=== PATIENT | female | born 1985 | race Caucasian/White ===

== ENCOUNTER 2019-12-12 12:02 | Outpatient (CLI) | payer OTHER, SELFPAY ==
[2019-12-12 12:37] LABS: Lipase 294 U/L (23-300)
== END 2019-12-12 12:03 | disposition home or self-care (01) ==
PROVIDERS: Visit Provider Internal Medicine Gastroenterology
DX: R10.9 Unspecified abdominal pain (principal)
CPT/HCPCS: 36415; 83690

== ENCOUNTER 2020-06-18 08:01 | Outpatient (CLI) | payer OTHER, SELFPAY | END 2020-06-18 08:02 | disposition home or self-care (01) | PROVIDERS: PCP Nurse Practitioner; Visit Provider Internal Medicine Gastroenterology | DX: R19.7 Diarrhea, unspecified (principal); K51.90 Ulcerative colitis, unspecified, without complications | CPT/HCPCS: 87045; 87046; 87177; 87209; 87324; 87427; 87493; 89055 ==

== ENCOUNTER 2020-09-26 16:31 | Outpatient (CLI) | payer OTHER, SELFPAY | END 2020-09-26 16:32 | disposition home or self-care (01) | PROVIDERS: PCP Nurse Practitioner; Visit Provider Internal Medicine Gastroenterology | DX: R19.7 Diarrhea, unspecified (principal) | CPT/HCPCS: 87324 ==

== ENCOUNTER 2020-11-14 17:13 | Outpatient (CLI) | payer OTHER, SELFPAY ==
[2020-11-14 19:40] LABS: Hepatitis B Surface Antigen Negative (Negative)
[2020-11-17 23:48] LABS: NIL 0.01 IU/mL; Quantiferon TB Plus, 1T NEGATIVE (NEGATIVE); TB1-NIL 0.01 IU/mL
== END 2020-11-14 17:14 | disposition home or self-care (01) ==
LOC: ANHLAB 17:14
PROVIDERS: PCP Nurse Practitioner; Visit Provider Internal Medicine Gastroenterology
DX: K51.90 Ulcerative colitis, unspecified, without complications (principal)
CPT/HCPCS: 36415; 86480; 87340

== ENCOUNTER 2021-02-04 11:04 | Outpatient (CLI) | payer OTHER, SELFPAY | END 2021-02-04 11:05 | disposition home or self-care (01) | PROVIDERS: PCP Nurse Practitioner; Visit Provider Nurse Practitioner Family | DX: E66.9 Obesity, unspecified (principal); K51.90 Ulcerative colitis, unspecified, without complications | CPT/HCPCS: 87045; 87046; 87324; 87427 ==

== ENCOUNTER 2021-05-27 09:31 | Outpatient (CLI) | payer OTHER, SELFPAY | END 2021-05-27 09:32 | disposition home or self-care (01) | LOC: ANHLAB 09:33 | PROVIDERS: PCP Nurse Practitioner; Visit Provider Internal Medicine Gastroenterology | DX: R19.7 Diarrhea, unspecified (principal) | CPT/HCPCS: 87324 ==

== ENCOUNTER 2022-01-17 15:28 | Outpatient (CLI) | payer BC, SELFPAY | END 2022-01-17 15:29 | disposition home or self-care (01) | PROVIDERS: PCP Nurse Practitioner; Visit Provider Internal Medicine Gastroenterology | DX: K51.90 Ulcerative colitis, unspecified, without complications (principal) | CPT/HCPCS: 36415; 83520 ==

== ENCOUNTER 2022-03-10 12:16 | Outpatient (CLI) | payer BC, SELFPAY ==
--- NOTE | ~2022-03-10 | XR_ITS ---
XR sacroiliac joints min 3V DATE: 03/10/2022 12:52 INDICATION: Chronic bilateral hip pain and sacroiliac pain TECHNIQUE: AP and bilateral oblique views COMPARISON: None FINDINGS: Normal alignment at the pubic symphysis and sacroiliac joints. No erosive change or ankylos is or any significant degenerative change or fracture or dislocation at the sacroiliac joints. IMPRESSION: Negative Reviewed, dictated and finalized at Location [facility]. Reviewed, dictated and finalized at location A. IMPRESSION: Negative
--- NOTE | ~2022-03-10 | XR_ITS ---
XR lumbar spine min 4V 03/10/2022 12:52 Indication: Chronic back pain Procedure: 5 views of the cervical spine Comparison: No prior studies for comparison. Findings: There is mild disc narrowing at L5-S1. No fracture, subluxation or dislocation. There are l eft renal stones. No evidence for spondylolysis or spondylolisthesis. Sacral foramen are symmetric. M ild facet hypertrophy at L5-S1. Impression: 1: Mild lumbar spondylosis. 2: Left nephrolithiasis. Reviewed, dictated and finalized at location A. Impression: 1: Mild lumbar spondylosis. 2: Left nephrolithiasis.
--- NOTE | ~2022-03-10 | XR_ITS ---
XR_CERV2-3V_CR INDICATION: Neck pain for one year TECHNIQUE: 4 views of the cervical spine. FINDINGS: No prior studies for comparison. The cervical spine is visualized to the cervicothoracic junction. There is no prevertebral soft tiss ue swelling, listhesis, or loss of vertebral body height. Intervertebral disc spaces are normal. Th e osseous central canal is patent. No displaced cervical spine fractures are identified. IMPRESSION: 1. No acute osseous abnormality of the cervical spine. Reviewed, dictated and finalized at location A.
--- NOTE | ~2022-03-10 | XR_ITS ---
XR hand BI arthritis min 3V 03/10/2022 12:52 Indication: Bilateral hand pain Procedure: 4 views of each hand Comparison: No prior studies for comparison. Findings: There is anatomic alignment. No significant joint space narrowing. No erosive changes. No f racture, subluxation or dislocation. No focal soft tissue abnormality. No foreign bodies. Impression: 1: No significant bone or joint abnormality. Reviewed, dictated and finalized at location A. Impression: 1: No significant bone or joint abnormality.
[2022-03-10 13:14] LABS: Rheumatoid Factor < 8.6 IU/ML (<12)
[2022-03-10 13:15] LABS: Complement C3 108 mg/dL (88-165)
[2022-03-14 10:44] LABS: Anti Cyclic Citrullinated Pept <16 Units (<20)
[2022-03-14 20:20] LABS: SM Antibody <1.0; SM/RNP Antibody <1.0; SS-A <1.0; SS-B <1.0
== END 2022-03-10 12:17 | disposition home or self-care (01) ==
LOC: ANHLAB 12:18
PROVIDERS: PCP Nurse Practitioner; Visit Provider Internal Medicine
DX: M54.2 Cervicalgia (principal); R20.0 Anesthesia of skin; R76.8 Other specified abnormal immunological findings in serum; M19.90 Unspecified osteoarthritis, unspecified site; K51.90 Ulcerative colitis, unspecified, without complications; M47.816 Spondylosis without myelopathy or radiculopathy, lumbar region; N20.0 Calculus of kidney
CPT/HCPCS: 36415; 72040; 72110; 72202; 73130; 86160; 86200; 86225; 86235; 86430

== ENCOUNTER 2022-04-28 11:18 | Outpatient (CLI) | payer BC, SELFPAY ==
[2022-05-04 21:13] LABS: Calprotectin, Stool 347 mcg/g
== END 2022-04-28 11:19 | disposition home or self-care (01) ==
LOC: ANHLAB 11:19
PROVIDERS: PCP Nurse Practitioner; Visit Provider Internal Medicine Gastroenterology
DX: K51.90 Ulcerative colitis, unspecified, without complications (principal)
CPT/HCPCS: 83993

== ENCOUNTER 2023-02-06 17:33 | Outpatient (CLI) | payer OTHER, SELFPAY ==
[2023-02-06 19:07] LABS: Hepatitis B Surface Antigen Negative (Negative)
[2023-02-08 13:08] LABS: NIL 0.11 IU/mL; Quantiferon TB Plus, 1T NEGATIVE (NEGATIVE); TB1-NIL 0.01 IU/mL; TB2-NIL <0.00 IU/mL
== END 2023-02-06 17:34 | disposition home or self-care (01) ==
PROVIDERS: PCP Nurse Practitioner; Visit Provider Internal Medicine Gastroenterology
DX: K51.90 Ulcerative colitis, unspecified, without complications (principal)
CPT/HCPCS: 36415; 86480; 87340

== ENCOUNTER 2023-09-16 17:01 | Emergency (ER) | payer OTHER, SELFPAY ==
--- NOTE | 2023-09-16 17:10 | ED.URI ---
HPI - URI/Sore Throat General Chief Complaint: Upper Respiratory Infection Stated Complaint: Sore Throat/Right Ear Irritation Time Seen by Provider: 09/16/23 17:10 Source: patient Mode of arrival: ambulatory Limitations: no limitations History of Present Illness HPI Narrative: Eveline is a 38-year-old female patient presenting to the clinic today with complaints of sore throat and right ear pain. She reports she has been having nasal congestion for over the past week. States that sore throat and right ear pain started today. Had fever over the weekend. MD elicited complaint: sore throat and nasal congestion Related Data Home Medications Medication Instructions Recorded Confirmed loperamide 2 mg capsule (Imodium 2 mg PO Q6H PRN Diarrhea 10/28/20 09/16/23 A-D) labetalol 100 mg tablet 200 mg PO BID 10/31/20 09/16/23 mecobalamin (vitamin B12) 10,000 10,000 mcg IM MONTHLY 03/21/22 09/16/23 mcg solution for injection prenat.vits,marleny,dgd-rwpr-ywckf 1 tablet PO DAILY 05/09/22 09/16/23 sertraline 25 mg tablet (Zoloft) 25 mg PO DAILY 10/24/22 09/16/23 Allergies Allergy/AdvReac Type Severity Reaction Status Date / Time bacitracin Allergy Intermediate RASH Verified 08/28/23 13:34 neomycin Allergy Intermediate RASH Verified 08/28/23 13:34 nut - unspecified Allergy Intermediate RASH, HIVES Verified 08/28/23 13:34 polymyxin B Allergy Intermediate RASH Verified 08/28/23 13:34 NEOMYCIN Allergy Intermediate RASH Uncoded 08/28/23 13:34 Review of Systems Review of Systems: Pertinent positives per HPI. Patient denies any fever, chills, rash, headache, visual changes, dizziness, cough, shortness of breath, chest pain, palpitations, nausea, vomiting, diarrhea, constipation, abdominal pain, or any urinary issues. PMFSH Past Medical History Medical History EVANGELINA positive Asthma Eczema Irregular bowel habits Kidney stones Numbness in both hands Obesity Paresthesia and pain of both upper extremities Surgical History Surgical History H/O cystoscopy Hx of tonsillectomy Social History Social History Smoking status: Never smoker Alcohol intake: current Substance use: never Living arrangements: with family Occupation/Education: occupation Comments At the time of my signature, I reviewed and agree with the nursing past medical, surgical, social, and family history. There is no relevant family history pertinent to the patient complaint. Exam Narrative: General: Well-developed, well nourished, in no apparent distress Head: Normocephalic, atraumatic Eyes: Pupils equally round and reactive to light bilaterally, EOM intact, sclera and conjunctive clear, no discharge, lids normal Ears: Left tMs intact and clear, right TM intact, bulging, red, ear canals clear, no drainage, grossly hearing normal. Nose: Nares patent, clear nasal discharge, no inflammation, no sinus tenderness. Mouth: Oral pharynx red without lesions or masses, good dentition, MMM. Tonsils surgically absent Neck: Supple, trachea midline, no enlargement of anterior or posterior cervical nodes, no thyroid masses or goiter palpable. Cardio: Regular rate and rhythm, s1 and s2 normal, no murmur appreciated. Resp: Clear to auscultation bilaterally, no rhonchi, rales, wheezing or rubs Course Course Emergency Course: Portions of this record may have been created with voice recognition software. Level of Care: Express Care Visit Vital Signs Vital signs: Vital signs reviewed MDM - URI/Sore Throat MDM Narrative Medical decision making narrative: At the time of visit patient is resting comfortably on the exam table. Strep test was obtained and negative. Prescription for amoxicillin and prednisone was sent to the pharmacy as patient does have right otitis media. Supportive m
[2023-09-16 17:14] VITALS: BP 152/94; PULSE 113; RESP 18; TEMP 37.6; O2SAT 100
== END 2023-09-16 17:53 | disposition home or self-care (01) ==
PROVIDERS: Emergency Provider Nurse Practitioner Family; PCP Nurse Practitioner
DX: H66.91 Otitis media, unspecified, right ear (principal); J02.9 Acute pharyngitis, unspecified; J06.9 Acute upper respiratory infection, unspecified; J45.909 Unspecified asthma, uncomplicated; E66.9 Obesity, unspecified; Z68.41 Body mass index [BMI] 40.0-44.9, adult
CPT/HCPCS: 87081; 87880; 99213; G0463

== ENCOUNTER 2024-11-14 13:11 | Outpatient (CLI) | payer OTHER, SELFPAY ==
--- OUTSIDE RECORDS SUMMARY | 2024-11-14 13:15 | XMS_ITS | Encounter Summary ---
Author Organization [facility] Address [address] [place] [address]. [place] [address] [place] [address] Care Team Providers Care Aerodynamic Consultant Name Role Phone Krystle Arvizu DOUGLAS Primary Care Provider [phone] Encounter Details Date Type Department Care Team (Late st Contact Info) Description 12/26/2022 Hospital Follow-up Call [facility] [place] [address] Marla La, RN Social History Tobacco Use Types Packs/Day Years Used Date Smoking Tobacco: Former Smokeless Tobacco: Never Alcohol Use Standard Drinks/Week Comments Not Currently 0 (1 standard drink = 0.6 oz pur e alcohol) social Humiliation, Afraid, Rape, and Kick questionnair e Answer Date Recorded Within the last year, have y ou been afraid of your partner or ex-partner? No 12/19/2022 Within the last year, have y ou been humiliated or emotionally abused in other ways by your partner or ex-partner? No Within the last year, have y ou been kicked, hit, slapped, or otherwise physically hurt by your partner or ex-partner? No 12/19/2022 Within the last year, have y ou been raped or forced to have any kind of sexual activity by your partner or ex-partner? No 12/19/2022 Social Connection and Isolat ion Panel [NHANES] Answer Date Recorded In a typical week, how many times do you talk on the phone with family, friends, or neighbors? More than three times a week 12/19/2022 How often do you get togethe r with friends or relatives? Three times a week 12/19/2022 How often do you attend chur ch or islam services? Never 12/19/2022 Do you belong to any clubs o r organizations such as quaker groups, unions, fraternal or athletic groups, or school groups? No 12/19/2022 How often do you attend meet ings of the clubs or organizations you belong to? Never 12/19/2022 Are you , , di vorced, , never , or living with a partner? 12/19/2022 AUDIT-C Answer Date Recorded Q1: How often do you have a drink containing alc ohol? Monthly or less 12/19/2022 Q2: How many drinks containi ng alcohol do you have on a typical day when you are drinking? 1 or 2 12/19/2022 Q3: How often do you have si x or more drinks on one occasion? Never 12/19/2022 Overall Financial Resource Strain (CARDIA) Answe r Date Recorded How hard is it for you to pa y for the very basics like food, housing, medical care, and heating? Not very hard 12/19/2022 PHQ-2 Answer Date Recorded Patient Health Questionnaire-2 Score 3 10/10/2022 [facility] - Occupational Stress Questionnaire Answer Date Recorded Do you feel stress - tense, restless, nervous, or anxious, or unable to sleep at night because your mind is troubled all the time - these days? To some extent 12/19/2022 Exercise Vital Sign Answer Date Recorde d On average, how many days pe r week do you engage in moderate to strenuous exercise (like a brisk walk)? 3 days 12/19/2022 On average, how many minutes do you engage in exercise at this level? 10 min 12/19/2022 Hunger Vital Sign Answer Date Recorded Within the past 12 months, y ou worried that your food would run out before you got the money to buy more. Never true 12/20/19 23 Within the past 12 months, t he food you bought just didn't last and you didn't have money to get more. Never true 12/19/2022 PRAPARE - Transportation Answer Date Re corded In the past 12 months, has l ack of transportation kept you from medical appointments or from getting medications? No 05/2023 In the past 12 months, has l ack of transportation kept you from meetings, work, or from getting things needed for daily living? No 12/19/2022 Housing Stability Vital Sign Answer Geovanni e Recorded In the last 12 months, was t here a time when you were not able to pay the mortgage or rent on time? No 12/19/2022 In the last 12 months, how many places have you lived? 1 12/19/2022 In the last 12 months, was t here a time when you did not have a steady place to sleep or slept in a senior care (including now)? No 12/19/2022 Depression Answer Date Recor ded Last EPDS Total Score 8 12/24/2022 Last EPDS Self Harm Result 12/24 Comments No Sex and Gender Information Value Date Recorded Sex Assigned at Female 05/25/2019 10:09 PM CDT Legal Sex Female 5:43 PM CDT Gender Identity Female 05/25/2019 10:09 PM CDT Sexual Orientation Straight 05/25/2019 10 :09 PM CDT COVID-19 Exposure Response Date Recorded In the last 10 days, have yo u been in contact with someone who was confirmed or suspected to have Coronavirus/COVID-19? No / Unsure 12/23/2022 9:24 PM CDT documented as of this encounter Functional Status * Are you deaf or do you have serious difficulty hearing Answer Date of Assessment Author Status No 12/19/2022 2:03 AM Kelly Dunn RN Active * Are you blind or do you have serious difficulty seeing, even when wearing glasses? Answer Date of Assessment Author Status No 12/19/2022 2:03 AM Kelly Dunn RN Active * Do you have serious difficulty walking or climbing stairs? Answer Date of Assessment Author Status No 12/19/2022 2:03 AM Kelly Dunn RN Active * Do you have difficulty dressing or bathing? Answer Date of Assessment Author Status No 12/19/2022 2:03 AM Kelly Dunn RN Active * Because of a physical, mental, or emotional condition, do you have difficulty doing errands alone such as visiting a doctor's office or shopping? Answer Date of Assessment Author Status No 12/19/2022 2:03 AM Kelly Dunn RN Active documented as of this encounter Mental Status * Because of a physical, mental, or emotional condition, do you have serious difficulty concentrating, remembering, or making decisions? Answer Entry Date Author Status No 12/19/2022 2:03 AM Kelly Dunn RN Active documented in this encounter Plan of Treatment Upcoming Encounters Date Type Department Care Team (Late st Contact Info) Description 12/03/2024 1:20 PM CLEANING CREW MEMBER Telemedicine [facility] Family Medicine - [place] [address] [place] [id number] Krystle Arvizu NP [address] [place] [address] documented as of this encounter Goals Goal Patient Goal Type Associated Problems Recent Progress Patient-Stated? Author Family - family caregiver with be involved in care transitions and discharge planning General No Amanda Gifford, MANAGER COMMERCIAL REAL ESTATE documented as of this encounter Visit Diagnoses Not on filedocumented in this encounter Additional Health Concerns Infection Onset Date Last Indicated Resolved Time MRSA Comment:04/18/21 +MRSA Right Groin 04/19/2021 04/19/2021 Assessment Noted Time PHQ-9 Depression Total Score: 4 10/10/20 22 1:36 PM CLEANING CREW MEMBER documented as of this encounter Care Teams Aerodynamic Consultant Relationship Specialty Start Date End Date Krystle Arvizu NP [address] [place] [address] PCP - General NURSE PRACTITIONER 05/11/19 documented as of this encounter
--- OUTSIDE RECORDS SUMMARY | 2024-11-14 13:15 | XMS_ITS | Encounter Summary ---
Author Organization [facility] Address [address] [place] [address]. [place], [place] [id number] [place] [address] Care Team Providers Care Volunteer Fire Fighter Name Role Phone LuhKrystle paul DOUGLAS Primary Care Provider [phone] Encounter Details Date Type Department Care Team (Late st Contact Info) Description 04/10/2023 Simplebooklet Message Enc [facility] - [facility] [address] [place], [place] [address] [employer], [facility] Provider Air Quality Message Social History Tobacco Use Types Packs/Day Years [...] often do you attend chur ch or religion services? Never 12/19/2022 Do you belong to any clubs o r organizations such as holiness groups, unions, fraternal or athletic groups, or [...] Recorded Patient Health Questionnaire-2 Score 3 10/10/2022 [facility] - Occupational Stress Questionnaire Answer Date Recorded [...] place to sleep or slept in a assisted (including now)? No 12/19/2022 Depression Answer Date Recor ded Last EPDS Total Score 8 12/24/2022 Last EPDS Self Harm Result 12/24 Comments No Sex and Gender Information Value Date Recorded Sex Assigned at Female 05/25/2019 10:09 PM CDT Legal Sex Female 5:43 PM CDT Gender Identity Female 05/25/2019 10:09 PM CDT Sexual Orientation Straight 05/25/2019 10 :09 PM CDT documented as of this encounter [...] Date Author Status No 12/19/2022 2:03 AM KEYBOARD OPERATOR Kelly Kuhn RN Active documented in this encounter Plan of Treatment Upcoming Encounters Date Type Department Care Team (Late st Contact Info) Description 12/03/2024 1:20 PM KEYBOARD OPERATOR Telemedicine [facility] Family Medicine - [place] [address] [place] [phone] Krystle Arvizu NP [address] [place] [address] documented as of this encounter Goals Goal Patient Goal Type Associated Problems Recent Progress Patient-Stated? Author Family - family caregiver with be involved in care transitions and discharge planning General No Amanda Gifford, BUSINESS EXCELLENCE LEADER documented as of this encounter Visit Diagnoses Not on filedocumented in this encounter Additional Health Concerns Infection Onset Date Last Indicated Resolved Time MRSA Comment:04/18/21 +MRSA Right Groin 04/19/2021 04/19/2021 Assessment Noted Time PHQ-9 Depression Total Score: 4 10/10/20 22 1:36 PM KEYBOARD OPERATOR documented as of this encounter Care Teams Volunteer Fire Fighter Relationship Specialty Start Date End Date Krystle Arvizu NP [address] [place] [address] PCP - General NURSE PRACTITIONER 05/11/19 documented as of this encounter
--- OUTSIDE RECORDS SUMMARY | 2024-11-14 13:15 | XMS_ITS | CONTINUITY OF CARE DOCUMENT ---
Author Name kedar octaviokervin Address Unknown Organization [facility] Address [address] [place] [address] [address] [place] [address] Phone [phone] Care Team Providers Care Shelf Drier Operator Name Role Phone Wilian Newman MD Unavailable [phone] ZECHARIAH ZIEGLER MD Unavailable [phone] ZECHARIAH ZIEGLER MD Unavailable [phone] PROBLEMS Condition Status Date Provider Notes Vitamin D deficiency active Wilian Kruse Hypertension active Wilian Newman MD Colitis;uclerative active Wilian Newman MD Health maintenance examination active Abby Newman MD Obesity active Wilian Newman MD Asthma active Wilian Newman MD Anemia, iron deficiency active Wilian burdick MD Hyperlipidemia active Wilian Newman MD ENCOUNTERS Date Type Provider Location Encounter Diag nosis - In-person encounter Office Visit Wilian Newman MD [facility] - In-person encounter Office Visit Wilian Newman MD [facility] Health maintenance examinationHyperlipidemia - In-person encounter Office Visit Wilian Newman MD [facility]Col[facility] maintenance examinationObesityAsthmaAnemia, iron deficiency VITAL SIGNS Date Observation Value Provider Body Mass Index (Ratio) 40.47 kg/m2 Manuelito Washington COPY PREPARER blood pressure, diastolic 72 mm[Hg] Sh inocencia Washington COPY PREPARER blood pressure, systolic 130 mm[Hg] She rrsilvestre [place] COPY PREPARER weight E&M 200.4 [lb_av] Libia Alcantarall COPY PREPARER Body Mass Index (Ratio) 39.58 kg/m2 Krista Newman MD blood pressure, diastolic 90 mm[Hg] Da eliud Hyun blood pressure, systolic 152 mm[Hg] Dac ia Hyun oxygen saturation, oximetry 98 % Ciara Hyun respiratory rate E&M 16 /min Ciara V oss pulse rate 63 /min Ciara Hyun weight E&M 196 [lb_av] Ciara Hyun height E&M 59 [in_i] Ciara Hyun Body Mass Index (Ratio) 39.58 kg/m2 Krista Newman MD blood pressure, resting Yes Regina Salgado Edison blood pressure, diastolic 116 mm[Hg] Earl Chauhandaisy Hogan blood pressure, systolic 160 mm[Hg] Amanda Saucedoluisito Hogan oxygen saturation, oximetry 96 % Louie Hogan respiratory rate E&M 18 /min Rula Hogan pulse rate 96 /min Louie stanley weight E&M 196.0 [lb_av] Louie leiva height E&M 59 [in_i] Louie stanley ALLERGIES Allergy Name Onset Date Reaction Criticality Status NEOMYCIN High Criticality active RESULTS Date Observation Value Provider Reference Range Interpretation Location 5 reticulocyte count, blood, uncorrected 1.1 % [facility] 0.5-2.0 5 thyroid stimulating hormone, serum 1.51 ?IU/ ML [facility] 0.27-4.20 5 pro brain natriuretic peptide 62 pg/mL [facility] 0-450 5 very low density lipoproteins 30.8 mg/dL [facility] 5.0-40.0 5 LDL/HDL (low-density lipoprotein/high-den sity lipoprotein) ratio 3 mg/dL [facility] 0-5 lipoprotein, beta, serum, point, quantitative, calculated 131 mg/dL [facility] 0-100 High HDL cholesterol, serum 44 mg/dL [facility] 45-65 Low cholesterol, serum 206 mg/dL [facility] 0-200 High triglyceride, serum, fasting 154 mg/dL [facility] 0-150 High iron, serum 67 ug/dL [facility] 25-156 ferritin, serum 29 ng/mL [facility] 13-150 Estimated Glomerular Filtration Rate (calc) 86 (?) [facility] >59 chloride, serum 105 mmol/L [facility] 98-107 potassium, serum 4.3 mmol/L [facility] 3.5-5.1 sodium, serum 142 mmol/L [facility] [phone]/09/1 creatinine, serum 0.8 mg/dL [facility] 0.5-0.9 carbon dioxide, venous blood 21 mmol/L [facility] 22-29 Low albumin, serum 4.7 g/dL [facility] 3.5-5.2 calcium, serum 10.1 mg/dL [facility] 8.6-10.2 aspartate aminotransferase (SGOT), serum 15 1/L [facility] 0-32 alkaline phosphatase, serum 77 1/L [facility] 40-130 alanine aminotransferase (SGPT), serum 16 1/L [facility] 0-33 protein, total, serum 7.6 g/dL [facility] 6.6-8.7 bilirubin, serum, total 0.6 mg/dL [facility] 0.0-1.2 urea nitrogen, blood 8 mg/dL [facility] 6-20 blood glucose, random 79 mg/dL [facility] 74-99 platelet count 351 THOUSAND/ UL [facility] [phone]/09/1 5 Absolute Basophils 0.0 CELLS/UL [facility] 0.0-0.2 5 Absolute Monocytes 0.7 CELLS/UL [facility] 0.2-1.0 5 Absolute Lymphocytes 0.95 CELLS/UL [facility] 0.85-3.90 5 Absolute Neutrophils 6.7 CELLS/UL [facility] 1.5-7.8 5 mean corpuscular volume, RBC 95 fL [facility] 75-100 5 mean corpuscular hemoglobin concentration, RBC 32 G/DL [facility] 31-38 5 mean corpuscular hemoglobin, RBC 30 pg [facility] 25-35 5 hematocrit, blood 44 % [facility] 35-55 5 hemoglobin, blood 14.0 g/dL [facility] 11.5-16.5 5 erythrocyte count, whole blood 4.7 MILLION/U L [facility] 3.5-5.5 HISTORY OF MEDICATION USE Medication Status Instructions Dates Provider Indications Com ments HYDROCHLOROTHIAZIDE 25 MG ORAL TABLET active ONE TAB DAILY Wilian Newman MD ZANTAC 150 MAXIMUM STRENGTH TABLET active take one tablet daily Ciara Purvis VITAMIN D3 51206 UNIT ORAL TABLET active TAKE ONE TAB BY MOUTH WEEKLY Wilian Newman MD let her know vit ids low MULTIVITAMINS ORAL CAPSULE active ONE TAB. DAILY Louie Hogan FE TABS 325 (65 Fe) MG ORAL TABLET DELAYED RELEASE active ONE TABLET 3 times daily Louie Hogan SULFASALAZINE 500 MG ORAL TABLET active 4 tabs twice daily Louie Hogan LABETALOL HCL 200 MG ORAL TABLET active twice a day Libia Washington NP SOCIAL HISTORY Date Observation Value Provider smoking status Never smoker Libia cobian NP social history E&M S moking History: Tyrone healy has never smoked. Wilian Newman MD social history reviewed E&M revi ewed - no changes required Wilian Newman MD smoking status Never smoker Ciara Purvis social history E&M S moking History: Tyrone healy has never smoked. Wilian Newman MD social history reviewed E&M revi ewed - no changes required Wilian Newman MD smoking status Never smoker Louie Foster FAMILY HISTORY Family Member Condition Mother Family History of Hy pertension: INSURANCE PROVIDERS Payer name Policy type / Coverage type [place] [employer] party ID [employer] PPO Other [id number] ADVANCE DIRECTIVES Name Date DISCUSSED - NO DECISION MADE TREATMENT PLAN Date Name Performer Cardiology - COPY PREPARER nikolas judit:BP has improved with addition of HCTZ. She will continue current meds and efforts at low sodium diet and weight reduction. She will montior BP weekly or if she is feely bad. If BP increases she will call, otherwise she will keep annual appt with Dr. Newman. H er updated medication list for this problem includes: Hydrochlorothiazide 25 Mg Tabs (Hydrochlorothiazide) ..... One tab daily Labetalol Hcl 200 Mg Oral Tabs (Labetalol hcl) ..... Twice a day Libia Washington NP Cardiology follow up :will try hctz H er updated medication list for this problem includes: Hydrochlorothiazide 25 Mg Tabs (Hydrochlorothiazide) ..... One tab daily Labetalol Hcl 200 Mg Oral Tabs (Labetalol hcl) ..... Twice a day Wilian Newman MD Cardiology follow up :nml sleep test and tsh and pro bnp and echo, says b12 ok, says folate ok too Wilian Newman MD Cardiology follow up :on pills, infuskon not covered by insurance Wilian Newman MD Cardiology follow up:neg pft Rigoberto Newman MD Cardiology:suggseted iron infusi on with her heme md Wilian Newman MD Cardiology:not ready for srugery metnally Wilian Newman MD Cardiology:mult sx will dowd Abby Newman MD Cardiology:will incrae rx Wilian Newman MD Date Name RETICULOCYTE COUNT FERRITIN IRON, TOTAL CBC (INCLUDES DIFF/P LT) VITAMIN D, 25-HYDROX Y, LC/MS/MS TSH, 3RD GENERATION W/REFLEX TO FT4 COMPREHENSIVE METABO LIC PANEL, W/EGFR PROBNP, N TERMINAL LIPID PANEL DLCO - 43945 FRC - 68541 FVC - 93968 LIPID PANEL THYROID PANEL WITH T SH, 3RD GENERATION PROBNP, N TERMINAL COMPREHENSIVE METABO LIC PANEL, W/EGFR VITAMIN D, 25-HYDROX Y, LC/MS/MS Sleep Study Home Complete Echo HISTORY OF PROCEDURES Procedure Date Procedure Name Provider Procedure Notes S tatus SNOMED-CT: 977570506 [id number] Current Medications Documented Wilian Newman MD completed FVC / MVV - 76556 Wilian Newman MD c ompleted FRC - 30019 Wilian Newman MD complet ed SpO2 - 31580 Wilian Newman MD comple prachi DLCO - 82104 Wilian Newman MD comple prachi EKG Wilian Newman MD complete d SNOMED-CT: [id number] Current Medications Documented Wilian Newman MD completed
--- OUTSIDE RECORDS SUMMARY | 2024-11-14 13:15 | XMS_ITS | Encounter Summary ---
Author Organization [facility] Address [address] [place] [address]. [place] [address] [place] [address] Care Team Providers Care Student Services Director Name Role Phone Krystle Arvizu DOUGLAS Primary Care Provider [phone] Encounter Details Date Type Department Care Team (Late st Contact Info) Description 12/26/2022 Hospital Follow-up Call [facility] [place] [address] Marla La, RN Social History [...] often do you attend chur ch or jain services? Never 12/19/2022 Do you belong to any clubs o r organizations such as taoism groups, unions, fraternal or athletic groups, or [...] Recorded Patient Health Questionnaire-2 Score 3 10/10/2022 [facility] - Occupational Stress [...] place to sleep or slept in a [facility] (including now)? 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 - [place] [address] [place] [id number] Krystle Arvizu NP [address] [place] [address] documented as of this encounter Goals Goal Patient Goal Type Associated Problems Recent Progress Patient-Stated? 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
--- OUTSIDE RECORDS SUMMARY | 2024-11-14 13:15 | XMS_ITS | Encounter Summary ---
Author Organization [facility] Address [address] [facility] [place] [address] Care Team Providers Care Junior Administrative Assistant Name Role Phone Vernon Mccormack MD Primary Care Provider [phone] Encounter Details Date Type Department Care Team (Late st Contact Info) Description 05/05/2022 Lab Requisition [facility] [address] [facility] [place] [address] Nino Leone MD [address] [facility] [address] [place] [address] Social History Tobacco Use Types Packs/Day Years Used Date Smoking Tobacco: Never Assessed Sex and Gender Information Value Date Recorded Sex Assigned at Not on file Gender Identity Not on file Sexual Orientation Not on file documented as of this encounter Plan of Treatment Not on file documented as of this encounter Procedures Procedure Name Priority Date/Time Associated Diagnosis Comments DERMATOPATHOLOGY Routine 05/03/2022 3:33 AM CDT documented in this encounter Results * DERMATOPATHOLOGY (05/03/2022 3:33 AM CDT) Case Report Dermatopathology Report ? Case: [id number] ? Authorizing Provider: ??Nino Leone MD ?Collected: ? 05/03/2022 03:33 AM ? Ordering Location: ? [facility] ?Received: ?05/05/2022 10:01 AM ? Pathologist: ? Bailee Sanders MD ? Specimen: ?Skin, glabella ? 2 3:01 PM CDT DERMATOPATHOLOGY LABORATORY Final Diagnosis Specimen A. 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 Path# [id number] 2 3:01 PM CDT DERMATOPATHOLOGY LABORATORY Gross Description Specimen A: Received is one formalin filled container labeled with the patient's name and designated glabella. The specimen consists of a shave biopsy measuring 42u9x4mi and it is bisected. Jar 0. 2 3:01 PM CDT DERMATOPATHOLOGY LABORATORY Microscopic Description Specimen A. SKIN, glabella: There are nests of cytologically bland melanocytes within the dermis that mature with depth. Within the dermis, there is a space lined by epithelium that resembles normal epidermis and the infundibular portion of the hair follicle. Surrounding this is an infiltrate with neutrophils, histiocytes, and multinucleated giant cells. The epidermis is focally necrotic and covered with a scale-crust. There is fibrin at the base. 2 3:01 PM CDT DERMATOPATHOLOGY LABORATORY Disclaimer An external and internal positive and negative controls are appropriate for the histochemical, immunohistochemical and immunofluorescence stain(s) in this case (if any), except where stated explicitly. The performance characteristics of the stain(s) cited in this report were developed and its performance characteristic determined by the Dermatopathology Laboratory at [facility], directed by Dr. Bar La. These tests need not be, and therefore are not, approved by the [place] Food and Drug Administration. The tests are used for clinical purposes. Billing Codes Specimen Charges Stain Charges 52782 1 2 3:01 PM CDT DERMATOPATHOLOGY LABORATORY Embedded Images 2 3:01 PM CDT DERMATOPATHOLOGY LABORATORY Pathology/Cytolo gy TISSUE SPECIMEN FROM SKIN / Unknown 05/03/2022 3:33 AM CDT 05/05/2022 10:01 AM CDT Nino Leone MD LAB - PATHOLOGY/CYTO LOGY ORDERABLES DERMATOPATHOLOGY LABORATORY [facility] Department of Dermatology [address] [phone] documented in this encounter Visit Diagnoses Not on filedocumented in this encounter Care Teams Junior Administrative Assistant Relationship Specialty Start Date End Date Vernon Mccormack MD [address] [place] [address] [address] [place] [address] PCP - General 02/06/18 documented as of this encounter
--- OUTSIDE RECORDS SUMMARY | 2024-11-14 13:15 | XMS_ITS | Patient Health Summary ---
Author Organization [facility] Address [address] [place] [address] Care Team Providers Care Dish Washer Name Role Phone Vernon Mccormack MD Primary Care Provider [phone] Note from [facility],non-owned Affiliates and Associated Physician Practices is amultiple site organization consisting of ambulatory clinics and hospital sitesin [place], [place], [place] and [place]. This disclosure is being madepursuant to the Care Everywhere program and may not contain all information available regarding this patient. Last updated 18.[facility] Allergies * Neomycin(Rash) -Medium Criticality * Peanut-Derived(Rash) -Medium Criticality Medications * Be aware that medications may not be up to date on this document. Alwaysverify current medications with the patient. * Famotidine (PEPCID PO) * SULFASALAZINE PO * Acetaminophen 325 MG CAPS * ferrous sulfate 325 (65 FE) MG tablet(Started 12/23/2017) TAKE 1 TABLET BY MOUTH THREE TIMES DAILY * lisinopril (PRINIVIL; ZESTRIL) 10 MG tablet Take 10 mg by mouth * raNITIdine (ZANTAC) 150 MG tablet Take 150 mg by mouth * senna-docusate (SENOKOT-S) 8.6-50 MG tablet(Started 04/08/2017) Take 2 tablets by mouth * omeprazole (PriLOSEC) 20 MG capsule Take 20 mg by mouth daily before breakfast * aspirin EC (Ecotrin) 81 MG tablet Take 81 mg by mouth once daily * calcium polycarbophil (Fibercon) 625 MG tablet Take by mouth at bedtime * Vit-DSS-Fe Fum-FA ( vitamin with iron) tablet Take 1 tablet by mouth once daily * ferrous sulfate 325 (65 FE) MG tablet Take 325 mg by mouth once daily * adalimumab (Humira) 40 MG/0.8ML injection Inject 40 mg subcutaneously every 14 days * azaTHIOprine 100 MG Take 150 mg by mouth * DULoxetine (Cymbalta) 60 MG capsule Take 60 mg by mouth once daily * labetalol (Normodyne; Trandate) 200 MG tablet Take 200 mg by mouth 2 times daily Reasons: High Blood Pressure Disorder * cetirizine (ZyrTEC) 10 MG tablet Take 10 mg by mouth * cyanocobalamin (Vitamin B-12) injection Inject 1,000 mcg into muscle every 30 days Active Problems Problem Noted Date Diagnosed Date Advanced maternal age, primigravida, antepartum 07/30/2022 Ulcerative colitis with complication 07/30/2022 Benign essential hypertension, antepartum 2021 HSV infection 07/30/2022 Encounter for ultrasound 07/30/2022 16 weeks gestation of 07/30/2022 Anemia 01/30/2018 Immunizations * TDAP (7yrs+)(Given 01/05/2017) Social History Tobacco Use Types Packs/Day Years Used Date Smoking Tobacco: Former Cigarettes Smokeless Tobacco: Never Alcohol Use Standard Drinks/Week Comments Not Currently 0 (1 standard drink = 0.6 oz pur e alcohol) Sex and Gender Information Value Date Recorded Sex Assigned at Not on file Gender Identity Not on file Sexual Orientation Not on file Last Filed Vital Signs Vital Sign Reading Time Taken Comments Blood Pressure 151/83 12/03/2022 5:03 PM AUDIO SPECIALIST repeat 146/90, manual 138/80 Pulse 71 12/03/2022 5:03 PM AUDIO SPECIALIST Temperature 36.2 ??C (97.2 ??F) 04/08/2017 8 :57 AM CDT Respiratory Rate 18 12/03/2022 5:03 PM AUDIO SPECIALIST Oxygen Saturation 100% 04/08/2017 8: 57 AM CDT Inhaled Oxygen Concentration - - Weight 83 kg (183 lb) 07/30/2022 7:58 AM CDT Height 149.9 cm (4' 11 ) 07/03/2022 2:1 6 PM CDT Body Mass Index 36.96 07/03/2022 2:16 PM CDT Procedures * SONOGRAM - COMPLETE(Performed 12/03/2022) Performed for Advanced maternal age, primigravida, antepartum (HCC), Ulcerative colitis with complication, unspecified location (HCC), Encounter for ultrasound ([facility]), Mild asthma, unspecified whether complicated, unspecified whether persistent (HCC), Eczema, unspecified type, HSV infection, Benign essential hypertension, antepartum (HCC), SGA (small for gestational age) (HCC), 34 weeks gestation of (HCC), Supervision of normal first , antepartum ([facility]) * SONOGRAM - COMPLETE(Performed 11/14/2022) Performed for Advanced maternal age, primigravida, antepartum (HCC), Ulcerative colitis with complication, unspecified location (HCC), Encounter for ultrasound ([facility]), Benign essential hypertension, antepartum (HCC), 31 weeks gestation of (HCC) * SONOGRAM - COMPLETE(Performed 10/24/2022) Performed for Advanced maternal age, primigravida, antepartum (HCC), Encounter for ultrasound([facility]), 29 weeks gestation of (HCC) * SONOGRAM - COMPLETE(Performed 09/26/2022) Performed for Advanced maternal age, primigravida, antepartum (HCC), Encounter for ultrasound(HCC), 25 weeks gestation of (HCC) * SONOGRAM - COMPLETE(Performed 08/29/2022) Performed for Advanced maternal age, primigravida, antepartum (HCC), Encounter for ultrasound(HCC), 20 weeks gestation of (HCC) * SONOGRAM - COMPLETE(Performed 07/30/2022) Performed for Advanced maternal age, primigravida, antepartum (HCC), HSV infection, 16 weeks gestation of (HCC), Encounter for ultrasound ([facility]) * SONOGRAM - TRANSVAGINAL(Performed 07/03/2022) Performed for Advanced maternal age, primigravida, antepartum (HCC), Ulcerative colitis with complication, unspecified location (HCC), Benign essential hypertension, antepartum (HCC), Mild asthma, unspecified whether complicated, unspecified whether persistent (HCC), Eczema, unspecified type, HSV infection, 12 weeks gestation of (HCC) * DERMATOPATHOLOGY(Performed 05/03/2022) * VITAMIN B12(Performed 04/08/2017) * FOLATE(Performed 04/08/2017) * FERRITIN(Performed 04/08/2017) * IRON BLOOD(Performed 04/08/2017) * COMPREHENSIVE METABOLIC PANEL(Performed 04/08/2017) * CBC W AUTO DIFFERENTIAL(Performed 04/08/2017) * CBC W AUTO DIFFERENTIAL(Performed 04/08/2017) Results * SONOGRAM - COMPLETE (12/03/2022 3:24 PM AUDIO SPECIALIST) Only the most recent of6 resultswithin the time period is included. Anatomical Region Laterality Modality Other 12/03/2022 3:24 PM AUDIO SPECIALIST Narrative 12/03/2022 5:01 PM AUDIO SPECIALIST ?[facility] ?PHONE: ??FAX: ? Pat. Name: ?KATHRYN ROQUE. No: ?[id number] Study Date: ?? 12/03/2022 ??3:24pm , Age: ? 1985, 37 Pregnancies: ?? 1 Height: ? 59 in Weight: ? 178 lb LMP: ?04/04/2022 GA by LMP: ?34w5d GA by Base: ?? 34w5d ?? MAURICE: 01/09/2023 GA by US: ? 32w3d ?? MAURICE: 01/25/2023 GA Selected: ??34w5d (From [facility]) MAURICE: ?01/09/2023 Referring MD: Tammie Gupta MD Kier Drier: ??Monica Garcia, RDMS, RDCS CPT4: ? 46768,[id number] BMI: ?35.95 Hist/Ind: ? IUGR ?Joint pain on duloxetine, ulcerative colitis on Humira & azathioprine, CHTN on labetalol, Asthma & eczema, obesity class 2, AMA 37 with low-risk cf-DNA, IUGR ?Steroids- Fe &18 MEASUREMENTS & AGE ? GROWTH EVALUATION Measurement ??GA ? Range ? Srce %for GA Ratios ----- ---- ------- BPD ??8.1 cm 32w3d (26t3g-29i8n) Hadl BPD 4% FL/BPD 0.76 (0.71 - 0.87) HC ??31.1 cm 34w6d (92o5e-15c1i) Hadl HC ??19% FL/AC ??0.22 (0.20 - 0.24) AC ??28.2 cm 32w2d (82p6s-44k6a) Hadl AC ??3% HC/AC ??1.10 (0.94 - 1.13) FL ?? 6.2 cm 31w6d (57p7f-75v7b) Hadl FL ??1% CI ? 0.72 (0.70 - 0.86) HL ?? 5.4 cm 31w3d (96x7j-99a8y) Daljit HL ??<05 GA for sonogram 32w3d (88v9z-14s6n) ?? Weight Estimate: based on (BPD,HC,AC,FL) Hadlock ?Weight: 1969 gm (1681-2256gm) Had ? : 4lbs, 5oz ? Normal: 2533 gm (1899- 3166gm) Had ? Wt% ? 4% for 34w5d Heart Rate: 155 bpm Amniotic Fluid Index: 11.7cm (08.0-24.9) Q1: 2.7cm ??Q2: 2.0cm ??Q3: 2.7cm ??Q4: 4.4cm ?? Biophysical Profile: 07/23 Breathin ?? Tone: 2 ?? NST: 2 Movement: ??2 ?? AFV: ??2 EVAL, PLACENTA Presentation: cephalic Placenta: posterior Heart Rate: 155 bpm Amniotic Fluid Volume: normal DOPPLER Umbilical - Mid Cord S/D ??2.49(1.69 - 3.62) ? PI ?? 0.89 (0.61 - 1.19) ? Middle Cerebral Artery PSV ??52.4cm/s PI ?? 1.65 (1.49 - 2.67) ? Med PSV 50.4cm/s MoM 1.04(<1.5) CLINICAL SUMMARY A single fetus is seen in cephalic presentation. ??The measurements today are consistent with appropriate interval growth. size trending IUGR. ??The MAURICE selected is based on LMP. ??The amniotic fluid volume is within normal limits. ?? The FHR baseline was 135 bpm during today's reactive NST. ??The FHR variability was moderate. ?? IMPRESSION: Single, live intrauterine at 34w5d ?? Amniotic fluid volume: Normal ?? size is at the 4rth %ile with reassuring interval growth velocities of the AC and EFW. Biophysical profile: Normal (07/23) ?? Doppler studies: Reassuring ?? RECOMMEND: Continue weekly NST/BPP testing and Doppler studies ?? Repeat growth in 2 weeks Delivery at 39 weeks gestation or before then only if clinically indicated. Thank you for allowing us the opportunity to care for your patient. ?? Vinny Dennis MD <Electronic Signature> ??12/03/2022 05:01pm Sae Ott MD [facility] ORDERABLES * SONOGRAM - TRANSVAGINAL (07/03/2022 1:35 PM CDT) Anatomical Region Laterality Modality Other 07/03/2022 1:35 PM CDT Narrative 07/03/2022 5:25 PM CDT ?[facility] ?PHONE: ??FAX: ? Pat. Name: ?KATHRYN ROQUE. No: ?[id number] Study Date: ?? 07/03/2022 ??1:35pm , Age: ? 1985, 37 Pregnancies: ?? 1 Height: ? 59 in Weight: ? 178 lb LMP: ?04/04/2022 GA by LMP: ?12w6d GA by US: ? 12w6d ?? MAURICE: 01/09/2023 GA Selected: ??12w6d (LMP) MAURICE: ?01/09/2023 Referring MD: Tammie Gupta MD Kier Drier: ??Ludy Chung RDMS CPT4: ? 80023 BMI: ?35.95 Hist/Ind: ? Medication exposure: ?Joint pain on duloxetine ?Ulcerative colitis on Humira, azathioprine ?CHTN on labetalol ?Asthma & eczema ?FELISA c pending genetic screening MEASUREMENTS & AGE ? GROWTH EVALUATION Measurement ??GA ? Range ? Srce %for GA Ratios ----- ---- ------- CRL ??6.6 cm 12w6d (29o5c-84m7f) Hadl CRL 51% GA for sonogram 12w6d (13g9m-87e7a) based on (CRL) Avg ? Heart Rate: 173 bpm EVAL, PLACENTA Heart Rate: 173 bpm Anatomy!Seen!Not Seen!Comments # Fetuses ?! ??x ! ?!One Amnion ? ! ??x ! ?! Chorion ?! ??x ! ?! Myometrium ?? ! ??x ! ?! Right Ovary ??! ??x ! ?! Left Ovary ?? ! ?! ?x ?? ! Cul de sac ?? ! ??x ! ?! Calvarium* ?? ! ??x ! ?! Midline Falx*! ??x ! ?! 4th Ventricle! ??x ! ?! Lateral Ventr! ??x ! ?! Choroid Plexu! ??x ! ?! Nasal Bone* ??! ??x ! ?! Neck/Dorsum* ! ??x ! ?!< 3mm 4 CH* ?! ?! ?x ?? ! Abdominal Cor! ?! ?x ?? ! Diaphragm* ?? ! ?! ?x ?? ! Spine* ? ! ??x ! ?! Stomach* ? ! ??x ! ?! Kidneys* ? ! ?! ?x ?? ! Bladder* ? ! ??x ! ?! Upper Extremi! ??x ! ?! Lower Extremi! ??x ! ?! CLINICAL SUMMARY ASSESSMENT * Joaquin IUP at 12 weeks by stated EDC from LMP * Referred to MFM for obstetrical U/S and consultation secondary to: ? - Ulcerative colitis (UC) ? - Chronic hypertension (CHTN) ? - Asthma & eczema ? - Chronic anemia * Today's ultrasound (U/S) findings: ? - Living joaquin intrauterine fetus ? - The crown rump length (CRL) is consistent with LMP ? - The nuchal translucency (NT) measurement is normal-range COUNSELING & RECOMMENDATIONS * Pertinent medical & obstetrical history ? - Medications: vitamins, B12, iron, low-dose aspirin, Prilosec, Zirtec & below ? - Past Medical History: ? - Maternal obesity Class II (BMI 35.0-39.9) ? - Chronic hypertension X7-8 years on labetalol 200 BID ? - Asthma on PRN albuterol (last used in October) ? - Ulcerative colitis (UC) X7 years on Humira & azathioprine per GI ? - Joint pain on Cymbalta ? - Chronic anemia on IV iron per Payroll Specialist ? - Past Obstetrical History: ? 1) Current ?- Advanced maternal age (AMA) 37 years with pending cf-DNA * We discussed relevant clinical issues of IBD during : ? - Course during is determined in part by disease activity @ conception ? - Patients in remission @ conception are likely to remain in remission during ? - Active disease @ conception increases risk of continued/worsening symptoms during ? - There is an increased risk for bleeding, IUGR, PTB ? - Remission or minimal inflammation during should be the goal to reduce risks ? - Mode of delivery becomes a clinical issue in some cases: ? - Generally recommend C/S for active perineal disease or rectal involvement ? - Consider C/S with ileoanal anastomosis or J pouch (uncertain benefit) ? - Vaginal delivery can be attempted with a colostomy or ileostomy * Regarding the potential risk of defects due to medication exposure: ? - The background risk for defects is 3-5% in the general population ? - Some medications may be associated with or cause: ? - Congenital malformations ? - Suboptimal growth ? - neurodevelopmental effects ? - outcomes may be influenced by: ? - Timing, dose, duration & number of medications or substances ? - Underlying medical condition(s) ? - Genetic factors ? - Teratogenicity information for many medications is obtainable from various sources: ? - The Organization of Teratology Information Specialists (JOSE) at [employer].org ? - Lexicomp through various sources such as [employer]ige[employer] ? - Not all abnormalities are detectable by serum & U/S testing * We discussed her medication exposure during : ? - azathioprine (Imuran) ? - Pharmacologic category: immunosuppressant agent ? - Reported to be teratogenic in animal studies ? - Azathioprine crosses the placenta in humans ? - Reported complications include: ? - Congenital anomalies (no clear pattern), IUGR ? - Immunosuppression, hematologic toxicities (lymphopenia, pancytopenia) ? - There are no adequate and well-controlled studies in women ? - A Fact Sheet is available from ClassPass.org ? - adalimumab (Humira) ? - Rx category: disease modifying antirheumatic, miscellaneous GI agent, monoclonal antibody, TNF blocking agent ? - As advances, adalimumab increasingly crosses the placenta ? - Increased adverse maternal/ effects not observed with exposure ([place] 2020) ? - Considered by ACOG to have low-moderate risk when used in (2019 ACOG CO-776) ? - Considered by [place] [employer] to be compatible with for Rx of psoriasis ? - Dosing can be adjusted so delivery occurs at the lowest serum concentration ? - Try to give final dose 2-3 weeks before EDC (1-2 weeks if weekly dosing) ? - After delivery can then continue administration 48 hours ? - / immunologic considerations: ? - Should be considered immunosuppressed for 1-3 months following in utero exposure ? - Avoid live vaccines (e.g. rotavirus) for first 6 months of life, if 3rd-trimester exposure ? - The ACOG considers adalimumab compatible with ? - Can use [employer] to find the most up-to-date information for counseling ? - Registry participation: JOSE Autoimmune Diseases Study at [phone] ? - JOSE Fact Sheet at https://mothertobaby.org/fact-sheets/fzmwdgcfqt-tswxxl-vlerfhuzo/ * Chronic hypertension in ? - Her BP today in the [facility] office was 111/81 mmHg and urine protein was - ? - labs (serum creatinine, ALT, AST, platelets, PCR) all within normal range * With HTN in there are increased risks of maternal- complications, including: ? - /: IUGR, IUFD, prematurity, NICU admission ? - Maternal: preeclampsia, placental abruption, delivery, hemorrhage, CVA * To better assess her BP trends & optimal BP management: ? - Initiate daily ambulatory BP monitoring, with appropriate size cuff ? - The 2018 ACOG PB-203 recommends maintaining BP at 120-159/80-109 mmHg range ? - Based upon the 2021 CHAP study, ACOG recommends maintaining BP < 140/90 mmHg ? - Thus current target goal will be SBP <140 and DBP <90 mmHg ? - Thresholds of BP for which she should notify her OB provider: ? - For trends in SBP >= 140 or DBP >= 90 mmHg ? - For any SBP >= 160 or DBP >= 110 mmHg * Baseline maternal & assessments are advised ? - A 12-lead EKG if not done in the last year ? - Monitor H&H and iron stores every trimester and treat anemia proactively ? - At 16 weeks U/S for early anatomic survey ? - At 20 weeks U/S for comprehensive anatomic survey ? - Serial U/S for growth & development every 4 weeks ? - Start 2X/week testing (NST+HUDSON or BPP) by 32 weeks * Delivery timing to be determined COMMENTS * Findings were explained & questions were addressed & precautions were given * She was counseled that U/S may not detect all maternal- abnormalities * Thank you very much for requesting MFM participation in her obstetrical care * Consult exclusive of procedures was 60 minutes [id number] with the patient, over half of time was discussion of the diagnosis & treatment plan Sae Ott MD <Electronic Signature> ??07/03/2022 05:25pm Tammie Peterson MD [facility] ORDERABLES * DERMATOPATHOLOGY (05/03/2022 3:33 AM CDT) Case Report Dermatopathology Report ? Case: [id number] ? Authorizing Provider: ??Nino Leone MD ?Collected: ? 05/03/2022 03:33 AM ? Ordering Location: ? [facility] ?Received: ?05/05/2022 10:01 AM ? Pathologist: ? Bailee Sanders MD ? Specimen: ?Skin, glabella ? 2 3:01 PM [facility] Final Diagnosis Specimen A. SKIN, glabella: INTRADERMAL MELANOCYTIC NEVUS (D22.39) EPIDERMOID CYST WITH EVIDENCE OF RUPTURE (L72.0) EPIDERMAL NECROSIS SUGGESTIVE OF EXCORIATION (L98.499) 2 3:01 PM [facility] Clinical History Nevus. Path# [id number] 2 3:01 PM [facility] Gross Description Specimen A: Received is one formalin filled container labeled with the patient's name and designated glabella. The specimen consists of a shave biopsy measuring 93t1c8on and it is bisected. Jar 0. 2 3:01 PM [facility] Microscopic Description Specimen A. SKIN, [...] fibrin at the base. 2 3:01 PM [facility] Disclaimer An external and internal positive and negative controls are appropriate for the histochemical, immunohistochemical and immunofluorescence stain(s) in this case (if any), except where stated explicitly. The performance characteristics of the stain(s) cited in this report were developed and its performance characteristic determined by the Dermatopathology Laboratory at [facility], directed by Dr. Bar La. These tests need not be, and therefore are not, approved by the [place] Food and Drug Administration. The tests are used for clinical purposes. Billing Codes Specimen Charges Stain Charges 70874 1 2 3:01 PM CDT DERMATOPATHOLOGY LABORATORY Embedded Images 2 3:01 PM CDT DERMATOPATHOLOGY LABORATORY Pathology/Cytolo gy TISSUE SPECIMEN FROM SKIN / Unknown 05/03/2022 3:33 AM CDT 05/05/2022 10:01 AM CDT Nino Leone MD LAB - PATHOLOGY/CYTO LOGY ORDERABLES DERMATOPATHOLOGY LABORATORY [facility] Department of Dermatology [address], [address] [phone] * (ABNORMAL) CBC W AUTO DIFFERENTIAL (04/08/2017 9:40 AM CDT) Only the most recent of2 resultswithin the time period is included. WBC 5.3 3.5 - 10.5 10? 3 /uL [facility] RBC 4.85 3.90 - 5.00 10? 6 /uL [facility] Hemoglobin 11.9(L) 12.0 - 15.5 g/dL [facility] Hematocrit 37.5 35.0 - 45.0 % [facility] MCV 77.3(L) 81.0 - 97.0 fL [facility] MCH 24.5(L) 28.0 - 34.0 pg [facility] MCHC 31.7(L) 32.0 - 36.0 g/dL [facility] Platelet Count 404(H) 150 - 400 10? 3 /uL [facility] RDW-SD 50.8(H) 36.0 - 50.0 fL [facility] RDW-CV 18.0(H) 11.2 - 14.8 % [facility] MPV 9.2(L) 9.3 - 12.8 fL [facility] Neutrophils % 62.1 35.0 - 70.0 % [facility] Lymphocytes % 29.2 19.7 - 55.1 % [facility] Monocytes % 7.0 3.0 - 15.0 % [facility] Eosinophils % 0.9 0.0 - 6.0 % [facility] Basophil % 0.6 0.0 - 1.5 % [facility] Neutrophils Absolute 3.3 1.6 - 7.0 10? 3 /uL [facility] Lymphocyte Absolute 1.5 0.8 - 2.9 10? 3 /uL [facility] Monocytes Absolute 0.37 0.14 - 0.66 10? 3 /uL [facility] Eosinophils Absolute 0.05 0.00 - 0.22 10? 3 /uL [facility] Basophils Absolute 0.03 0.00 - 0.06 10? 3 /uL [facility] Immature Granulocytes % 0.2 0.0 - 1.0 % [facility] Blood specimen (specimen) BLOOD SPECIMEN / Unknown 04/08/2017 9:40 AM CDT 04/08/2017 9:42 AM CDT Michael Lutz MD LAB - HEMATOLOGY ORD ERABLES Performing Organization Address City/State/[facility] [[email or web address]] Co de Phone Number [address] [phone] * (ABNORMAL) COMPREHENSIVE METABOLIC PANEL (04/08/2017 9:40 AM CDT) BUN 11 7 - 26 mg/dL [facility] Creatinine 0.8 0.6 - 1.2 mg/dL [facility] Sodium 137 136 - 145 mmol/L [facility] Potassium 4.0 3.5 - 4.5 mmol/L [facility] Chloride 108(H) 98 - 107 mmol/L [facility] CO2 21(L) 22 - 29 mmol/L [facility] Glucose 94 70 - 115 mg/dL [facility] Calcium 9.8 8.4 - 10.2 mg/dL [facility] Protein Total 7.8 6.0 - 8.3 g/dL [facility] Albumin 4.1 3.4 - 5.0 g/dL [facility] Bilirubin Total 0.4 0.2 - 1.2 mg/dL [facility] Alkaline Phosphatase 80 40 - 150 Units/L [facility] ALT 14 0 - 55 Units/L [facility] AST 14 5 - 34 Units/L [facility] Anion Gap 12 8 - 18 [facility] BUN/Creatinine Ratio 14 7 - 23 [facility] Osmolality Calculated 283 270 - 300 mOsm/kg [facility] Albumin/Globulin Ratio 1.1 1.1 - 2.3 [facility] eGFR >60 >60 mL/min/1.7 3 m2 [facility] Blood specimen (specimen) BLOOD SPECIMEN / Unknown 04/08/2017 9:40 AM CDT 04/08/2017 9:49 AM CDT Michael Lutz MD LAB - CHEMISTRY [facility] [address] [phone] * (ABNORMAL) IRON BLOOD (04/08/2017 9:40 AM CDT) Iron 34(L) 40 - 150 mcg/dL [facility] Blood specimen (specimen) BLOOD SPECIMEN / Unknown 04/08/2017 9:40 AM CDT 04/08/2017 9:49 AM CDT Narrative [facility] - 04/08/2017 10:17 AM CDT For transferrin saturation from [facility] Lab order this and Transferrin Michael Lutz MD LAB - CHEMISTRY [place] [address] [phone] * FOLATE (04/08/2017 9:40 AM CDT) Folate 12.0 7.0 - 31.4 ng/mL [facility] Blood specimen (specimen) BLOOD SPECIMEN / Unknown 04/08/2017 9:40 AM CDT 04/08/2017 9:49 AM CDT Michael Lutz MD LAB - CHEMISTRY [place] [address] [phone] * VITAMIN B12 (04/08/2017 9:40 AM CDT) Vitamin B12 596 213 - 816 pg/mL [facility] Blood specimen (specimen) BLOOD SPECIMEN / Unknown 04/08/2017 9:40 AM CDT 04/08/2017 9:49 AM CDT Michael Lutz MD LAB - CHEMISTRY [place] [address] [phone] * (ABNORMAL) FERRITIN (04/08/2017 9:40 AM CDT) Ferritin 5(L) 13 - 204 ng/mL [facility] Blood specimen (specimen) BLOOD SPECIMEN / Unknown 04/08/2017 9:40 AM CDT 04/08/2017 9:49 AM CDT Michael Lutz MD LAB - CHEMISTRY [place] [address] [phone] Care Teams Dish Washer Relationship Specialty Start Date End Date Vernon Mccormack MD [address] [place] [id number] PCP - General 02/06/18
--- OUTSIDE RECORDS SUMMARY | 2024-11-14 13:15 | XMS_ITS | Encounter Summary ---
Author Organization [facility] Address [address] [place] [address] Phone Care Team Providers Care Seo Consultant Name Role Phone Krystle Arvizu APRN Primary Care Provider [phone] Adonis Bowers DO Unavailable [phone] Encounter Details Date Type Department Care Team (Late st Contact Info) Description 05/15/2024 Telephone [facility] [address] [place] [address] Adonis Bowers, DO [address] [place] [address] Social History Tobacco Use Types Packs/Day Years Used Date Smoking Tobacco: Never Smokeless Tobacco: Never Alcohol Use Standard Drinks/Week Comments Not Currently 0 (1 standard drink = 0.6 oz pur e alcohol) AUDIT-C Answer Date Recorded Frequency of Alcohol Consumption Not on file 06/08/2019 Average Number of Drinks Not on file 019 Frequency of Binge Drinking Never 05/15 PHQ-2 Answer Date Recorded Total Score - Questions 1-9 0 04/14 Sexually Active Control Partners Comments Yes Comments No Sex and Gender Information Value Date Recorded Sex Assigned at Not on file Legal Sex Female 8:34 AM CDT Gender Identity Not on file Sexual Orientation Not on file documented as of this encounter Miscellaneous Notes * Telephone Encounter - Nelson Saltersilvestre Arguello - 05/15/2024 3:12 PM CDT Tried calling patient about missed appt wasn't able to lvm,sent reminder letter out to return call to office for rescheduling. documented in this encounter Plan of Treatment Not on file documented as of this encounter Visit Diagnoses Not on filedocumented in this encounter Additional Health Concerns Assessment Noted Time PHQ-9 Depression Total Score: 0 05/30/20 21 1:04 PM CDT documented as of this encounter Care Teams Seo Consultant Relationship Specialty Start Date End Date Krystle Arvizu APRN [address] [place] [address] PCP - General Advanced Practice Nurse 05/26/19 Adonis Bowers DO [address] [place] [phone] Consulting Physician Hematology 09/30/20 documented as of this encounter
--- OUTSIDE RECORDS SUMMARY | 2024-11-14 13:15 | XMS_ITS | Referral Summary ---
Author Organization [facility] [employer] Address [address] [place] [address] Care Team Providers Care Manufacturing Lead Name Role Phone Vernon Mccormack MD Primary Care Provider [phone] Source Comments [facility] [employer]non-owned Affiliates and Associated Physician Practices is amultiple site organization consisting of ambulatory clinics and hospital sitesin [place], [place], [place] and [place]. This disclosure is being madepursuant to the Care Everywhere program and may not contain all information available regarding this patient. Last updated 18.[facility] [employer] Allergies Active Allergy Reactions Criticality Noted Date Comments Neomycin Rash Medium 01/05/2017 Peanut-Derived Rash Medium 04/08/2017 Medications * Be aware that medications may not be up to date on this document. Alwaysverify current medications with the patient. Medication Sig Dispensed Refills Start Date End Date Status Famotidine (PEPCID PO) Active SULFASALAZINE PO Active Acetaminophen 325 MG CAPS Active ferrous sulfate 325 (65 FE) MG tablet TAKE 1 TABLET BY MOUTH THREE TIMES DAILY 12/23/2017 Active lisinopril (PRINIVIL; ZESTRIL) 10 MG tablet Take 10 mg by mouth Act naseem raNITIdine (ZANTAC) 150 MG tablet Take 150 mg by mouth A ctive senna-docusate (SENOKOT-S) 8.6-50 MG tablet Take 2 tablets by mouth 04/08/2017 Active omeprazole (PriLOSEC) 20 MG capsule Take 20 mg by mouth daily before breakfast Active aspirin EC (Ecotrin) 81 MG tablet Take 81 mg by mouth once daily Active calcium polycarbophil (Fibercon) 625 MG tablet Take by mouth at bedtime Active Vit-DSS-Fe Fum-FA ( vitamin with iron) tablet Take 1 tablet by mouth once daily Active ferrous sulfate 325 (65 FE) MG tablet Take 325 mg by mouth once daily Active adalimumab (Humira) 40 MG/0.8ML injection Inject 40 mg subcutaneously every 14 days Active azaTHIOprine 100 MG Take 150 mg by mouth Active DULoxetine (Cymbalta) 60 MG capsule Take 60 mg by mouth once daily Active labetalol (Normodyne; Trandate) 200 MG tabletIndications:Hy pertension Take 200 mg by mouth 2 times daily Reasons: High Blood Pressure Disorder Active cetirizine (ZyrTEC) 10 MG tablet Take 10 mg by mouth Act naseem cyanocobalamin (Vitamin B-12) injection Inject 1,000 mcg into muscle every 30 days Active Active Problems Problem Noted Date Diagnosed Date Advanced maternal age, primigravida, antepartum 07/30/2022 Ulcerative colitis with complication 07/30/2022 Benign essential hypertension, antepartum 2021 HSV infection 07/30/2022 Encounter for ultrasound 07/30/2022 16 weeks gestation of 07/30/2022 Anemia 01/30/2018 Immunizations Name Administration Dates Next Due TDAP (7yrs+) 01/05/2017 Social History Tobacco Use Types Packs/Day Years [...] Comments Blood Pressure 151/83 12/03/2022 5:03 PM BOTTLE LABELER repeat 146/90, manual 138/80 Pulse 71 12/03/2022 5:03 PM BOTTLE LABELER Temperature 36.2 ??C (97.2 ??F) 04/08/2017 8 :57 AM CDT Respiratory Rate 18 12/03/2022 5:03 PM BOTTLE LABELER Oxygen Saturation 100% 04/08/2017 8:5 7 AM CDT Inhaled Oxygen Concentration - - Weight 83 kg (183 lb) 07/30/2022 7:58 AM CDT Height 149.9 cm (4' 11 ) 07/03/2022 2:1 6 PM CDT Body Mass Index 36.96 07/03/2022 2:16 PM CDT Plan of Treatment Not on file Care Teams Manufacturing Lead Relationship Specialty Start Date End Date Vernon Mccormack MD [address] [facility] [address] [place] [address] PCP - General 02/06/18
--- OUTSIDE RECORDS SUMMARY | 2024-11-14 13:15 | XMS_ITS | Clinical Summary ---
Author Organization [facility] Address [address] [place] [address] Care Team Providers Care Wool Washer Name Role Phone Vernon Mccormack MD Primary Care Provider Source Comments [facility],non-owned Affiliates and Associated Physician Practices is amultiple site organization consisting of ambulatory clinics and hospital sitesin [place], [place], [place] and [place]. This disclosure is being madepursuant to the Care Everywhere program and may not contain all information available regarding this patient. Last updated 18.[facility] Allergies Active Allergy Reactions Criticality Noted Date [...] Administration Dates Next Due TDAP (7yrs+) 01/05/2017 Family History Medical History Relation Name Comments Diabetes - Type 2 Maternal Grandfather Hypertension Maternal Grandfather Hypertension Maternal Grandmother Leukemia Maternal Grandmother Hypertension Mother Thyroid Disease Mother Diabetes - Type 2 Paternal Grandfather Lymphoma Paternal Grandfather Parkinson's Disease Paternal Grandfather Cancer - Breast Paternal Grandmother Cancer - Colon Paternal Grandmother Heart Failure Paternal Grandmother Bipolar Disorder Sister Relation Name Status Comments Maternal Grandfather Maternal Grandmother Mother Paternal Grandfather Paternal Grandmother Sister Social History Tobacco Use Types Packs/Day Years [...] Comments Blood Pressure 151/83 12/03/2022 5:03 PM INFRASTRUCTURE TECHNICIAN repeat 146/90, manual 138/80 Pulse 71 12/03/2022 5:03 PM INFRASTRUCTURE TECHNICIAN Temperature 36.2 ??C (97.2 ??F) 04/08/2017 8 :57 AM CDT Respiratory Rate 18 12/03/2022 5:03 PM INFRASTRUCTURE TECHNICIAN Oxygen Saturation 100% 04/08/2017 8:5 7 AM CDT Inhaled Oxygen Concentration - - Weight 83 kg (183 lb) 07/30/2022 7:58 AM CDT Height 149.9 cm (4' 11 ) 07/03/2022 2:1 6 PM CDT Body Mass Index 36.96 07/03/2022 2:16 PM CDT Plan of Treatment Health Maintenance Due Date Last Done Comments LIPID TESTING 1984 MAMMOGRAM 1984 PAP SMEAR 1984 COVID-19 VACCINE (#1) 1989 HIV SCREENING 1999 HEPATITIS C SCREENING 05/08/2002 HEPATITIS B VACCINE (1 of 3 - 19+ 3-dose series) 2003 PNEUMOCOCCAL VACCINE (1 of 2 - PCV) 2003 ZOSTER VACCINE (1 of 2) 2003 INFLUENZA VACCINE (#1) 2024 10/08/2019 DEPRESSION SCREENING 10/14/2024 DTAP/TDAP/TD VACCINES (2 - T d or Tdap) 01/05/2027 01/05/2017 HIB VACCINE Aged Out No longer eligi ble based on patient's age to complete this topic HPV VACCINE Aged Out No longer eligi ble based on patient's age to complete this topic MENINGOCOCCAL (Group B) VACCINE Aged Out No longer eligible based on patient's age to complete this topic MENINGOCOCCAL VACCINE Aged Out No pauline oliver eligible based on patient's age to complete this topic Care Teams Wool Washer Relationship Specialty Start Date End Date Vernon Mccormack MD [address] [facility] [address] [place] [address] PCP - General 02/06/18
--- OUTSIDE RECORDS SUMMARY | 2024-11-14 13:15 | XMS_ITS | Encounter Summary ---
Author Organization [facility] Address [address] [place] [address]. [place] [address] [place] [address] Care Team Providers Care On Site Manager Name Role Phone LuhKrystle marin DOUGLAS Primary Care Provider [phone] Encounter Details Date Type Department Care Team (Late st Contact Info) Description 01/05/2020 [facility] Patient Accounts [address] [place] [address] [facility] Provider account balance Social History Tobacco Use Types Packs/Day Years Used Date Smoking Tobacco: Former Smokeless Tobacco: Never Alcohol Use Standard Drinks/Week Comments Yes 0 (1 standard drink = 0.6 oz pur e alcohol) social PHQ-2 Answer Date Recorded PHQ-2 Score 0 09/19/2019 Comments No Sex and Gender Information Value Date Recorded Sex Assigned at Female 05/25/2019 10:09 PM CDT Legal Sex Female 5:43 PM CDT Gender Identity Female 05/25/2019 10:09 PM CDT Sexual Orientation Straight 05/25/2019 10 :09 PM CDT documented as of this encounter Functional Status * RETIRED Are you deaf or do you have serious difficulty hearing Answer Date of Assessment Author Status No 05/25/2019 10:13 PM CDT Acti ve * RETIRED Are you blind or do you have serious difficulty seeing, even when wearing glasses? Answer Date of Assessment Author Status No 05/25/2019 10:13 PM CDT Acti ve * Do you have serious difficulty walking or climbing stairs? Answer Date of Assessment Author Status No 05/25/2019 10:13 PM Estelle De La Rosa RN Active * Do you have difficulty dressing or bathing? Answer Date of Assessment Author Status No 05/25/2019 10:13 PM Estelle De La Rosa RN Active * Because of a physical, mental, or emotional condition, do you have difficulty doing errands alone such as visiting a doctor's office or shopping? Answer Date of Assessment Author Status No 05/25/2019 10:13 PM Estelle De La Rosa RN Active documented as of this encounter Mental Status * Because of a physical, mental, or emotional condition, do you have serious difficulty concentrating, remembering, or making decisions? Answer Entry Date Author Status No 05/25/2019 10:13 PM Estelle De La Rosa RN Active documented in this encounter Plan of Treatment Upcoming Encounters Date Type Department Care Team (Late st Contact Info) Description 12/03/2024 1:20 PM REBEAMER Telemedicine [facility] Family Medicine [facility] [address] [place] [address] Krystle Arvizu NP [address] [place] [address] documented as of this encounter Visit Diagnoses Not on filedocumented in this encounter Additional Health Concerns Infection Onset Date Last Indicated Resolved Time COVID-19 Rule Out 04/18/2021 04/18/2021 04/18/2021 9:07 AM CDT MRSA Comment:04/18/21 +MRSA Right Groin 04/19/2021 04/19/2021 documented as of this encounter Care Teams On Site Manager Relationship Specialty Start Date End Date Krystle Arvizu NP [address] [place], [place] [id number] PCP - General NURSE PRACTITIONER 05/11/19 documented as of this encounter
--- OUTSIDE RECORDS SUMMARY | 2024-11-14 13:15 | XMS_ITS | Clinical Summary ---
Author Organization [facility] Address [address] [place] [address] Phone Care Team Providers Care Electric Organ Checker Name Role Phone Krystle Arvizu APRN Primary Care Provider [phone] Adonis Bowers DO Unavailable [phone] Allergies Active Allergy Reactions Criticality Noted Date Comments Neomycin Rash Medium 01/05/2017 Peanut Oil Rash Medium 04/08/2017 Medications acetaminophen (TYLENOL) 500 MG Tablet Take 500 mg by mouth. Active omeprazole (PRILOSEC) 20 MG CAPSULE DELAYED RELEASE Take 20 mg by mouth daily. 9 Active azaTHIOprine (IMURAN) 50 MG Tablet Take 150 mg by mouth. 9 Active calcium carbonate (TUMS EX) 750 MG Chewable Tablet Take 750 mg by mouth 3 times daily (before meals). Active triamcinolone (KENALOG) 0.1 % Cream APPLY TOPICALLY TO AFFECETED AREAS SCATTERED TO BODY TWICE DAILY NEEDED 1 Active Vit-Fe Fumarate-FA ( VITAMIN PO) Take by mouth. Act naseem cyanocobalamin (VITAMIN B-12) 1000 MCG/ML Solution 1,000 mcg by Intramuscular route. Active labetalol (NORMODYNE) 200 MG Tablet Take 1 Tablet by mouth 2 times daily. 2 Active Humira Pen 40 MG/0.4ML Pen-injector Kit ADMINISTER 40 MG UNDER THE SKIN EVERY 14 DAYS 3 Active sertraline (ZOLOFT) 25 MG Tablet 3 Active hydroCHLOROthi azide 25 MG Tablet Take 25 mg by mouth daily. Active Active Problems Problem Noted Date Diagnosed Date Ulcerative colitis with complication 11/26/2022 Positive Irma test 11/26/2022 Vitamin D deficiency 12/08/2021 Iron deficiency anemia 06/08/2019 Hyperlipidemia 07/16/2017 Hypertension 05/28/2017 Asthma 05/28/2017 Immunizations Immunization Administration Dates Next Due Influenza Vaccine, Quadrivalent, PF 10/08/2019 MMR Vaccine 12/22/2022 TDAP Vaccine 12/22/2022,01/05/2017 Family History Medical History Relation Name Comments Hypertension Mother Thyroid Disease Mother Cancer Paternal Grandfather Cancer Paternal Grandmother Bipolar Disorder Sister Relation Name Status Comments Brother Alive Father Alive Mother Alive Paternal Grandfather Paternal Grandmother Sister Alive Social History Tobacco Use Types Packs/Day Years Used Date Smoking Tobacco: Never Smokeless Tobacco: Never Tobacco Cessation:Counseling Given: Not Answered Alcohol Use Standard Drinks/Week Comments Not Currently [...] Sign Reading Time Taken Comments Blood Pressure 136/82 11/15/2023 9:12 AM HEDIS MANAGER Pulse 102 11/15/2023 9:12 AM HEDIS MANAGER Temperature 36.7 ??C (98 ??F) 11/15/2023 9:12 AM HEDIS MANAGER Respiratory Rate 18 11/15/2023 9:12 AM HEDIS MANAGER Oxygen Saturation 95% 11/15/2023 9:12 AM HEDIS MANAGER Inhaled Oxygen Concentration - - Weight 94.3 kg (208 lb) 11/15/2023 9:12 AM HEDIS MANAGER Height 149.9 cm (4' 11 ) 11/15/2023 9:12 AM HEDIS MANAGER Body Mass Index 42.01 11/15/2023 9:12 AM HEDIS MANAGER Plan of Treatment Health Maintenance Due Date Last Done Comments Hepatitis C Virus (HCV) Screening 1984 SARS-COV-2 Immunization (#1) 1989 Hepatitis B Immunization (1 of 3 - 19+ 3-dose series) 2003 Pneumococcal Immunization Combined (1 of 2 - PCV) 2003 Pap Smear 2005 Cervical Cancer Screening (CCS) 2014 HPV/Cotest 2014 Discussion re Starting/Frequency of Mammograms 2024 Influenza Immunization (#1) 2024 10/08/2019 Td Immunization Every 10 Years (Adults With 1 Tdap) 12/22/2032 12/22/2022, 01/05/2017 Respiratory Syncytial Virus (RSV) Immunization (Adult) (1 - 1-dose 75+ series) 2059 DTaP/Tdap/Td Immunization Discontinued 2022, 01/05/2017 Meningococcal Immunization (ACWY) Aged Out No longer eligible based on patient's age to complete this topic Rotavirus Immunization Aged Out No lo nger eligible based on patient's age to complete this topic Insurance MEDICAID [place] Care Teams Electric Organ Checker Relationship Specialty Start Date End Date Krystle Arvizu APRN [address] [place] [address] PCP - General Advanced Practice Nurse 05/26/19 Adonis Bowers DO [address] [place] [address] Consulting Physician Hematology 09/30/20
--- OUTSIDE RECORDS SUMMARY | 2024-11-14 13:15 | XMS_ITS | Encounter Summary ---
Author Organization [facility] Address [address] [place] [address] Phone Care Team Providers Care Conservator Artifacts Name Role Phone Krystle Arvizu APRN Primary Care Provider [phone] Adonis Bowers DO Unavailable [phone] Encounter Details Date Type Department Care Team (Late st Contact Info) Description 08/15/2020 Telephone [facility] [address] [place] [address] Adonis Bowers, [address] [place] [address] Social History Tobacco Use Types [...] Drinking Never 05/15 PHQ-2 Answer Date Recorded PHQ-2 Score 0 06/10/2019 Sexually Active Control Partners Comments Yes Comments Unknown Sex and Gender Information Value Date Recorded Sex Assigned at Not on file Legal Sex Female 8:34 AM CDT Gender Identity Not on file Sexual Orientation Not on file documented as of this encounter Miscellaneous Notes * Telephone Encounter - Jaylin Felix - 08/15/2020 11:45 AM CST PATIENT HAD A SCHOOL CONFLICT ON 08/23 SO SHE IS RESCHEDULED TO FOLLOWING WEEK 08/29. OPERATIONS LEADER documented in this encounter Plan of Treatment Not on file documented as of this encounter Visit Diagnoses Not on filedocumented in this encounter Additional Health Concerns Assessment Noted Time PHQ-9 Depression Total Score: 0 05/23/20 20 1:02 PM CDT documented as of this encounter Care Teams Conservator Artifacts Relationship Specialty Start Date End Date Krystle Arvizu APRN [address] [place] [address] PCP - General Advanced Practice Nurse 05/26/19 Adonis Bowers DO [address] [place] [phone] Consulting Physician Hematology 09/30/20 documented as of this encounter
--- OUTSIDE RECORDS SUMMARY | 2024-11-14 13:15 | XMS_ITS | Encounter Summary ---
Author Organization [facility] Address [address] [place] [address]. [place], [place] [id number] [place] [address] Care Team Providers Care Professional Security Officer Name Role Phone , Generic Conversion Primary Care Provider Unavailable Krystle Arvizu NP Primary Care Provider [phone] Encounter Details Date Type Department Care Team (Late st Contact Info) Description 08/17/2017 Abstract [place] [address] , Generic ConversionMD Social History Tobacco Use Types Packs/Day Years Used Date Smoking Tobacco: Never Assessed Comments Unknown Sex and Gender Information Value Date Recorded Sex Assigned at Female 05/25/2019 10:09 PM CDT Legal Sex Female 5:43 PM CDT Gender Identity Female 05/25/2019 10:09 PM CDT Sexual Orientation Straight 05/25/2019 10 :09 PM CDT documented as of this encounter Plan of Treatment Upcoming Encounters Date Type Department Care Team (Late st Contact Info) Description 12/03/2024 1:20 PM MACHINE BILLER Telemedicine [facility] Family Medicine - [place] [address] [place] [address] Krystle Arvizu NP [address] [place] [address] documented as of this encounter Visit Diagnoses Not on filedocumented in this encounter Additional Health Concerns Infection Onset Date Last Indicated Resolved Time COVID-19 Rule Out 04/18/2021 04/18/2021 04/18/2021 9:07 AM CDT MRSA Comment:04/18/21 +MRSA Right Groin 04/19/2021 04/19/2021 documented as of this encounter Care Teams Professional Security Officer Relationship Specialty Start Date End Date Lito Addison, PCP - General 08/27/14 Krystle [place] [address] PCP - General NURSE PRACTITIONER 05/11/19 documented as of this encounter
--- OUTSIDE RECORDS SUMMARY | 2024-11-14 13:15 | XMS_ITS | Encounter Summary ---
Author Organization [facility] Address [address] [place] [address]. [place] [address] [place] [address] Care Team Providers Care Hand I Thermal Cutter Name Role Phone Krystle Arvizu DOUGLAS Primary Care Provider [phone] Encounter Details Date Type Department Care Team (Late st Contact Info) Description 05/28/2019 Hospital Follow-up Call [facility] Tele[facility] [address] [facility] [place] [address] Lily Mota Social History Tobacco Use Types Packs/Day Years Used Date Smoking Tobacco: Former Smokeless Tobacco: Never Alcohol Use Standard Drinks/Week Comments Yes 0 (1 standard drink = 0.6 oz pur e alcohol) social Comments No Sex and Gender Information Value [...] Author Status No 05/25/2019 10:13 PM CDT Dornin, Estelle, RN Active * Do you have difficulty [...] st Contact Info) Description 12/03/2024 1:20 PM TERMINOLOGIST Telemedicine [facility] Family Medicine [address] [address] Krystle Arvizu NP [address] [place] [address] documented as of this encounter Visit Diagnoses Not on filedocumented in this encounter Additional Health Concerns Infection Onset Date Last Indicated Resolved Time COVID-19 Rule Out 04/18/2021 04/18/2021 04/18/2021 9:07 AM CDT MRSA Comment:04/18/21 +MRSA Right Groin 04/19/2021 04/19/2021 documented as of this encounter Care Teams Hand I Thermal Cutter Relationship Specialty Start Date End Date Krystle [place] [address] PCP - General NURSE PRACTITIONER 05/11/19 documented as of this encounter
--- OUTSIDE RECORDS SUMMARY | 2024-11-14 13:15 | XMS_ITS | Clinical Summary ---
Author Organization [facility] Address [address] [place] [address]. [place] [address] [place] [address] Care Team Providers Care Seal Delivery Vehicle Officer Name Role Phone Krystle Arvizu DOUGLAS Primary Care Provider [phone] Allergies Active Allergy Reactions Criticality Noted Date Comments Neomycin Rash High 01/05/2017 Nuts Rash Medium 04/08/2017 Peanut Oil Rash Medium 04/08/2017 Medications triamcinolone 0.1 % cream APPLY TOPICALLY TO AFFECTED AREA PRN FOR RASH 1 03/10/20 19 Active calcium carbonate 500 MG chewable tabletIndications :Acid Regurgitation Chew 1 tablet (500 mg total) by mouth daily. Indications: Acid Regurgitation 04/22/20 21 Active omeprazole 20 MG capsuleIndication s:GERD Take 1 capsule (20 mg total) by mouth daily. Indications: GERD 06/14/20 19 Active azaTHIOprine 50 MG tabletIndications :Ulcerative Colitis Take 3 tablets (150 mg total) by mouth daily. Indications: Ulcerated Colon On hold until Saturday 04/2809/17/20 19 Active Simethicone 125 MG CapIndications:Ga s Pain Take 1 capsule by mouth daily as needed (Gas). Indications: Gas Pain 10/19/19 20 Active loperamide (IMODIUM A-D) 2 MG tabletIndications :Diarrhea Take 2 mg by mouth 4 (four) times daily as needed for Diarrhea. Indications: Diarrhea 04/22/20 21 Active Adalimumab (HUMIRA PEN SC)Indications:Ul cerative Colitis Inject 40 mg into the skin weekly. Indications: Ulcerated Colon Every 2 weeks or as instructed by GI MD 04/22/20 Active acetaminophen (TYLENOL) 500 MG tabletIndications :Pain Take 1 tablet (500 mg total) by mouth every 6 (six) hours as needed for Pain. Indications: Pain 04/22/20 Active cetirizine 10 MG tablet Take 1 tablet (10 mg total) by mouth daily. Active aspirin EC (ECOTRIN) 81 MG tablet Take 81 mg by mouth daily. Active cyanocobalamin (B-12) 1000 MCG/ML injection Inject 1 mL (1,000 mcg total) into the muscle every 30 (thirty) days. Active 28-0.8 MG tablet Take 1 tablet by mouth daily. Active sertraline (ZOLOFT) 100 MG tablet Take 25 mg by mouth daily. Active valACYclovir (VALTREX) 1 g tablet Take 100 mg by mouth daily. Active hydroCHLOROthiazi de (HYDRODIURIL) 25 MG tablet Take 1 tablet (25 mg total) by mouth daily. 60 tablet 12/26/19 23 Active NIFEdipine XL (ADALAT CC) 60 MG 24 hr tablet Take 1 tablet (60 mg total) by mouth daily. 30 tablet 12/27/19 23 Active labetalol (NORMODYNE) 200 MG tabletIndications :Palpitations,Hyp ertension, unspecified type Take 1 tablet by mouth twice daily 180 tablet 10/12/20 24 Active vitamin D2, ergocalciferol, (DRISDOL) 1.25 mg capsuleIndication s:Vitamin D deficiency Take 1 capsule (50,000 Units total) by mouth once a week for 8 doses. 8 capsule 09/21/20 24 025 Active Problems Problem Noted Date Diagnosed Date Preeclampsia in period ([facility]) 12/12 Vacuum-assisted vaginal delivery ([facility]) 12/20 ([facility]) 12/19/2022 Cellulitis 04/17/2021 Ulcerative colitis, chronic ([facility]) Anemia 05/25/2019 Hyperlipidemia 07/16/2017 Vitamin D deficiency 06/30/2017 Asthma ([facility]) 05/28/2017 Colitis 05/28/2017 Hypertension 05/28/2017 Iron deficiency anemia 05/28/2017 Obesity 05/28/2017 Resolved Problems Problem Noted Date Diagnosed Date Resolved Date Health maintenance examination 05/28/2017 01/09/2021 Encounters Date Type Department Care Team Description 09/23/2024 Scan HEALTH INFO SRVCS Scanned, Doc Med Group 09/19/2024 10:04 AM RF TECHNICIAN - 09/19/2024 11:59 PM RF TECHNICIAN Hospital Encounter [facility] [address] [place] [address] Krystle Arvizu NP Discharge Disposition: Home or Self Care (Routine Discharge) 09/19/2024 Travel 09/02/2024 1:40 PM RF TECHNICIAN Office Visit [facility] Family Medicine - [address] [place] [address] Krystle Arvizu NP Annual (Patient present annual physical) 09/02/2024 Travel from Last 3 Months Immunizations Name Administration Dates Next Due Fluzone 6 Months+ Quad (0.5 mL Prefilled Syringe ) 10/08/2019 Influenza Adult (Generic) 10/08/2019 MMR (MMRII) 12/22/2022 Tdap (Boostrix) 12/22/2022 Tdap (Generic) 01/05/2017 Family History Medical History Relation Comments No Known Problems Brother No Known Problems Father Diabetes Maternal Grandfather Heart Disease Maternal Grandfather Heart Disease Maternal Grandmother Leukemia Maternal Grandmother Hyperlipidemia Mother Hypertension Mother Thyroid Mother Diabetes Paternal Grandfather Heart Disease Paternal Grandfather Lymphoma Paternal Grandfather Parkinson's Disease Paternal Grandfather Cancer Paternal Grandmother breast Colon Cancer Paternal Grandmother Heart Disease Paternal Grandmother Melanoma Paternal Grandmother Mental Health Sister Relation Status Comments Brother Alive Father Alive Maternal Grandfather Maternal Grandmother Mother Alive Paternal Grandfather Paternal Grandmother Alive Sister Alive Social History Tobacco Use Types Packs/Day Years Used Date Smoking Tobacco: Former Smokeless Tobacco: Never Tobacco Cessation:Counseling Given: Not [...] 12/19/2022 How often do you attend chur or alevism services? Never 12/19/2022 Do you belong to any clubs o r organizations such as samaritan groups, unions, fraternal or athletic groups, or [...] Answer Date Recorded Patient Health Questionnaire-2 Score 0 09/02/2024 [facility] Occup[facility] - Occupational Stress [...] place to sleep or slept in a usp (including now)? No 12/19/2022 Depression Answer Date Recor ded Last EPDS Total Score 8 12/24/2022 Last EPDS Self Harm Result 12/24 Comments No Sex and Gender Information Value Date Recorded Sex Assigned at Female 05/25/2019 10:09 PM CDT Legal Sex Female 5:43 PM CDT Gender Identity Female 05/25/2019 10:09 PM CDT Sexual Orientation Straight 05/25/2019 10 :09 PM CDT Last Filed Vital Signs Vital Sign Reading Time Taken Comments Blood Pressure 120/70 09/02/2024 2:02 PM RF TECHNICIAN Pulse 89 09/02/2024 1:37 PM RF TECHNICIAN Temperature 36.9 ??C (98.4 ??F) 09/02/2024 1:37 PM CS T Respiratory Rate 18 09/02/2024 1:37 PM RF TECHNICIAN Oxygen Saturation 98% 09/02/2024 1:37 PM RF TECHNICIAN Inhaled Oxygen Concentration - - Weight 94 kg (207 lb 3.2 oz) 09/02/2024 1:37 PM RF TECHNICIAN Height 149.9 cm (4' 11 ) 09/02/2024 1:37 PM RF TECHNICIAN Body Mass Index 41.85 09/02/2024 1:37 PM RF TECHNICIAN Plan of Treatment Upcoming Encounters Date Type Department Care Team (Late st Contact Info) Description 12/03/2024 1:20 PM RF TECHNICIAN Telemedicine [facility] Family Medicine - [address] [place] [address] Krystle Arvizu NP [address] [place] [address] Health Maintenance Due Date Last Done Comments Cervical Cancer Screening Pa p Smear (Age 30 to 64) Every 3 Years 1984 COVID-19 Vaccine (#1) 1989 Pneumococcal Vaccine: Pediatrics (0 to 5 Years) and At-Risk Patients (6 to 64 Years) (1 of 2 - PCV) 1990 Hepatitis C 2002 Hepatitis B Vaccines (1 of 3 - 19+ 3-dose series) 2003 Cervical Cancer Screening Pa p with HPV Testing (Age 30 to 64) Every 5 Years 2014 Cervical Cancer Screening wi HPV 2014 Mammogram Screening 2024 03/23/2020, 03/23/2020, 06/02/2019 Influenza Adult (#1) 2024 10/08/2019, 10/08/2019 PHQ-2 (Physician Raven) 10/14/2024 09/02/2024 Annual Physical 09/02/2025 09/02/2024, 10/10/2022 PHQ-2 (Physician Raven) 09/02/2025 09/02/2024 DTaP, Tdap and Td Vaccines ( 3 - Td or Tdap) 12/22/2032 12/22/2022, 01/05/2017 HPV Vaccines Aged Out No longer eligi ble based on patient's age to complete this topic Meningococcal B Vaccine Aged Out No l onger eligible based on patient's age to complete this topic Meningococcal Vaccine Aged Out No pauline oliver eligible based on patient's age to complete this topic RSV Immunizations Under 20 Months Aged Out No longer eligible b ased on patient's age to complete this topic Goals Goal Patient Goal Type Associated Problems Recent Progress Patient-Stated? Author Family - family caregiver with be involved in care transitions and discharge planning General Amanda Wheatley, DELICATE [employer]ER Procedures Procedure Name Priority Date/Time Associated Diagnosis Comments HEMOGLOBIN, GLYCOSYLATED Routine 09/19/2024 10:14 AM RF TECHNICIAN Routine general medical examination at a health care facility Class 3 severe obesity due to excess calories without serious comorbidity with body mass index (BMI) of 40.0 to 44.9 in adult ([facility] HHS/HCC) VITAMIN D, 25 OH Routine 09/19/2024 10:1 4 AM RF TECHNICIAN Routine general medical examination at a health care facility Class 3 severe obesity due to excess calories without serious comorbidity with body mass index (BMI) of 40.0 to 44.9 in adult ([facility]) TSH W/REFLEX Routine 09/19/2024 10:14 AM RF TECHNICIAN Routine general medical examination at a health care facility Class 3 severe obesity due to excess calories without serious comorbidity with body mass index (BMI) of 40.0 to 44.9 in adult ([facility]) LIPID PANEL Routine 09/19/2024 10:14 AM RF TECHNICIAN Routine general medical examination at a health care facility Class 3 severe obesity due to excess calories without serious comorbidity with body mass index (BMI) of 40.0 to 44.9 in adult ([facility] HHS/HCC) COMPREHENSIVE METABOLIC PANEL Routine 09/19/2024 10:14 AM RF TECHNICIAN Routine general medical examination at a health care facility Class 3 severe obesity due to excess calories without serious comorbidity with body mass index (BMI) of 40.0 to 44.9 in adult ([facility] H[facility]/HCC) CBC W/DIFF AUTOMATED Routine 09/19/2024 10:14 AM RF TECHNICIAN Routine general medical examination at a health care facility Class 3 severe obesity due to excess calories without serious comorbidity with body mass index (BMI) of 40.0 to 44.9 in adult ([facility]/HCC) MG DIAG W TAWANNA BILAT DIGI Routine 03/23/2020 1:06 PM CDT Breast lump from Last 3 Months or Most Recently Relevant to Health Maintenance Results * TSH W/REFLEX (09/19/2024 10:14 AM RF TECHNICIAN) TSH 1.280 0.358 - 3.74 uIU/ML 09/19/2024 10:57 AM RF TECHNICIAN [facility] Comment: HIGH DOSES OF BIOTIN MAY INTERFERE WITH THIS TEST RESULT. CORRELATION TO CLINICAL HISTORY AND PRESENTATION RECOMMENDED. FREE T4 NOT INDICATED 09/19/2024 10:1 4 AM RF TECHNICIAN [facility] Final Result Performing Organization Address City/[facility]/ZIP Co de Phone Number [facility] [address] [place] [phone], * HEMOGLOBIN, GLYCOSYLATED (09/19/2024 10:14 AM RF TECHNICIAN) HGB A1C 5.3 <5.7 % 09/19/2024 2:11 PM RF TECHNICIAN [facility] Comment: ADA GUIDELINES 2010 5.7 TO 6.4% INCREASED RISK OF DIABETES > OR = 6.5% CONSISTENT WITH DIABETES ESTIMATED AVG GLUCOSE 105 mg/dL 09/19/2024 2:11 PM RF TECHNICIAN [facility] 09/19/2024 10:1 4 AM RF TECHNICIAN Krystle Chinich CREDIT REPORTER LABORATORY Final Result [facility] [address] [place] [phone], * (ABNORMAL) COMPREHENSIVE METABOLIC PANEL (09/19/2024 10:14 AM RF TECHNICIAN) GLUCOSE 98 70 - 99 MG/DL 09/19/2024 10:57 AM [facility] BUN 10 7 - 18 MG/DL 09/19/2024 10:57 AM [facility] CREATININE S/P/B 0.91 0.55 - 1.02 MG/DL 09/19/2024 10:57 AM [facility] SODIUM S/P/B 137 136 - 145 MMOL/L 09/19/2024 10:57 AM [facility] POTASSIUM S/P/B 4.2 3.5 - 5.1 MMOL/L 09/19/2024 10:57 AM [facility] CHLORIDE S/P/B 109 97 - 115 MMOL/L 09/19/2024 10:57 AM [facility] CO2 27.0 21 - 32 MMOL/L 09/19/2024 10:57 AM [facility] CALCIUM S/P/B 9.0 8.5 - 10.1 MG/DL 09/19/2024 10:57 AM [facility] BILIRUBIN TOTAL S/P/B 1.6(H) 0.2 - 1.2 MG/DL 09/19/2024 10:57 AM [facility] Comment: THIS ASSAY IS NOT RECOMMENDED FOR PATIENTS UNDERGOING TREATMENT WITH ELTROMBOPAG DUE TO THE POTENTIAL FOR FALSELY ELEVATED RESULTS. TOTAL PROTEIN S/P/B 7.7 6.4 - 8.2 G/DL 09/19/2024 10:57 AM [facility] ALBUMIN S/P/B 3.7 3.4 - 5.0 G/DL 09/19/2024 10:57 AM [facility] AST 15 15 - 37 U/L 09/19/2024 10:57 AM [facility] ALT 22 14 - 55 U/L 09/19/2024 10:57 AM [facility] ALKALINE PHOSPHATASE S/P/B 95 50 - 136 U/L 09/19/2024 10:57 AM [facility] ANION GAP 1.0(L) 2 - 10 MMOL/L 09/19/2024 10:57 AM [facility] BUN CREATININE RATIO 11.0 6 - 26 09/19/2024 10:57 AM [facility] A/G RATIO 0.9(L) 1.0 - 2.0 RATIO 09/19/2024 10:57 AM [facility] GFR ESTIMATE 82(L) >90 ML/MIN/1.7 3 M2 09/19/2024 10:57 AM [facility] Comment: NOTE: eGFR is not calculated for patients <18 years of age or gender unknown. This is an estimated GFR calculation using the new CKD EPI creatinine equation without race and so does not require a correction factor for race. This estimated GFR should not be used for calculating drug doses. 09/19/2024 10:1 4 AM RF TECHNICIAN Krystle Arvizu NP LABORATORY Final Result [facility] [address] [place] [address], [place] [phone] * (ABNORMAL) LIPID PANEL (09/19/2024 10:14 AM RF TECHNICIAN) CHOLESTEROL 223(H) <200 MG/DL 09/19/2024 10:57 AM [facility] TRIGLYCERIDES 67 <150 MG/DL 09/19/2024 10:57 AM [facility] HDL 66 >40.0 MG/DL 09/19/2024 10:57 AM [facility] LDL (CALCULATED) 144(H) <100 MG/DL 09/19/2024 10:57 AM RF TECHNICIAN [facility] NON HDL CHOLESTEROL 157(H) <130 MG/DL 09/19/2024 10:57 AM [facility] CHOL/HDL RATIO 3.4 0.0 - 4.5 09/19/2024 10:57 AM [facility] VLDL CALCULATION 13 5 - 55 MG/DL 09/19/2024 10:57 AM [facility] LIPID INTERPRETATION 09/19/2024 10:57 AM [facility] Comment: NIH CONCENSUS REPORT RECOMMENDATIONS: ?ADULT ?CHILD ??LOW RISK: ?CHOLESTEROL ? <200 ? <170 ?TRIGLYCERIDE ?<150 ?--- ?HDL ? >=60 ?--- ?LDL ? <100 ? <110 ??BORDERLINE: ?CHOLESTEROL ? 200-239 ?? 170-199 ?TRIGLYCERIDE ?150-199 ? --- ?HDL ?40-59 ?--- ?LDL ? 100-159 ?? 110-129 ??HIGH RISK: ?CHOLESTEROL ? >=240 ?>=200 ?TRIGLYCERIDE ?>=200 ? --- ?HDL ?<40 ?--- ?LDL ? >=160 ?>=130 09/19/2024 10:1 4 AM RF TECHNICIAN Krystlegennaro JohnsonLuh CREDIT REPORTER LABORATORY Final Result [facility] [address] [place] [address], * (ABNORMAL) CBC W/DIFF AUTOMATED (09/19/2024 10:14 AM RF TECHNICIAN) WBC 6.56 4.5 - 11.0 x10'3/uL 09/19/2024 10:23 AM [facility] RBC 4.60 4.20 - 5.40 x10'6/uL 09/19/2024 10:23 AM [facility] HGB 14.2 12.0 - 16.0 G/DL 09/19/2024 10:23 AM [facility] HCT 42.9 38.0 - 48.0 % 09/19/2024 10:23 AM [facility] MCV 93.3 81.0 - 99.0 FL 09/19/2024 10:23 AM [facility] MCH 30.9 27.0 - 31.0 PG 09/19/2024 10:23 AM [facility] MCHC 33.1 32.0 - 36.0 G/DL 09/19/2024 10:23 AM [facility] RDW 14.3 11.5 - 14.5 % 09/19/2024 10:23 AM [facility] PLT 439(H) 130 - 400 x10'3/uL 09/19/2024 10:23 AM [facility] MPV 9.1(L) 9.3 - 12.2 FL 09/19/2024 10:23 AM [facility] DIFFERENTIAL TYPE AUTOMATED DIFFERENTIAL 09/19/2024 10:23 AM [facility] NEUTROPHILS % 58.0 % 09/19/2024 10:23 AM [facility] LYMPHOCYTES % 23.0 % 09/19/2024 10:23 AM [facility] MONOCYTES % 8.2 % 09/19/2024 10:23 AM [facility] EOSINOPHILS 9.0 % 09/19/2024 10:23 AM [facility] BASOPHILS 1.5 % 09/19/2024 10:23 AM [facility] IMMATURE GRANS % 0.3 % 09/19/20 10:23 AM [facility] ABS. NEUTROPHILS 3.80 1.80 - 7.70 x10'3/uL 09/19/2024 10:23 AM [facility] ABS. LYMPHOCYTES 1.51 1.00 - 4.80 x10'3/uL 09/19/2024 10:23 AM [facility] ABS. MONOCYTES 0.54 0.24 - 0.86 x10'3/uL 09/19/2024 10:23 AM [facility] ABS. EOSINOPHILS 0.59(H) 0.04 - 0.36 x10'3/uL 09/19/2024 10:23 AM [facility] ABS. BASOPHILS 0.10(H) 0.01 - 0.08 x10'3/uL 09/19/2024 10:23 AM [facility] ABS. IMMATURE GRANULOCYTES 0.02 0.00 - 0.49 x10'3/uL 09/19/2024 10:23 AM RF TECHNICIAN [facility] 09/19/2024 10:1 4 AM RF TECHNICIAN [facility] Final Result Performing Organization Address [facility] de Phone Number [facility] [address] [place] [phone], * (ABNORMAL) VITAMIN D, 25 OH (09/19/2024 10:14 AM RF TECHNICIAN) Pathologist [facility] VITAMIN D 25 HYDROXY S/P/B 11(L) 30 - 100 NG/ML 09/19/2024 10:51 AM RF TECHNICIAN [facility] Comment: ? INTERPRETATION ? DEFICIENT ??<20 ? INSUFFICIENT 20-29 ?SUFFICIENT 30-100 09/19/2024 10:1 4 AM RF TECHNICIAN [facility] Final Result Performing Organization Address [facility] de Phone Number [facility] [address] [place] [phone], * MG DIAG W TAWANNA BILAT DIGI (03/23/2020 1:06 PM CDT) Anatomical Region Laterality Modality Breast Bilateral Mammography 03/23/2020 1:16 PM CDT Impressions 03/23/2020 1:59 PM CDT =====IMPRESSION:===== No no correlate for palpable lesion in the left breast are history of bilateral nipple discharge. Lack of correlate should not delay biopsy or other further evaluation if clinically indicated. Incidental finding in area of palpable lesion visualized on ultrasound only. Suspicious for focally dilated duct. Continued follow-up is recommended. Hypoechoic area in the left breast and retroareolar region suspicious for slightly prominent but likely normal glandular tissue. Continued follow-up is recommended. ASSESSMENT: ACR BI-RADS CATEGORY 3 - PROBABLY BENIGN FINDING(S) RECOMMENDATION: 1: Follow-up ultrasound ??left ??in 6 months COMMENTS: ? Narrative 03/23/2020 1:59 PM CDT EXAMINATION: Digital bilateral diagnostic mammogram with 3-D tomography and bilateral breast ultrasound [id number], [id number] EXAM DATE/TIME: 03/23/2020 12:49 PM REASON FOR EXAM: ??palpable lump ? and bilateral breast nipple discharge COMPARISON: 06/02/2019 TECHNIQUE: Digital diagnostic mammography of both breasts was performed in addition to 3-D Tomosynthesis technique. This study was read with the assistance of a computer-aided detection system. Bilateral breast ultrasound TISSUE DENSITY: The breast tissue contains scattered fibroglandular densities. FINDINGS: The dense tissue may obscure some lesions mammographically. ?? No ultrasound or mammographic correlate for history of palpable lesion in the upper outer left breast is seen. Ultrasound examination in this area however does show linear structure deep in the breast tissues. Findings are without color flow enhancement. Findings likely are due to duct ectasia in this area. This is in close proximity to the chest wall and likely not palpable. This is likely an incidental finding. No internal nodule is seen. Subtle hypoechoic area in the left retroareolar region is seen. This is superficial and just deep to the skin. This is similar in shape, echogenicity and echo architecture to adjacent normal glandular tissue. Finding is likely due to normal breast tissue. This is seen on image 11 of ultrasound exam. No abnormality on the right side is noted. No definite discrete mass in this area is seen. No abnormality in the subareolar or periareolar region of the breasts bilaterally seen on mammogram. ? 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 04/19/2021 04/19/2021 Insurance [employer] Advance Directives * Full Code (Latest Code Status on File) Date Activated Date Inactivated Comments 12/23/2022 10:16 PM 12/25/2022 3:05 PM * Full Code Date Activated Date Inactivated Comments 12/19/2022 7:07 PM 12/22/2022 9:50 PM * Full Code Date Activated Date Inactivated Comments 12/19/2022 1:26 AM 12/19/2022 7:07 PM * Full Code Date Activated Date Inactivated Comments 04/23/2021 7:13 AM 10/20/2022 11:39 AM * Full Code Date Activated Date Inactivated Comments 04/17/2021 10:33 PM 04/20/2021 3:46 PM Care Teams Seal Delivery Vehicle Officer Relationship Specialty Start Date End Date Krystle Arvizu [place] [address] PCP - General NURSE PRACTITIONER 05/11/19
[2024-11-14 14:18] LABS: Hepatitis B Surface Antigen Negative (Negative)
[2024-11-14 14:36] LABS: Hepatitis B Surface Anti Res Positive
[2024-11-15 08:09] LABS: Hepatitis B Core Ab Total NON-REACTIVE (NON-REACTIVE)
[2024-11-17 14:24] LABS: NIL 0.01 IU/mL; Quantiferon TB Plus, 1T NEGATIVE (NEGATIVE); TB1-NIL 0.05 IU/mL; TB2-NIL 0.02 IU/mL
== END 2024-11-14 13:12 | disposition home or self-care (01) ==
PROVIDERS: PCP Nurse Practitioner; Visit Provider Nurse Practitioner Family
DX: K51.90 Ulcerative colitis, unspecified, without complications (principal); Z11.59 Encounter for screening for other viral diseases; Z79.899 Other long term (current) drug therapy
CPT/HCPCS: 36415; 86480; 86704; 86706; 87340

== ENCOUNTER 2024-11-30 01:04 | Day surgery (SDC) | payer OTHER, SELFPAY ==
[2024-11-13 09:57] VITALS: BMI 42.3
--- OUTSIDE RECORDS SUMMARY | 2024-11-30 01:08 | XMS_ITS | Encounter Summary ---
Author Organization [facility] Address [facility] [place] [address] Care Team Providers Care Soils Engineer Name Role Phone Elmer Arvizua DOUGLAS Primary Care Provider [phone] Encounter Details Date Type Department Care Team (Late st Contact Info) Description 01/05/2020 [facility]s [address] [place] [address] [facility] Provider account balance Social History Tobacco Use [...] Author Status No 05/25/2019 10:13 PM CDT Estelle Bailey RN Active * Do you have difficulty [...] st Contact Info) Description 12/03/2024 1:20 PM DOPE AND FABRIC WORKER Telemedicine [facility] Medical Group Family [facility] [address] [place] [address] Krystle Arvizu NP [address] [place] [address] documented as of this encounter Visit Diagnoses Not on filedocumented in this encounter Additional Health Concerns Infection Onset Date Last Indicated Resolved Time COVID-19 Rule Out 04/18/2021 04/18/2021 04/18/2021 9:07 AM CDT 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
--- OUTSIDE RECORDS SUMMARY | 2024-11-30 01:08 | XMS_ITS | Clinical Summary ---
Author Organization [facility] Address [address] [place] [address] Phone Care Team Providers Care Marble Mechanic Helper Name Role Phone Krystle Arvizu APRN Primary Care Provider [phone] Adonis Bowers DO Unavailable [phone] Allergies Active Allergy Reactions Criticality Noted [...] Comments Blood Pressure 136/82 11/15/2023 9:12 AM CONTROL ROOM TENDER Pulse 102 11/15/2023 9:12 AM CONTROL ROOM TENDER Temperature 36.7 C (98 F) 11/15/2023 9:12 AM CONTROL ROOM TENDER Respiratory Rate 18 11/15/2023 9:12 AM CONTROL ROOM TENDER Oxygen Saturation 95% 11/15/2023 9:12 AM CONTROL ROOM TENDER Inhaled Oxygen Concentration - - Weight 94.3 kg (208 lb) 11/15/2023 9:12 AM CONTROL ROOM TENDER Height 149.9 cm (4' 11 ) 11/15/2023 9:12 AM CONTROL ROOM TENDER Body Mass Index 42.01 11/15/2023 9:12 AM CONTROL ROOM TENDER Plan of Treatment Health Maintenance Due Date [...] age to complete this topic Insurance MEDICAID [place] Care Teams Marble Mechanic Helper Relationship Specialty Start Date End Date Krystle Arvizu APRN [address] [place] [address] PCP - General Advanced Practice Nurse 05/26/19 Adonis Bowers DO [address] [place] [id number] Consulting Physician Hematology 09/30/20
--- OUTSIDE RECORDS SUMMARY | 2024-11-30 01:08 | XMS_ITS | Encounter Summary ---
Author Organization [facility] Address [facility] [place] [address] Care Team Providers Care Water Safety Instructor Name Role Phone Luh, Krystle DOUGLAS Primary Care Provider [phone] Encounter Details Date Type Department Care Team (Late st Contact Info) Description 05/28/2019 Hospital Follow-up Call [facility] Telemetry Unit [facility] [address] [facility] [place] [address] Lily Mota Social History Tobacco Use Types [...] Assessment Author Status No 05/25/2019 10:13 PM MARIA FERNANDAT Estelle Bailey RN Active * Because of a physical, [...] st Contact Info) Description 12/03/2024 1:20 PM [facility] Telemed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
--- OUTSIDE RECORDS SUMMARY | 2024-11-30 01:08 | XMS_ITS | Data Portability ---
Author Organization [employer] , [facility] Address [address] [place] [address] Assessment No assessment recorded. Plan of Treatment Reminders Order Date Submit Date Provider Last Modified By Organization Details Last Modified Time Details Appointments None chava dFaraz Lab pap, LB 2023 024 [employer] [facility], [address] [place], [address], 4 13:02:42 HPV E6+E7 mRNA, qualita tive PCR, cervix 2023 024 [facility], [address] [place], [address], 4 07:59:05 urinaly sis, dipstic k 2022 023 [email or web address] [facility], [address], [place], [address], 3 14:13:22 culture , urine 2022 023 [employer] [facility], [address] [place], [address], 3 23:18:45 bacteri al vaginos is + vaginit is panel, vaginal 2022 023 [facility], [address] [place], [address], 3 14:00:25 pregnan cy test, urine 2022 023 [facility], [address] [place], [address], 3 16:45:40 Referral None recorde d. Procedures None recorde d. Surgeries None recorde d. Imaging MAMMO, screeni ng, digital , bilater al 2023 024 [facility], [address], [place], [address], 4 15:14:48 US, transva ginal 2022 023 MIRIAM Not available 3 00:57:35 US, obstetr ic, biophys ical profile + non-str ess test 2022 023 [email or web address], [address] [place], [address], 3 11:47:32 US, doppler , umbilic al artery velocim etry 2022 023 Not available 3 17:15:53 Medication Orders sertral ine 50 mg tablet 2023 024 [facility], [address] [facility], [place], [address], 4 15:29:49 Cipro 500 mg tablet 2022 023 [facility], [address] [facility], [place], [address], 4 14:20:40 Mirena 21 mcg/24 hr (up to 8 years) 52 mg intraut erine device 2022 023 Not available 3 15:04:57 Procard ia XL 30 mg tablet, extende d release 2022 023 [email or web address] [facility], [address] [facility], [place], [address], 13:57:25 Patient TargetsNo targets recorded. Patient Instructions Encounter Date Encounter Id Patient Instructions Last Modified By Organization Details Last Modified Time 12/28/2022 [id number] Care at Home With Your Baby: Care Instructions [email or web address] Not available 12/28/2022 12:37:31 04/11/2023 [id number] - Refrain from washcloth/loofah use, paredes ever products, frequent pantiliner use. - Pt instructed to wear cotton underwear, changing out of workout clothes quickly, hypoallergenic soap. -Discussed vaginal hygiene. -Encouraged safe sex. - Use a detergent free of dyes, enzymes and perfumes. Avoid using fabric softeners. Soak and rinse when using a stain removing product and then wash normally. Do not use a fabric softener. Soak and rinse in clear water all underwear and towels on when you have used a stain removing product. Then wash in your regular washing cycle. -Avoid tight clothing, especially clothing made of synthetic fabrics. Remove wet bathing and exercise clothing as soon as you can. - Avoid bath soaps, lotions, gels, etc. which contain perfumes. This includes many baby products and feminine hygiene products marked mild or for vaginal health . We suggest any of the following soaps: Dove-Hypoallergeni c, Neutrogena, Basis, or Pearls. Do not use soap directly on the vulvar skin just warm water and your hand will keep the vulvar area clean without irritating the skin. - Avoid all bubble baths, bath salts and scented oils. -Do not use hot water while bathing or showering. Only luke-warm water should only be used. -Avoid all feminine hygiene sprays, perfumes, adult, or baby wipes. Pour lukewarm water over the vulva after urinating if urine causes burning of the skin. Pat dry rather than rubbing with a towel. - Avoid the use of deodorized pads and tampons. Tampons should be used when the blood flow is heavy enough to soak one tampon in four hours or less. Tampons are safe for most women, but wearing them too long or when the blood flow is light may result in vaginal infection, increased discharge, odor, or toxic shock syndrome. Also, use only pads that have a cotton liner that comes in contact with your skin (no dry weave pads). - Avoid all over the counter creams or ointments, except A&D Ointment (if you have wool allergy do not use A&D). -DO NOT DOUCHE. Baking soda soaks will help rinse away extra discharge and help with odor. -DO NOT SHAVE, wax or laser the vulvar area (the bikini line is ok). -Some women may have problems with chronic dampness. Keeping dry is important. Choose cotton fabrics whenever you can. -Keep an extra pair of underwear with you in a small bag and change if you become damp during the day at work/school. -Gold Maki Powder or Zeosorb Powder may be applied to the vulva and groin area one to two times per day to help absorb moisture. -Dryness and irritation during intercourse may be helped by using a lubricant. Use a small amount of a pure vegetable oil/olive oil or Crisco (solid or oil). The vegetable oils contain no chemicals to irritate vulvar/vaginal skin. Vegetable oils will rinse away with water and will not increase your chances of infection. Water-based products like K-Y Jelly are helpful, but may tend to dry before intercourse is over and also contain chemicals that can irritate your vulvar skin. It may be helpful to use a non-lubricated, non-spermicidal condom, and use vegetable oil as the lubricant. This will help keep the semen off the skin which can decrease burning and irritation after intercourse. CONTROL OPTIONS 1. All hormonal contraceptives will have an effect on vaginal secretions but should not increase your frequency of vaginitis. 2. Lubricated condoms, contraceptive jellies, creams, or sponges may cause itching and burning. Ask your health care provider for help. 3. The use of latex condoms with a vegetable oil as a lubricant (#14 above) is suggested to protect your skin. Oil based lubricants may affect the integrity of condoms when used for control or prevention of sexually transmitted diseases. Our experience has not found this to be a problem with vegetable based oils. However, the Centers for Disease Control recommends that condoms not be used with any oil based lubricants for control or prevention of sexually transmitted disease. Discussed ureaplasma/mycopla sma testing and treatment, if indicated. [email or web address] Not available 04/11/2023 10:10:27 05/13/2024 [id number] body mass index: care instructions Not available 05/13/2024 15:29:41 mammogram: about this test Not available 05/13/2024 15:29:41 learning about control Not available 05/13/2024 15:29:41 Reason for Referral None Reported. Results Created Date Observation Date Name Description Value Unit Range Abnormal Flag Note LastModifiedBy Organization Detail LastModifiedTime 11/20/1911/21/2022 COMPR EHENS SHAKILA METAB OLIC PANEL sodium 136 mmol/ L 136 - 145 normal Not Available [facility], [address], 11/21/2022 11:46:53 11/20/1911/21/2022 COMPR EHENS SHAKILA METAB OLIC PANEL potassium 3.8 mmol/ L 3.5 - 5.1 normal Not Available [facility], [address], 11/21/2022 11:46:53 11/20/19 23 11/21/2022 COMPR EHENS SHAKILA METAB OLIC PANEL chloride 104 mmol/ L 98 - 107 normal Not Available [facility], [address], 11/21/2022 11:46:53 11/20/19 23 11/21/2022 COMPR EHENS SHAKILA METAB OLIC PANEL glucose 72 mg/dL 74 - 106 low Not Available [facility] [address] [place] [address], [address], 11/21/2022 11:46:53 11/20/19 23 11/21/2022 COMPR EHENS SHAKILA METAB OLIC PANEL carbon dioxide 26 mmol/ L 20 - 32 normal Not Available [facility] [address] [place] [address], [address], 11/21/2022 11:46:53 11/20/19 23 11/21/2022 COMPR EHENS SHAKILA METAB OLIC PANEL calcium 9.2 mg/dL 8.5 - 10.1 normal Not Available [address], [address], 11/21/2022 11:46:53 11/20/19 23 11/21/2022 COMPR EHENS SHAKILA METAB OLIC PANEL creatinine 0.59 mg/dL 0.60 - 1.00 low Not Available [address], [address], 11/21/2022 11:46:53 11/20/19 23 11/21/2022 COMPR EHENS SHAKILA METAB OLIC PANEL eGFR 118 mL/mi n/1.7 3m2 >60 normal The eGFR is based on the CKD-E PI 2020 equat ion. To calcu late the new eGFR from a previ ous Creat inine or Cysta trenton C resul t, go to https :[email or web address] boswell.[email or web address] belcher.o juan carlos/chung lópez s/wilsono qi/gf r_cal culat or Not Available [address], [address], 11/21/2022 11:46:53 11/20/19 23 11/21/2022 COMPR EHENS SHAKILA METAB OLIC PANEL AST < 15 U/L 32 - 40 low Not Available [address], [address], 11/21/2022 11:46:53 11/20/19 23 11/21/2022 COMPR EHENS SHAKILA METAB OLIC PANEL ALT 16 U/L 14 - 59 normal Not Available [address], [address], 11/21/2022 11:46:53 11/20/19 23 11/21/2022 COMPR EHENS SHAKILA METAB OLIC PANEL alk phos 92 U/L 46 - 116 normal Not Available [address], [address], 11/21/2022 11:46:53 11/20/19 23 11/21/2022 COMPR EHENS SHAKILA METAB OLIC PANEL albumin 2.6 g/dL 3.4 - 5.0 low Not Available [address], [address], 11/21/2022 11:46:53 11/20/19 23 11/21/2022 COMPR EHENS SHAKILA METAB OLIC PANEL protein, total 6.6 g/dL 6.4 - 8.2 normal Not Available [address], [address], 11/21/2022 11:46:53 11/20/19 23 11/21/2022 COMPR EHENS SHAKILA METAB OLIC PANEL bilirubin, total 0.7 mg/dL 0.2 - 1.0 normal Not Available [address], [address], 11/21/2022 11:46:53 11/20/19 23 11/21/2022 COMPR EHENS SHAKILA METAB OLIC PANEL urea nitrogen (BUN) 7 mg/dL 6 - 31 normal Not Available [address], [address], 11/21/2022 11:46:53 11/20/19 23 11/21/2022 CBC (INCL UDES DIFF/ PLT) WBC 8.1 thous and/u L 4.0 - 9.8 normal Not Available [address], [address], 11/21/2022 11:46:56 11/20/19 23 11/21/2022 CBC (INCL UDES DIFF/ PLT) RBC 3.5 yakelin on/uL 3.9 - 4.9 low Not Available [address], [address], 11/21/2022 11:46:56 11/20/19 23 11/21/2022 CBC (INCL UDES DIFF/ PLT) hemoglobin 11.4 g/dL 11.8 - 14.8 low Not Available [address], [address], 11/21/2022 11:46:56 11/20/19 23 11/21/2022 CBC (INCL UDES DIFF/ PLT) hematocrit 35.7 % 35.5 - 44.0 normal Not Available [address], [address], 11/21/2022 11:46:56 11/20/19 23 11/21/2022 CBC (INCL UDES DIFF/ PLT) MCV 100.8 fL 82.0 - 99.0 high Not Available [address], [address], 11/21/2022 11:46:56 11/20/19 23 11/21/2022 CBC (INCL UDES DIFF/ PLT) MCH 32.2 pg 27.2 - 32.6 normal Not Available [address], [address], 11/21/2022 11:46:56 11/20/19 23 11/21/2022 CBC (INCL UDES DIFF/ PLT) MCHC 31.9 g/dL 31.5 - 35.5 normal Not Available [address], [address], 11/21/2022 11:46:56 11/20/19 23 11/21/2022 CBC (INCL UDES DIFF/ PLT) RDW-CV 14.2 % 11.5 - 14.5 normal Not Available [address], [address], 11/21/2022 11:46:56 11/20/19 23 11/21/2022 CBC (INCL UDES DIFF/ PLT) platelet 440 thous and/u L 140 - 350 high Not Available [address], [address], 11/21/2022 11:46:56 11/20/19 23 11/21/2022 CBC (INCL UDES DIFF/ PLT) MPV 9.9 fL 9.3 - 12.4 normal Not Available [address], [address], 11/21/2022 11:46:56 11/20/19 23 11/21/2022 CBC (INCL UDES DIFF/ PLT) absolute neutrophil 6.13 thous and/u L 1.90 - 7.00 normal Not Available [address], [address], 11/21/2022 11:46:56 11/20/19 23 11/21/2022 CBC (INCL UDES DIFF/ PLT) absolute lymphocyte 1.15 thous and/u L 0.70 - 4.50 normal Not Available [address], [address], 11/21/2022 11:46:56 11/20/19 23 11/21/2022 CBC (INCL UDES DIFF/ PLT) absolute monocyte 0.46 thous and/u L 0.10 - 1.30 normal Not Available [address], [address], 11/21/2022 11:46:56 11/20/19 23 11/21/2022 CBC (INCL UDES DIFF/ PLT) absolute eosinophil 0.30 thous and/u L <0.70 normal Not Available [address], [address], 11/21/2022 11:46:56 11/20/19 23 11/21/2022 CBC (INCL UDES DIFF/ PLT) absolute basophil 0.04 thous and/u L <0.20 normal Not Available [address], [address], 11/21/2022 11:46:56 11/20/19 23 11/21/2022 CBC (INCL UDES DIFF/ PLT) absolute immature granulocyte 0.04 thous and/u L <0.03 high Not Available [address], [address], 11/21/2022 11:46:56 11/20/19 23 11/21/2022 PROT/ CREAT - U RANDO M protein, urine 18 mg/dL 6 - 24 normal Not Available [address], [address], 11/21/2022 11:47:30 11/20/19 23 11/21/2022 PROT/ CREAT - U RANDO M creatinine, urine 116 mg/dL 20 - 275 normal Not Available [address], [address], 11/21/2022 11:47:30 11/20/19 23 11/21/2022 PROT/ CREAT - U RANDO M protein/crea tinine ratio, random urine 0.155 mg/mg _crea t 0.024 - 0.184 normal Not Available [address], [address], 11/21/2022 11:47:30 12/15/19 23 12/15/2022 PIH - PREGN EDGAR- INDUC ED HYPER TENSI ON PANEL sodium 135 mmol/ L 136 - 145 low Not Available [address], [address], 12/15/2022 13:48:06 12/15/19 23 12/15/2022 PIH - PREGN EDGAR- INDUC ED HYPER TENSI ON PANEL potassium 4.3 mmol/ L 3.5 - 5.1 normal Not Available [address], [address], 12/15/2022 13:48:06 12/15/19 23 12/15/2022 PIH - PREGN EDGAR- INDUC ED HYPER TENSI ON PANEL chloride 103 mmol/ L 98 - 107 normal Not Available [address], [address], 12/15/2022 13:48:06 12/15/19 23 12/15/2022 PIH - PREGN EDGAR- INDUC ED HYPER TENSI ON PANEL glucose 79 mg/dL 74 - 106 normal Not Available [address], [address], 12/15/2022 13:48:06 12/15/19 23 12/15/2022 PIH - PREGN EDGAR- INDUC ED HYPER TENSI ON PANEL carbon dioxide 22 mmol/ L 20 - 32 normal Not Available [address], [address], 12/15/2022 13:48:06 12/15/19 23 12/15/2022 PIH - PREGN EDGAR- INDUC ED HYPER TENSI ON PANEL calcium 9.6 mg/dL 8.5 - 10.1 normal Not Available [address], [address], 12/15/2022 13:48:06 12/15/19 23 12/15/2022 PIH - PREGN EDGAR- INDUC ED HYPER TENSI ON PANEL creatinine 0.68 mg/dL 0.60 - 1.00 normal Not Available [address], [address], 12/15/2022 13:48:06 12/15/19 23 12/15/2022 PIH - PREGN EDGAR- INDUC ED HYPER TENSI ON PANEL eGFR 114 mL/mi n/1.7 3m2 >60 normal The eGFR is based on the CKD-E PI 2020 equat ion. To calcu late the new eGFR from a previ ous Creat inine or Cysta trenton C resul t, go to https :[email or web address] [email or web address] [email or web address] rg/pr ofess ional s/kdo qi/gf r_cal culat or Not Available [address], [address], 12/15/2022 13:48:06 12/15/19 23 12/15/2022 PIH - PREGN EDGAR- INDUC ED HYPER TENSI ON PANEL AST 16 U/L 32 - 40 low Not Available [address], [address], 12/15/2022 13:48:06 12/15/19 23 12/15/2022 PIH - PREGN EDGAR- INDUC ED HYPER TENSI ON PANEL ALT 17 U/L 14 - 59 normal Not Available [address], [address], 12/15/2022 13:48:06 12/15/19 23 12/15/2022 PIH - PREGN EDGAR- INDUC ED HYPER TENSI ON PANEL alk phos 116 U/L 46 - 116 normal Not Available [address], [address], 12/15/2022 13:48:06 12/15/19 23 12/15/2022 PIH - PREGN EDGAR- INDUC ED HYPER TENSI ON PANEL albumin 2.7 g/dL 3.4 - 5.0 low Not Available [address], [address], 12/15/2022 13:48:06 12/15/19 23 12/15/2022 PIH - PREGN EDGAR- INDUC ED HYPER TENSI ON PANEL protein, total 6.7 g/dL 6.4 - 8.2 normal Not Available [address], [address], 12/15/2022 13:48:06 12/15/19 23 12/15/2022 PIH - PREGN EDGAR- INDUC ED HYPER TENSI ON PANEL bilirubin, total 1.0 mg/dL 0.2 - 1.0 normal Not Available [address], [address], 12/15/2022 13:48:06 12/15/19 23 12/15/2022 PIH - PREGN EDGAR- INDUC ED HYPER TENSI ON PANEL urea nitrogen (BUN) 7 mg/dL 6 - 31 normal Not Available [address], [address], 12/15/2022 13:48:06 12/15/19 23 12/15/2022 PIH - PREGN EDGAR- INDUC ED HYPER TENSI ON PANEL uric acid 3.2 mg/dL 2.6 - 6.0 normal Not Available [address], [address], 12/15/2022 13:48:06 12/15/19 23 12/15/2022 CBC (INCL UDES DIFF/ PLT) WBC 8.7 thous and/u L 4.0 - 9.8 normal Not Available [address], [address], 12/15/2022 14:14:08 12/15/1912/15/2022 CBC (INCL UDES DIFF/ PLT) RBC 4.0 yakelin on/uL 3.9 - 4.9 normal Not Available [address], [address], 12/15/2022 14:14:08 12/15/19 23 12/15/2022 CBC (INCL UDES DIFF/ PLT) hemoglobin 13.0 g/dL 11.8 - 14.8 normal Not Available [address], [address], 12/15/2022 14:14:08 12/15/19 23 12/15/2022 CBC (INCL UDES DIFF/ PLT) hematocrit 39.7 % 35.5 - 44.0 normal Not Available [address], [address], 12/15/2022 14:14:08 12/15/19 23 12/15/2022 CBC (INCL UDES DIFF/ PLT) MCV 98.8 fL 82.0 - 99.0 normal Not Available [address], [address], 12/15/2022 14:14:08 12/15/19 23 12/15/2022 CBC (INCL UDES DIFF/ PLT) MCH 32.3 pg 27.2 - 32.6 normal Not Available [address], [address], 12/15/2022 14:14:08 12/15/19 23 12/15/2022 CBC (INCL UDES DIFF/ PLT) MCHC 32.7 g/dL 31.5 - 35.5 normal Not Available [address], [address], 12/15/2022 14:14:08 12/15/19 23 12/15/2022 CBC (INCL UDES DIFF/ PLT) RDW-CV 15.1 % 11.5 - 14.5 high Not Available [address], [address], 12/15/2022 14:14:08 12/15/19 23 12/15/2022 CBC (INCL UDES DIFF/ PLT) platelet 399 thous and/u L 140 - 350 high Not Available [address], [address], 12/15/2022 14:14:08 12/15/19 23 12/15/2022 CBC (INCL UDES DIFF/ PLT) MPV 9.8 fL 9.3 - 12.4 normal Not Available [address], [address], 12/15/2022 14:14:08 12/15/19 23 12/15/2022 CBC (INCL UDES DIFF/ PLT) absolute neutrophil 6.48 thous and/u L 1.90 - 7.00 normal Not Available [address], [address], 12/15/2022 14:14:08 12/15/19 23 12/15/2022 CBC (INCL UDES DIFF/ PLT) absolute lymphocyte 1.45 thous and/u L 0.70 - 4.50 normal Not Available [address], [address], 12/15/2022 14:14:08 12/15/19 23 12/15/2022 CBC (INCL UDES DIFF/ PLT) absolute monocyte 0.51 thous and/u L 0.10 - 1.30 normal Not Available [address], [address], 12/15/2022 14:14:08 12/15/19 23 12/15/2022 CBC (INCL UDES DIFF/ PLT) absolute eosinophil 0.12 thous and/u L <0.70 normal Not Available [address], [address], 12/15/2022 14:14:08 12/15/19 23 12/15/2022 CBC (INCL UDES DIFF/ PLT) absolute basophil 0.05 thous and/u L <0.20 normal Not Available [address], [address], 12/15/2022 14:14:08 12/15/19 23 12/15/2022 CBC (INCL UDES DIFF/ PLT) absolute immature granulocyte 0.05 thous and/u L <0.03 high Not Available [address], [address], 12/15/2022 14:14:08 12/15/19 23 12/15/2022 PROT/ CREAT - U RANDO M protein, urine 15 mg/dL 6 - 24 normal Not Available [address], [address], 12/15/2022 15:05:55 12/15/19 23 12/15/2022 PROT/ CREAT - U RANDO M creatinine, urine 94 mg/dL 20 - 275 normal Not Available [address], [address], 12/15/2022 15:05:55 12/15/19 23 12/15/2022 PROT/ CREAT - U RANDO M protein/crea tinine ratio, random urine 0.156 mg/mg _crea t 0.024 - 0.184 normal Not Available [address], [address], 12/15/2022 15:05:55 12/15/19 23 12/17/2022 STREP TOCOC CUS, GROUP B CULTU RE streptococcu s, group B culture SEE NOTE STREP TOCOC CUS, GROUP B CULTU RE Micro Numbe r: [id number] Test Statu s: Final Speci men Sourc e: Recto vag Speci men Quali ty: Adequ ate Resul t: No group B Strep tococ cus isola prachi Note per CDC guide lines optim al recov zabrina is achie summer by swabb ing both the lower vagin a and rectu m (thro ugh the anal sphin cter) . Not Available [facility] [address] , [place], [address], 12/17/2022 11:44:14 12/20/19 23 12/19/2022 CBC WITH DIFF WBC 8.4 x10'3 /uL 4.5-11 .0 Not Available [facility] (Lab) [place], [address], 12/19/2022 03:21:39 12/20/19 23 12/19/2022 CBC WITH DIFF RBC 3.56 x10'6 /uL 4.20-5 .40 low Not Available [facility] (Lab) [place], [address], 12/19/2022 03:21:39 12/20/19 23 12/19/2022 CBC WITH DIFF hemoglobin 12.0 g/dL 12.0-1 6.0 Not Available [facility] (Lab) [place], [address], 12/19/2022 03:21:39 12/20/19 23 12/19/2022 CBC WITH DIFF hematocrit 35.1 % 38.0-4 8.0 low Not Available [facility] (Lab) [place], [address], 12/19/2022 03:21:39 12/20/19 23 12/19/2022 CBC WITH DIFF MCV 98.6 fL 81.0-9 9.0 Not Available [facility] (Lab) [address], [place], [address], 12/19/2022 03:21:39 12/20/19 23 12/19/2022 CBC WITH DIFF MCH 33.7 pg 27.0-3 1.0 high Not Available [facility] (Lab) [address], [place], [address], 12/19/2022 03:21:39 12/20/19 23 12/19/2022 CBC WITH DIFF MCHC 34.2 g/dL 32.0-3 6.0 Not Available [facility] (Lab) [address], [place], [address], 12/19/2022 03:21:39 12/20/19 23 12/19/2022 CBC WITH DIFF RDW 15.9 % 11.5-1 4.5 high Not Available [facility] (Lab) [address], [place], [address], 12/19/2022 03:21:39 12/20/19 23 12/19/2022 CBC WITH DIFF platelet count 421 x10'3 /uL 130-40 0 high Not Available [facility] (Lab) [address], [place], [address], 12/19/2022 03:21:39 12/20/19 23 12/19/2022 CBC WITH DIFF MPV 9.4 fL 9.3-12 .2 Not Available [facility] (Lab) [address], [place], [address], 12/19/2022 03:21:39 12/20/19 23 12/19/2022 CBC WITH DIFF diff type AUTOMA PRACHI DIFFER ENTIAL Not Available [facility] (Lab) [address], [place], [address], 12/19/2022 03:21:39 12/20/19 23 12/19/2022 CBC WITH DIFF neutrophils 72.7 % Not Available [facility] (Lab) [address], [place], [address], 12/19/2022 03:21:39 12/20/19 23 12/19/2022 CBC WITH DIFF lymphocytes 19.4 % Not Available [facility] (Lab) [address], [place], [address], 12/19/2022 03:21:39 12/20/19 23 12/19/2022 CBC WITH DIFF monocytes 4.6 % Not Available [facility] (Lab) [address], [place], [address], 12/19/2022 03:21:39 12/20/19 23 12/19/2022 CBC WITH DIFF eosinophils 2.3 % Not Available [facility] (Lab) [address], [place], [address], 12/19/2022 03:21:39 12/20/19 23 12/19/2022 CBC WITH DIFF basophils 0.4 % Not Available [facility] (Lab) [address], [place], [address], 12/19/2022 03:21:39 12/20/19 23 12/19/2022 CBC WITH DIFF immature granulocytes 0.6 % Not Available [facility] (Lab) [address], [place], [address], 12/19/2022 03:21:39 12/20/19 23 12/19/2022 CBC WITH DIFF abs. neutrophils 6.12 x10'3 /uL 1.80-7 .70 Not Available [facility] (Lab) [address] [facility], [place], [address], 12/19/2022 03:21:39 12/20/19 23 12/19/2022 CBC WITH DIFF abs. lymphocytes 1.63 x10'3 /uL 1.00-4 .80 Not Available [facility] (Lab) [address], [place], [address], 12/19/2022 03:21:39 12/20/19 23 12/19/2022 CBC WITH DIFF abs. monocytes 0.39 x10'3 /uL 0.24-0 .86 Not Available [facility] (Lab) [address], [place], [address], 12/19/2022 03:21:39 12/20/19 23 12/19/2022 CBC WITH DIFF abs. eosinophils 0.19 x10'3 /uL 0.04-0 .36 Not Available [facility] (Lab) [address], [place], [address], 12/19/2022 03:21:39 12/20/19 23 12/19/2022 CBC WITH DIFF abs. basophils 0.03 x10'3 /uL 0.01-0 .08 Not Available [facility] (Lab) [place], [address], 12/19/2022 03:21:39 12/20/19 23 12/19/2022 CBC WITH DIFF abs. immature grans 0.05 x10'3 /uL 0.00-0 .49 Not Available [facility] (Lab) [address] [facility], [place], [address], 12/19/2022 03:21:39 12/20/19 23 12/19/2022 DRUGS OF ABUSE PANEL , URINE amphetamines , urine NEGATI VE neg Not Available [facility] (Lab) [address] [facility], [place], [address], 12/19/2022 03:27:42 12/20/19 23 12/19/2022 DRUGS OF ABUSE PANEL , URINE barbituates, urine NEGATI VE neg Not Available [facility] (Lab) [address] [facility], [place], [address], 12/19/2022 03:27:42 12/20/19 23 12/19/2022 DRUGS OF ABUSE PANEL , URINE benzodiazapi tomasz, urine NEGATI VE neg Not Available [facility] (Lab) [address] [facility], [place], [address], 12/19/2022 03:27:42 12/20/19 23 12/19/2022 DRUGS OF ABUSE PANEL , URINE cannabinoids /THC, urine NEGATI VE neg Not Available [facility] (Lab) [address] [facility], [place], [address], 12/19/2022 03:27:42 12/20/19 23 12/19/2022 DRUGS OF ABUSE PANEL , URINE cocaine, urine NEGATI VE neg Not Available [facility] (Lab) [address] [place], [address], 12/19/2022 03:27:42 12/20/19 23 12/19/2022 DRUGS OF ABUSE PANEL , URINE methadone, urine NEGATI VE neg Not Available [facility] (Lab) [place], [address], 12/19/2022 03:27:42 12/20/19 23 12/19/2022 DRUGS OF ABUSE PANEL , URINE opiates, urine NEGATI VE neg Not Available [facility] (Lab) [place], [address], 12/19/2022 03:27:42 12/20/19 23 12/19/2022 DRUGS OF ABUSE PANEL , URINE phencyclidin es, urine NEGATI VE neg NOTE: RESUL TS OF THIS DRUG SCREE N SHOUL D BE USED FOR MEDIC AL PURPO SES ONLY AND NOT FOR LEGAL OR EMPLO YMENT PURPO SES. POSIT SHAKILA RESUL TS ARE NOT CONFI RMED. MEDIC ATION S CONTA INING EPHED RINE MAY CAUSE FALSE POSIT SHAKILA AMPHE TAMIN E CALL [phone], LAB, TO REQUE ST CONFI RMATI ON TESTI NG. IF CREAT ININE IS <40 mg/dL . RECOL LECTI ON IS JOVANA STED. AMPHE TAMIN E- 500 NG/ML DEN TURAT E- 200 NG/ML BENZO DIAZE PINES - 200 NG/ML THC- 50 NG/ML COCAI NE- 150 NG/ML METHA DONE- 300 NG/ML OPIAT E- 300 MG/ML PCP- 25 NG/ML Not Available [facility] (Lab) [place], [address], 12/19/2022 03:27:42 12/20/19 23 12/19/2022 DRUGS OF ABUSE PANEL , URINE creatinine, urine 229.0 mg/dL 28-[address] [facility] (Lab) [place], [address], 12/19/2022 03:27:42 12/20/19 23 12/19/2022 UA REFLE X TO CULTU RE specimen type URINE CLEAN CATCH Not Available [facility] (Lab) [place], [address], 12/19/2022 03:41:44 12/20/19 23 12/19/2022 UA REFLE X TO CULTU RE color YELLOW Not Available [facility] (Lab) [place], [address], 12/19/2022 03:41:44 12/20/19 23 12/19/2022 UA REFLE X TO CULTU RE clarity CLEAR Not Available [facility] (Lab) [place], [address], 12/19/2022 03:41:44 12/20/19 23 12/19/2022 UA REFLE X TO CULTU RE specific gravity 1.026 1.001- 1.030 Not Available [facility] (Lab) [place], [address], 12/19/2022 03:41:44 12/20/19 23 12/19/2022 UA REFLE X TO CULTU RE pH, urine 6.0 5.0-9. 0 Not Available [facility] (Lab) [place], [address], 12/19/2022 03:41:44 12/20/19 23 12/19/2022 UA REFLE X TO CULTU RE leukocytes NEGATI VE neg Not Available [facility] (Lab) [place], [address], 12/19/2022 03:41:44 12/20/19 23 12/19/2022 UA REFLE X TO CULTU RE nitrite NEGATI VE neg Not Available [facility] (Lab) [place], [address], 12/19/2022 03:41:44 12/20/19 23 12/19/2022 UA REFLE X TO CULTU RE protein 20 mg/dL <30 Not Available [facility] (Lab) [place], [address], 12/19/2022 03:41:44 12/20/19 23 12/19/2022 UA REFLE X TO CULTU RE glucose NORMAL mg/dL norm Not Available [facility] (Lab) [place], [address], 12/19/2022 03:41:44 12/20/19 23 12/19/2022 UA REFLE X TO CULTU RE ketone 10 mg/dL neg abnormal Not Available [facility] (Lab) [place], [address], 12/19/2022 03:41:44 12/20/19 23 12/19/2022 UA REFLE X TO CULTU RE urobilinogen NORMAL mg/dL norm Not Available [facility] (Lab) [place], [address], 12/19/2022 03:41:44 12/20/19 23 12/19/2022 UA REFLE X TO CULTU RE bilirubin NEGATI VE mg/dL neg Not Available [facility] (Lab) [place], [address], 12/19/2022 03:41:44 12/20/19 23 12/19/2022 UA REFLE X TO CULTU RE blood NEGATI VE neg Not Available [facility] (Lab) [place], [address], 12/19/2022 03:41:44 12/20/19 23 12/19/2022 UA REFLE X TO CULTU RE culture indicated CULTUR E IS NOT INDICA PRACHI Not Available [facility] (Lab) [address], [place], [address], 12/19/2022 03:41:44 12/20/19 23 12/19/2022 UA REFLE X TO CULTU RE mucous FEW /lpf Not Available [facility] (Lab) [address], [place], [address], 12/19/2022 03:41:44 12/20/19 23 12/19/2022 UA REFLE X TO CULTU RE squamous epithelial FEW /hpf Not Available [facility] (Lab) [address] [facility], [place], [address], 12/19/2022 03:41:44 12/20/19 23 12/19/2022 COMPR EHENS SHAKILA METAB OLIC PANEL glucose 94 mg/dL 70-99 Not Available [facility] (Lab) [address] [facility], [place], [address], 12/19/2022 09:27:48 12/20/19 23 12/19/2022 COMPR EHENS SHAKILA METAB OLIC PANEL BUN 11 mg/dL 7-18 Not Available [facility] (Lab) [place], [address], 12/19/2022 09:27:48 12/20/19 23 12/19/2022 COMPR EHENS SHAKILA METAB OLIC PANEL creatinine 0.74 mg/dL 0.55-1 .02 Not Available [facility] (Lab) [place], [address], 12/19/2022 09:27:48 12/20/19 23 12/19/2022 COMPR EHENS SHAKILA METAB OLIC PANEL sodium 135 mmol/ L 136-14 5 low Not Available [facility] (Lab) [address] [facility], [place], [address], 12/19/2022 09:27:48 12/20/1912/19/2022 COMPR EHENS SHAKILA METAB OLIC PANEL potassium 4.0 mmol/ L 3.5-5. 1 Not Available [facility] (Lab) [address] [place], [address], 12/19/2022 09:27:48 12/20/19 23 12/19/2022 COMPR EHENS SHAKILA METAB OLIC PANEL chloride 109 mmol/ L 100-10 8 high Not Available [facility] (Lab) [address] [facility], [place], [address], 12/19/2022 09:27:48 12/20/19 23 12/19/2022 COMPR EHENS SHAKILA METAB OLIC PANEL total CO2 20.0 mmol/ L 21-32 low Not Available [facility] (Lab) [address] [facility], [place], [address], 12/19/2022 09:27:48 12/20/19 23 12/19/2022 COMPR EHENS SHAKILA METAB OLIC PANEL calcium 9.4 mg/dL 8.5-10 .1 Not Available [facility] (Lab) [place], [address], 12/19/2022 09:27:48 12/20/19 23 12/19/2022 COMPR EHENS SHAKILA METAB OLIC PANEL total bilirubin 0.8 mg/dL 0.2-1. 2 THIS ASSAY IS NOT RECOM ROLY D FOR PATIE NTS UNDER GOING TREAT MENT WITH ELTRO MBOPA G DUE TO THE POTEN TIAL FOR FALSE LY ELEVA PRACHI RESUL TS. Not Available [facility] (Lab) [place], [address], 12/19/2022 09:27:48 12/20/19 23 12/19/2022 COMPR EHENS SHAKILA METAB OLIC PANEL total protein 7.6 g/dL 6.4-8. 2 Not Available [facility] (Lab) [address] [facility], [place], [address], 12/19/2022 09:27:48 12/20/19 23 12/19/2022 COMPR EHENS SHAKILA METAB OLIC PANEL albumin 2.8 g/dL 3.4-5. 0 low Not Available [facility] (Lab) [address], [place], [address], 12/19/2022 09:27:48 12/20/19 23 12/19/2022 COMPR EHENS SHAKILA METAB OLIC PANEL AST 15 U/L 15-37 Not Available [facility] (Lab) [address], [place], [address], 12/19/2022 09:27:48 12/20/19 23 12/19/2022 COMPR EHENS SHAIKLA METAB OLIC PANEL ALT 18 U/L 14-55 Not Available [facility] (Lab) [address] [facility], [place], [address], 12/19/2022 09:27:48 12/20/19 23 12/19/2022 COMPR EHENS SHAKILA METAB OLIC PANEL alk phosphatase 122 U/L 50-136 Not Available [facility] (Lab) [address], [place], [address], 12/19/2022 09:27:48 12/20/19 23 12/19/2022 COMPR EHENS SHAKILA METAB OLIC PANEL anion gap 6.0 mmol/ L 5-15 Not Available [facility] (Lab) [address], [place], [address], 12/19/2022 09:27:48 12/20/19 23 12/19/2022 COMPR EHENS SHAKILA METAB OLIC PANEL BUN creatinine ratio 14.9 6-[address] [facility] (Lab) [address] [facility], [place], [address], 12/19/2022 09:27:48 12/20/1912/19/2022 COMPR EHENS SHAKILA METAB OLIC PANEL A:g ratio 0.6 ratio 1.0-2. 0 low Not Available [facility] (Lab) [place], [address], 12/19/2022 09:27:48 12/20/1912/19/2022 COMPR EHENS SHAKILA METAB OLIC PANEL est GFR >90 mL/mi n/1.7 3_M2 >90 NOTE: eGFR is not calcu lated for patie nts <18 years of age. This is an estim ated GFR calcu latio n using the new CKD EPI creat inine equat ion witho ut race and so does not requi re a corre ction facto r for race. This estim ated GFR shoul d not be used for calcu latin g drug doses . Not Available [facility] (Lab) [place], [address], 12/19/2022 09:27:48 12/20/1912/19/2022 URIC ACID uric acid 3.9 mg/dL 2.6-6. 0 Not Available [facility] (Lab) [place], [address], 12/19/2022 09:38:51 12/20/1912/19/2022 CREAT ININE , URINE creatinine, urine 94.8 mg/dL 28-[address] [facility] (Lab) [place], [address], 12/19/2022 10:12:47 12/20/19 23 12/19/2022 TOTAL PROTE IN, URINE total protein, urine 18.4 mg/dL <[address] [facility] (Lab) [address], [place], [address], 12/19/2022 10:12:50 12/20/19 23 12/19/2022 TYPE AND SCREE N units ordered [address] [facility] (Lab) One [facility], [place], [address], 12/23/2022 08:06:10 12/20/19 23 12/19/2022 TYPE AND SCREE N ABO/Rh(D) O NEGATI VE Not Available [facility] (Lab) One [facility], [place], [address], 12/23/2022 08:06:10 12/20/19 23 12/19/2022 TYPE AND SCREE N antibody screen POSITI VE Not Available [facility] (Lab) One [facility], [place], [address], 12/23/2022 08:06:10 12/20/19 23 12/19/2022 TYPE AND SCREE N xm expiration 2022,2 359 Not Available [facility] (Lab) One [facility], [place], [address], 12/23/2022 08:06:10 12/20/19 23 12/19/2022 TYPE AND SCREE N antibody id Warm autoa ntibo dy, and Anti C ident ified . Trans fuse Rh(D) negat shakila, AHG cross match LEAST INCOM PATIB LE red blood cell produ cts per Impac t Life Not Available [facility] (Lab) [place], [address], 12/23/2022 08:06:10 12/20/19 23 12/19/2022 TYPE AND SCREE N allocated unit Not Available [facility] (Lab) [address], [place], [address], 12/23/2022 08:06:10 12/20/19 23 12/19/2022 TYPE AND SCREE N unit number [id number] Not Available [facility] (Lab) [address], [place], [address], 12/23/2022 08:06:10 12/20/19 23 12/19/2022 TYPE AND SCREE N blood component type PC LEUKO PHERE BAG2 Not Available [facility] (Lab) [address], [place], [address], 12/23/2022 08:06:10 12/20/19 23 12/19/2022 TYPE AND SCREE N unit division [address] [facility] (Lab) [address], [place], [address], 12/23/2022 08:06:10 12/20/1912/19/2022 TYPE AND SCREE N transfusion status OK TO TRANSF USE Not Available [facility] (Lab) [address], [place], [address], 12/23/2022 08:06:10 12/20/1912/19/2022 TYPE AND SCREE N crossmatch result COMPAT IBLE Not Available [facility] (Lab) [address], [place], [address], 12/23/2022 08:06:10 12/20/19 23 12/19/2022 TYPE AND SCREE N allocated unit Not Available [facility] (Lab) [address], [place], [address], 12/23/2022 08:06:10 12/20/1912/19/2022 TYPE AND SCREE N unit number [id number] Not Available [facility] (Lab) [address], [place], [address], 12/23/2022 08:06:10 12/20/19 23 12/19/2022 TYPE AND SCREE N blood component type PC LEUKO PHERE BAG1 Not Available [facility] (Lab) [address], [place], [address], 12/23/2022 08:06:10 12/20/1912/19/2022 TYPE AND SCREE N unit division [address] [facility] (Lab) [address], [place], [address], 12/23/2022 08:06:10 12/20/1912/19/2022 TYPE AND SCREE N transfusion status OK TO TRANSF USE Not Available [facility] (Lab) [address], [place], [address], 12/23/2022 08:06:10 12/20/1912/19/2022 TYPE AND SCREE N crossmatch result COMPAT IBLE Not Available [facility] (Lab) [address], [place], [address], 12/23/2022 08:06:10 12/20/1912/23/2022 TYPE AND SCREE N status of unit UNIT RELEAS ED [id number] 23 0705 Not Available [facility] (Lab) [address], [place], [address], 12/23/2022 08:06:10 12/20/19 23 12/23/2022 TYPE AND SCREE N status of unit UNIT MIRANDA ED [id number] [address] [facility] (Lab) [address], [place], [address], 12/23/2022 08:06:10 12/21/19 23 12/24/2022 ABELINO SURGI VALERI PATHO LOGY path report [facility] [address] 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 Clini valeri Histo ry IUGR, chron ic hyper tensi on, advan preet mater nal age Gross Descr iptio n Recei summer is a singl e forma mynor-f illed conta iner label ed with the patie nt's name (Kathryn gayle ), date of (04/15 0198 4) (cj ectio n time 12/20 at 1646) and addit ional ly label ed plac enta. The speci men consi sts of a singl eton place nta, measu ring 16.0 x 15.0 x 3.0 cm, with a lorraine jackie inser prachi umbil ical cord, measu ring 18.5 cm in lengt h with a diame ter up to 2.4 cm. The cord appea rs sligh tly edema tous. Secti oning of the cord revea ls a false knot at the area of large st diame ter. There are no ident ifiab le true knots . Secti oning of the remai paolo cord revea ls three -vess els. The membr anes are purpl e-salas with lorraine nal to circu mmarg inate inser tion (80% circu mmarg inate ). The surfa ce is purpl e-salas with areas of dilat ed vascu latur e. The mater nal surfa ce is red-t an with areas of yello w-whi te disco lorat ion. There is an area of ragge d mater nal surfa ce measu ring 4.0 x 2.0 cm, that does not have any adher ed hemor rhagi c mater ial and does not have any areas of inden tatio n. This area equal s 5% or less of the total place ntal disc. The mariah ed disc weigh s 400 grams . Secti oning of the disc does not revea l any addit ional ident ifiab le areas of disco lored tissu e. The two areas of disco lored tissu e on the mater nal surfa ce range from 1.0 cm up to 2.3 cm in great est dimen farhana and equal less than 5% of the total place ntal disc. Repre senta tive secti ons are submi tted as follo ws: 1 - Membr ane roll 2 - Repre senta tive cord to inclu de repre senta tive false knot 3 - Repre senta tive full thick ness place ntal disc to inclu de large r area of dense disco lored tissu e on the mater nal surfa ce in addit ion to a repre senta tive secti on of the remai paolo disco lored tissu e on the mater nal surfa ce (dean carolina l repre senta tive secti on (dean carolina l repre senta tive not full thick ness) 4 - Repre senta tive full thick ness place ntal disc at area of ragge d mater nal surfa ce 5-6 - Repre senta tive full thick ness remai paolo place ntal disc :pb Anibal ng Fee Code( s): 62124 Not Available [facility] (Lab) [place], [address], 12/24/2022 18:02:27 12/24/19 23 12/23/2022 CBC WITH DIFF WBC 12.4 x10'3 /uL 4.5-11 .0 high Not Available [facility] (Lab) [place], [address], 12/24/2022 00:20:27 12/24/19 23 12/23/2022 CBC WITH DIFF RBC 3.02 x10'6 /uL 4.20-5 .40 low Not Available [facility] (Lab) [place], [address], 12/24/2022 00:20:27 12/24/19 23 12/23/2022 CBC WITH DIFF hemoglobin 10.0 g/dL 12.0-1 6.0 low Not Available [facility] (Lab) [place], [address], 12/24/2022 00:20:27 12/24/19 23 12/23/2022 CBC WITH DIFF hematocrit 30.2 % 38.0-4 8.0 low Not Available [facility] (Lab) [address], [place], [address], 12/24/2022 00:20:27 12/24/1912/23/2022 CBC WITH DIFF MCV 100.0 fL 81.0-9 9.0 high Not Available [facility] (Lab) [address], [place], [address], 12/24/2022 00:20:27 12/24/1912/23/2022 CBC WITH DIFF MCH 33.1 pg 27.0-3 1.0 high Not Available [facility] (Lab) [address], [place], [address], 12/24/2022 00:20:27 12/24/19 23 12/23/2022 CBC WITH DIFF MCHC 33.1 g/dL 32.0-3 6.0 Not Available [facility] (Lab) [address], [place], [address], 12/24/2022 00:20:27 12/24/1912/23/2022 CBC WITH DIFF RDW 16.7 % 11.5-1 4.5 high Not Available [facility] (Lab) [address], [place], [address], 12/24/2022 00:20:27 12/24/1912/23/2022 CBC WITH DIFF platelet count 494 x10'3 /uL 130-40 0 high Not Available [facility] (Lab) [address], [place], [address], 12/24/2022 00:20:27 12/24/19 23 12/23/2022 CBC WITH DIFF MPV 9.1 fL 9.3-12 .2 low Not Available [facility] (Lab) [address], [place], [address], 12/24/2022 00:20:27 12/24/19 23 12/23/2022 CBC WITH DIFF diff type AUTOMA PRACHI DIFFER ENTIAL Not Available [facility] (Lab) [address], [place], [address], 12/24/2022 00:20:27 12/24/19 23 12/23/2022 CBC WITH DIFF neutrophils 83.3 % Not Available [facility] (Lab) [address], [place], [address], 12/24/2022 00:20:27 12/24/19 23 12/23/2022 CBC WITH DIFF lymphocytes 10.8 % Not Available [facility] (Lab) [address], [place], [address], 12/24/2022 00:20:27 12/24/19 23 12/23/2022 CBC WITH DIFF monocytes 3.7 % Not Available [facility] (Lab) [address], [place], [address], 12/24/2022 00:20:27 12/24/19 23 12/23/2022 CBC WITH DIFF eosinophils 1.2 % Not Available [facility] (Lab) [address], [place], [address], 12/24/2022 00:20:27 12/24/19 23 12/23/2022 CBC WITH DIFF basophils 0.2 % Not Available [facility] (Lab) [address], [place], [address], 12/24/2022 00:20:27 12/24/19 23 12/23/2022 CBC WITH DIFF immature granulocytes 0.8 % Not Available [facility] (Lab) [address] [facility], [place], [address], 12/24/2022 00:20:27 12/24/19 23 12/23/2022 CBC WITH DIFF abs. neutrophils 10.30 x10'3 /uL 1.80-7 .70 high Not Available [facility] (Lab) [address] [facility], [place], [address], 12/24/2022 00:20:27 12/24/19 23 12/23/2022 CBC WITH DIFF abs. lymphocytes 1.34 x10'3 /uL 1.00-4 .80 Not Available [facility] (Lab) [address] [facility], [place], [address], 12/24/2022 00:20:27 12/24/19 23 12/23/2022 CBC WITH DIFF abs. monocytes 0.46 x10'3 /uL 0.24-0 .86 Not Available [facility] (Lab) [address] [facility], [place], [address], 12/24/2022 00:20:27 12/24/19 23 12/23/2022 CBC WITH DIFF abs. eosinophils 0.15 x10'3 /uL 0.04-0 .36 Not Available [facility] (Lab) [place], [address], 12/24/2022 00:20:27 12/24/19 23 12/23/2022 CBC WITH DIFF abs. basophils 0.03 x10'3 /uL 0.01-0 .08 Not Available [facility] (Lab) [address] [facility], [place], [address], 12/24/2022 00:20:27 12/24/19 23 12/23/2022 CBC WITH DIFF abs. immature grans 0.10 x10'3 /uL 0.00-0 .49 Not Available [facility] (Lab) [address] [facility], [place], [address], 12/24/2022 00:20:27 12/24/19 23 12/23/2022 COMPR EHENS SHAKILA METAB OLIC PANEL glucose 96 mg/dL 70-99 Not Available [facility] (Lab) [address] [facility], [place], [address], 12/24/2022 00:42:34 12/24/19 23 12/23/2022 COMPR EHENS SHAKILA METAB OLIC PANEL BUN 6 mg/dL 7-18 low Not Available [facility] (Lab) [address] [facility], [place], [address], 12/24/2022 00:42:34 12/24/19 23 12/23/2022 COMPR EHENS SHAKILA METAB OLIC PANEL creatinine 0.59 mg/dL 0.55-1 .02 Not Available [facility] (Lab) [place], [address], 12/24/2022 00:42:34 12/24/19 23 12/23/2022 COMPR EHENS SHAKILA METAB OLIC PANEL sodium 137 mmol/ L 136-14 5 Not Available [facility] (Lab) [place], [address], 12/24/2022 00:42:34 12/24/19 23 12/23/2022 COMPR EHENS SHAKILA METAB OLIC PANEL potassium 3.6 mmol/ L 3.5-5. 1 Not Available [facility] (Lab) [address], [place], [address], 12/24/2022 00:42:34 12/24/1912/23/2022 COMPR EHENS SHAKILA METAB OLIC PANEL chloride 109 mmol/ L 100-10 8 high Not Available [facility] (Lab) [address] [facility], [place], [address], 12/24/2022 00:42:34 12/24/19 23 12/23/2022 COMPR EHENS SHAKILA METAB OLIC PANEL total CO2 24.3 mmol/ L 21-32 Not Available [facility] (Lab) [address] [facility], [place], [address], 12/24/2022 00:42:34 12/24/1912/23/2022 COMPR EHENS SHAKILA METAB OLIC PANEL calcium 9.5 mg/dL 8.5-10 .1 Not Available [facility] (Lab) [address], [place], [address], 12/24/2022 00:42:34 12/24/1912/23/2022 COMPR EHENS SHAKILA METAB OLIC PANEL total bilirubin 0.6 mg/dL 0.2-1. 2 THIS ASSAY IS NOT RECOM ROLY D FOR PATIE NTS UNDER GOING TREAT MENT WITH ELTRO MBOPA G DUE TO THE POTEN TIAL FOR FALSE LY ELEVA PRACHI RESUL TS. Not Available [facility] (Lab) [address] [facility], [place], [address], 12/24/2022 00:42:34 12/24/1912/23/2022 COMPR EHENS SHAKILA METAB OLIC PANEL total protein 6.8 g/dL 6.4-8. 2 Not Available [facility] (Lab) [address], [place], [address], 12/24/2022 00:42:34 12/24/19 23 12/23/2022 COMPR EHENS SHAKILA METAB OLIC PANEL albumin 2.4 g/dL 3.4-5. 0 low Not Available [facility] (Lab) [address] [facility], [place], [address], 12/24/2022 00:42:34 12/24/19 23 12/23/2022 COMPR EHENS SHAKILA METAB OLIC PANEL AST 25 U/L 15-37 Not Available [facility] (Lab) [address], [place], [address], 12/24/2022 00:42:34 12/24/19 23 12/23/2022 COMPR EHENS SHAKILA METAB OLIC PANEL ALT 22 U/L 14-55 Not Available [facility] (Lab) [place], [address], 12/24/2022 00:42:34 12/24/19 23 12/23/2022 COMPR EHENS SHAKILA METAB OLIC PANEL alk phosphatase 116 U/L 50-136 Not Available [facility] (Lab) [address], [place], [address], 12/24/2022 00:42:34 12/24/19 23 12/23/2022 COMPR EHENS SHAKILA METAB OLIC PANEL anion gap 3.7 mmol/ L 5-15 low Not Available [facility] (Lab) [place], [address], 12/24/2022 00:42:34 12/24/19 23 12/23/2022 COMPR EHENS SHAKILA METAB OLIC PANEL BUN creatinine ratio 10.1 6-[address] [facility] (Lab) [place], [address], 12/24/2022 00:42:34 12/24/19 23 12/23/2022 COMPR EHENS SHAKILA METAB OLIC PANEL A:g ratio 0.5 ratio 1.0-2. 0 low Not Available [facility] (Lab) [address] [facility], [place], [address], 12/24/2022 00:42:34 12/24/19 23 12/23/2022 COMPR EHENS SHAKILA METAB OLIC PANEL est GFR >90 mL/mi n/1.7 3_M2 >90 NOTE: eGFR is not calcu lated for patie nts <18 years of age. This is an estim ated GFR calcu latio n using the new CKD EPI creat inine equat ion witho ut race and so does not requi re a corre ction facto r for race. This estim ated GFR shoul d not be used for calcu latin g drug doses . Not Available [facility] (Lab) [address] [place], [address], 12/24/2022 00:42:34 12/24/19 23 12/23/2022 URIC ACID uric acid 3.7 mg/dL 2.6-6. 0 Not Available [facility] (Lab) [address] [place], [address], 12/24/2022 00:42:36 12/24/19 23 12/23/2022 PROTE IN CREAT RATIO total protein, urine 22.8 mg/dL <[address] [facility] (Lab) One [place], [address], 12/24/2022 00:50:28 12/24/19 23 12/23/2022 PROTE IN CREAT RATIO creatinine, urine 41.3 mg/dL 28-[address] [facility] (Lab) [address] [place], [address], 12/24/2022 00:50:28 12/24/19 23 12/23/2022 PROTE IN CREAT RATIO protein creat ratio 0.6 Not Available [facility] (Lab) [place], [address], 12/24/2022 00:50:28 12/24/19 23 12/23/2022 UA REFLE X TO MICRO specimen type URINE CLEAN CATCH Not Available [facility] (Lab) [place], [address], 12/24/2022 00:50:38 12/24/19 23 12/23/2022 UA REFLE X TO MICRO color COLORL ESS Not Available [facility] (Lab) [place], [address], 12/24/2022 00:50:38 12/24/19 23 12/23/2022 UA REFLE X TO MICRO clarity CLEAR Not Available [facility] (Lab) [place], [address], 12/24/2022 00:50:38 12/24/19 23 12/23/2022 UA REFLE X TO MICRO specific gravity 1.010 1.001- 1.030 Not Available [facility] (Lab) [place], [address], 12/24/2022 00:50:38 12/24/19 23 12/23/2022 UA REFLE X TO MICRO pH, urine 7.5 5.0-9. 0 Not Available [facility] (Lab) [place], [address], 12/24/2022 00:50:38 12/24/19 23 12/23/2022 UA REFLE X TO MICRO leukocytes 500 neg abnormal Not Available [facility] (Lab) [place], [address], 12/24/2022 00:50:38 12/24/19 23 12/23/2022 UA REFLE X TO MICRO nitrite NEGATI VE neg Not Available [facility] (Lab) [place], [address], 12/24/2022 00:50:38 12/24/19 23 12/23/2022 UA REFLE X TO MICRO protein NEGATI VE mg/dL <30 Not Available [facility] (Lab) [place], [address], 12/24/2022 00:50:38 12/24/19 23 12/23/2022 UA REFLE X TO MICRO glucose NORMAL mg/dL norm Not Available [facility] (Lab) [place], [address], 12/24/2022 00:50:38 12/24/19 23 12/23/2022 UA REFLE X TO MICRO ketone NEGATI VE mg/dL neg Not Available [facility] (Lab) [place], [address], 12/24/2022 00:50:38 12/24/19 23 12/23/2022 UA REFLE X TO MICRO urobilinogen NORMAL mg/dL norm Not Available [facility] (Lab) [place], [address], 12/24/2022 00:50:38 12/24/19 23 12/23/2022 UA REFLE X TO MICRO bilirubin NEGATI VE mg/dL neg Not Available [facility] (Lab) [place], [address], 12/24/2022 00:50:38 12/24/19 23 12/23/2022 UA REFLE X TO MICRO blood 3+ neg abnormal Not Available [facility] (Lab) [address], [place], [address], 12/24/2022 00:50:38 12/24/19 23 12/23/2022 UA REFLE X TO MICRO mucous RARE /lpf Not Available [facility] (Lab) [address] [facility], [place], [address], 12/24/2022 00:50:38 12/24/19 23 12/23/2022 UA REFLE X TO MICRO WBC >100 /hpf <6 high Not Available [facility] (Lab) [place], [address], 12/24/2022 00:50:38 12/24/19 23 12/23/2022 UA REFLE X TO MICRO RBC >100 /hpf <6 high Not Available [facility] (Lab) [address] [facility], [place], [address], 12/24/2022 00:50:38 12/24/19 23 12/23/2022 UA REFLE X TO MICRO bacteria RARE /hpf none abnormal Not Available [facility] (Lab) [place], [address], 12/24/2022 00:50:38 12/24/19 23 12/23/2022 UA REFLE X TO MICRO squamous epithelial RARE /hpf Not Available [facility] (Lab) [place], [address], 12/24/2022 00:50:38 12/24/19 23 12/23/2022 URINE CULTU RE specimen description URINE CLEAN CATCH Not Available [facility] (Lab) [place], [address], 12/26/2022 09:26:26 12/24/19 23 12/23/2022 URINE CULTU RE special requests NO SPECIA L REQUES T Not Available [facility] (Lab) [place], [address], 12/26/2022 09:26:26 12/24/19 23 12/26/2022 URINE CULTU RE culture 10,000 -49,00 0 COL/ML ESCHER ICHIA COLI Not Available [facility] (Lab) [place], [address], 12/26/2022 09:26:26 12/24/19 23 12/26/2022 URINE CULTU RE report status FINAL 2022 Not Available [facility] (Lab) [place], [address], 12/26/2022 09:26:26 12/24/19 23 12/26/2022 URINE CULTU RE susceptibili ty Not Available [facility] (Lab) [place], [address], 12/26/2022 09:26:26 12/24/19 23 12/26/2022 URINE CULTU RE organism 10,000 -49,00 0 COL/ML ESCHER ICHIA COLI Not Available [facility] (Lab) [place], [address], 12/26/2022 09:26:26 12/24/19 23 12/26/2022 URINE CULTU RE method CAT Not Available [facility] (Lab) [place], [address], 12/26/2022 09:26:26 12/24/19 23 12/26/2022 URINE CULTU RE ampicillin <=2 SUSCEP TIBLE Not Available [facility] (Lab) [address], [place], [address], 12/26/2022 09:26:26 12/24/19 23 12/26/2022 URINE CULTU RE amp/sulbacta m <=2 SUSCEP TIBLE Not Available [facility] (Lab) [address], [place], [address], 12/26/2022 09:26:26 12/24/19 23 12/26/2022 URINE CULTU RE ceftriaxone <=1 SUSCEP TIBLE Not Available [facility] (Lab) [address] [facility], [place], [address], 12/26/2022 09:26:26 12/24/19 23 12/26/2022 URINE CULTU RE ceftazidime <=1 SUSCEP TIBLE Not Available [facility] (Lab) [address], [place], [address], 12/26/2022 09:26:26 12/24/19 23 12/26/2022 URINE CULTU RE cefazolin <=4 SUSCEP TIBLE Not Available [facility] (Lab) [address], [place], [address], 12/26/2022 09:26:26 12/24/19 23 12/26/2022 URINE CULTU RE esbl NEG Not Available [facility] (Lab) [address] [facility], [place], [address], 12/26/2022 09:26:26 12/24/19 23 12/26/2022 URINE CULTU RE nitrofuranto in <=16 SUSCEP TIBLE Not Available [facility] (Lab) [place], [address], 12/26/2022 09:26:26 12/24/19 23 12/26/2022 URINE CULTU RE gentamicin <=1 SUSCEP TIBLE Not Available [facility] (Lab) [place], [address], 12/26/2022 09:26:26 12/24/19 23 12/26/2022 URINE CULTU RE levofloxacin <=0.12 SUSCEP TIBLE Not Available [facility] (Lab) [place], [address], 12/26/2022 09:26:26 12/24/19 23 12/26/2022 URINE CULTU RE pipracil/dora o <=4 SUSCEP TIBLE Not Available [facility] (Lab) [place], [address], 12/26/2022 09:26:26 12/24/19 23 12/26/2022 URINE CULTU RE trimeth-sulf amethoxazole <=20 SUSCEP TIBLE Not Available [facility] (Lab) [place], [address], 12/26/2022 09:26:26 02/05/20 23 02/04/2023 pregn edgar test, urine HCG negati ve Not Available [facility] [address] [place], [address], 02/04/2023 16:14:46 04/11/20 23 04/12/2023 VAGIN ITIS PANEL bacterial vaginosis BV neg negati ve normal Not Available [address], [address], 04/12/2023 14:00:25 04/11/20 23 04/12/2023 VAGIN ITIS PANEL aida species C. spp neg negati ve normal Not Available [address], [address], 04/12/2023 14:00:25 04/11/20 23 04/12/2023 VAGIN ITIS PANEL aida glabrata C. gla neg negati ve normal Not Available [address], [address], 04/12/2023 14:00:25 04/11/20 23 04/12/2023 VAGIN ITIS PANEL trichomonas vaginalis CV/TV TRICH neg negati ve normal Not Available [address], [address], 04/12/2023 14:00:25 04/11/20 23 04/12/2023 CULTU RE, URINE , ROUTI NE culture, urine, routine SEE NOTE CULTU RE, URINE , ROUTI NE Micro Numbe r: [id number] Test Statu s: Final Speci men Sourc e: Urine Speci men Quali ty: Adequ ate Resul t: No Growt h Not Available [address] [address] [place], [address], 04/12/2023 23:18:45 04/11/20 23 04/11/2023 urina lysis , dipst ick Leukocytes Negati ve Not Available [address], [address], 04/11/2023 14:09:25 04/11/20 23 04/11/2023 urina lysis , dipst ick Nitrite negati ve Not Available [address], [address], 04/11/2023 14:09:25 04/11/20 23 04/11/2023 urina lysis , dipst ick Urobilinogen .2 Not Available [address], [address], 04/11/2023 14:09:25 04/11/20 23 04/11/2023 urina lysis , dipst ick Protein 30 Not Available [address], [address], 04/11/2023 14:09:25 04/11/20 23 04/11/2023 urina lysis , dipst ick pH 5.0 Not Available [address], [address], 04/11/2023 14:09:25 04/11/20 23 04/11/2023 urina lysis , dipst ick Blood Modera te Not Available [address], [address], 04/11/2023 14:09:25 04/11/20 23 04/11/2023 urina lysis , dipst ick Specific [place] 1.015 Not Available [address], [address], 04/11/2023 14:09:25 04/11/20 23 04/11/2023 urina lysis , dipst ick Ketone Trace Not Available [address], [address], 04/11/2023 14:09:25 04/11/20 23 04/11/2023 urina lysis , dipst ick Bilirubin Negati ve Not Available [address], [address], 04/11/2023 14:09:25 04/11/20 23 04/11/2023 urina lysis , dipst ick Glucose Negati ve Not Available [address] [place], [address], 04/11/2023 14:09:25 04/11/20 23 04/11/2023 urina lysis , dipst ick Appearance Clear Not Available [address], [address], 04/11/2023 14:09:25 04/11/20 23 04/11/2023 urina lysis , dipst ick Color Yellow Not Available [address], [address], 04/11/2023 14:09:25 05/13/20 24 05/14/2024 HPV HIGH RISK HPV high risk Negati ve negati ve normal The HPV High Risk assay is inten ded for use as co-te sting with cytol ogy and not as a subst itute for regul ar cervi valeri cytol ogy scree paolo. This assay is not inten ded for use as a scree paolo devic e for women under age 30 with iqra l cervi valeri cytol ogy. Not Available [address], [address], 05/15/2024 07:59:04 05/13/20 24 05/18/2024 THINP REP TIS PAP clinical information: normal None given Not Available [employer] [address], [address], 05/18/2024 13:02:42 05/13/20 24 05/18/2024 THINP REP TIS PAP LMP: normal NONE GIVEN Not Available [employer] [address], [address], 05/18/2024 13:02:42 05/13/20 24 05/18/2024 THINP REP TIS PAP prev. Pap: normal NONE GIVEN Not Available [employer] [address], [address], 05/18/2024 13:02:42 05/13/20 24 05/18/2024 THINP REP TIS PAP prev. BX: normal NONE GIVEN Not Available [address], [address], 05/18/2024 13:02:42 05/13/20 24 05/18/2024 THINP REP TIS PAP source: normal Cervi x Not Available [address], [address], 05/18/2024 13:02:42 05/13/20 24 05/18/2024 THINP REP TIS PAP statement of adequacy: normal Satis facto ry for evalu ation . Endoc ervic al/tr ansfo rmati on zone compo nent prese nt. Not Available [address], [address], 05/18/2024 13:02:42 05/13/20 24 05/18/2024 THINP REP TIS PAP general categorizati on: abnormal Cytol ogy Resul ts: Epith elial Cell Abnor malit y Not Available [address], [address], 05/18/2024 13:02:42 05/13/20 24 05/18/2024 THINP REP TIS PAP interpretati on/result: abnormal Atypi valeri Squam ous Cells of Undet ermin ed Signi fican ce (ASC- [place]) Not Available [address], [address], 05/18/2024 13:02:42 05/13/20 24 05/18/2024 THINP REP TIS PAP comment: normal This Pap test has been evalu ated with compu ter ayden prachi techn ology . Sugge st clini valeri corre latio n and follo w-up as clini melanie appro priat e Not Available [address] [place], [address], 05/18/2024 13:02:42 05/13/20 24 05/18/2024 THINP REP TIS PAP cytotechnolo gist: normal LMT, CT( CP) CT scree paolo locat ion: [address] [address] [place] [address] Not Available [facility] [address] [address] [place], [address], 05/18/2024 13:02:42 05/13/20 24 05/18/2024 THINP REP TIS PAP pathologist: normal Iqra cobian M.D., Board Certi fied in Anato cat Patho logy and Cytop athol ogy. Phone : [phone] (elec troni c signa ture) Not Available [employer] [facility] [address] [address] [place], [address], 05/18/2024 13:02:42 05/13/20 24 05/18/2024 THINP REP TIS PAP comment EXPLA NATOR Y NOTE: The Pap is a scree paolo test for cervi valeri cance r. It is not a diagn ostic test and is subje ct to false negat shakila and false posit shakila resul ts. It is most relia ble when a satis facto ry sampl e, regul trish obtai mary, is submi tted with relev ant clini valeri findi ngs and histo ry, and when the Pap resul t is evalu ated along with histo clinton and curre nt clini valeri infor matio n. Not Available [facility] [address] [address] [place], [address], 05/18/2024 13:02:42 11/23/19 23 US, obste tric, bioph ysica l profi le No observ ation record ed. [facility] [address] [facility], [place], [address], 11/23/2022 11:13:42 11/23/19 23 11/23/2022 US, obste tric, amnio tic fluid index No observ ation record ed. [facility] [address], [place], [address], 11/24/2022 19:44:54 11/30/19 23 11/30/2022 US, obste tric, bioph ysica l profi le No observ ation record ed. [email or web address] [facility] [address], [place], [address], 12/22/2022 01:50:32 12/03/19 23 12/03/2022 US, obste tric No observ ation record ed. [facility] [address] [place] [address], [address], 01/14/2023 10:47:40 12/07/19 23 12/07/2022 US, obste tric, bioph ysica l profi le + non-s tress test No observ ation record ed. [email or web address], [place], [address], 12/08/2022 20:58:52 12/15/19 23 12/14/2022 US, obste tric, bioph ysica l profi le + non-s tress test No observ ation record ed. [email or web address] [address], [place], [address], 12/22/2022 01:53:01 12/20/19 23 12/18/2022 US, obste tric, bioph ysica l profi le + non-s tress test No observ ation record ed. [email or web address] [facility] [address], [place], [address], 01/14/2023 03:16:07 02/11/20 23 02/04/2023 US, trans vagin al No observ ation record ed. [facility] [address], [place], [address], 02/11/2023 10:06:36 Result Notes None recorded. Problems Name Problem SNOMED Code Status Onset Date Resolution Date Notes Provider Name and Address Organization Details Recorded Time Ulcerati ve colitis 36486312 Completed 2021 UYEN JOHNSTON DO [address] [place] [address], [address], [employer] [email or web address] 3 16:44:45 Advanced maternal age [id number] Completed Qnatal drawn UYEN JOHNSTON, DO [address] [place] [address], [address], [employer] [email or web address] 3 16:44:45 Hyperten sive disorder [id number] Completed Labetalol . Baseline labs wnl ASA 81 mg. 11/20 increased labetalol to 400 tid. UYEN JOHNSTON DO [address] [place] [address], [address], [employer] [email or web address] 3 16:44:45 Anemia 256963651 Completed UYEN JOHNSTON DO [address] [place] [address], [address], [employer] [facility] 3 16:44:45 Genital herpes simplex 47936572 Completed Valtrex at 36 weeks UYEN JOHNSTON DO [address] [place] [address], [address], [employer] [email or web address] 3 16:44:45 Eczema 90495921 Completed triamcino lone UYEN JOHNSTON, DO [address] [place] [address], [address], [employer] [email or web address] 3 16:44:45 High risk pregnanc y 14665758 Completed UYEN JOHNSTON, DO [address] [place] [address], [address], [employer] [email or web address] IV 3 16:44:45 Essentia l hyperten farhana 96888236 Active 2021 Elizabeth Jernigan MD [address] [place] [address], [address], [employer] [email or web address] 2 06:39:59 Multigra pascual of advanced maternal age 882157513 Completed 2021 UYEN JOHNSTON DO [address] [place] [address], [address], [email or web address] 3 16:44:45 Ulcerati ve colitis 45994275 Active 2021 UYEN JOHNSTON DO [address] [place] [address], [address], [email or web address] 3 16:44:45 Screenin g for disorder Completed antibody screen positive, Irma negative. Per Heme does not require further Ab screen UYEN JOHNSTON DO [address] [place] [address], [address], [email or web address] 3 16:44:45 growth restrict ion 65731351 Completed 2022 EFW: 5% AC: 1% UYEN JOHNSTON DO [address] [place] [address], [address], [email or web address] 3 16:44:45 Problem Notes None recorded. Procedures Surgical History Date Name Laterality Status Provider Name and Address Organization Details Recorded Time 05/13/20 24 Date of Last Pap Smear completed UYEN JOHNSTON DO [address] [place] [address], [address], [email or web address] 05/15/2024 09:11:47 02/05/20 23 [email or web address] 02/04/2023 16:46:09 12/19/19 23 NST completed NERISSA DRAPER MD [address] [place] [address], [address], [email or web address] IV 12/19/2022 22:07:32 12/15/19 23 NST completed NERISSA DRAPER MD [address] [place] [address], [address], [place] [facility] 12/19/2022 22:18:04 12/11/19 23 NST completed Dorothy Pelletier [facility] 12/11/2022 10:25:34 12/07/19 23 NST completed Carin Malin [facility] 12/07/2022 10:30:39 12/04/19 23 NST completed Dorothy Pelletier [facility] 12/04/2022 10:12:15 11/30/19 23 NST completed NERISSA DRAPER MD [address] [place], [address], [facility] 11/30/2022 10:48:31 11/23/19 23 NST completed UYEN JOHNSTON DO [address] [place] [address], [address], [facility] 11/23/2022 11:13:48 11/20/19 23 NST completed Nadia Ty CNM [facility] [place], [address], [place] [facility] 11/20/2022 12:33:40 11/16/19 23 NST completed UYEN JOHNSTON DO [address] [place] [address], [address], [facility] 11/16/2022 11:24:59 11/13/19 23 NST completed Nadia Ty CNM [address] [place] [address], [address], [place] [facility] 11/13/2022 17:26:41 03/14/20 20 Most Recent Mammogram completed Carol Mojica [facility] 05/30/2022 14:14:29 06/14/20 19 Date of Last Colonoscopy completed Carol Mojica [facility] 05/30/2022 14:12:49 Colonoscopy completed Shanice Gallego [facility] 06/27/2022 13:02:50 Imaging Results Imaging Date Name Status LastModified by Organization Details LastModified Time 11/23/2022 US, obstetric, biophysical profile completed [facility] [address] [place], [address], 11/23/2022 11:13:42 11/23/2022 US, obstetric, amniotic fluid index completed [facility] [address], [place], [address], 11/24/2022 19:44:54 11/30/2022 US, obstetric, biophysical profile completed [email or web address] [facility] [address], [place], [address], 12/22/2022 01:50:32 12/03/2022 US, obstetric completed [facility] [address] [place], [address], 01/14/2023 10:47:40 12/07/2022 US, obstetric, biophysical profile + non-stress test completed [email or web address] [address], [place], [address], 12/08/2022 20:58:52 12/14/2022 US, obstetric, biophysical profile + non-stress test completed [email or web address] [facility] [address], [place], [address], 12/22/2022 01:53:01 12/18/2022 US, obstetric, biophysical profile + non-stress test completed [email or web address] [facility], [place], [address], 01/14/2023 03:16:07 02/04/2023 US, transvaginal completed [facility] [address], [place], [address], 02/11/2023 10:06:36 Procedure Notes None recorded. Medical Equipment None Reported. Allergies Allergen ID Allergen Name Allergen Category Reaction Reaction Severity Criticality Documentation Date Start Date Code Code System Note Provider Name and Address Organization Details Recorded Time 788366 neomycin medicatio n Not available Not available Not available 05/30/2022 7299 RxNorm Not Available Not Available Not Available 287917 peanut allergeni c extract food,medi cation Not available Not available Not available 06/27/2022 60997 8 RxNorm Not Available Not Available Not Available 958621 tree nut food Not available Not available Not available 06/27/2022 53263 UNK Not Available Not Available Not Available Medications Name Sig Start Date Stop Date Status Note LastModified by Organization Details LastModified Time nifedipine ER 30 mg tablet,exte nded release 24 hr TAKE 1 TABLET BY MOUTH ONCE DAILY 04/11 completed Not Available Not Available Not Available amoxicillin 500 mg capsule TAKE 1 CAPSULE BY MOUTH TWICE DAILY FOR 7 DAYS 09/20 completed Not Available Not Available Not Available Mirena 21 mcg/24 hr (up to 8 years) 52 mg intrauterin e device Take 1 device by intrauter ine route. 2022 active Not Available Not Available Not Avai lable labetalol 200 mg tablet TAKE 1 TABLET BY MOUTH TWICE DAILY active Not Available Not Available No t Available ibuprofen 800 mg tablet TAKE 1 TABLET BY MOUTH EVERY 8 HOURS NEEDED FOR PAIN - MAY TAKE EVERY 6 HOURS FOR FIRST 2 DAYS 04/11 completed Not Available Not Available Not Available prednisone 20 mg tablet TAKE 2 TABLETS BY MOUTH ONCE DAILY FOR 5 DAYS 05/13 completed Not Available Not Available Not Available azathioprin e 50 mg tablet TAKE 2 TABLETS BY MOUTH ONCE DAILY active Not Available Not Available No t Available valacyclovi r 500 mg tablet TAKE 1 TABLET BY MOUTH ONCE DAILY 05/13 completed Not Available Not Available Not Available ciprofloxac in 500 mg tablet TAKE 1 TABLET BY MOUTH EVERY 12 HOURS FOR 5 DAYS 05/13 completed Not Available Not Available Not Available sulfamethox azole 800 mg-trimetho prim 160 mg tablet 05/13 completed Not Available Not Available Not Available triamcinolo ne acetonide 0.1 % topical cream APPLY CREAM TOPICALLY TO AFFECTED AREAS TWICE DAILY NEEDED 05/13 completed Not Available Not Available Not Available amoxicillin 875 mg tablet TAKE 1 TABLET BY MOUTH EVERY 12 HOURS FOR 7 DAYS 05/13 completed Not Available Not Available Not Available sertraline 25 mg tablet TAKE 1 TABLET BY MOUTH ONCE DAILY active Not Available Not Available No t Available omeprazole 20 mg capsule,del ayed release 2023 active Not Available Not Available Not Avai lable hydrochloro thiazide 25 mg tablet TAKE 1 TABLET BY MOUTH ONCE DAILY 05/13 completed Not Available Not Available Not Available budesonide DR - ER 3 mg capsule,del ayed,extend ed release TAKE 1 CAPSULE BY MOUTH ONCE DAILY 05/30 completed Not Available Not Available Not Available hydrocortis one 2.5 % topical ointment APPLY OINTMENT TOPICALLY TO FACE TWICE DAILY 05/13 completed Not Available Not Available Not Available nifedipine ER 60 mg tablet,exte nded release TAKE 1 TABLET BY MOUTH ONCE DAILY 04/11 completed Not Available Not Available Not Available sertraline 50 mg tablet TAKE 1 TABLET BY MOUTH ONCE DAILY active Not Available Not Available No t Available amoxicillin 875 mg-potassiu m clavulanate 125 mg tablet 05/13 completed Not Available Not Available Not Available amoxicillin 500 mg-potassiu m clavulanate 125 mg tablet TAKE 1 TABLET BY MOUTH THREE TIMES DAILY 05/30 completed Not Available Not Available Not Available neomycin 3.5 mg/g-polymy sean B 10,000 unit/g-dexa meth 0.1 % eye oint APPLY SMALL AMOUNT TO UPPER AND LOWER LID OF RIGHT EYE TWICE DAILY FOR 7 DAYS 09/20 completed Not Available Not Available Not Available duloxetine 30 mg capsule,del ayed release TAKE 1 CAPSULE BY MOUTH TWICE DAILY 10/31 completed Not Available Not Available Not Available fiber 10/31 completed Not Available Not Available Not Available 04/11 completed Not Available Not Available Not Available Zyrtec 10/31 completed Not Available Not Available Not Available Humira 04/11 completed Not Available Not Available Not Available cholecalcif duran (vitamin D3) 1,250 mcg (50,000 unit) capsule TAKE 1 CAPSULE BY MOUTH ONCE A WEEK FOR 8 DOSES. 05/30 completed Not Available Not Available Not Available Humira(CF) Pen 40 mg/0.4 mL subcutaneou s kit ADMINISTE R 40 MG UNDER THE SKIN EVERY 14 DAYS active Not Available Not Available No t Available aspirin 81 mg capsule Take 1 capsule every day by oral route. 12/28 completed Not Available Not Available Not Available Vitals Date Recorded Body height Body mass index (BMI) Body weight Body temperature Systolic blood pressure Diastolic blood pressure Provider Name and Address Organization Details Last Updated DateTime 3 149.86 cm 39.1 kg/m2 14960.4 72067 g 97.7 [degF] 132 mm[Hg] 82 mm[Hg] Kathryn Eng [place] [employer] IV 3 10:49:04 Date Recorded Body height Body mass index (BMI) Body weight Systolic blood pressure Diastolic blood pressure Systolic blood pressure Diastolic blood pressure Provider Name and Address Organization Details Last Updated DateTime 3 149.86 cm 34.9 kg/m2 83426.0 88273 g 138 mm[Hg] 88 mm[Hg] 128 mm[Hg] 82 mm[Hg] Marla Chavez [place] [employer] [facility] IV 3 12:29:05 Date Recorded Body height Provider Name an d Address Organization Details Last Updated DateTime 02/04/2023 149.86 cm Fabiana Sanders [place] [address] [facility] IV 02/04/2023 15:53:23 Date Recorded Body height Provider Name an d Address Organization Details Last Updated DateTime 04/11/2023 149.86 [facility] [address] [facility] IV 04/11/2023 14:01:59 Date Recorded Body height Body mass index (BMI) Body weight Body temperature Systolic blood pressure Diastolic blood pressure Provider Name and Address Organization Details Last Updated DateTime 4 149.86 cm 42.2 kg/m2 07371.0 9 g 97.5 [degF] 130 mm[Hg] 80 mm[Hg] Dorothy Pelletier [place] [employer] IV 4 14:33:14 Social History Question Answer Notes LastModified by Organizat ion Details LastModified Time Tobacco Smoking Status Former Smoker Shanice huitron, [place] [employer] IV 06/27/2022 13:02:50 What Is Your Level Of Alcohol Consumption? None Information not available 06/27/2022 If You Are , What Was Your Level Of Alcohol Consumption Prior To ? None Information not available 11/30/2022 Are You Blind Or Do You Have Difficulty Seeing? No Information not available 06/27/2022 Are You Currently Employed? Yes Information not available 05/13/2024 Are You Deaf Or Do You Have Serious Difficulty Hearing? No Information not available 06/27/2022 What Type Of Diet Are You Following? REGULAR Information not available 06/27/2022 Do You Or Have You Ever Used E-cigarettes Or Vape? Never Used Electronic Cigarettes Information not available 06/27/2022 When Did You Quit Smoking? 6-10yearssince lastcigarette Information not available 05/13/2024 How Many Children Do You Have? 1 Information not available 05/13/2024 Are There Any Occupational Health Risks Where You Work? No Information not available 05/13/2024 What Is Your Relationship Status? Information not available 06/27/2022 Are You Sexually Active? Yes Information not available 06/27/2022 Do You Use Any Illicit Or Recreational Drugs? No [email or web address] Information not available 11/27/2022 Do You Or Have You Ever Used Any Other Forms Of Tobacco Or Nicotine? No Information not available 11/30/2022 Sex: Female Functional Status Question Answer Note LastModified by Organizat ion Details LastModified Time What is your exercise level? Occasional Information not available 06/27/2022 Mental Status None recorded. Family History Relationship Description Onset Age of this Age Resolved Age Notes LastModified by Organization Details LastModified Time Paternal Grandfather Myocardial infarction [email or web address] Not available 06/27 13:02:49 Paternal Grandfather Diabetes mellitus kbritsch Not available 2021 13:02:49 Paternal Grandfather Malignant neoplastic disease kbritsch Not available 2021 13:02:49 Paternal Grandfather Heart disease kbritsch Not available 2021 13:02:49 Maternal Grandmother Malignant neoplastic disease kbritsch Not available 2021 13:02:49 Maternal Grandmother Hypercholest erolemia kbritsch Not available 2021 13:02:49 Maternal Grandmother Endometriosi s (clinical) kbritsch Not available 13:02:49 Maternal Grandmother Hypertensive disorder kbritsch Not available 2021 13:02:49 Mother Uterine leiomyoma kbritsch Not available 2021 13:02:49 Mother Hypertensive disorder kbritsch Not available 2021 13:02:49 Mother Hypercholest erolemia kbritsch Not available 2021 13:02:49 Maternal Grandfather Diabetes mellitus kbritsch Not available 2021 13:02:49 Maternal Grandfather Myocardial infarction kbritsch Not available 06/27 13:02:49 Maternal Grandfather Heart disease kbritsch Not available 2021 13:02:49 Paternal Grandmother Heart disease kbritsch Not available 2021 13:02:49 Paternal Grandmother Malignant neoplastic disease kbritsch Not available 2021 13:02:49 Paternal Grandmother Malignant tumor of colon kbritsch Not available 2021 13:02:49 Paternal Grandmother Myocardial infarction kbritsch Not available 06/27 13:02:49 Sister Endometriosi s (clinical) kbritsch Not available 13:02:49 Medical History Condition Response High Blood Pressure Y Asthma Y Endometriosis Y Anemia Y Ulcerative Colitis Y Gynecological History Statement/Question Response Flow Heavy Date of last HPV 05/13/2024 Date of LMP 05/02/2024 HPV Vaccine N Duration of Flow (days) 4 to 6 Most Recent Mammogram 03/14/2020 Current Control Method IUD Age at Menarche 12 Date of Last Colonoscopy 06/14/2019 Frequency of Cycle (Q days) 26 to 28 Date of Last Pap Smear 05/13/2024 Obstetrics History GPAL:G 1 P 1 0 0 1 Type Value Full Term 1 Living 1 Total 1 Past Encounters Encounter ID Performer Location Encounter Start Date Encounter Closed Date Diagnosis/Indication Diagnosis SNOMED-CT Code Diagnosis ICD10 Code Diagnosis Note [id number] NERISSA SIMMONS MD [facility] [address] [facility] [place] [address] 05/30/2022 13:45:57 05/31/2022 10:16:59 test positive 477568188 Z32.01 Infection screening 2437 24145 Z11.9 High risk 4720 0007 O09.91 Gestation period, 8 weeks 60660098 Z3A.08 History of ulcerative colitis 163268165 Z87.19 Benign ess ential hypertension complicating , childbirth and the puerperium - not delivered 661180953 O10.019 BP stable, on Labetalol Elderly primigravida 293 72229 O09.511 Desires aneuploidy screening. PA for Q requested. [id number] DIAN [facility] [address] [place] [address] 06/27/2022 18:32:35 06/28/2022 09:14:04 Routine care 417052016 Z34.01 Z34.81 O09.511 O09.521 Oriented to [facility], providers, and olivia Kruse iscussed diet, weight gain recommenda tions, exercise- do not start a new and strenuous exercise program; no contact sportsFlu/ Covid vaccines recommende Kelly- awaiting results of cfDNA screening; has MFM appt next weekHTN- nml baseline labs; ASA 81 mg after 12 weeks; on labetalolU lcerative colitis- on HumiraNOB labs/physi valeri/pap today;rtc in 4 weeks for nirav visit, sooner if problems, questions, or concerns Depression screening 171 844054 Z13.31 EPDS: 2 Multigravi da of advanced maternal age 318878808 O09.529 Screening for malignant neoplasm of cervix 575647152 Z12.4 [id number] Nadia Ty CNM [address] [address] 07/25/2022 16:30:23 07/26/2022 09:18:25 Chromosome abnormality screening 802823375 Z13.79 [id number] Nadia Ty CNM [address] [address] 08/22/2022 16:54:09 08/22/2022 17:33:35 Chronic hypertension complicating AND/OR reason for care during 31307805 O16.9 [id number] Elizabeth Jernigan MD [address] [address] 09/20/2022 13:01:31 09/20/2022 14:24:35 High risk 77284873 O09.512 Gestation period, 24 weeks 676130606 Z3A.24 [id number] Elizabeth Jernigan MD [facility] [address] [facility] [place] [address] 10/18/2022 12:36:10 10/18/2022 13:42:35 High risk 71914730 O09.512 Gestation period, 28 weeks 96814233 Z3A.28 screening 2437 55256 Z36.9 Anxiety 66899476 F41.9 [id number] [facility] [address] [facility] [place] [address] 10/31/2022 16:53:39 10/31/2022 17:59:[id number] [facility] h [address] [facility] [place] [address] 11/13/2022 09:58:17 11/13/2022 12:54:50 Hypertensive disorder 00583427 I10 - induced hypertension 67572851 O13.1 O13.2 O13.3 Low back p ain in 7519196195 106 O26.131 [id number] UYEN JOHNSTON, [facility] h [address] [facility] [place] [address] 11/16/2022 09:55:06 11/19/2022 13:20:10 Gestation period, 32 weeks 5013558 Z3A.32 Benign ess ential hypertension complicating , childbirth and the puerperium - not delivered 623625649 O10.019 HELLP labs (11/13): WNLLabetal ol 200 mg TIDPt states her blood pressure has been between 140-150 at home. She is to log her blood pressures until her next visit to decide if we need to increase her labetalol grow th restriction 70080498 O36.5999 Diagnosed on 11/15/22EFW: 5% w/ AC: 1%Due to AC @ 1%ile and comorbidit ies of AMA and chronic HTN, plan for IOL at 37 weeks.Cont inue NSTs twice week with BPP and UA doppler once a weekReacti ve NST High risk 4720 0007 O09.93 Advanced m aternal age 071463099 O09.513 Screening for disorder 154784915 Z13.9 Severe anemia required blood transfusio n x2 in which caused her to have positive antibodies .Sees hematology which has ran Irma test (negative) , therefore she does not have hemolytic anemia. If patient were to require a blood transfusio n, will have a difficult time matching blood type due to the antibodies . Depression screening 171 323039 Z13.31 Genital he rpes simplex 24967728 A60.9 Start PPX now [id number] Nadia Ty CNM [facility] [address] [place] [address] 11/20/2022 09:55:58 11/20/2022 13:41:11 Gestation period, 32 weeks 1547188 Z3A.32 High risk 4720 0007 O09.93 Advanced m aternal age 878416375 O09.513 Hypertensive disorder 38 961876 I10 Herpes simplex 20713517 B00.9 Chronic hy pertension complicating AND/OR reason for care during 79681820 O16.9 [id number] UYEN JOHNSTON DO [facility] [address] [place] [address] 11/23/2022 09:52:49 11/23/2022 11:47:02 Gestation period, 32 weeks 3882133 Z3A.32 High risk 4720 0007 O09.93 Advanced m aternal age 155207599 O09.513 Benign ess ential hypertension complicating , childbirth and the puerperium - not delivered 209509859 O10.019 HELLP labs (11/20): WNLLabetal ol 400 mg TID grow th restriction 19983638 O36.5999 Diagnosed on 11/15/22EFW: 5% w/ AC: 1% Due to AC @ 1%ile and comorbidit ies of AMA and chronic HTN, plan for IOL at 37 weeks.Cont inue NSTs twice week with BPP and UA doppler once a weekReacti ve NSTBPP: 05/21UA: RI, PI, S/D increased but below 95% resistance Screening for disorder 330657122 Z13.9 Severe anemia required blood transfusio n x2 in which caused her to have positive antibodies .Sees hematology which has ran Irma test (negative) , therefore she does not have hemolytic anemia. If patient were to require a blood transfusio n, will have a difficult time matching blood type due to the antibodies . [id number] Mira walters, CHELSE[facility] [address] [place] [address] 11/27/2022 09:50:48 11/27/2022 11:09:46 Chronic hypertension in obstetric context 5482679 O16.9 [id number] NERISSA SIMMONS MD [facility] [address] [place] [address] 11/30/2022 09:56:51 12/05/2022 12:15:15 Gestation period, 34 weeks 60852045 Z3A.34 Advanced m aternal age 729889671 O09.511 grow th restriction 70502951 O36.5999 High risk 4720 0007 O09.91 Pre-existi ng hypertension complicating , childbirth and puerperium 411230885 O10.063 [id number] Nadia Ty CNM [facility] [address] [place] [address] 12/04/2022 09:55:54 12/04/2022 13:09:15 Gestation period, 34 weeks 30645888 Z3A.34 Routine an tenatal care 233894881 Z34.93 High risk 4720 0007 O09.93 [id number] Mira walters CNM [facility] [address] [place] [address] 12/07/2022 09:58:17 12/07/2022 15:27:45 Gestation period, 35 weeks 49291789 Z3A.35 grow th restriction 37058509 O36.5999 [id number] TOMASA Plata[facility] [address] [place] [address] 12/11/2022 09:56:19 12/11/2022 11:11:13 Gestation period, 35 weeks 88037585 Z3A.35 Routine an tenatal care 480582322 Z34.93 High risk 4720 0007 O09.93 [id number] NERISSA SIMMONS MD [address] [address] 12/14/2022 10:01:20 12/18/2022 14:12:56 growth restriction 89706704 O36.5999 Gestation period, 36 weeks 98553376 Z3A.36 Routine an tenatal care 746813824 Z34.93 High risk 4720 0007 O09.93 Pre-existi ng hypertension complicating , childbirth and puerperium 058275566 O10.832 [id number] NERISSA SIMMONS MD [address] [address] 12/18/2022 10:29:45 12/19/2022 07:00:24 Gestation period, 36 weeks 30667629 Z3A.36 Routine an tenatal care 627033556 Z34.93 High risk 4720 0007 O09.93 grow th restriction 52398552 O36.5999 Pre-existi ng hypertension complicating , childbirth and puerperium 539856595 O10.290 [id number] Jules Waite MD [address] [address] 12/28/2022 12:09:10 12/28/2022 12:58:58 state 91071155 Z39.2 we will slowly decrease as she was on labetolol and hctz grow th restriction 21114415 O36.5999 High risk 4720 0007 O09.93 Past pregn edgar history of pre-eclampsia 8464938436 57553 Z87.59 would like an IUD at 6 weeks and we will decrease to 30mg procardia for a week and then off and then to decrease labetolol as well [id number] UYEN JOHNSTON, DO [facility] [address] [place] [address] 02/04/2023 15:28:44 02/04/2023 17:23:38 Insertion of intrauterine contraceptive device 61788574 Z30.430 state 4244094 1 Z39.2 37 y.o. here for PP visit. - Encouraged continuing breastfeed ing, counseled regarding benefits for mother and baby - PNV while at reproducti ve age for benefits in early - Restart exercise as tolerated - Can resume sexual activity in 1-2 wks - No s/sx depression , screen NEG - Discussed benefits of waiting minimum 12-18 months between pregnancie s to reduce negative outcomes - Pap WNL , repeat with cotesting 4 yrs - Contracept ion: Mirena IUD inserted - RTC for annual exam or as needed [id number] DIAN Horton [facility] [address] [place] [address] 04/11/2023 13:54:13 04/11/2023 14:16:43 Infection screening 608825705 Z11.9 Vaginal discharge 580077 006 N89.8 - Reviewed vulvar hygiene: avoid tight or moist clothing, soaps, Vagisil and other wipes, cotton underwear only and sleep without, unscented detergent - RTO for annual or as needed Surveillan ce of intrauterine device contraception done 4431908728 88279 Z30.431 IUD strings visible and appropriat e length Increased frequency of urination 257465772 R35.0 Discussed methods to avoid UTI's Dysuria 63404264 R30.0 [id number] UYEN KNUTSONINICK, [facility] [address] [place] [address] 05/13/2024 14:16:15 05/13/2024 16:22:29 Gynecologic examination 50826824 Z01.419 39 y.o. here for annual exam. - Pap w/ HPV today; h/o ASCUS -HPV - Contracept shakila counseling : happy Mirena IUD 2022 - Routine labs done with PCP - Mammo RX - Depression screen POS-increa sing sertraline from 25 to 50 mg - BMI counseling , diet and exercise reviewed - RTO for annual or PRN Screening for malignant neoplasm of cervix 335685601 Z12.4 Surveillan ce of contraception 302791005 Z30.40 Depression screening 171 919020 Z13.31 See Intake Screening - PHQ Screening for malignant neoplasm of breast 240093151 Z12.31 Anxiety 03207159 F41.9 Health Concerns Section Related Observation LastModified by Organization Detai ls LastModified Time None Recorded Concern Status LastModified by Organization Details LastModified Time None Recorded Advance Directives Directive None Recorded Payers Encounter Date Sequence Insurance Name Policy Number Policy Reyes Covered Member ID Reyes Member ID Guarantor Name 12/18/2022 1 [place] [employer] Kathryn Fetherling [id number] Kathryn Fetherling 12/28/2022 1 [place] [employer] Kathryn Fetherling [id number] Kathryn Fetherling 02/04/2023 1 [facility] ON OR AFTER 04/13/21 (MEDICAID REPLACEMENT - HMO) Kathryn Fetherling [id number] Kathryn Fetherling 04/11/2023 1 [facility] ON OR AFTER 04/13/21 (MEDICAID REPLACEMENT - HMO) Kathryn Fetherling [id number] Kathryn Fetherling 05/13/2024 1 [facility] (MEDICAID HMO) [id number] Kathryn Fetherling [id number] Kathryn Fetherling Notes Date Note Type Note Provider Name and Address Organization Details Recorded Time 12/18/2022 text/html Kathryn 37 y. o presents for OB return visit. Pt is currently 36.6 weeks of gestation.Pt is high risk due to HNT, AMA and ulcerative colitis.Pt has US and NST for restriction growth.Pt reports that is being induced on 12/19/22 [facility] and her BP is being elevated in the past few days. BP today 132/82. Pt reports that follows her bP at home higher reading 140-180 over 90. NERISSA DRAPER MD [address] [facility], [place], [address], [facility] [employer] IV 12/19/2022 22:14:32 12/28/2022 text/html Kathryn 37 y/o here for 1 (8days) week f/u on post delivery hypertension , returned to hospital on 12/23/2022 due to hypertension , she is on Labetalol 400mg tab tID, HCTZ 25mg daily, Nifedipine ER 60mg daily , patient denies any headaches or vision issues. and Jules Waite MD [address] [place] [address], [phone], [facility] [employer] IV 12/28/2022 13:08:04 12/28/2022 text/html VisitReported bypatient.Onset/Festus ing:date of delivery: (12/20/2022); @ [facility] Quality:; by Dr. Johnston , female weight 5#10oz (patient was 37 weeks when delivered) Context:complicatio ns of : GHTN; complications of labor: pre-eclampsia; laceration: 2nd degree; complications: hypertension; feeding choice: breast; good support from partner/family; resumed menstrual bleeding no Associated Symptoms:no abnormal bleeding; no vaginal discharge; no pelvic pain; laceration well healed; no constipation; no fecal incontinence; no dysuria; no urinary incontinence; no fever; no problems; no mastitis; normal mood Jules Waite MD [address] [place] [address], [phone], [employer] IV 12/28/2022 13:08:04 02/04/2023 text/html Here for IUD insertion UYEN JOHNSTON DO [address] [place] [address], [phone], [employer] IV 02/04/2023 16:47:41 04/11/2023 text/html Kathryn is here for c/o dysuria/urinary frequency x 3 daysShe also c/o vaginal itching off and on since the of her daughter in LMP was 02/11/23Her last pap 06/27/22 Neg/HPV NegShchika has a Mirena IUD that was inserted 02/04/23 DIAN Horton [address] [place] [address], [phone], [employer] IV 04/11/2023 14:16:36 05/13/2024 text/html Annual GYNReport ed bypatient.History:n o gynecologic complaints Menstrual cycle:Normal menses Urinary symptoms:No hematuria; No incontinence Vulva:No genital lesion Vagina:Normal vaginal discharge Breast:No breast pain; No breast lump; No nipple discharge Current Contraception:Intra uterine device (iud) Sexual complaints:No sexual complaints; No pain during intercourse; Normal libido Menopausal Symptoms:No menopausal symptoms; Normal vaginal lubrication Psychological symptoms:No depression; No anxiety; No PMDD Preventive measures:Encourage self breast examination; Encourage regular exercise; Encourage regular mammograms starting age 40 UYEN JOHNSTON, DO [address] [facility], [place], [address], [employer] IV 05/13/2024 15:30:47 OBGyn Episode Ob Episode Information Episode Created Date Number of Fetuses Patient Bloodtype Patient rh Status Prepregnancy Weight lbs Domestic Partner Domestic Partner Phone Father Name Bread Stacker Status 06/27/20 1 Negative CLOSED Fetus Data First Name Last Name Admitted to NICU Weight (g) Sex Living Outcome Pediatric Complications Fetus ID Race Codes Race Delivery Type false 2551.45 5 F Full Term [id number] 8523-3 White Assisted VD - forceps, vacuum Problems Problem Notes MFM referral and has first v isit 07/03/22 Problem Name Start Date End Date Resolution Snomed Code Not e Anemia 641684889 Genital herpes simplex 11774830 Valtrex at 36 w eeks Ulcerative colitis 09/20/2022 72042657 Advanced maternal age 448839389 Qnatal drawn Hypertensive disorder 71402114 Labetalol. Baseline labs wnlASA 81 mg. 2 increased labetalol to 400 tid. Eczema 72013109 triamcinol one Screening for disorder 541693096 antibody screen positive, Irma negative. Per Heme does not require further Ab screen growth restriction 11/15/2022 25185964 EFW: 5% AC: 1% High risk 44991034 Multigravida of advanced maternal age 0906/27/2022 556123380 Benji Calculation Initial Benji Date Initial Exam Date Initial Exam Provider Initial Ultrasound Date Last Menstrual Period Date Ultra Sound Weeks Gestation 04/11/2023 06/27/2022 04/04/2022 0 Eighteen To Twenty Week Benji Update Ultra Sound Date Fundal Height At Umbil Quickening Date Ultra Sound Latest Weeks Gestation Final Benji Confirmed By Final Benji Confirmed Date Final Benji Date Ultra Sound Latest Days Gestation 0 01/10/20 23 0 Pre- Flowsheet Flowsheet Date 06/27/2022 Bacon Score Blood Edema Fundus Height Fundus Units Glucose Ketones Leukocytes Nitrite Labor Signs Protein Cervic Dilation Cervic Effacement Cervic Station none Type Weight in lbs Pre/Post Dialysis Refused Weight 182.849762334118 BP Diastolic BP Location Tested BP Systolic BP Type 80 140 Fetus Heart Rate Present A 174 Fetus Movement Comments NOB visit- physical/pap toda y; order for NOB labs given. Maternal AFP next visit Flowsheet Date 07/25/2022 Bacon Score Blood Edema Fundus Height Fundus Units Glucose Ketones Leukocytes Nitrite Labor Signs Protein Cervic Dilation Cervic Effacement Cervic Station none neg Type Weight in lbs Pre/Post Dialysis Refused Weight 186.435446703684 BP Diastolic BP Location Tested BP Systolic BP Type 82 136 Fetus Heart Rate Present A 168 Fetus Movement A Yes Comments AFP today. Plan anatomy with MFM. Precautions reviewed. Flowsheet Date 08/22/2022 Bacon Score Blood Edema Fundus Height Fundus Units Glucose Ketones Leukocytes Nitrite Labor Signs Protein Cervic Dilation Cervic Effacement Cervic Station Type Weight in lbs Pre/Post Dialysis Refused Weight 187.80142521772 BP Diastolic BP Location Tested BP Systolic BP Type Fetus Heart Rate Present A 162 Fetus Movement A Yes Comments UC flare- see's GI next week . Has [facility] appt for anatomy. Discussed OTC allergy recommendations. Ordering EKG per MFM request. Flowsheet Date 09/20/2022 Bacon Score Blood Edema Fundus Height Fundus Units Glucose Ketones Leukocytes Nitrite Labor Signs Protein Cervic Dilation Cervic Effacement Cervic Station 24 none none neg Type Weight in lbs Pre/Post Dialysis Refused With clothes 185.200960619396 BP Diastolic BP Location Tested BP Systolic BP Type 76 R arm 126 sitting Fetus Heart Rate Present A 145 Fetus Movement A Yes Comments No complaints. Seeing MFM fo r u/s. 28 week labs next visit. Flowsheet Date 10/18/2022 Bacon Score Blood Edema Fundus Height Fundus Units Glucose Ketones Leukocytes Nitrite Labor Signs Protein Cervic Dilation Cervic Effacement Cervic Station none none none neg Type Weight in lbs Pre/Post Dialysis Refused With clothes 186.063286645642 BP Diastolic BP Location Tested BP Systolic BP Type 80 R arm 128 sitting Fetus Heart Rate Present A 145 Fetus Movement A Yes Comments Increasing depression. Denmeryl s SI/HI. Restart zoloft. Flowsheet Date 10/31/2022 Bacon Score Blood Edema Fundus Height Fundus Units Glucose Ketones Leukocytes Nitrite Labor Signs Protein Cervic Dilation Cervic Effacement Cervic Station 30 cm none trace Type Weight in lbs Pre/Post Dialysis Refused Weight 186.731612699548 BP Diastolic BP Location Tested BP Systolic BP Type 90 152 Fetus Heart Rate Present A 146 Fetus Movement A Yes Comments BP elevated today. To L&D fo r evaluation. Flowsheet Date 11/13/2022 Bacon Score Blood Edema Fundus Height Fundus Units Glucose Ketones Leukocytes Nitrite Labor Signs Protein Cervic Dilation Cervic Effacement Cervic Station Type Weight in lbs Pre/Post Dialysis Refused Weight 189.320826498457 BP Diastolic BP Location Tested BP Systolic BP Type 86 144 Fetus Heart Rate Present A 159 Fetus Movement A Yes Comments NST nonreactive. BPP 8 /8. D enies headaches, dizziness, visual changes, chest pains, or shortness of breath. PIH labs today. Strict precautions reviewed. Flowsheet Date 11/16/2022 Bacon Score Blood Edema Fundus Height Fundus Units Glucose Ketones Leukocytes Nitrite Labor Signs Protein Cervic Dilation Cervic Effacement Cervic Station none none neg Type Weight in lbs Pre/Post Dialysis Refused With clothes 189.933459732345 BP Diastolic BP Location Tested BP Systolic BP Type 96 L arm 130 sitting Fetus Heart Rate Present A 130 Fetus Movement A Yes Comments no ob complaints. reactive N ST. please see A&P about details of FGR and anemia Flowsheet Date 11/20/2022 Bacon Score Blood Edema Fundus Height Fundus Units Glucose Ketones Leukocytes Nitrite Labor Signs Protein Cervic Dilation Cervic Effacement Cervic Station Type Weight in lbs Pre/Post Dialysis Refused Weight 189.866268461972 BP Diastolic BP Location Tested BP Systolic BP Type 88 142 Fetus Heart Rate Present A 145 Fetus Movement A Yes Comments NST reactive. Blood pressure log reviewed. Midly elevated with one severe and 2 near severe range pressures. Denies headaches, dizziness, visual changes, or abdominal pain. Reviewed with Dr. Jernigan- will increase labetalol to 400mg po tid. Pre E labs today. Strict precautions reviewed. Flowsheet Date 11/23/2022 Bacon Score Blood Edema Fundus Height Fundus Units Glucose Ketones Leukocytes Nitrite Labor Signs Protein Cervic Dilation Cervic Effacement Cervic Station none none neg Type Weight in lbs Pre/Post Dialysis Refused Weight 190.220549079937 BP Diastolic BP Location Tested BP Systolic BP Type 76 128 Fetus Heart Rate Present A 135 Fetus Movement A Yes Comments BPP/NST: 07/23. UA dopplers increased but below 95%ile resistance. continue testing. Discussed only taking BP before taking meds. Flowsheet Date 11/27/2022 Bacon Score Blood Edema Fundus Height Fundus Units Glucose Ketones Leukocytes Nitrite Labor Signs Protein Cervic Dilation Cervic Effacement Cervic Station none none trace Type Weight in lbs Pre/Post Dialysis Refused With clothes 188.257539282265 BP Diastolic BP Location Tested BP Systolic BP Type 71 120 sitting Fetus Heart Rate Present A 140 Fetus Movement A Yes Comments NST reactive today concern f or HSV, no chancer likely shave bump Flowsheet Date 11/30/2022 Bacon Score Blood Edema Fundus Height Fundus Units Glucose Ketones Leukocytes Nitrite Labor Signs Protein Cervic Dilation Cervic Effacement Cervic Station none none neg Type Weight in lbs Pre/Post Dialysis Refused With clothes 189.395619790065 BP Diastolic BP Location Tested BP Systolic BP Type 72 L arm 118 sitting Fetus Heart Rate Present A 135 Present Fetus Movement A Yes Comments NST categ 1Hold Humira till SaturdayOn Labetalol 400 TID, no s/s of PIH. Elevated umb dopplers > 95%ile but normal BPP and NST. Plan betamethasone x [address] [facility].Has an appt with M on Saturday. Adequate precautions and DFKC reviewed. Flowsheet Date 12/04/2022 Bacon Score Blood Edema Fundus Height Fundus Units Glucose Ketones Leukocytes Nitrite Labor Signs Protein Cervic Dilation Cervic Effacement Cervic Station Type Weight in lbs Pre/Post Dialysis Refused Weight 189.71496919653 BP Diastolic BP Location Tested BP Systolic BP Type 84 128 Fetus Heart Rate Present A 135 Fetus Movement A Increased Comments s/p MFM visit. Growth at 4% and dopplers WNL. Plan delivery at 37 weeks per [facility]. IOL scheduled for 12/19 at 0000 at [facility]. Strict precautions reviewed. Flowsheet Date 12/07/2022 Bacon Score Blood Edema Fundus Height Fundus Units Glucose Ketones Leukocytes Nitrite Labor Signs Protein Cervic Dilation Cervic Effacement Cervic Station Type Weight in lbs Pre/Post Dialysis Refused Stated 189.126248273383 BP Diastolic BP Location Tested BP Systolic BP Type 80 L arm 110 sitting Fetus Heart Rate Present A 145 Fetus Movement A Yes Comments NST reactive, discussed IOL Flowsheet Date 12/11/2022 Bacon Score Blood Edema Fundus Height Fundus Units Glucose Ketones Leukocytes Nitrite Labor Signs Protein Cervic Dilation Cervic Effacement Cervic Station none Type Weight in lbs Pre/Post Dialysis Refused Weight 192.312055634967 BP Diastolic BP Location Tested BP Systolic BP Type 86 122 Fetus Heart Rate Present A 140 Fetus Movement A Yes Comments NST reactive. BPs wnl. Denie s pre E symptoms. Expressed concerns of depression. Information given for visit with Lencho. Precautions reviewed. Flowsheet Date 12/14/2022 Bacon Score Blood Edema Fundus Height Fundus Units Glucose Ketones Leukocytes Nitrite Labor Signs Protein Cervic Dilation Cervic Effacement Cervic Station Type Weight in lbs Pre/Post Dialysis Refused With clothes 191.678915081935 BP Diastolic BP Location Tested BP Systolic BP Type 84 L arm 132 sitting Fetus Heart Rate Present A 130 Present Fetus Movement A Yes Comments reports slightly increased B P in the past few days- on Labetalol 400 TID. Occasional HERNANDEZ- resolved with rest, Denies visual disturbance or SOB.GBS done today.PIH labs ordered, adequate precautions given.Scheduled for IOL next Tuesday 12/[address] [facility] Flowsheet Date 12/18/2022 Bacon Score Blood Edema Fundus Height Fundus Units Glucose Ketones Leukocytes Nitrite Labor Signs Protein Cervic Dilation Cervic Effacement Cervic Station none neg Type Weight in lbs Pre/Post Dialysis Refused With clothes 193.696568415978 BP Diastolic BP Location Tested BP Systolic BP Type 82 L arm 132 sitting Fetus Heart Rate Present A 140 Present Fetus Movement A Yes Comments NST categ 1, BPP 8/8Normal U mb A dopplers PS/ED 2.68; RI .63, PI .93Scheduled for IOL tomorrow. PIH precautions given. Flowsheet Date 12/28/2022 Bacon Score Blood Edema Fundus Height Fundus Units Glucose Ketones Leukocytes Nitrite Labor Signs Protein Cervic Dilation Cervic Effacement Cervic Station Type Weight in lbs Pre/Post Dialysis Refused With clothes 172.675677124522 Weight 0.0 BP Diastolic BP Location Tested BP Systolic BP Type 88 R arm 138 sitting 82 R arm 128 sitting Fetus Heart Rate Present Fetus Movement Comments Flowsheet Date 02/04/2023 Bacon Score Blood Edema Fundus Height Fundus Units Glucose Ketones Leukocytes Nitrite Labor Signs Protein Cervic Dilation Cervic Effacement Cervic Station Type Weight in lbs Pre/Post Dialysis Refused BP Diastolic BP Location Tested BP Systolic BP Type Fetus Heart Rate Present Fetus Movement Comments Menstrual History Last Menstrual Date Menses Monthly On Bcp Conception Prior Menses Frequency Hcg Plus Date Menarche Onset Age 0604/04/2022 Genetic Screening And Infection History Question Response Note Recent Travel History Outside of Country false Cystic Fibrosis false Any Other Genetic History false Joanie Disease false Other Infection History false Thalassemia (Pashto, Malay, Mediterranean, Or Background): MCV < 80 false Patient Or Baby's Father Had A Child With Defects Not Listed Above false Live With Someone With TB Or Exposed To TB false Patient's Age Will Be 35 Years Or Older At Estim ated Date of Delivery true 37 Recurrent Loss, Or A Stillbirth false Hemoglobinopathy Or Carrier false Patient Or Partner Has History Of Genital Herpes false Intellectual Disability/Autism false Maternal Metabolic Disorder (eg, Type 1 Diabetes , PKU) false History of Hepatitis false Felipe-Sachs (eg, Latter Day, Cajun, Uzbek-Sammarinese) f alse History Of STD, Gonorrhea, Chlamydia, HPV, Syphi lis false Prior GBS-infected child false History of HIV false Personal or Family History o f Neural Tube Defect (Meningomyelocele, Spina Bifida, Or Anencephaly) false Hemophilia Or Other Blood Disorders false Mental Retardation/Autism false Trimble's Chorea false If Yes, Was Person Tested For Fragile X? false Other Inherited Genetic Or Chromosomal Disorder false If Yes, Agent(s) And Strength/Dosage false Sickle Cell Disease Or Trait () false Personal or Family History of Congenital Heart D efect false Rash Or Viral Illness Since Last Menstrual Perio d false Muscular Dystrophy false Medications (including Suppl ements, Vitamins, Herbs, OTC Drugs), Illicit/Recreational Drugs, Alcohol false Other Structural Defect false Down Syndrome false Delivery Information Delivery Date Delivery Type Labor Anesthesia Weeks Gestation Incision Type Labor Labor Length Hrs Delivered By Post Complications Tubal Sterilization Discharge Date Comments 3 Induce d 37.1 false Uyen Johnston DO Hypertension false 12/21/2022 Discharge Information Feeding Method Contraceptive Method Maternal HG B and HCT Levels
--- OUTSIDE RECORDS SUMMARY | 2024-11-30 01:08 | XMS_ITS | Referral Summary ---
Author Organization [facility] Address [address] [place] [address] Care Team Providers Care Applied Mathematician Name Role Phone Vernon Mccormack MD Primary Care Provider [phone] Source Comments [facility],non-owned Affiliates and Associated Physician Practices is amultiple site organization consisting of ambulatory clinics and hospital sitesin [place], [place], [place] and [place]. This disclosure is being madepursuant to the Care Everywhere program and may not contain all information available regarding this patient. Last updated 18.[facility] Allergies Active Allergy Reactions Criticality Noted Date [...] Comments Blood Pressure 151/83 12/03/2022 5:03 PM PAPERBACK MACHINE OPERATOR repeat 146/90, manual 138/80 Pulse 71 12/03/2022 5:03 PM PAPERBACK MACHINE OPERATOR Temperature 36.2 C (97.2 F) 04/08/2017 8:57 AM CDT Respiratory Rate 18 12/03/2022 5:03 PM PAPERBACK MACHINE OPERATOR Oxygen Saturation 100% 04/08/2017 8:5 7 AM CDT Inhaled Oxygen Concentration - - Weight 83 kg (183 lb) 07/30/2022 7:58 AM CDT Height 149.9 cm (4' 11 ) 07/03/2022 2:1 6 PM CDT Body Mass Index 36.96 07/03/2022 2:16 PM CDT Plan of Treatment Not on file Care Teams Applied Mathematician Relationship Specialty Start Date End Date Vernon Mccormack MD [address] [place] [address] [address] [place] [address] PCP - General 02/06/18
--- OUTSIDE RECORDS SUMMARY | 2024-11-30 01:08 | XMS_ITS | Encounter Summary ---
Author Organization [facility] Address [address] [place] [address] Phone Care Team Providers Care Tumbling And Rolling Supervisor Name Role Phone Krystle Arvizu APRN Primary Care Provider [phone] Adonis Bowers DO Unavailable [phone] Encounter Details Date Type Department Care Team (Late st Contact Info) Description 08/15/2020 Telephone [facility] [address] [place] [address] Adonis Bowers, [address] [place] [address] Social History Tobacco Use Types [...] SHE IS RESCHEDULED TO FOLLOWING WEEK 08/29. 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 documented in this encounter Plan of Treatment Not on file documented as of this encounter Visit Diagnoses Not on filedocumented in this encounter Additional Health Concerns Assessment Noted Time PHQ-9 Depression Total Score: 0 05/23/20 20 1:02 PM CDT documented as of this encounter Care Teams Tumbling And Rolling Supervisor Relationship Specialty Start Date End Date Krystle Arvizu APRN [address] [place] [address] PCP - General Advanced Practice Nurse 05/26/19 Adonis Bowers DO [address] [place] [address] [phone] Consulting Physician Hematology 09/30/20 documented as of this encounter
--- OUTSIDE RECORDS SUMMARY | 2024-11-30 01:08 | XMS_ITS | Clinical Summary ---
Author Organization [facility] Address [facility] [place] [address] Care Team Providers Care Atmospheric Physics Professor Name Role Phone LuhKrystle marin DOUGLAS Primary Care Provider [phone] Allergies Active Allergy Reactions Criticality Noted Date [...] or as instructed by GI MD 04/22/20 21 Active acetaminophen (TYLENOL) 500 MG tabletIndications :Pain Take 1 tablet (500 mg total) by mouth every 6 (six) hours as needed for Pain. Indications: Pain 04/22/20 21 Active cetirizine 10 MG tablet Take 1 [...] Noted Date Diagnosed Date Preeclampsia in period ([facility]) 12/12 Vacuum-assisted vaginal delivery ([facility]) 12/20 ([facility]) 12/19/2022 Cellulitis 04/17/2021 Ulcerative colitis, chronic ([facility]) Anemia 05/25/2019 Hyperlipidemia 07/16/2017 Vitamin D deficiency 06/30/2017 Asthma ([facility]) 05/28/2017 Colitis 05/28/2017 Hypertension 05/28/2017 Iron deficiency anemia 05/28/2017 Obesity 05/28/2017 Resolved Problems Problem Noted Date Diagnosed Date Resolved Date Health maintenance examination 05/28/2017 01/09/2021 Encounters Date Type Department Care Team Description 09/23/2024 Scan [facility] Scanned, Doc [facility] 09/19/2024 10:04 AM APPLICATIONS DEVELOPMENT CONSULTANT - 09/19/2024 11:59 PM APPLICATIONS DEVELOPMENT CONSULTANT Hospital Encounter [facility] [place] [address] Krystle Arvizu NP Discharge Disposition: Home or Self Care (Routine Discharge) 09/19/2024 Travel 09/02/2024 1:40 PM APPLICATIONS DEVELOPMENT CONSULTANT Office Visit [facility] Family [facility] - [address] [place] [address] Krystle Arvizu NP Annual (Patient present annual [...] often do you attend chur ch or mormonism services? Never 12/19/2022 Do you belong to any clubs o r organizations such as mandaeism groups, unions, fraternal or athletic groups, or [...] Recorded Patient Health Questionnaire-2 Score 0 09/02/2024 [facility] Occupat ional Health - Occupational Stress [...] place to sleep or slept in a fpc (including now)? No 12/19/2022 Depression Answer Date [...] Comments Blood Pressure 120/70 09/02/2024 2:02 PM APPLICATIONS DEVELOPMENT CONSULTANT Pulse 89 09/02/2024 1:37 PM APPLICATIONS DEVELOPMENT CONSULTANT Temperature 36.9 C (98.4 F) 09/02/2024 1:37 PM APPLICATIONS DEVELOPMENT CONSULTANT Respiratory Rate 18 09/02/2024 1:37 PM APPLICATIONS DEVELOPMENT CONSULTANT Oxygen Saturation 98% 09/02/2024 1:37 PM APPLICATIONS DEVELOPMENT CONSULTANT Inhaled Oxygen Concentration - - Weight 94 kg (207 lb 3.2 oz) 09/02/2024 1:37 PM APPLICATIONS DEVELOPMENT CONSULTANT Height 149.9 cm (4' 11 ) 09/02/2024 1:37 PM APPLICATIONS DEVELOPMENT CONSULTANT Body Mass Index 41.85 09/02/2024 1:37 PM APPLICATIONS DEVELOPMENT CONSULTANT Plan of Treatment Upcoming Encounters Date Type Department Care Team (Deepa st Contact Info) Description 12/03/2024 1:20 PM APPLICATIONS DEVELOPMENT CONSULTANT Telemedicine [facility] Family [facility] - [address] [place] [address] Krystle Arvizu NP [address] [place] [address] Health Maintenance Due Date Last Done Comments [...] 5 Years 2014 Cervical Cancer Screening wi th HPV 2014 Mammogram Screening 2024 03/23/2020, 03/23/2020, 06/02/2019 Influenza Adult (#1) 2024 10/08/2019, 10/08/2019 PHQ-2 (Physician [place]) 10/14/2024 09/02/2024 Annual Physical 09/02/2025 09/02/2024, 10/10/2022 DTaP, Tdap and Td Vaccines ( 3 [...] care transitions and discharge planning General No [place], Amanda A, REPAIRER EVAPORATOR Procedures Procedure Name Priority Date/Time Associated Diagnosis Comments HEMOGLOBIN, GLYCOSYLATED Routine 09/19/2024 10:14 AM APPLICATIONS DEVELOPMENT CONSULTANT Routine general medical examination at a health care facility Class 3 severe obesity due to excess calories without serious comorbidity with body mass index (BMI) of 40.0 to 44.9 in adult ([facility]) VITAMIN D, 25 OH Routine 09/19/2024 10:1 4 AM APPLICATIONS DEVELOPMENT CONSULTANT Routine general medical examination at a health care facility Class 3 severe obesity due to excess calories without serious comorbidity with body mass index (BMI) of 40.0 to 44.9 in adult ([facility]) TSH W/REFLEX Routine 09/19/2024 10:14 AM APPLICATIONS DEVELOPMENT CONSULTANT Routine general medical examination at a health care facility Class 3 severe obesity due to excess calories without serious comorbidity with body mass index (BMI) of 40.0 to 44.9 in adult ([facility]) LIPID PANEL Routine 09/19/2024 10:14 AM APPLICATIONS DEVELOPMENT CONSULTANT Routine general medical examination at a health care facility Class 3 severe obesity due to excess calories without serious comorbidity with body mass index (BMI) of 40.0 to 44.9 in adult ([facility]) COMPREHENSIVE METABOLIC PANEL Routine 09/19/2024 10:14 AM APPLICATIONS DEVELOPMENT CONSULTANT Routine general medical examination at a health care facility Class 3 severe obesity due to excess calories without serious comorbidity with body mass index (BMI) of 40.0 to 44.9 in adult ([facility]) CBC W/DIFF AUTOMATED Routine 09/19/2024 10:14 AM APPLICATIONS DEVELOPMENT CONSULTANT Routine general medical examination at a health care facility Class 3 severe obesity due to excess calories without serious comorbidity with body mass index (BMI) of 40.0 to 44.9 in adult ([facility]) MG DIAG W TAWANNA BILAT DIGI Routine 03/23/2020 1:06 PM CDT Breast lump from Last 3 Months or Most Recently Relevant to Health Maintenance Results * TSH W/REFLEX (09/19/2024 10:14 AM APPLICATIONS DEVELOPMENT CONSULTANT) TSH 1.280 0.358 - 3.74 uIU/ML 09/19/2024 10:57 AM APPLICATIONS DEVELOPMENT CONSULTANT [facility] Comment: HIGH DOSES OF BIOTIN MAY INTERFERE WITH THIS TEST RESULT. CORRELATION TO CLINICAL HISTORY AND PRESENTATION RECOMMENDED. FREE T4 NOT INDICATED 09/19/2024 10:1 4 AM APPLICATIONS DEVELOPMENT CONSULTANT Krystle Luh MAILING MACHINE HELPER LABORATORY Final Result [facility] [address] [place] [address], [place] [phone] * HEMOGLOBIN, GLYCOSYLATED (09/19/2024 10:14 AM APPLICATIONS DEVELOPMENT CONSULTANT) HGB A1C 5.3 <5.7 % 09/19/2024 2:11 PM APPLICATIONS DEVELOPMENT CONSULTANT [facility] Comment: ADA GUIDELINES 2010 5.7 TO 6.4% INCREASED RISK OF DIABETES > OR = 6.5% CONSISTENT WITH DIABETES ESTIMATED AVG GLUCOSE 105 mg/dL 09/19/2024 2:11 PM APPLICATIONS DEVELOPMENT CONSULTANT [facility] 09/19/2024 10:1 4 AM APPLICATIONS DEVELOPMENT CONSULTANT Krystle Luh MAILING MACHINE HELPER LABORATORY Final Result [facility] [address] [place] [address], [place] [phone] * (ABNORMAL) COMPREHENSIVE METABOLIC PANEL (09/19/2024 10:14 AM APPLICATIONS DEVELOPMENT CONSULTANT) GLUCOSE 98 70 - 99 MG/DL 09/19/2024 10:57 AM APPLICATIONS DEVELOPMENT CONSULTANT [facility] BUN 10 7 - 18 MG/DL 09/19/2024 10:57 AM [facility] CREATININE S/P/B 0.91 0.55 - 1.02 MG/DL 09/19/2024 10:57 AM [facility] SODIUM S/P/B 137 136 - 145 MMOL/L 09/19/2024 10:57 AM [facility] POTASSIUM S/P/B 4.2 3.5 - 5.1 MMOL/L 09/19/2024 10:57 AM [facility] CHLORIDE S/P/B 109 97 - 115 MMOL/L 09/19/2024 10:57 AM [facility] CO2 27.0 21 - 32 MMOL/L 09/19/2024 10:57 AM [facility] CALCIUM S/P/B 9.0 8.5 - 10.1 MG/DL 09/19/2024 10:57 AM [facility] BILIRUBIN TOTAL S/P/B 1.6(H) 0.2 - 1.2 MG/DL 09/19/2024 10:57 AM [facility] Comment: THIS ASSAY IS NOT RECOMMENDED FOR PATIENTS UNDERGOING TREATMENT WITH ELTROMBOPAG DUE TO THE POTENTIAL FOR FALSELY ELEVATED RESULTS. TOTAL PROTEIN S/P/B 7.7 6.4 - 8.2 G/DL 09/19/2024 10:57 AM [facility] ALBUMIN S/P/B 3.7 3.4 - 5.0 G/DL 09/19/2024 10:57 AM [facility] AST 15 15 - 37 U/L 09/19/2024 10:57 AM [facility] ALT 22 14 - 55 U/L 09/19/2024 10:57 AM [facility] ALKALINE PHOSPHATASE S/P/B 95 50 - 136 U/L 09/19/2024 10:57 AM [facility] ANION GAP 1.0(L) 2 - 10 MMOL/L 09/19/2024 10:57 AM [facility] BUN CREATININE RATIO 11.0 6 - 26 09/19/2024 10:57 AM [facility] A/G RATIO 0.9(L) 1.0 - 2.0 RATIO 09/19/2024 10:57 AM [facility] GFR ESTIMATE 82(L) >90 ML/MIN/1.7 3 M2 09/19/2024 10:57 AM [facility] Comment: NOTE: eGFR is not calculated for patients <18 years of age or gender unknown. This is an estimated GFR calculation using the new CKD EPI creatinine equation without race and so does not require a correction factor for race. This estimated GFR should not be used for calculating drug doses. 09/19/2024 10:1 4 AM APPLICATIONS DEVELOPMENT CONSULTANT Krystle Arvizu NP LABORATORY Final Result [facility] [address] [place] [address], * (ABNORMAL) LIPID PANEL (09/19/2024 10:14 AM APPLICATIONS DEVELOPMENT CONSULTANT) CHOLESTEROL 223(H) <200 MG/DL 09/19/2024 10:57 AM [facility] TRIGLYCERIDES 67 <150 MG/DL 09/19/2024 10:57 AM [facility] HDL 66 >40.0 MG/DL 09/19/2024 10:57 AM [facility] LDL (CALCULATED) 144(H) <100 MG/DL 09/19/2024 10:57 AM [facility] NON HDL CHOLESTEROL 157(H) <130 MG/DL 09/19/2024 10:57 AM [facility] CHOL/HDL RATIO 3.4 0.0 - 4.5 09/19/2024 10:57 AM [facility] VLDL CALCULATION 13 5 - 55 MG/DL 09/19/2024 10:57 AM [facility] LIPID INTERPRETATION 09/19/2024 10:57 AM [facility] Comment: NIH CONCENSUS REPORT RECOMMENDATIONS: ADULT CHILD LOW RISK: CHOLESTEROL <200 <170 TRIGLYCERIDE <150 --- HDL >=60 --- LDL <100 <110 BORDERLINE: CHOLESTEROL 200-239 170-199 TRIGLYCERIDE 150-199 --- HDL 40-59 --- LDL 100-159 110-129 HIGH RISK: CHOLESTEROL >=240 >=200 TRIGLYCERIDE >=200 --- HDL <40 --- LDL >=160 >=130 09/19/2024 10:1 4 AM APPLICATIONS DEVELOPMENT CONSULTANT Krystle Arvizu MAILING MACHINE HELPER LABORATORY Final Result [facility] [address] [place] [address], * (ABNORMAL) CBC W/DIFF AUTOMATED (09/19/2024 10:14 AM APPLICATIONS DEVELOPMENT CONSULTANT) WBC 6.56 4.5 - 11.0 x10'3/uL 09/19/2024 10:23 AM [facility] RBC 4.60 4.20 - 5.40 x10'6/uL 09/19/2024 10:23 AM [facility] HGB 14.2 12.0 - 16.0 G/DL 09/19/2024 10:23 AM [facility] HCT 42.9 38.0 - 48.0 % 09/19/2024 10:23 AM [facility] MCV 93.3 81.0 - 99.0 FL 09/19/2024 10:23 AM [facility] MCH 30.9 27.0 - 31.0 PG 09/19/2024 10:23 AM [facility] MCHC 33.1 32.0 - 36.0 G/DL 09/19/2024 10:23 AM [facility] RDW 14.3 11.5 - 14.5 % 09/19/2024 10:23 AM [facility] PLT 439(H) 130 - 400 x10'3/uL 09/19/2024 10:23 AM [facility] MPV 9.1(L) 9.3 - 12.2 FL 09/19/2024 10:23 AM [facility] DIFFERENTIAL TYPE AUTOMATED DIFFERENTIAL 09/19/2024 10:23 AM [facility] NEUTROPHILS % 58.0 % 09/19/2024 10:23 AM [facility] LYMPHOCYTES % 23.0 % 09/19/2024 10:23 AM [facility] MONOCYTES % 8.2 % 09/19/2024 10:23 AM [facility] EOSINOPHILS 9.0 % 09/19/2024 10:23 AM [facility] BASOPHILS 1.5 % 09/19/2024 10:23 AM [facility] IMMATURE GRANS % 0.3 % 09/19/20 10:23 AM [facility] ABS. NEUTROPHILS 3.80 1.80 - 7.70 x10'3/uL 09/19/2024 10:23 AM [facility] ABS. LYMPHOCYTES 1.51 1.00 - 4.80 x10'3/uL 09/19/2024 10:23 AM [facility] ABS. MONOCYTES 0.54 0.24 - 0.86 x10'3/uL 09/19/2024 10:23 AM APPLICATIONS DEVELOPMENT CONSULTANT [facility] ABS. EOSINOPHILS 0.59(H) 0.04 - 0.36 x10'3/uL 09/19/2024 10:23 AM APPLICATIONS DEVELOPMENT CONSULTANT [facility] ABS. BASOPHILS 0.10(H) 0.01 - 0.08 x10'3/uL 09/19/2024 10:23 AM APPLICATIONS DEVELOPMENT CONSULTANT [facility] ABS. IMMATURE GRANULOCYTES 0.02 0.00 - 0.49 x10'3/uL 09/19/2024 10:23 AM APPLICATIONS DEVELOPMENT CONSULTANT [facility] 09/19/2024 10:1 4 AM APPLICATIONS DEVELOPMENT CONSULTANT [facility] LABORATORY Final Result [facility] [address] [place] [address], [place] [phone] * (ABNORMAL) VITAMIN D, 25 OH (09/19/2024 10:14 AM APPLICATIONS DEVELOPMENT CONSULTANT) Pathologist [facility] VITAMIN D 25 HYDROXY S/P/B 11(L) 30 - 100 NG/ML 09/19/2024 10:51 AM APPLICATIONS DEVELOPMENT CONSULTANT [facility] Comment: INTERPRETATION DEFICIENT <20 INSUFFICIENT 20-29 SUFFICIENT 30-100 09/19/2024 10:1 4 AM APPLICATIONS DEVELOPMENT CONSULTANT [facility] Luh NP LABORATORY Final Result [address] [address], [place] [phone] * MG DIAG W TAWANNA BILAT DIGI [...] PROBABLY BENIGN FINDING(S) RECOMMENDATION: 1: Follow-up ultrasound left in 6 months COMMENTS: Narrative 03/23/2020 1:59 PM CDT EXAMINATION: Digital bilateral diagnostic mammogram with 3-D tomography and bilateral breast ultrasound [id number], [id number] EXAM DATE/TIME: 03/23/2020 12:49 PM REASON FOR EXAM: palpable lump and bilateral breast nipple discharge COMPARISON: 06/02/2019 TECHNIQUE: Digital diagnostic mammography of both breasts was performed in addition to 3-D Tomosynthesis technique. This study was read with the assistance of a computer-aided detection system. Bilateral breast ultrasound TISSUE DENSITY: The breast tissue contains scattered fibroglandular densities. FINDINGS: The dense tissue may obscure some lesions mammographically. No ultrasound or mammographic correlate for history [...] of the breasts bilaterally seen on mammogram. Krystle Arvizu NP MAMMO Final Result from [...] 10:33 PM 04/20/2021 3:46 PM Care Teams Atmospheric Physics Professor Relationship Specialty Start Date End Date Krystle Arvizu [place] [address] PCP - General NURSE PRACTITIONER 05/11/19
--- OUTSIDE RECORDS SUMMARY | 2024-11-30 01:08 | XMS_ITS | Encounter Summary ---
Author Organization [facility] Address [address] [place] [address] Care Team Providers Care Heater Planer Operator Name Role Phone Krystle Arvizu NP Primary Care Provider [phone] Encounter Details Date Type Department Care Team (Late st Contact Info) Description 12/26/2022 Hospital Follow-up Call [facility] [place] [address] Marla La, RN Social History Tobacco Use [...] often do you attend chur ch or advent services? Never 12/19/2022 Do you belong to any clubs o r organizations such as orthodoxy groups, unions, fraternal or athletic groups, or [...] Recorded Patient Health Questionnaire-2 Score 3 10/10/2022 [facility] - Occupational Stress Questionnaire Answer Date [...] place to sleep or slept in a residential (including now)? No 12/19/2022 Depression Answer Date [...] Assessment Author Status No 12/19/2022 2:03 AM COMPANY P[employer]OT Kelly Kuhn RN Active documented as of this encounter Mental Status * Because of a physical, mental, or emotional condition, do you have serious difficulty concentrating, remembering, or making decisions? Answer Entry Date Author Status No 12/19/2022 2:03 AM COMPANY P[employer]OT Kelly Kuhn RN Active documented in this encounter Plan of Treatment Upcoming Encounters Date Type Department Care Team (Late st Contact Info) Description 12/03/2024 1:20 PM COMPANY PILOT Telemedicine [facility] Family Medicine - [place] [address] [facility] [place] [id number] Krystle Arvizu NP [address] [place] [address] documented as of this encounter Goals Goal Patient Goal Type Associated Problems Recent Progress Patient-Stated? Author Family - family caregiver with be involved in care transitions and discharge planning General No Amanda Gifford, POT FLUXER documented as of this encounter Visit Diagnoses Not on filedocumented in this encounter Additional Health Concerns Infection Onset Date Last Indicated Resolved Time MRSA Comment:04/18/21 +MRSA Right Groin 04/19/2021 04/19/2021 Assessment Noted Time PHQ-9 Depression Total Score: 4 10/10/20 22 1:36 PM COMPANY PILOT documented as of this encounter Care Teams Heater Planer Operator Relationship Specialty Start Date End Date Krystle Arvizu NP [address] [place] [address] PCP - General NURSE PRACTITIONER 05/11/19 documented as of this encounter
--- OUTSIDE RECORDS SUMMARY | 2024-11-30 01:08 | XMS_ITS | Patient Health Summary ---
Author Organization [facility] Address [address] [place] [address] Care Team Providers Care Coagulating Drying Supervisor Name Role Phone Vernon Mccormack MD Primary Care Provider Note from [facility],non-owned Affiliates and Associated Physician Practices is amultiple site organization consisting of ambulatory clinics and hospital sitesin [place], [place], [place] and [place]. This disclosure is being madepursuant to the Care Everywhere program and may not contain all information available regarding this patient. Last updated 18.[facility] Allergies * Neomycin(Rash) -Medium Criticality * [...] Comments Blood Pressure 151/83 12/03/2022 5:03 PM J2EE SOFTWARE ENGINEER repeat 146/90, manual 138/80 Pulse 71 12/03/2022 5:03 PM J2EE SOFTWARE ENGINEER Temperature 36.2 C (97.2 F) 04/08/2017 8:57 AM CDT Respiratory Rate 18 12/03/2022 5:03 PM J2EE SOFTWARE ENGINEER Oxygen Saturation 100% 04/08/2017 8: 57 AM [...] complication, unspecified location (HCC), Encounter for ultrasound ([facility]), Mild asthma, unspecified whether complicated, unspecified whether persistent (HCC), Eczema, unspecified type, HSV infection, Benign essential hypertension, antepartum (HCC), SGA (small for gestational age) (HCC), 34 weeks gestation of (HCC), Supervision of normal first , antepartum ([facility]) * SONOGRAM - COMPLETE(Performed 11/14/2022) Performed for Advanced maternal age, primigravida, antepartum (HCC), Ulcerative colitis with complication, unspecified location (HCC), Encounter for ultrasound ([facility]), Benign essential hypertension, antepartum (HCC), 31 weeks gestation of (HCC) * SONOGRAM - COMPLETE(Performed 10/24/2022) Performed for Advanced maternal age, primigravida, antepartum (HCC), Encounter for ultrasound([facility]), 29 weeks gestation of (HCC) * SONOGRAM - COMPLETE(Performed 09/26/2022) Performed for Advanced maternal age, primigravida, antepartum (HCC), Encounter for ultrasound([facility]), 25 weeks gestation of (HCC) * SONOGRAM - COMPLETE(Performed 08/29/2022) Performed for Advanced maternal age, primigravida, antepartum (HCC), Encounter for ultrasound(HCC), 20 weeks gestation of (HCC) * SONOGRAM - COMPLETE(Performed 07/30/2022) Performed for Advanced maternal age, primigravida, antepartum (HCC), HSV infection, 16 weeks gestation of (HCC), Encounter for ultrasound ([facility]) * SONOGRAM - TRANSVAGINAL(Performed 07/03/2022) Performed for [...] * SONOGRAM - COMPLETE (12/03/2022 3:24 PM J2EE SOFTWARE ENGINEER) Only the most recent of6 resultswithin the time period is included. Anatomical Region Laterality Modality Other 12/03/2022 3:24 PM J2EE SOFTWARE ENGINEER Narrative 12/03/2022 5:01 PM J2EE SOFTWARE ENGINEER MARQUEZ CH[facility] PHONE: FAX: Pat. Name: KATHRYN ROQUE Pat. No: [id number] Study Date: 12/03/2022 3:24pm , Age: 07 1985, 37 Pregnancies: 1 Height: 59 in Weight: 178 lb LMP: 04/04/2022 GA by LMP: 34w5d GA by Base: 34w5d MAURICE: 01/09/2023 GA by US: 32w3d MAURICE: 01/25/2023 GA Selected: 34w5d (From [facility]) MAURICE: 01/09/2023 Referring MD: Tammie Gupta MD Baccarat Dealer: Monica Garcia, RD, RDCS CPT4: 90620,[id number] BMI: 35.95 Hist/Ind: IUGR Joint pain on duloxetine, ulcerative colitis on Humira & azathioprine, CHTN on labetalol, Asthma & eczema, obesity class 2, AMA 37 with low-risk cf-DNA, IUGR Steroids- Nov 30 & MEASUREMENTS & AGE GROWTH EVALUATION Measurement GA Range Srce %for GA Ratios ----- ---- ------- BPD 8.1 cm 32w3d (47m1r-59t0c) Hadl BPD 4% FL/BPD 0.76 (0.71 - 0.87) HC 31.1 cm 34w6d (34b9u-65i2e) Hadl HC 19% FL/AC 0.22 (0.20 - 0.24) AC 28.2 cm 32w2d (35l4s-81r2m) Hadl AC 3% HC/AC 1.10 (0.94 - 1.13) FL 6.2 cm 31w6d (63w2e-01f8y) Hadl FL 1% CI 0.72 (0.70 - 0.86) HL 5.4 cm 31w3d (74f3g-69m6y) Daljit HL <05 GA for sonogram 32w3d (25w6z-34z4o) Weight Estimate: based on (BPD,HC,AC,FL) Hadlock Weight: 1969 gm (1681-2256gm) Had : 4lbs, 5oz Normal: 2533 gm (1899-3166gm) Had Wt% 4% for 34w5d Heart Rate: 155 bpm Amniotic Fluid Index: 11.7cm (08.0-24.9) Q1: 2.7cm Q2: 2.0cm Q3: 2.7cm Q4: 4.4cm Biophysical Profile: 07/23 Breathin Tone: 2 NST: 2 Movement: 2 AFV: 2 EVAL, PLACENTA Presentation: cephalic Placenta: posterior Heart Rate: 155 bpm Amniotic Fluid Volume: normal DOPPLER Umbilical - Mid Cord S/D 2.49(1.69 - 3.62) PI 0.89 (0.61 - 1.19) Middle Cerebral Artery PSV 52.4cm/s PI 1.65 (1.49 - 2.67) Med PSV 50.4cm/s MoM 1.04(<1.5) CLINICAL SUMMARY A single fetus is seen in cephalic presentation. The measurements today are consistent with appropriate interval growth. size trending IUGR. The MAURICE selected is based on LMP. The amniotic fluid volume is within normal limits. The FHR baseline was 135 bpm during today's reactive NST. The FHR variability was moderate. IMPRESSION: Single, live intrauterine at 34w5d Amniotic fluid volume: Normal size is at the 4rth %ile with reassuring interval growth velocities of the AC and EFW. Biophysical profile: Normal (07/23) Doppler studies: Reassuring RECOMMEND: Continue weekly NST/BPP testing and Doppler studies Repeat growth in 2 weeks Delivery at 39 weeks gestation or before then only if clinically indicated. Thank you for allowing us the opportunity to care for your patient. Vinny Dennis MD <Electronic Signature> 12/03/2022 05:01pm Sae Ott MD MFM ORDERABLES * SONOGRAM - TRANSVAGINAL (07/03/2022 1:35 PM CDT) Anatomical Region Laterality Modality Other 07/03/2022 1:35 PM CDT Narrative 07/03/2022 5:25 PM CDT [facility] PHONE: FAX: Pat. Name: KATHRYN ROQUE Pat. No: [id number] Study Date: 07/03/2022 1:35pm , Age: 07 1985, 37 Pregnancies: 1 Height: 59 in Weight: 178 lb LMP: 04/04/2022 GA by LMP: 12w6d GA by US: 12w6d MAURICE: 01/09/2023 GA Selected: 12w6d (LMP) MAURICE: 01/09/2023 Referring MD: Tammie Gupta MD Baccarat Dealer: Ludy Chung RDMS CPT4: 34859 BMI: 35.95 Hist/Ind: Medication exposure: Joint pain on duloxetine Ulcerative colitis on Humira, azathioprine CHTN on labetalol Asthma & eczema AMA c pending genetic screening MEASUREMENTS & AGE GROWTH EVALUATION Measurement GA Range Srce %for GA Ratios ----- ---- ------- CRL 6.6 cm 12w6d (38u6f-58m5z) Hadl CRL 51% GA for sonogram 12w6d (93u1f-54q3m) based on (CRL) Avg Heart Rate: 173 bpm EVAL, PLACENTA Heart Rate: 173 bpm Anatomy!Seen!Not Seen!Comments # Fetuses ! x ! !One Amnion ! x ! ! Chorion ! x ! ! Myometrium ! x ! ! Right Ovary ! x ! ! Left Ovary ! ! x ! Cul de sac ! x ! ! Calvarium* ! x ! ! Midline Falx*! x ! ! 4th Ventricle! x ! ! Lateral Ventr! x ! ! Choroid Plexu! x ! ! Nasal Bone* ! x ! ! Neck/Dorsum* ! x ! !< 3mm 4 CH* ! ! x ! Abdominal Cor! ! x ! Diaphragm* ! ! x ! Spine* ! x ! ! Stomach* ! x ! ! Kidneys* ! ! x ! Bladder* ! x ! ! Upper Extremi! x ! ! Lower Extremi! x ! ! CLINICAL SUMMARY ASSESSMENT * Joaquin IUP at 12 weeks by stated EDC from LMP * [facility]erred [facility] for [facility]etrical U/S and consultation secondary to: - Ulcerative colitis (UC) - Chronic hypertension (CHTN) - Asthma & eczema - Chronic anemia * Today's ultrasound (U/S) findings: - Living joaquin intrauterine fetus - The crown rump length (CRL) is consistent with LMP - The nuchal translucency (NT) measurement is normal-range COUNSELING & RECOMMENDATIONS * Pertinent medical & obstetrical history - Medications: vitamins, B12, iron, low-dose aspirin, Prilosec, Zirtec & below - Past Medical History: - Maternal obesity Class II (BMI 35.0-39.9) - Chronic hypertension X7-8 years on labetalol 200 BID - Asthma on PRN albuterol (last used in October) - Ulcerative colitis (UC) X7 years on Humira & azathioprine per GI - Joint pain on Cymbalta - Chronic anemia on IV iron per Reservations Manager - Past Obstetrical History: 1) Current - Advanced maternal age (AMA) 37 years with pending cf-DNA * We discussed relevant clinical issues of IBD during : - Course during is determined in part by disease activity @ conception - Patients in remission @ conception are likely to remain in remission during - Active disease @ conception increases risk of continued/worsening symptoms during - There is an increased risk for bleeding, IUGR, PTB - Remission or minimal inflammation during should be the goal to reduce risks - Mode of delivery becomes a clinical issue in some cases: - Generally recommend C/S for active perineal disease or rectal involvement - Consider C/S with ileoanal anastomosis or J pouch (uncertain benefit) - Vaginal delivery can be attempted with a colostomy or ileostomy * Regarding the potential risk of defects due to medication exposure: - The background risk for defects is 3-5% in the general population - Some medications may be associated with or cause: - Congenital malformations - Suboptimal growth - neurodevelopmental effects - outcomes may be influenced by: - Timing, dose, duration & number of medications or substances - Underlying medical condition(s) - Genetic factors - Teratogenicity information for many medications is obtainable from various sources: - The Organization of Teratology Information Specialists (JOSE) at mothertobaby.org - Lexicomp through various sources such as Squidbid - Not all abnormalities are detectable by serum & U/S testing * We discussed her medication exposure during : - azathioprine (Imuran) - Pharmacologic category: immunosuppressant agent - Reported to be teratogenic in animal studies - Azathioprine crosses the placenta in humans - Reported complications include: - Congenital anomalies (no clear pattern), IUGR - Immunosuppression, hematologic toxicities (lymphopenia, pancytopenia) - There are no adequate and well-controlled studies in women - A Fact Sheet is available from BidModo.org - adalimumab (Humira) - Rx category: disease modifying antirheumatic, miscellaneous GI agent, monoclonal antibody, TNF blocking agent - As advances, adalimumab increasingly crosses the placenta - Increased adverse maternal/ effects not observed with exposure ([place]te 2020) - Considered by ACOG to have low-moderate risk when used in (2019 ACOG CO-776) - Considered by [place] [employer] to be compatible with for Rx of psoriasis - Dosing can be adjusted so delivery occurs at the lowest serum concentration - Try to give final dose 2-3 weeks before EDC (1-2 weeks if weekly dosing) - After delivery can then continue administration 48 hours - / immunologic considerations: - Should be considered immunosuppressed for 1-3 months following in utero exposure - Avoid live vaccines (e.g. rotavirus) for first 6 months of life, if 3rd-trimester exposure - The ACOG considers adalimumab compatible with - Can use MOO.COM to find the most up-to-date information for counseling - Registry participation: JOSE Autoimmune Diseases Study at [phone] - JOSE Fact Sheet at https://motherTriplify.org/fact-sheets/dusfajccxu-tpviwc-nargrippg/ * Chronic hypertension in - Her BP today in the [facility] office was 111/81 mmHg and urine protein was - - labs (serum creatinine, ALT, AST, platelets, PCR) all within normal range * With HTN in there are increased risks of maternal- complications, including: - /: IUGR, IUFD, prematurity, NICU admission - Maternal: preeclampsia, placental abruption, delivery, hemorrhage, CVA * To better assess her BP trends & optimal BP management: - Initiate daily ambulatory BP monitoring, with appropriate size cuff - The 2018 ACOG PB-203 recommends maintaining BP at 120-159/80-109 mmHg range - Based upon the 2021 CHAP study, ACOG recommends maintaining BP < 140/90 mmHg - Thus current target goal will be SBP <140 and DBP <90 mmHg - Thresholds of BP for which she should notify her OB provider: - For trends in SBP >= 140 or DBP >= 90 mmHg - For any SBP >= 160 or DBP >= 110 mmHg * Baseline maternal & assessments are advised - A 12-lead EKG if not done in the last year - Monitor H&H and iron stores every trimester and treat anemia proactively - At 16 weeks U/S for early anatomic survey - At 20 weeks U/S for comprehensive anatomic survey - Serial U/S for growth & development every 4 weeks - Start 2X/week testing (NST+HUDSON or BPP) by 32 weeks * Delivery timing to be determined COMMENTS * Findings were explained & questions were addressed & precautions were given * She was counseled that U/S may not detect all maternal- abnormalities * Thank you very much for requesting MFM participation in her obstetrical care * Consult exclusive of procedures was 60 minutes [id number] with the patient, over half of time was discussion of the diagnosis & treatment plan Sae Ott MD <Electronic Signature> 07/03/2022 05:25pm Tammie Peterson MD MFM ORDERABLES * DERMATOPATHOLOGY (05/03/2022 3:33 AM CDT) Case Report Dermatopathology Report Case: [id number] Authorizing Provider: Nino Leone MD Collected: 05/03/2022 03:33 AM Ordering Location: [facility] D[facility] Lab Received: 05/05/2022 10:01 AM Pathologist: Bailee Sanders MD Specimen: Skin, glabella 2 3:01 PM CDT DERMATOPATHOLOGY LABORATORY Final Diagnosis Specimen A. 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 Path# [id number] 2 3:01 PM CDT DERMATOPATHOLOGY LABORATORY Gross Description Specimen A: Received is one formalin filled container labeled with the patient's name and designated glabella. The specimen consists of a shave biopsy measuring [id number] and it is bisected. Jar 0. 2 [...] characteristic determined by the Dermatopathology Laboratory at [facility], directed by Dr. Bar La. These tests need not be, and therefore are not, approved by the [place] Food and Drug Administration. The tests are used for clinical purposes. Billing Codes Specimen Charges Stain Charges 18712 1 2 3:01 PM CDT DERMATOPATHOLOGY LABORATORY Embedded Images 2 3:01 PM CDT DERMATOPATHOLOGY LABORATORY Pathology/Cytolo gy TISSUE SPECIMEN FROM SKIN / Unknown 05/03/2022 3:33 AM CDT 05/05/2022 10:01 AM CDT Nino Leone MD LAB - PATHOLOGY/CYTO LOGY ORDERABLES DERMATOPATHOLOGY LABORATORY [facility] - Department of Dermatology [address], [address] Floor [address] [phone] * (ABNORMAL) CBC W AUTO DIFFERENTIAL (04/08/2017 9:40 AM CDT) Only the most recent of2 resultswithin the time period is included. WBC 5.3 3.5 - 10.5 10 3/uL [facility] RBC 4.85 3.90 - 5.00 10 6/uL [facility] Hemoglobin 11.9(L) 12.0 - 15.5 g/dL [facility] Hematocrit 37.5 35.0 - 45.0 % [facility] MCV 77.3(L) 81.0 - 97.0 fL [facility] MCH 24.5(L) 28.0 - 34.0 pg [facility] MCHC 31.7(L) 32.0 - 36.0 g/dL [facility] Platelet Count 404(H) 150 - 400 10 3/uL [facility] RDW-SD 50.8(H) 36.0 - 50.0 fL [facility] RDW-CV 18.0(H) 11.2 - 14.8 % [facility] MPV 9.2(L) 9.3 - 12.8 fL [facility] Neutrophils % 62.1 35.0 - 70.0 % [facility] Lymphocytes % 29.2 19.7 - 55.1 % [facility] Monocytes % 7.0 3.0 - 15.0 % [facility] Eosinophils % 0.9 0.0 - 6.0 % [facility] Basophil % 0.6 0.0 - 1.5 % [facility] Neutrophils Absolute 3.3 1.6 - 7.0 10 3/uL [facility] Lymphocyte Absolute 1.5 0.8 - 2.9 10 3/uL [facility] Monocytes Absolute 0.37 0.14 - 0.66 10 3/uL [facility] Eosinophils Absolute 0.05 0.00 - 0.22 10 3/uL [facility] Basophils Absolute 0.03 0.00 - 0.06 10 3/uL [facility] Immature Granulocytes % 0.2 0.0 - 1.0 % [facility] Blood specimen (specimen) BLOOD SPECIMEN / Unknown 04/08/2017 9:40 AM CDT 04/08/2017 9:42 AM CDT Michael uLtz MD LAB - HEMATOLOGY ORD ERABLES [facility] [address] [phone] * (ABNORMAL) COMPREHENSIVE METABOLIC PANEL (04/08/2017 9:40 AM CDT) BUN 11 7 - 26 mg/dL [facility] Creatinine 0.8 0.6 - 1.2 mg/dL [facility] Sodium 137 136 - 145 mmol/L [facility] Potassium 4.0 3.5 - 4.5 mmol/L [facility] Chloride 108(H) 98 - 107 mmol/L [facility] CO2 21(L) 22 - 29 mmol/L [facility] Glucose 94 70 - 115 mg/dL [facility] Calcium 9.8 8.4 - 10.2 mg/dL [facility] Protein Total 7.8 6.0 - 8.3 g/dL [facility] Albumin 4.1 3.4 - 5.0 g/dL [facility] Bilirubin Total 0.4 0.2 - 1.2 mg/dL [facility] Alkaline Phosphatase 80 40 - 150 Units/L [facility] ALT 14 0 - 55 Units/L [facility] AST 14 5 - 34 Units/L [facility] Anion Gap 12 8 - 18 [facility] BUN/Creatinine Ratio 14 7 - 23 [facility] Osmolality Calculated 283 270 - 300 mOsm/kg [facility] Albumin/Globulin Ratio 1.1 1.1 - 2.3 [facility] eGFR >60 >60 mL/min/1.7 3 m2 [facility] Blood specimen (specimen) BLOOD SPECIMEN / Unknown 04/08/2017 9:40 AM CDT 04/08/2017 9:49 AM CDT Michael Lutz MD LAB - CHEMISTRY MARRY NAGY [facility] [address] [place] [address] * (ABNORMAL) IRON BLOOD (04/08/2017 9:40 AM CDT) Iron 34(L) 40 - 150 mcg/dL [facility] Blood specimen (specimen) BLOOD SPECIMEN / Unknown 04/08/2017 9:40 AM CDT 04/08/2017 9:49 AM CDT Narrative [facility] - 04/08/2017 10:17 AM CDT For transferrin saturation from [facility] order this and Transferrin Michael Lutz MD LAB - CHEMISTRY MARRY NAGY Performing Organization Address City/[facility]/ZIP Co de Phone Number [address] [phone] * FOLATE (04/08/2017 9:40 AM CDT) Folate 12.0 7.0 - 31.4 ng/mL [facility] Blood specimen (specimen) BLOOD SPECIMEN / Unknown 04/08/2017 9:40 AM CDT 04/08/2017 9:49 AM CDT Michael Lutz MD LAB - CHEMISTRY MARRY NAGY Performing Organization Address [facility] Co de Phone Number [address] [phone] * VITAMIN B12 (04/08/2017 9:40 AM CDT) Vitamin B12 596 213 - 816 pg/mL [facility] Blood specimen (specimen) BLOOD SPECIMEN / Unknown 04/08/2017 9:40 AM CDT 04/08/2017 9:49 AM CDT Michael Lutz MD LAB - CHEMISTRY MARRY NAGY Performing Organization Address [facility]/ZIP Co de Phone Number [address] [phone] * (ABNORMAL) FERRITIN (04/08/2017 9:40 AM CDT) Ferritin 5(L) 13 - 204 ng/mL [facility] Blood specimen (specimen) BLOOD SPECIMEN / Unknown 04/08/2017 9:40 AM CDT 04/08/2017 9:49 AM CDT Michael Lutz MD LAB - CHEMISTRY MARRY NAGY Performing Organization Address City/[facility]/ZIP Co de Phone Number [address] [place] [address], [facility] [phone] Care Teams Coagulating Drying Supervisor Relationship Specialty Start Date End Date Vernon Mccormack MD [address] [place] [id number] PCP - General 02/06/18
--- OUTSIDE RECORDS SUMMARY | 2024-11-30 01:08 | XMS_ITS | Clinical Summary ---
Author Organization [facility] [id number] Address [address] [place] [address] Care Team Providers Care Special Forces Specialist Name Role Phone Vernon Mccormack MD Primary Care Provider [phone] Source Comments [facility] [employer],non-owned Affiliates and Associated Physician Practices is amultiple site organization consisting of ambulatory clinics and hospital sitesin [place], [place], [place] and [place]. This disclosure is being madepursuant to the Care Everywhere program and may not contain all information available regarding this patient. Last updated 18.[facility] [employer] Allergies Active Allergy Reactions Criticality Noted Date [...] Comments Blood Pressure 151/83 12/03/2022 5:03 PM CONTAINERS SALES REPRESENTATIVE repeat 146/90, manual 138/80 Pulse 71 12/03/2022 5:03 PM CONTAINERS SALES REPRESENTATIVE Temperature 36.2 C (97.2 F) 04/08/2017 8:57 AM CDT Respiratory Rate 18 12/03/2022 5:03 PM CONTAINERS SALES REPRESENTATIVE Oxygen Saturation 100% 04/08/2017 8:5 7 AM [...] age to complete this topic Care Teams Special Forces Specialist Relationship Specialty Start Date End Date Vernon Mccormack MD [address] [facility] [address] [place] [address] PCP - General 02/06/18
--- OUTSIDE RECORDS SUMMARY | 2024-11-30 01:08 | XMS_ITS | Encounter Summary ---
Author Organization [facility] Address [facility] [place] [address] Care Team Providers Care Radiocommunications Technician Name Role Phone Krystle Arvizu NP Primary Care Provider [phone] Encounter Details Date Type Department Care Team (Late st Contact Info) Description 04/10/2023 [employer] Message Enc [facility] - [facility] [address] [place], [place] [address] [facility], [facility] Provider Air Quality Message Social History Tobacco [...] often do you attend chur ch or muslim services? Never 12/19/2022 Do you belong to any clubs o r organizations such as buddhism groups, unions, fraternal or athletic groups, or [...] Recorded Patient Health Questionnaire-2 Score 3 10/10/2022 [facility] - Occupational Stress [...] place to sleep or slept in a penitentiary (including now)? No 12/19/2022 Depression Answer Date [...] Date Author Status No 12/19/2022 2:03 AM JANITOR CUSTODIAN Kelly Kuhn RN Active documented in this encounter Plan of Treatment Upcoming Encounters Date Type Department Care Team (Late st Contact Info) Description 12/03/2024 1:20 PM JANITOR CUSTODIAN Telemedicine [facility] Family Medicine - [place] [address] [place] [address] [place] [address] [address] documented as of this encounter Goals Goal Patient Goal Type Associated Problems Recent Progress Patient-Stated? Author Family - family caregiver with be involved in care transitions and discharge planning General No Amanda Gifford, SENIOR ARCHITECT/DESIGN MANAGER documented as of this encounter Visit Diagnoses Not on filedocumented in this encounter Additional Health Concerns Infection Onset Date Last Indicated Resolved Time MRSA Comment:04/18/21 +MRSA Right Groin 04/19/2021 04/19/2021 Assessment Noted Time PHQ-9 Depression Total Score: 4 10/10/20 22 1:36 PM JANITOR CUSTODIAN documented as of this encounter Care Teams Radiocommunications Technician Relationship Specialty Start Date End Date Krystle Arvizu NP [address] [place] [address] PCP - General NURSE PRACTITIONER 05/11/19 documented as of this encounter
--- OUTSIDE RECORDS SUMMARY | 2024-11-30 01:08 | XMS_ITS | Encounter Summary ---
Author Organization [facility] Address [address] [place] [address] Care Team Providers Care Cotton Picking Machine Operator Name Role Phone , Generic Conversion Primary Care Provider Unavailable Krystle Arvizu NP Primary Care Provider [phone] Encounter Details Date Type Department Care Team (Late st Contact Info) Description 08/17/2017 [place] [address] , Generic ConversionMD Social History Tobacco Use [...] Encounters Date Type Department Care Team (Late Contact Info) Description 12/03/2024 1:20 PM TAPE FOLDING MACHINE OPERATOR Telemedicine [facility] Family Medicine - [address] [place] [address] Krystle Arvizu NP [address] [place] [address] documented as of this encounter Visit Diagnoses Not on filedocumented in this encounter Additional Health Concerns Infection Onset Date Last Indicated Resolved Time COVID-19 Rule Out 04/18/2021 04/18/2021 04/18/2021 9:07 AM CDT MRSA Comment:04/18/21 +MRSA Right Groin 04/19/2021 04/19/2021 documented as of this encounter Care Teams Cotton Picking Machine Operator Relationship Specialty Start Date End Date Lito Addison MD PCP - General 08/27/14 Krystle Ar[place]iz[place] [address] PCP - General NURSE PRACTITIONER 05/11/19 documented as of this encounter
--- OUTSIDE RECORDS SUMMARY | 2024-11-30 01:08 | XMS_ITS | Encounter Summary ---
Author Organization [facility] Address [address] [place] [address] Phone Care Team Providers Care Lasting Floorworker Name Role Phone Krystle Arvizu APRN Primary Care Provider [phone] Adonis Bowers DO Unavailable [phone] Encounter Details Date Type Department Care Team (Late st Contact Info) Description 05/15/2024 Telephone [facility] [address] [place] [address] Adonis Bowers, DO [address] [place] [address] Social History Tobacco Use Types [...] documented as of this encounter Care Teams Lasting Floorworker Relationship Specialty Start Date End Date Krystle Arvizu APRN [address] [place] [address] PCP - General Advanced Practice Nurse 05/26/19 Adonis Bowers DO [address] [place] [phone] Consulting Physician Hematology 09/30/20 documented as of this encounter
--- OUTSIDE RECORDS SUMMARY | 2024-11-30 01:08 | XMS_ITS | Encounter Summary ---
Author Organization [facility] Address [address] [place] [address] Care Team Providers Care Senior Information Security Consultant Name Role Phone Vernon Mccormack MD Primary Care Provider [phone] Encounter Details Date Type Department Care Team (Late st Contact Info) Description 05/05/2022 Lab Requisition [facility] Care DermPath Lab [address] [facility] [place] [address] Nino Leone MD [address] [place] [address] Social History Tobacco Use Types [...] AM CDT) Case Report Dermatopathology Report Case: [id number] Authorizing Provider: Nino Leone MD Collected: 05/03/2022 03:33 AM Ordering Location: [facility] DermPath Lab Received: 05/05/2022 10:01 AM Pathologist: Bailee Sanders MD Specimen: Skin, glabella 3:01 PM T DERMATOPATHOLOGY LABORATORY Final Diagnosis Specimen A. SKIN, glabella: INTRADERMAL MELANOCYTIC NEVUS (D22.39) EPIDERMOID CYST WITH EVIDENCE OF RUPTURE (L72.0) EPIDERMAL NECROSIS SUGGESTIVE OF EXCORIATION (L98.499) 2 3:01 PM T DERMATOPATHOLOGY LABORATORY Clinical History Nevus. Path# [id number] 2 3:01 PM T DERMATOPATHOLOGY LABORATORY Gross Description Specimen A: Received is one formalin filled container labeled with the patient's name and designated glabella. The specimen consists of a shave biopsy measuring [id number] and it is bisected. Jar 0. 2 [...] characteristic determined by the Dermatopathology Laboratory at [facility], directed by Dr. Bar La. These tests need not be, and therefore are not, approved by the [place] Food and Drug Administration. The tests are used for clinical purposes. Billing Codes Specimen Charges Stain Charges 69828 1 2 3:01 PM CDT DERMATOPATHOLOGY LABORATORY Embedded Images 2 3:01 PM CDT DERMATOPATHOLOGY LABORATORY Pathology/Cytolo gy TISSUE SPECIMEN FROM SKIN / Unknown 05/03/2022 3:33 AM CDT 05/05/2022 10:01 AM CDT Nino Leone MD LAB - PATHOLOGY/CYTO LOGY ORDERABLES DERMATOPATHOLOGY LABORATORY [facility] - Department of Dermatology [facility] Specialized Medicine [address] [place] [address], [address] [phone] documented in this encounter Visit Diagnoses Not on filedocumented in this encounter Care Teams Senior Information Security Consultant Relationship Specialty Start Date End Date Vernon Mccormack MD [address] [place] [address] PCP - General 02/06/18 documented as of this encounter
--- OUTSIDE RECORDS SUMMARY | 2024-11-30 01:08 | XMS_ITS | Encounter Summary ---
Author Organization [facility] Address [address] [place] [address] Care Team Providers Care Supply Chain Specialist Name Role Phone Krystle Arvizu NP Primary Care Provider Encounter Details Date Type Department Care Team (Late st Contact Info) Description 12/26/2022 Hospital Follow-up Call [facility] [place] [address] Marla La, RN Social History Tobacco Use [...] often do you attend chur ch or sikhism services? Never 12/19/2022 Do you belong to any clubs o r organizations such as zoroastrian groups, unions, fraternal or athletic groups, or [...] Recorded Patient Health Questionnaire-2 Score 3 10/10/2022 [facility] - Occupational Stress Questionnaire Answer Date Recorded [...] place to sleep or slept in a detention (including now)? No 12/19/2022 Depression Answer Date [...] Assessment Author Status No 12/19/2022 2:03 AM RELAY CHECKER Kelly Kuhn RN Active documented as of this encounter Mental Status * Because of a physical, mental, or emotional condition, do you have serious difficulty concentrating, remembering, or making decisions? Answer Entry Date Author Status No 12/19/2022 2:03 AM RELAY CHECKER Kelly Kuhn RN Active documented in this encounter Plan of Treatment Upcoming Encounters Date Type Department Care Team (Late st Contact Info) Description 12/03/2024 1:20 PM RELAY CHECKER Telemedicine [facility] Family Medicine - [place] [address] [facility] [place] [phone] Krystle Arvizu NP [address] [place] [address] documented as of this encounter Goals Goal Patient Goal Type Associated Problems Recent Progress Patient-Stated? Author Family - family caregiver with be involved in care transitions and discharge planning General No Amanda Gifford, FLARE MAKER documented as of this encounter Visit Diagnoses Not on filedocumented in this encounter Additional Health Concerns Infection Onset Date Last Indicated Resolved Time MRSA Comment:04/18/21 +MRSA Right Groin 04/19/2021 04/19/2021 Assessment Noted Time PHQ-9 Depression Total Score: 4 10/10/20 22 1:36 PM RELAY CHECKER documented as of this encounter Care Teams Supply Chain Specialist Relationship Specialty Start Date End Date Krystle Arvizu NP [address] [place] [address] PCP - General NURSE PRACTITIONER 05/11/19 documented as of this encounter
[2024-11-30 11:23] VITALS: BP 122/83; PULSE 93; RESP 19; TEMP 36.2; O2SAT 100
[2024-11-30] MEDS: LACTATED RINGERS 1,000 ML 150 ML IV CONT (11:31)
--- NOTE | 2024-11-30 11:49 | WPDANESEPPF ---
Anes - Initial Pre Proc Eval Procedure: Operation Date: 11/30/24 12:30 Proposed Procedures p Colonoscopy - Marvin Bunch MD Date/Time: 11/30/24 11:49 Surgeon: Marvin Bunch MD Pre Op Diagnosis: ulcerative colitis Patient Data Age: 39 Gender: F Height: 1.5 m Weight: 93.5 kg Last Vital Signs Temp 36.2 C L 11/30/24 11:23 Pulse 93 11/30/24 11:23 Resp 19 11/30/24 11:23 BP 122/83 11/30/24 11:23 Pulse Ox 100 11/30/24 11:23 O2 Del Method Room Air 11/30/24 11:23 Allergies Allergy/AdvReac Type Severity Reaction Status Date / Time neomycin Allergy Intermediate RASH Verified 11/30/24 11:21 nut - unspecified Allergy Intermediate RASH, HIVES Verified 11/30/24 11:21 polymyxin B Allergy Intermediate RASH Verified 11/30/24 11:21 Home Medications ?Medication ?Instructions ?Recorded ?Confirmed ?Type loperamide 2 mg capsule (Imodium 2 mg PO Q6H PRN Diarrhea 10/28/20 11/13/24 History A-D) labetalol 100 mg tablet 200 mg PO BID 10/31/20 11/30/24 History adalimumab 40 mg/0.4 mL 40 mg (0.4 mL) subcut Q14D #3 ea 01/07/24 11/13/24 Rx subcutaneous pen kit (Humira(CF) Pen) omeprazole 20 mg capsule,delayed See Rx Instructions .Route 05/18/24 11/13/24 Rx release .COMPLEX #30 caps sertraline 25 mg tablet (Zoloft) 50 mg PO DAILY 09/23/24 11/13/24 History azathioprine 50 mg tablet 100 mg (2 x 50 mg) PO DAILY #60 10/12/24 11/13/24 Rx tabs cetirizine 10 mg tablet (24Hour 10 mg PO DAILY 11/13/24 11/13/24 History Allergy) Patient hx anesthesia problems: none Family hx anesthesia problems: none Results Review: All pre-operative results and documents have been reviewed as part of the pre-operative evaluation. [facility] Past Medical History Medical History Paresthesia and pain of both upper extremities Numbness in both hands EVANGELINA positive Obesity Irregular bowel habits Eczema Asthma Kidney stones Surgical History Surgical History Hx of tonsillectomy H/O cystoscopy Social History Social History Years smoked: 3 Smoking status: Former smoker Alcohol intake: never Substance use: never Substance use type: does not use Living arrangements: with family Occupation/Education: occupation Spiritual care concerns: No Anes - Eval Final PreProcedure Day of Procedure 11/30/24 11:49 Patient weight: morbidly obese Heart: regular rate and rhythm Lungs: normal air movement Airway: Mallampati scale class II Neurological: alert and oriented Last oral intake: >/= 8 hours ASA classification: II Emergent: no Anesthetic plan: proceed Anesthesia type and monitoring: general GIVS and standard monitoring Results Review: All pre-operative results and documents have been reviewed as part of the pre-operative evaluation. Informed Consent: The patient's anesthetic plan and its attendant risks and benefits were discussed with the patient/family/POA. Questions were solicited and answers provided to the satisfaction of the patient/family/POA.
--- NOTE | 2024-11-30 11:58 | PM.HPGS ---
History of Present Illness History of Present Illness Consent: Risks, benefits, and alternatives have been discussed and questions answered. Patient agrees to proceed with procedure. Chief complaint: ulcerative colitis Narrative: Neva Roque is a 39 year old female with left sided UC diagnosed 2013, last colonoscopy 2018. She is on imuran and humira with control of disease. Review of Systems Review of Systems: All systems reviewed & are unremarkable except as noted in HPI and below PMFSH Past Medical History Medical History Paresthesia and pain of both upper extremities Numbness in both hands EVANGELINA positive Obesity Irregular bowel habits Eczema Asthma Kidney stones Surgical History Surgical History Hx of tonsillectomy H/O cystoscopy Social History Social History Years smoked: 3 Smoking status: Former smoker Alcohol intake: never Substance use: never Substance use type: does not use Living arrangements: with family Occupation/Education: occupation Spiritual care concerns: No Meds Home Medications and Allergies Home Medications ?Medication ?Instructions ?Recorded ?Confirmed ?Type loperamide 2 mg capsule (Imodium 2 mg PO Q6H PRN Diarrhea 10/28/20 11/13/24 History A-D) labetalol 100 mg tablet 200 mg PO BID 10/31/20 11/30/24 History adalimumab 40 mg/0.4 mL 40 mg (0.4 mL) subcut Q14D #3 ea 01/07/24 11/13/24 Rx subcutaneous pen kit (Humira(CF) Pen) omeprazole 20 mg capsule,delayed See Rx Instructions .Route 05/18/24 11/13/24 Rx release .COMPLEX #30 caps sertraline 25 mg tablet (Zoloft) 50 mg PO DAILY 09/23/24 11/13/24 History azathioprine 50 mg tablet 100 mg (2 x 50 mg) PO DAILY #60 10/12/24 11/13/24 Rx tabs cetirizine 10 mg tablet (24Hour 10 mg PO DAILY 11/13/24 11/13/24 History Allergy) Allergies Allergy/AdvReac Type Severity Reaction Status Date / Time neomycin Allergy Intermediate RASH Verified 11/30/24 11:21 nut - unspecified Allergy Intermediate RASH, HIVES Verified 11/30/24 11:21 polymyxin B Allergy Intermediate RASH Verified 11/30/24 11:21 Vital Signs Vital Signs - 24 hr 11/30/24 11:23 Temperature 97.1 F L Pulse Rate 93 Respiratory Rate 19 Blood Pressure 122/83 Pulse Oximetry 100 Oxygen Delivery Room Air Exam Const: General: comfortable and no acute distress HENMT: Face/Nose/Sinus: Normal nares present Eyes: General: appearance normal, both eyes and all related structures Neck: Neck: no JVD Resp: Auscultation: clear to auscultation bilaterally Cardio: Rate: regular rate Rhythm: regular rhythm GI: Inspection: non-distended GI Palp: Yes Soft to palpation Skin: General skin exam: normal color Neuro: General: gait normal Speech: normal speech Extrem: General: normal to inspection Psych: Mental Status: mental status grossly normal Assessment and Plan Assessment and plan (1) Ulcerative colitis: Code(s): K51.90 - Ulcerative colitis, unspecified, without complications Status: Acute Assessment and Plan: colonoscopy with biopsies
[2024-11-30 12:12] VITALS: BP 130/80; PULSE 75; RESP 21; O2SAT 100
[2024-11-30 12:22] VITALS: BP 133/92; PULSE 77; RESP 19; O2SAT 100
[2024-11-30 12:32] VITALS: BP 149/99; PULSE 72; RESP 27; O2SAT 100
[2024-11-30 13:36] LABS: BEDSIDEPREGUCG Negative (Negative)
== END 2024-11-30 12:36 | disposition home or self-care (01) ==
PROVIDERS: PCP Nurse Practitioner; Referring Provider Internal Medicine Gastroenterology; Visit Provider Internal Medicine Gastroenterology
PROC: 0DJD8ZZ Inspection of Lower Intestinal Tract, Via Natural or Artificial Opening Endoscopic (ICD-10-PCS; CPT 45378; principal; 2024-11-30 12:30)
DX: K51.90 Ulcerative colitis, unspecified, without complications (principal); K64.8 Other hemorrhoids; Z79.620 Long term (current) use of immunosuppressive biologic; Z87.891 Personal history of nicotine dependence; E66.01 Morbid (severe) obesity due to excess calories; Z68.41 Body mass index [BMI] 40.0-44.9, adult
CPT/HCPCS: 45380; 88305; J2003; J2704; J7120

== ENCOUNTER 2025-10-13 13:52 | Outpatient (CLI) | payer OTHER, SELFPAY ==
--- OUTSIDE RECORDS SUMMARY | 2025-10-13 13:56 | XMS_ITS | Encounter Summary ---
Author Organization [facility] Address [address] [place] [address] Care Team Providers Care Spray Unit Feeder Name Role Phone Vernon Mccormack MD Primary Care Provider [phone] Encounter Details Date Type Department Care Team (Late st Contact Info) Description 05/05/2022 Lab Requisition [facility] DermPath Lab [address] [place] [address] Nino Leone MD [address] [facility] [place], [place] [id number] Social History Tobacco Use Types Packs/Day Years Used Date Smoking Tobacco: Never Assessed Comments Unknown Sex and Gender Information Value Date Recorded Sex Assigned at Not on file Legal Sex Female 12:12 PM CDT Gender Identity Not on file Sexual Orientation Not on file documented as of this encounter Plan of Treatment Not on file documented as of this encounter Procedures Procedure Name Priority Date/Time Associated Diagnosis Comments DERMATOPATHOLOGY Routine 05/03/2022 3:33 AM CDT documented in this encounter Results * DERMATOPATHOLOGY (05/03/2022 3:33 AM CDT) Case Report Dermatopathology Report Case: [id number] Authorizing Provider: Nino Leone MD Collected: 05/03/2022 03:33 AM Ordering Location: [facility] DermPath Lab Received: 05/05/2022 10:01 AM Pathologist: Bailee Sanders MD Specimen: Skin, glabella 2 3:01 PM CDT DERMATOPATHOLOGY LABORATORY Final Diagnosis Specimen A. SKIN, glabella: INTRADERMAL MELANOCYTIC NEVUS (D22.39) EPIDERMOID CYST WITH EVIDENCE OF RUPTURE (L72.0) EPIDERMAL NECROSIS SUGGESTIVE OF EXCORIATION (L98.499) 2 3:01 PM CDT DERMATOPATHOLOGY LABORATORY at 1501 CDT Clinical History Nevus. Path# [id number] 2 3:01 PM CDT DERMATOPATHOLOGY LABORATORY Gross Description Specimen A: Received is one formalin filled container labeled with the patient's name and designated glabella. The specimen consists of a shave biopsy measuring [id number] and it is bisected. Jar 0. 2 [...] characteristic determined by the Dermatopathology Laboratory at [facility], directed by Dr. Bar La. These tests need not be, and therefore are not, approved by the [place] Food and Drug Administration. The tests are used for clinical purposes. Billing Codes Specimen Charges Stain Charges 98393 1 2 3:01 PM CDT DERMATOPATHOLOGY LABORATORY Embedded Images 2 3:01 PM CDT DERMATOPATHOLOGY LABORATORY Pathology/Cytolo gy TISSUE SPECIMEN FROM SKIN / Unknown 05/03/2022 3:33 AM CDT 05/05/2022 10:01 AM CDT us Nino Leone MD LAB - PATHOLOGY/CYTOLOGY ORDER RIA Final Result DERMATOPATHOLOGY LABORATORY [facility] - Department of Dermatology [address], [address] [phone] documented in this encounter Visit Diagnoses Not on filedocumented in this encounter Care Teams Spray Unit Feeder Relationship Specialty Start Date End Date Vernon Mccormack MD [address] [place] [address] 3 [place] [address] PCP - General 02/06/18 documented as of this encounter
--- OUTSIDE RECORDS SUMMARY | 2025-10-13 13:56 | XMS_ITS | Clinical Summary ---
Author Organization [facility] Address [address] [place] [address] Phone Care Team Providers Care Records Tech Name Role Phone Krystle Arvizu APRN Primary Care Provider [phone] Adonis Bowers DO Unavailable [phone] Allergies Active Allergy Reactions Criticality Noted [...] Comments Blood Pressure 136/82 11/15/2023 9:12 AM ASSISTANT KITCHEN MANAGER Pulse 102 11/15/2023 9:12 AM ASSISTANT KITCHEN MANAGER Temperature 36.7 C (98 F) 11/15/2023 9:12 AM ASSISTANT KITCHEN MANAGER Respiratory Rate 18 11/15/2023 9:12 AM ASSISTANT KITCHEN MANAGER Oxygen Saturation 95% 11/15/2023 9:12 AM ASSISTANT KITCHEN MANAGER Inhaled Oxygen Concentration - - Weight 94.3 kg (208 lb) 11/15/2023 9:12 AM ASSISTANT KITCHEN MANAGER Height 149.9 cm (4' 11) 11/15/2023 9:12 AM ASSISTANT KITCHEN MANAGER Body Mass Index 42.01 11/15/2023 9:12 AM ASSISTANT KITCHEN MANAGER Plan of Treatment Health Maintenance Due Date Last Done Comments Hepatitis C Virus (HCV) Screening 1984 SARS-COV-2 Immunization (#1) 1984 Varicella Immunization (1 of 2 - 13+ 2-dose series) 1997 Hepatitis B Immunization (1 of 3 - 19+ 3-dose series) 2003 Pneumococcal Immunization Combined (1 of 2 - PCV) 2003 Pap Smear 2005 Cervical Cancer Screening (CCS) 2014 HPV/Cotest 2014 Mammogram 03/23/2021 03/23/2020 Discussion re Starting/Frequency of Mammograms 2024 Influenza Immunization (#1) 2025 10/08/2019 Td Immunization Every 10 Yea rs (Adults With 1 Tdap) 12/22/2032 12/22/2022, 01/05/2017 Respiratory Syncytial Virus (RSV) Immunization (Adult) (1 - 1-dose 75+ series) 2059 DTaP/Tdap/Td Immunization Discontinued 2022, 01/05/2017 Human Papillomavirus (HPV) Immunization (No Doses Required) Completed Meningococcal Immunization (ACWY) Aged Out No longer eligible based on patient's age to complete this topic Rotavirus Immunization Aged Out No lo nger eligible based on patient's age to [place] [address] MEDICAID [place] Care Teams Records Tech Relationship Specialty Start Date End Date Krystle Arvizu [place] [address] PCP - General Advanced Practice Nurse 05/26/19 Adonis oBwers DO [address] [place] [phone] Consulting Physician Hematology 09/30/20
--- OUTSIDE RECORDS SUMMARY | 2025-10-13 13:56 | XMS_ITS | Encounter Summary ---
Author Organization [facility] Address [address] [place] [address] Care Team Providers Care Sole Molding Machine Operator Name Role Phone Lito Addison MD Primary Care Provider Unavailable Krystle Arvizu NP Primary Care Provider [phone] Encounter Details Date Type Department Care Team (Late st Contact Info) Description 08/17/2017 Abstract [place] [address] Lito Addison MD Social History Tobacco Use Types Packs/Day Years [...] documented as of this encounter Care Teams Sole Molding Machine Operator Relationship Specialty Start Date End Date Lito Addison MD PCP - General 08/27/14 Krystle [place] [address] PCP - General NURSE PRACTITIONER 05/11/19 documented as of this encounter
--- OUTSIDE RECORDS SUMMARY | 2025-10-13 13:56 | XMS_ITS | Clinical Summary ---
Author Organization [facility] Address [address] [place] [address] Care Team Providers Care Reinsurance Claims Analyst Name Role Phone Vernon Mccormack MD Primary Care Provider [phone] [facility],non-owned Affiliates and Associated Physician Practices is amultiple site organization consisting of ambulatory clinics and hospital sitesin [place], [place], [place] and [place]. This disclosure is being madepursuant to the Care Everywhere program and may not contain all information available regarding this patient. Last updated 18.[facility] Allergies Active Allergy Reactions Criticality Noted Date Comments Neomycin Rash Medium 01/05/2017 Peanut-Derived Rash Medium 04/08/2017 Medications * Be aware that medications may not be up to date on this document. Alwaysverify current medications with the patient. Famotidine (PEPCID PO) Active SULFASALAZINE PO Act naseem Acetaminophen 325 MG CAPS Active ferrous sulfate 325 (65 FE) MG tablet TAKE 1 TABLET BY MOUTH THREE TIMES DAILY 12/24/19 18 Active lisinopril (PRINIVIL; ZESTRIL) 10 MG tablet Take 10 mg by mouth Active raNITIdine (ZANTAC) 150 MG tablet Take 150 mg by mouth Active senna-docusate (SENOKOT-S) 8.6-50 MG tablet Take 2 tablets by mouth 04/08/20 17 Active omeprazole (PriLOSEC) 20 MG capsule Take [...] daily Active labetalol (Normodyne; Trandate) 200 MG tabletIndications :Hypertension Take 200 mg by mouth 2 times daily Reasons: High Blood Pressure Disorder Active cetirizine (ZyrTEC) 10 MG tablet Take 10 mg by mouth Active cyanocobalamin (Vitamin B-12) injection Inject 1,000 mcg into muscle every 30 days Active Active Problems Problem Noted Date Diagnosed Date Advanced maternal age, primigravida, antepartum 07/30/2022 Ulcerative colitis with complication 07/30/2022 Benign essential hypertension, antepartum 2021 HSV infection 07/30/2022 Encounter for ultrasound 07/30/2022 16 weeks gestation of 07/30/2022 Anemia 01/30/2018 Immunizations Immunization Administration Dates Next Due TDAP (7yrs+) 01/05/2017 [...] drink = 0.6 oz pur e alcohol) Comments No Sex and Gender Information Value Date Recorded Sex Assigned at Not on file Legal Sex Female 12:12 PM CDT Gender Identity Not on file Sexual Orientation Not on file Last Filed Vital Signs Vital Sign Reading Time Taken Comments Blood Pressure 151/83 12/03/2022 5:03 PM AUTO LEASING MANAGER repeat 146/90, manual 138/80 Pulse 71 12/03/2022 5:03 PM AUTO LEASING MANAGER Temperature 36.2 C (97.2 F) 04/08/2017 8:57 AM CDT Respiratory Rate 18 12/03/2022 5:03 PM AUTO LEASING MANAGER Oxygen Saturation 100% 04/08/2017 8:5 7 AM CDT Inhaled Oxygen Concentration - - Weight 83 kg (183 lb) 07/30/2022 7:58 AM CDT Height 149.9 cm (4' 11) 07/03/2022 2:1 6 PM CDT Body Mass Index 36.96 07/03/2022 2:16 PM CDT Plan of Treatment Health Maintenance Due Date Last Done Comments LIPID TESTING 1984 MAMMOGRAM 1984 COVID-19 VACCINE (#1) 1989 HEPATITIS C SCREENING 05/08/2002 HEPATITIS B VACCINE (1 of 3 - 19+ 3-dose series) 2003 PNEUMOCOCCAL VACCINE (1 of 2 - PCV) 2003 ZOSTER VACCINE (1 of 2) 2003 PAP SMEAR 2005 HPV VACCINE (1 - 3-dose SCDM series) 2011 DEPRESSION SCREENING 10/14/2024 INFLUENZA VACCINE (#1) 2025 10/08/2019 DTAP/TDAP/TD VACCINES (2 - T d or Tdap) 01/05/2027 01/05/2017 HIV SCREENING Completed 10/18/2022, 07/03/2022 HIB VACCINE Aged Out No longer eligi ble based on patient's age to complete this topic MENINGOCOCCAL (Group B) VACCINE SHARED DECISION-MAKING Aged Out No longer eligible based on patient's age to complete this topic MENINGOCOCCAL GROUPS A/C/Y/W VACCINE Aged Out No longer eligible b ased on patient's age to complete [place] [address] MEDICAID - [facility] SELF PAY NO INSURANCE Member Subscriber Plan / Payer (Ef fective for All Dates) Name:Neva Roque Member ID:Not on file Relation to Subscriber:Not on file Name:NEVA ROQUE Subscriber ID:Not on file (Home) Address: [address] [place] [address] [place] [address] Payer ID:Not on file Group ID:Not on file Type:Self Pay Address: [place] [place] [address] Care Teams Reinsurance Claims Analyst Relationship Specialty Start Date End Date Vernon Mccormack MD [address] [facility] [address] [place] [address] PCP - General 02/06/18
--- OUTSIDE RECORDS SUMMARY | 2025-10-13 13:56 | XMS_ITS | Encounter Summary ---
Author Organization [facility] Address [address] [place] [id number] Care Team Providers Care Ship Wirer Name Role Phone Krystle Arvizu NP Primary Care Provider [phone] Encounter Details Date Type Department Care Team (Late st Contact Info) Description 12/26/2022 Hospital Follow-up Call [facility] [place] [address] Marla La, RN Social History Tobacco Use [...] or ex-partner? No 12/19/2022 Social Connection and Isolation Panel Answer Date Recorded In a typical week, how many times do you talk on the phone with family, friends, or neighbors? More than three times a week 12/19/2022 How often do you get togethe r with friends or relatives? Three times a week 12/19/2022 How often do you attend chur ch or moravian services? Never 12/19/2022 Do you belong to any clubs o r organizations such as pentecostalism groups, unions, fraternal or athletic groups, or [...] Recorded Patient Health Questionnaire-2 Score 3 10/10/2022 [facility] - Occupational [...] place to sleep or slept in a prison (including now)? No 12/19/2022 Depression Answer Date Recor ded Last EPDS Total Score 8 12/24/2022 Last EPDS Self Harm Result Unrecognized value Comments No Sex and Gender Information Value [...] Assessment Author Status No 12/19/2022 2:03 AM RANCH SUPERVISOR Kelly Kuhn RN Active documented as of this encounter Mental Status * Because of a physical, mental, or emotional condition, do you have serious difficulty concentrating, remembering, or making decisions? Answer Entry Date Author Status No 12/19/2022 2:03 AM RANCH SUPERVISOR Kelly Kuhn RN Active documented in this encounter Plan of Treatment Not on file documented as of this encounter Goals Goal Patient Goal Type Associated Problems Recent Progress Patient-Stated? Author Family - family caregiver with be involved in care transitions and discharge planning General No Amanda Gifford, MATERIALS MANAGEMENT SUPERVISOR documented as of this encounter Visit Diagnoses Not on filedocumented in this encounter Additional Health Concerns Infection Onset Date Last Indicated Resolved Time MRSA Comment:04/18/21 +MRSA Right Groin 04/19/2021 04/19/2021 Assessment Noted Time PHQ-9 Depression Total Score: 4 10/10/20 22 1:36 PM RANCH SUPERVISOR documented as of this encounter Care Teams Ship Wirer Relationship Specialty Start Date End Date Krystle [place] [address] PCP - General NURSE PRACTITIONER 05/11/19 documented as of this encounter
--- OUTSIDE RECORDS SUMMARY | 2025-10-13 13:56 | XMS_ITS | Data Portability ---
Author Organization [employer] , [facility] ChangePrashanth Address [address] [place] [address] Assessment No assessment recorded. Plan of Treatment Reminders Order Date Submit Date Provider Last Modified By Organization Details Last Modified Time Details Appointments None recorded. Lab HPV E6+E7 mRNA, qualitativ e PCR, cervix 2024 025 [facility], [address] [place], [address], 5 09:22:47 pap, LB 2024 025 [email or web address] [email or web address] [facility], [address] [place], [address], 5 10:49:35 pap, LB 2023 024 [email or web address] [email or web address] [facility], [address] [place], [address], 4 13:02:42 HPV E6+E7 mRNA, qualitativ e PCR, cervix 2023 024 [place] [employer] [facility], [address] [place], [address], 4 07:59:05 urinalysis , dipstick 2022 023 [email or web address] [facility], [address], [place], [address], 3 14:13:22 culture, urine 2022 023 [facility], [address] [facility], [place], [address], 3 23:18:45 bacterial vaginosis + vaginitis panel, vaginal 2022 023 [facility], [address] [place], [address], 3 14:00:25 test, urine 2022 023 [facility] [facility], [address] [place], [address], 3 16:45:40 Referral None recorded. Procedures None recorded. Surgeries None recorded. Imaging MAMMO, screening, digital, bilateral 2024 025 [facility], [address] [facility], [place], [address], 5 17:20:43 MAMMO, screening, digital, bilateral 2023 024 [facility], [address] [place], [address], 4 15:14:48 US, transvagin al 2022 023 SYBIL Not available 3 00:57:35 Medication Orders sertraline 50 mg tablet 2023 024 [email or web address] [facility], [address] [facility], [place], [address], 5 14:04:16 Cipro 500 mg tablet 2022 023 [email or web address] [facility], [address] [place], [address], 4 14:20:40 Mirena 21 mcg/24 hr (up to 8 years) 52 mg intrauteri ne device 2022 023 [email or web address] Not available 15:04:57 Procardia XL 30 mg tablet,ext ended release 2022 023 [email or web address] [facility], [address] [facility], [place], [address], 13:57:25 Patient TargetsNo targets recorded. Patient Instructions Encounter Date Encounter Id Patient Instructions Last Modified By Organization Details Last Modified Time 12/28/2022 [id number] Care at Home With Your Baby: Care Instructions [email or web address] Not available 12/28/2022 12:37:31 04/11/2023 [id number] - Refrain from washcloth/loofah use, paredes ever [...] hygiene products marked mild or for vaginal health. We suggest any of the following soaps: [...] ureaplasma/mycopla sma testing and treatment, if indicated. [email or web address] Not available 04/11/2023 10:10:27 05/13/2024 [id number] body mass index: care instructions Not available 05/13/2024 15:29:41 mammogram: about this test Not available 05/13/2024 15:29:41 learning about control Not available 05/13/2024 15:29:41 06/21/2025 [id number] body mass index: care instructions Not available 06/21/2025 14:38:00 mammogram: about this test Not available 06/21/2025 14:38:00 Reason for Referral None Reported. Results Created Date Observation Date Name Description Value Unit Range Abnormal Flag Note LastModifiedBy Organization Detail LastModifiedTime 12/15/1912/15/2022 [facility] - [facility]- INDUC ED HYPER TENSI ON PANEL sodium 135 mmol/ L 136 - 145 low Not Available [place], [address], 12/15/2022 13:48:06 12/15/1912/15/2022 [facility] - PREGN EDGAR- INDUC ED HYPER TENSI ON PANEL potassium 4.3 mmol/ L 3.5 - 5.1 normal Not Available [place], [address], 12/15/2022 13:48:06 12/15/1912/15/2022 [facility] - PREGN EDGAR- INDUC ED HYPER TENSI ON PANEL chloride 103 mmol/ L 98 - 107 normal Not Available [place], [address], 12/15/2022 13:48:06 12/15/19 23 12/15/2022 [facility] - PREGN EDGAR- INDUC ED HYPER TENSI ON PANEL glucose 79 mg/dL 74 - 106 normal Not Available [address], [address], 12/15/2022 13:48:06 12/15/19 23 12/15/2022 [facility] - PREGN EDGAR- INDUC ED HYPER TENSI ON PANEL carbon dioxide 22 mmol/ L 20 - 32 normal Not Available [address], [address], 12/15/2022 13:48:06 12/15/19 23 12/15/2022 [facility] - PREGN EDGAR- INDUC ED HYPER TENSI ON PANEL calcium 9.6 mg/dL 8.5 - 10.1 normal Not Available [address], [address], 12/15/2022 13:48:06 12/15/19 23 12/15/2022 [facility] - PREGN EDGAR- INDUC ED HYPER TENSI ON PANEL creatinine 0.68 mg/dL 0.60 - 1.00 normal Not Available [address], [address], 12/15/2022 13:48:06 12/15/19 23 12/15/2022 PIH - PREGN EDGAR- INDUC ED HYPER TENSI ON PANEL eGFR 114 mL/mi n/1.7 3m2 >60 normal The eGFR is based on the CKD-E PI 2020 equat ion. To calcu late the new eGFR from a previ ous Creat inine or Cysta tin C resul t, go to https :[email or web address] boswell.joann belcher.o juan carlos/pr maryanne lópez s/wilsono qi/gf r_cal culat or Not Available [address], [address], 12/15/2022 13:48:06 12/15/19 23 12/15/2022 PIH - PREGN EDGAR- INDUC ED HYPER TENSI ON PANEL AST 16 U/L 32 - 40 low Not Available [address], [address], 12/15/2022 13:48:06 12/15/19 23 12/15/2022 PIH - PREGN EDGAR- INDUC ED HYPER TENSI ON PANEL ALT 17 U/L 14 - 59 normal Not Available [address], [address], 12/15/2022 13:48:06 12/15/19 23 12/15/2022 PIH - PREGN EDGAR- INDUC ED HYPER TENSI ON PANEL alk phos 116 U/L 46 - 116 normal Not Available [address], [address], 12/15/2022 13:48:06 12/15/19 23 12/15/2022 PIH - PREGN EDGAR- INDUC ED HYPER TENSI ON PANEL albumin 2.7 g/dL 3.4 - 5.0 low Not Available [address], [address], 12/15/2022 13:48:06 12/15/19 23 12/15/2022 PIH - PREGN EDGAR- INDUC ED HYPER TENSI ON PANEL protein, total 6.7 g/dL 6.4 - 8.2 normal Not Available [address], [address], 12/15/2022 13:48:06 12/15/19 23 12/15/2022 PIH - PREGN EDGAR- INDUC ED HYPER TENSI ON PANEL bilirubin, total 1.0 mg/dL 0.2 - 1.0 normal Not Available [address], [address], 12/15/2022 13:48:06 12/15/19 23 12/15/2022 PIH - PREGN EDGAR- INDUC ED HYPER TENSI ON PANEL urea nitrogen (BUN) 7 mg/dL 6 - 31 normal Not Available [address], [address], 12/15/2022 13:48:06 12/15/19 23 12/15/2022 PIH - PREGN EDGAR- INDUC ED HYPER TENSI ON PANEL uric acid 3.2 mg/dL 2.6 - 6.0 normal Not Available [address], [address], 12/15/2022 13:48:06 12/15/19 23 12/15/2022 CBC (INCL UDES DIFF/ PLT) WBC 8.7 thous and/u L 4.0 - 9.8 normal Not Available [address], [address], 12/15/2022 14:14:08 12/15/1912/15/2022 CBC (INCL UDES DIFF/ PLT) RBC 4.0 yakelin on/uL 3.9 - 4.9 normal Not Available [address], [address], 12/15/2022 14:14:08 12/15/19 23 12/15/2022 CBC (INCL UDES DIFF/ PLT) hemoglobin 13.0 g/dL 11.8 - 14.8 normal Not Available [address], [address], 12/15/2022 14:14:08 12/15/19 23 12/15/2022 CBC (INCL UDES DIFF/ PLT) hematocrit 39.7 % 35.5 - 44.0 normal Not Available [address], [address], 12/15/2022 14:14:08 12/15/1912/15/2022 CBC (INCL UDES DIFF/ PLT) MCV 98.8 fL 82.0 - 99.0 normal Not Available [address], [address], 12/15/2022 14:14:08 12/15/19 23 12/15/2022 CBC (INCL UDES DIFF/ PLT) MCH 32.3 pg 27.2 - 32.6 normal Not Available [address], [address], 12/15/2022 14:14:08 12/15/1912/15/2022 CBC (INCL UDES DIFF/ PLT) MCHC 32.7 g/dL 31.5 - 35.5 normal Not Available [address], [address], 12/15/2022 14:14:08 12/15/19 23 12/15/2022 CBC (INCL UDES DIFF/ PLT) RDW-CV 15.1 % 11.5 - 14.5 high Not Available [address], [address], 12/15/2022 14:14:08 12/15/1912/15/2022 CBC (INCL UDES DIFF/ PLT) platelet 399 thous and/u L 140 - 350 high Not Available [address], [address], 12/15/2022 14:14:08 12/15/1912/15/2022 CBC (INCL UDES DIFF/ PLT) MPV 9.8 fL 9.3 - 12.4 normal Not Available [address], [address], 12/15/2022 14:14:08 12/15/1912/15/2022 CBC (INCL UDES DIFF/ PLT) absolute neutrophil 6.48 thous and/u L 1.90 - 7.00 normal Not Available [address], [address], 12/15/2022 14:14:08 12/15/1912/15/2022 CBC (INCL UDES DIFF/ PLT) absolute lymphocyte 1.45 thous and/u L 0.70 - 4.50 normal Not Available [address], [address], 12/15/2022 14:14:08 12/15/19 23 12/15/2022 CBC (INCL UDES DIFF/ PLT) absolute monocyte 0.51 thous and/u L 0.10 - 1.30 normal Not Available [address], [address], 12/15/2022 14:14:08 12/15/19 23 12/15/2022 CBC (INCL UDES DIFF/ PLT) absolute eosinophil 0.12 thous and/u L <0.70 normal Not Available [address], [address], 12/15/2022 14:14:08 12/15/19 23 12/15/2022 CBC (INCL UDES DIFF/ PLT) absolute basophil 0.05 thous and/u L <0.20 normal Not Available [address], [address], 12/15/2022 14:14:08 12/15/19 23 12/15/2022 CBC (INCL UDES DIFF/ PLT) absolute immature granulocyte 0.05 thous and/u L <0.03 high Not Available [address], [address], 12/15/2022 14:14:08 12/15/19 23 12/15/2022 PROT/ CREAT - U RANDO M protein, urine 15 mg/dL 6 - 24 normal Not Available [address], [address], 12/15/2022 15:05:55 12/15/19 23 12/15/2022 PROT/ CREAT - U RANDO M creatinine, urine 94 mg/dL 20 - 275 normal Not Available [address], [address], 12/15/2022 15:05:55 12/15/19 23 12/15/2022 PROT/ CREAT - U RANDO M protein/crea tinine ratio, random urine 0.156 mg/mg _crea t 0.024 - 0.184 normal Not Available [address] [place], [address], 12/15/2022 15:05:55 12/15/19 23 12/17/2022 STREP TOCOC CUS, GROUP B CULTU RE streptococcu s, group B culture SEE NOTE STREP TOCOC CUS, GROUP B CULTU RE Micro Numbe r: [id number] Test Statu s: Final Speci men Sourc e: Recto vag Speci men Quali ty: Adequ ate Resul t: No group B Strep tococ cus isola prachi Note per CDC guide lines optim al recov zabrina is achie summer by swabb ing both the lower vagin a and rectu m (thro ugh the anal sphin cter) . Not Available [facility] [address] [place], [address], 12/17/2022 11:44:14 12/20/19 23 12/19/2022 CBC WITH DIFF WBC 8.4 x10'3 /uL 4.5-11 .0 Not Available [facility] (Lab) [address], [place], [address], 12/19/2022 03:21:39 12/20/19 23 12/19/2022 CBC WITH DIFF RBC 3.56 x10'6 /uL 4.20-5 .40 low Not Available [facility] (Lab) [address], [place], [address], 12/19/2022 03:21:39 12/20/19 23 12/19/2022 CBC WITH DIFF hemoglobin 12.0 g/dL 12.0-1 6.0 Not Available [facility] (Lab) [address] [place], [address], 12/19/2022 03:21:39 12/20/19 23 12/19/2022 CBC WITH DIFF hematocrit 35.1 % 38.0-4 8.0 low Not Available [facility] (Lab) [address], [place], [address], 12/19/2022 03:21:39 12/20/1912/19/2022 CBC WITH DIFF MCV 98.6 fL 81.0-9 9.0 Not Available [facility] (Lab) [address], [place], [address], 12/19/2022 03:21:39 12/20/1912/19/2022 CBC WITH DIFF MCH 33.7 pg 27.0-3 1.0 high Not Available [facility] (Lab) [address] [facility], [place], [address], 12/19/2022 03:21:39 12/20/19 23 12/19/2022 CBC WITH DIFF MCHC 34.2 g/dL 32.0-3 6.0 Not Available [facility] (Lab) [address], [place], [address], 12/19/2022 03:21:39 12/20/1912/19/2022 CBC WITH DIFF RDW 15.9 % 11.5-1 4.5 high Not Available [facility] (Lab) [address] [facility], [place], [address], 12/19/2022 03:21:39 12/20/1912/19/2022 CBC WITH DIFF platelet count 421 x10'3 /uL 130-40 0 high Not Available [facility] (Lab) [address], [place], [address], 12/19/2022 03:21:39 12/20/19 23 12/19/2022 CBC WITH DIFF MPV 9.4 fL 9.3-12 .2 Not Available [facility] (Lab) [address], [place], [address], 12/19/2022 03:21:39 12/20/19 23 12/19/2022 CBC WITH DIFF diff type AUTOMA PRACHI DIFFER ENTIAL Not Available [facility] (Lab) [address], [place], [address], 12/19/2022 03:21:39 12/20/19 23 12/19/2022 CBC WITH DIFF neutrophils 72.7 % Not Available [facility] (Lab) [address], [place], [address], 12/19/2022 03:21:39 12/20/19 23 12/19/2022 CBC WITH DIFF lymphocytes 19.4 % Not Available [facility] (Lab) [address] [facility] [place], [address], 12/19/2022 03:21:39 12/20/19 23 12/19/2022 CBC WITH DIFF monocytes 4.6 % Not Available [facility] (Lab) [address] [facility] [place], [address], 12/19/2022 03:21:39 12/20/19 23 12/19/2022 CBC WITH DIFF eosinophils 2.3 % Not Available [facility] (Lab) [address], [place], [address], 12/19/2022 03:21:39 12/20/19 23 12/19/2022 CBC WITH DIFF basophils 0.4 % Not Available [facility] (Lab) [address] [facility] [place], [address], 12/19/2022 03:21:39 12/20/19 23 12/19/2022 CBC WITH DIFF immature granulocytes 0.6 % Not Available [facility] (Lab) [address], [place], [address], 12/19/2022 03:21:39 12/20/19 23 12/19/2022 CBC WITH DIFF abs. neutrophils 6.12 x10'3 /uL 1.80-7 .70 Not Available [facility] (Lab) [address] [place], [address], 12/19/2022 03:21:39 12/20/19 23 12/19/2022 CBC WITH DIFF abs. lymphocytes 1.63 x10'3 /uL 1.00-4 .80 Not Available [facility] (Lab) [address] [place], [address], 12/19/2022 03:21:39 12/20/19 23 12/19/2022 CBC WITH DIFF abs. monocytes 0.39 x10'3 /uL 0.24-0 .86 Not Available [facility] (Lab) [address] [place], [address], 12/19/2022 03:21:39 12/20/19 23 12/19/2022 CBC WITH DIFF abs. eosinophils 0.19 x10'3 /uL 0.04-0 .36 Not Available [facility] (Lab) [place], [address], 12/19/2022 03:21:39 12/20/19 23 12/19/2022 CBC WITH DIFF abs. basophils 0.03 x10'3 /uL 0.01-0 .08 Not Available [facility] (Lab) [address] [place], [address], 12/19/2022 03:21:39 12/20/19 23 12/19/2022 CBC WITH DIFF abs. immature grans 0.05 x10'3 /uL 0.00-0 .49 Not Available [facility] (Lab) [address] [facility], [place], [address], 12/19/2022 03:21:39 12/20/19 23 12/19/2022 DRUGS OF ABUSE PANEL , URINE amphetamines , urine NEGATI VE neg Not Available [facility] (Lab) [address] [facility], [place], [address], 12/19/2022 03:27:42 12/20/19 23 12/19/2022 DRUGS OF ABUSE PANEL , URINE barbituates, urine NEGATI VE neg Not Available [facility] (Lab) [address] [facility], [place], [address], 12/19/2022 03:27:42 12/20/19 23 12/19/2022 DRUGS OF ABUSE PANEL , URINE benzodiazapi tomasz, urine NEGATI VE neg Not Available [facility] (Lab) [address] [facility], [place], [address], 12/19/2022 03:27:42 12/20/19 23 12/19/2022 DRUGS OF ABUSE PANEL , URINE cannabinoids /THC, urine NEGATI VE neg Not Available [facility] (Lab) [address] [place], [address], 12/19/2022 03:27:42 12/20/19 23 12/19/2022 DRUGS OF ABUSE PANEL , URINE cocaine, urine NEGATI VE neg Not Available [facility] (Lab) [address] [place], [address], 12/19/2022 03:27:42 12/20/19 23 12/19/2022 DRUGS OF ABUSE PANEL , URINE methadone, urine NEGATI VE neg Not Available [facility] (Lab) [address] [place], [address], 12/19/2022 03:27:42 12/20/19 23 12/19/2022 DRUGS OF ABUSE PANEL , URINE opiates, urine NEGATI VE neg Not Available [facility] (Lab) [address] [place], [address], 12/19/2022 03:27:42 12/20/19 23 12/19/2022 DRUGS OF [...] <40 mg/dL . RECOL LECTI ON IS SUGGE STED. AMPHE TAMIN E- 500 NG/ML DEN TURAT E- 200 NG/ML BENZO DIAZE PINES - 200 NG/ML THC- 50 NG/ML COCAI NE- 150 NG/ML METHA DONE- 300 NG/ML OPIAT E- 300 MG/ML PCP- 25 NG/ML Not Available [facility] (Lab) [place], [address], 12/19/2022 03:27:42 12/20/19 23 12/19/2022 DRUGS OF ABUSE PANEL , URINE creatinine, urine 229.0 mg/dL 28-217 high Not Available [facility] (Lab) [place], [address], 12/19/2022 03:27:42 12/20/19 23 12/19/2022 UA REFLE X TO CULTU RE specimen type URINE CLEAN CATCH Not Available [facility] (Lab) [place], [address], 12/19/2022 03:41:44 12/20/1912/19/2022 UA REFLE X TO CULTU RE color YELLOW Not Available [facility] (Lab) [address], [place], [address], 12/19/2022 03:41:44 12/20/1912/19/2022 UA REFLE X TO CULTU RE clarity CLEAR Not Available [facility] (Lab) [address] [facility], [place], [address], 12/19/2022 03:41:44 12/20/19 23 12/19/2022 UA REFLE X TO CULTU RE specific gravity 1.026 1.001- 1.030 Not Available [facility] (Lab) [address] [facility], [place], [address], 12/19/2022 03:41:44 12/20/19 23 12/19/2022 UA REFLE X TO CULTU RE pH, urine 6.0 5.0-9. 0 Not Available [facility] (Lab) [address] [facility], [place], [address], 12/19/2022 03:41:44 12/20/1912/19/2022 UA REFLE X TO CULTU RE leukocytes NEGATI VE neg Not Available [facility] (Lab) [address] [facility], [place], [address], 12/19/2022 03:41:44 12/20/19 23 12/19/2022 UA REFLE X TO CULTU RE nitrite NEGATI VE neg Not Available [facility] (Lab) [address] [facility], [place], [address], 12/19/2022 03:41:44 12/20/19 23 12/19/2022 UA REFLE X TO CULTU RE protein 20 mg/dL <30 Not Available [facility] (Lab) [address] [place], [address], 12/19/2022 03:41:44 12/20/19 23 12/19/2022 UA REFLE X TO CULTU RE glucose NORMAL mg/dL norm Not Available [facility] (Lab) [address] [place], [address], 12/19/2022 03:41:44 12/20/19 23 12/19/2022 UA REFLE X TO CULTU RE ketone 10 mg/dL neg abnormal Not Available [facility] (Lab) [address] [place], [address], 12/19/2022 03:41:44 12/20/19 23 12/19/2022 UA REFLE X TO CULTU RE urobilinogen NORMAL mg/dL norm Not Available [facility] (Lab) [place], [address], 12/19/2022 03:41:44 12/20/19 23 12/19/2022 UA REFLE X TO CULTU RE bilirubin NEGATI VE mg/dL neg Not Available [facility] (Lab) [address] [place], [address], 12/19/2022 03:41:44 12/20/19 23 12/19/2022 UA REFLE X TO CULTU RE blood NEGATI VE neg Not Available [facility] (Lab) [address] [place], [address], 12/19/2022 03:41:44 12/20/19 23 12/19/2022 UA REFLE X TO CULTU RE culture indicated CULTUR E IS NOT INDICA PRACHI Not Available [facility] (Lab) [address] [place], [address], 12/19/2022 03:41:44 12/20/19 23 12/19/2022 UA REFLE X TO CULTU RE mucous FEW /lpf Not Available [facility] (Lab) [address] [place], [address], 12/19/2022 03:41:44 12/20/19 23 12/19/2022 UA REFLE X TO CULTU RE squamous epithelial FEW /hpf Not Available [facility] (Lab) [address] [place], [address], 12/19/2022 03:41:44 12/20/19 23 12/19/2022 COMPR EHENS SHAKILA METAB OLIC PANEL glucose 94 mg/dL 70-99 Not Available [facility] (Lab) [address] [place], [address], 12/19/2022 09:27:48 12/20/19 23 12/19/2022 COMPR EHENS SHAKILA METAB OLIC PANEL BUN 11 mg/dL 7-18 Not Available [facility] (Lab) [place], [address], 12/19/2022 09:27:48 12/20/19 23 12/19/2022 COMPR EHENS SHAKILA METAB OLIC PANEL creatinine 0.74 mg/dL 0.55-1 .02 Not Available [facility] (Lab) [address] [place], [address], 12/19/2022 09:27:48 12/20/19 23 12/19/2022 COMPR EHENS SHAKILA METAB OLIC PANEL sodium 135 mmol/ L 136-14 5 low Not Available [facility] (Lab) [address] [place], [address], 12/19/2022 09:27:48 12/20/19 23 12/19/2022 COMPR EHENS SHAKILA METAB OLIC PANEL potassium 4.0 mmol/ L 3.5-5. 1 Not Available [facility] (Lab) [address] [place], [address], 12/19/2022 09:27:48 12/20/19 23 12/19/2022 COMPR EHENS SHAKILA METAB OLIC PANEL chloride 109 mmol/ L 100-10 8 high Not Available [facility] (Lab) [address] [place], [address], 12/19/2022 09:27:48 12/20/19 23 12/19/2022 COMPR EHENS SHAKILA METAB OLIC PANEL total CO2 20.0 mmol/ L 21-32 low Not Available [facility] (Lab) [address] [place], [address], 12/19/2022 09:27:48 12/20/19 23 12/19/2022 COMPR EHENS SHAKILA METAB OLIC PANEL calcium 9.4 mg/dL 8.5-10 .1 Not Available [facility] (Lab) [address] [place], [address], 12/19/2022 09:27:48 12/20/19 23 12/19/2022 COMPR EHENS SHAKILA METAB OLIC PANEL total bilirubin 0.8 mg/dL 0.2-1. 2 THIS ASSAY IS NOT RECOM ROLY D FOR PATIE NTS UNDER GOING TREAT MENT WITH ELTRO MBOPA G DUE TO THE POTEN TIAL FOR FALSE LY ELEVA PRACHI RESUL TS. Not Available [facility] (Lab) [place], [address], 12/19/2022 09:27:48 12/20/19 23 12/19/2022 COMPR EHENS SHAKILA METAB OLIC PANEL total protein 7.6 g/dL 6.4-8. 2 Not Available [facility] (Lab) [address] [place] [facility] [place], [address], 12/19/2022 09:27:48 12/20/19 23 12/19/2022 COMPR EHENS SHAKILA METAB OLIC PANEL albumin 2.8 g/dL 3.4-5. 0 low Not Available [facility] (Lab) [address] [facility] [place], [address], 12/19/2022 09:27:48 12/20/19 23 12/19/2022 COMPR EHENS SHAKILA METAB OLIC PANEL AST 15 U/L 15-37 Not Available [facility] (Lab) [address] [facility], [place], [address], 12/19/2022 09:27:48 12/20/19 23 12/19/2022 COMPR EHENS SHAKILA METAB OLIC PANEL ALT 18 U/L 14-55 Not Available [facility] (Lab) [address] [facility] [place], [address], 12/19/2022 09:27:48 12/20/19 23 12/19/2022 COMPR EHENS SHAKILA METAB OLIC PANEL alk phosphatase 122 U/L 50-136 Not Available [facility] (Lab) [address] [facility] [place], [address], 12/19/2022 09:27:48 12/20/19 23 12/19/2022 COMPR EHENS SHAKILA METAB OLIC PANEL anion gap 6.0 mmol/ L 5-15 Not Available [facility] (Lab) [address] [facility] [place], [address], 12/19/2022 09:27:48 12/20/19 23 12/19/2022 COMPR EHENS SHAKILA METAB OLIC PANEL BUN creatinine ratio 14.9 6-26 Not Available [facility] (Lab) [address] [place] [facility] [place], [address], 12/19/2022 09:27:48 12/20/19 23 12/19/2022 COMPR EHENS SHAKILA METAB OLIC PANEL A:g ratio 0.6 ratio 1.0-2. 0 low Not Available [facility] (Lab) [address] [place] [facility] [place], [address], 12/19/2022 09:27:48 12/20/19 23 12/19/2022 COMPR EHENS SHAKILA METAB OLIC PANEL est [...] latin g drug doses . Not Available [facility] (Lab) [address] [place], [address], 12/19/2022 09:27:48 12/20/1912/19/2022 URIC ACID uric acid 3.9 mg/dL 2.6-6. 0 Not Available [facility] (Lab) [address] [place], [address], 12/19/2022 09:38:51 12/20/19 23 12/19/2022 CREAT ININE , URINE creatinine, urine 94.8 mg/dL 28-217 Not Available [facility] (Lab) One [facility], [place], [address], 12/19/2022 10:12:47 12/20/19 23 12/19/2022 TOTAL PROTE IN, URINE total protein, urine 18.4 mg/dL <10 high Not Available [facility] (Lab) [place], [address], 12/19/2022 10:12:50 12/20/19 23 12/19/2022 TYPE AND SCREE N units ordered 2 Not Available [facility] (Lab) [place], [address], 12/23/2022 08:06:10 12/20/19 23 12/19/2022 TYPE AND SCREE N ABO/Rh(D) O NEGATI VE Not Available [facility] (Lab) [address] [facility], [place], [address], 12/23/2022 08:06:10 12/20/19 23 12/19/2022 TYPE AND SCREE N antibody screen POSITI VE Not Available [facility] (Lab) [address] [facility], [place], [address], 12/23/2022 08:06:10 12/20/19 23 12/19/2022 TYPE AND SCREE N xm expiration 2022,2 359 Not Available [facility] (Lab) [address] [facility], [place], [address], 12/23/2022 08:06:10 12/20/19 23 12/19/2022 TYPE AND SCREE N antibody id Warm autoa ntibo dy, and Anti C ident ified . Trans fuse Rh(D) negat shakila, AHG cross match LEAST INCOM PATIB LE red blood cell produ cts per Impac t Life Not Available [facility] (Lab) [address], [place], [address], 12/23/2022 08:06:10 12/20/1912/19/2022 TYPE AND SCREE N allocated unit Not Available [facility] (Lab) [address], [place], [address], 12/23/2022 08:06:10 12/20/19 23 12/19/2022 TYPE AND SCREE N unit number [id number] Not Available [facility] (Lab) [address], [place], [address], 12/23/2022 08:06:10 12/20/1912/19/2022 TYPE AND SCREE N blood component type PC LEUKO PHERE BAG2 Not Available [facility] (Lab) [address], [place], [address], 12/23/2022 08:06:10 12/20/1912/19/2022 TYPE AND SCREE N unit division 00 Not Available [facility] (Lab) [address], [place], [address], 12/23/2022 08:06:10 12/20/1912/19/2022 TYPE AND SCREE N transfusion status OK TO TRANSF USE Not Available [facility] (Lab) [address], [place], [address], 12/23/2022 08:06:10 12/20/1912/19/2022 TYPE AND SCREE N crossmatch result COMPAT IBLE Not Available [facility] (Lab) [address], [place], [address], 12/23/2022 08:06:10 12/20/19 23 12/19/2022 TYPE AND SCREE N allocated unit Not Available [facility] (Lab) [address], [place], [address], 12/23/2022 08:06:10 12/20/19 23 12/19/2022 TYPE AND SCREE N unit number [id number] Not Available [facility] (Lab) [address], [place], [address], 12/23/2022 08:06:10 12/20/19 23 12/19/2022 TYPE AND SCREE N blood component type PC LEUKO PHERE BAG1 Not Available [facility] (Lab) [address], [place], [address], 12/23/2022 08:06:10 12/20/19 23 12/19/2022 TYPE AND SCREE N unit division 00 Not Available [facility] (Lab) [address], [place], [address], 12/23/2022 08:06:10 12/20/19 23 12/19/2022 TYPE AND SCREE N transfusion status OK TO TRANSF USE Not Available [facility] (Lab) [address], [place], [address], 12/23/2022 08:06:10 12/20/19 23 12/19/2022 TYPE AND SCREE N crossmatch result COMPAT IBLE Not Available [facility] (Lab) [address], [place], [address], 12/23/2022 08:06:10 12/20/19 23 12/23/2022 TYPE AND SCREE N status of unit UNIT RELEAS ED [id number] 23 0705 Not Available [facility] (Lab) [address], [place], [address], 12/23/2022 08:06:10 12/20/1912/23/2022 TYPE AND SCREE N status of unit UNIT MIRANDA ED [id number] [address] [facility] (Lab) [address], [place], [address], 12/23/2022 08:06:10 12/21/19 23 12/24/2022 ABELINO SURGI VALERI PATHO LOGY path report [facility] [address] 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 APPRO PRIAT E FOR STATE [...] name (Kathryn gayle ), date of (04/15 4) (cj ectio n time 12/20 at [...] remai paolo place ntal disc :pb Anibal liriano Fee Code( s): 77397 Not Available [facility] (Lab) [place], [address], 12/24/2022 18:02:27 12/24/19 23 12/23/2022 CBC WITH DIFF WBC 12.4 x10'3 /uL 4.5-11 .0 high Not Available [facility] (Lab) [place], [address], 12/24/2022 00:20:27 12/24/19 23 12/23/2022 CBC WITH DIFF RBC 3.02 x10'6 /uL 4.20-5 .40 low Not Available [facility] (Lab) [place], [address], 12/24/2022 00:20:27 12/24/19 23 12/23/2022 CBC WITH DIFF hemoglobin 10.0 g/dL 12.0-1 6.0 low Not Available [facility] (Lab) [address] [place], [address], 12/24/2022 00:20:27 12/24/1912/23/2022 CBC WITH DIFF hematocrit 30.2 % 38.0-4 8.0 low Not Available [facility] (Lab) [address] [facility], [place], [address], 12/24/2022 00:20:27 12/24/19 23 12/23/2022 CBC WITH DIFF MCV 100.0 fL 81.0-9 9.0 high Not Available [facility] (Lab) [address] [facility], [place], [address], 12/24/2022 00:20:27 12/24/19 23 12/23/2022 CBC WITH DIFF MCH 33.1 pg 27.0-3 1.0 high Not Available [facility] (Lab) [address] [facility], [place], [address], 12/24/2022 00:20:27 12/24/19 23 12/23/2022 CBC WITH DIFF MCHC 33.1 g/dL 32.0-3 6.0 Not Available [facility] (Lab) [address] [facility], [place], [address], 12/24/2022 00:20:27 12/24/1912/23/2022 CBC WITH DIFF RDW 16.7 % 11.5-1 4.5 high Not Available [facility] (Lab) [address] [place] [facility] [place], [address], 12/24/2022 00:20:27 12/24/19 23 12/23/2022 CBC WITH DIFF platelet count 494 x10'3 /uL 130-40 0 high Not Available [facility] (Lab) [address] [facility], [place], [address], 12/24/2022 00:20:27 12/24/19 23 12/23/2022 CBC WITH DIFF MPV 9.1 fL 9.3-12 .2 low Not Available [facility] (Lab) [address], [place], [address], 12/24/2022 00:20:27 12/24/19 23 12/23/2022 CBC WITH DIFF diff type AUTOMA PRACHI DIFFER ENTIAL Not Available [facility] (Lab) [address], [place], [address], 12/24/2022 00:20:27 12/24/19 23 12/23/2022 CBC WITH DIFF neutrophils 83.3 % Not Available [facility] (Lab) [address] [facility], [place], [address], 12/24/2022 00:20:27 12/24/19 23 12/23/2022 CBC WITH DIFF lymphocytes 10.8 % Not Available [facility] (Lab) [address], [place], [address], 12/24/2022 00:20:27 12/24/19 23 12/23/2022 CBC WITH DIFF monocytes 3.7 % Not Available [facility] (Lab) [address], [place], [address], 12/24/2022 00:20:27 12/24/19 23 12/23/2022 CBC WITH DIFF eosinophils 1.2 % Not Available [facility] (Lab) [address] [place], [address], 12/24/2022 00:20:27 12/24/19 23 12/23/2022 CBC WITH DIFF basophils 0.2 % Not Available [facility] (Lab) [address] [facility], [place], [address], 12/24/2022 00:20:27 12/24/19 23 12/23/2022 CBC WITH DIFF immature granulocytes 0.8 % Not Available [facility] (Lab) [address] [facility], [place], [address], 12/24/2022 00:20:27 12/24/19 23 12/23/2022 CBC WITH DIFF abs. neutrophils 10.30 x10'3 /uL 1.80-7 .70 high Not Available [facility] (Lab) [address] [facility], [place], [address], 12/24/2022 00:20:27 12/24/19 23 12/23/2022 CBC WITH DIFF abs. lymphocytes 1.34 x10'3 /uL 1.00-4 .80 Not Available [facility] (Lab) [address] [facility], [place], [address], 12/24/2022 00:20:27 12/24/19 23 12/23/2022 CBC WITH DIFF abs. monocytes 0.46 x10'3 /uL 0.24-0 .86 Not Available [facility] (Lab) [place], [address], 12/24/2022 00:20:27 12/24/19 23 12/23/2022 CBC WITH DIFF abs. eosinophils 0.15 x10'3 /uL 0.04-0 .36 Not Available [facility] (Lab) [address] [place], [address], 12/24/2022 00:20:27 12/24/19 23 12/23/2022 CBC WITH DIFF abs. basophils 0.03 x10'3 /uL 0.01-0 .08 Not Available [facility] (Lab) [address] [facility], [place], [address], 12/24/2022 00:20:27 12/24/1912/23/2022 CBC WITH DIFF abs. immature grans 0.10 x10'3 /uL 0.00-0 .49 Not Available [facility] (Lab) [address] [place], [address], 12/24/2022 00:20:27 12/24/19 23 12/23/2022 COMPR EHENS SHAKILA METAB OLIC PANEL glucose 96 mg/dL 70-99 Not Available [facility] (Lab) [address] [facility], [place], [address], 12/24/2022 00:42:34 12/24/19 23 12/23/2022 COMPR EHENS SHAKILA METAB OLIC PANEL BUN 6 mg/dL 7-18 low Not Available [facility] (Lab) [address] [place], [address], 12/24/2022 00:42:34 12/24/19 23 12/23/2022 COMPR EHENS SHAKILA METAB OLIC PANEL creatinine 0.59 mg/dL 0.55-1 .02 Not Available [facility] (Lab) [address] [place], [address], 12/24/2022 00:42:34 12/24/19 23 12/23/2022 COMPR EHENS SHAKILA METAB OLIC PANEL sodium 137 mmol/ L 136-14 5 Not Available [facility] (Lab) [address] [place], [address], 12/24/2022 00:42:34 12/24/19 23 12/23/2022 COMPR EHENS SHAKILA METAB OLIC PANEL potassium 3.6 mmol/ L 3.5-5. 1 Not Available [facility] (Lab) [address] [place], [address], 12/24/2022 00:42:34 12/24/1912/23/2022 COMPR EHENS SHAKILA METAB OLIC PANEL chloride 109 mmol/ L 100-10 8 high Not Available [facility] (Lab) [place], [address], 12/24/2022 00:42:34 12/24/19 23 12/23/2022 COMPR EHENS SHAKILA METAB OLIC PANEL total CO2 24.3 mmol/ L 21-32 Not Available [facility] (Lab) [place], [address], 12/24/2022 00:42:34 12/24/19 23 12/23/2022 COMPR EHENS SHAKILA METAB OLIC PANEL calcium 9.5 mg/dL 8.5-10 .1 Not Available [facility] (Lab) [place], [address], 12/24/2022 00:42:34 12/24/1912/23/2022 COMPR EHENS SHAKILA METAB OLIC PANEL total bilirubin 0.6 mg/dL 0.2-1. 2 THIS ASSAY IS NOT RECOM ROLY D FOR PATIE NTS UNDER GOING TREAT MENT WITH ELTRO MBOPA G DUE TO THE POTEN TIAL FOR FALSE LY ELEVA PRACHI RESUL TS. Not Available [facility] (Lab) [place], [address], 12/24/2022 00:42:34 12/24/19 23 12/23/2022 COMPR EHENS SHAKILA METAB OLIC PANEL total protein 6.8 g/dL 6.4-8. 2 Not Available [facility] (Lab) [place], [address], 12/24/2022 00:42:34 12/24/19 23 12/23/2022 COMPR EHENS SHAKILA METAB OLIC PANEL albumin 2.4 g/dL 3.4-5. 0 low Not Available [facility] (Lab) [address] [place], [address], 12/24/2022 00:42:34 12/24/19 23 12/23/2022 COMPR EHENS SHAKILA METAB OLIC PANEL AST 25 U/L 15-37 Not Available [facility] (Lab) [place], [address], 12/24/2022 00:42:34 12/24/19 23 12/23/2022 COMPR EHENS SHAKILA METAB OLIC PANEL ALT 22 U/L 14-55 Not Available [facility] (Lab) [address], [place], [address], 12/24/2022 00:42:34 12/24/19 23 12/23/2022 COMPR EHENS SHAKILA METAB OLIC PANEL alk phosphatase 116 U/L 50-136 Not Available [facility] (Lab) [place], [address], 12/24/2022 00:42:34 12/24/19 23 12/23/2022 COMPR EHENS SHAKILA METAB OLIC PANEL anion gap 3.7 mmol/ L 5-15 low Not Available [facility] (Lab) [place], [address], 12/24/2022 00:42:34 12/24/19 23 12/23/2022 COMPR EHENS SHAKILA METAB OLIC PANEL BUN creatinine ratio 10.1 6-26 Not Available [facility] (Lab) [place], [address], 12/24/2022 00:42:34 12/24/19 23 12/23/2022 COMPR EHENS SHAKILA METAB OLIC PANEL A:g ratio 0.5 ratio 1.0-2. 0 low Not Available [facility] (Lab) [address] [place] [facility] [place], [address], 12/24/2022 00:42:34 12/24/19 23 12/23/2022 COMPR EHENS [...] latin g drug doses . Not Available [facility] (Lab) [address] [facility], [place], [address], 12/24/2022 00:42:34 12/24/1912/23/2022 URIC ACID uric acid 3.7 mg/dL 2.6-6. 0 Not Available [facility] (Lab) [place], [address], 12/24/2022 00:42:36 12/24/19 23 12/23/2022 PROTE IN CREAT RATIO total protein, urine 22.8 mg/dL <10 high Not Available [facility] (Lab) [address] [place], [address], 12/24/2022 00:50:28 12/24/19 23 12/23/2022 PROTE IN CREAT RATIO creatinine, urine 41.3 mg/dL 28-217 Not Available [facility] (Lab) [place], [address], 12/24/2022 00:50:28 12/24/19 23 12/23/2022 PROTE IN CREAT RATIO protein creat ratio 0.6 Not Available [facility] (Lab) [address] [facility], [place], [address], 12/24/2022 00:50:28 12/24/19 23 12/23/2022 UA REFLE X TO MICRO specimen type URINE CLEAN CATCH Not Available [facility] (Lab) [address] [place], [address], 12/24/2022 00:50:38 12/24/19 23 12/23/2022 UA REFLE X TO MICRO color COLORL ESS Not Available [facility] (Lab) [address] [place], [address], 12/24/2022 00:50:38 12/24/19 23 12/23/2022 UA REFLE X TO MICRO clarity CLEAR Not Available [facility] (Lab) [address] [place], [address], 12/24/2022 00:50:38 12/24/19 23 12/23/2022 UA REFLE X TO MICRO specific gravity 1.010 1.001- 1.030 Not Available [facility] (Lab) [address] [place], [address], 12/24/2022 00:50:38 12/24/19 23 12/23/2022 UA REFLE X TO MICRO pH, urine 7.5 5.0-9. 0 Not Available [facility] (Lab) [address] [place], [address], 12/24/2022 00:50:38 12/24/19 23 12/23/2022 UA REFLE X TO MICRO leukocytes 500 neg abnormal Not Available [facility] (Lab) [place], [address], 12/24/2022 00:50:38 12/24/19 23 12/23/2022 UA REFLE X TO MICRO nitrite NEGATI VE neg Not Available [facility] (Lab) [place], [address], 12/24/2022 00:50:38 12/24/19 23 12/23/2022 UA REFLE X TO MICRO protein NEGATI VE mg/dL <30 Not Available [facility] (Lab) [address] [place], [address], 12/24/2022 00:50:38 12/24/19 23 12/23/2022 UA REFLE X TO MICRO glucose NORMAL mg/dL norm Not Available [facility] (Lab) [place], [address], 12/24/2022 00:50:38 12/24/19 23 12/23/2022 UA REFLE X TO MICRO ketone NEGATI VE mg/dL neg Not Available [facility] (Lab) [place], [address], 12/24/2022 00:50:38 12/24/19 23 12/23/2022 UA REFLE X TO MICRO urobilinogen NORMAL mg/dL norm Not Available [facility] (Lab) [place], [address], 12/24/2022 00:50:38 12/24/19 23 12/23/2022 UA REFLE X TO MICRO bilirubin NEGATI VE mg/dL neg Not Available [facility] (Lab) [address] [facility] [address], [place], [address], 12/24/2022 00:50:38 12/24/19 23 12/23/2022 UA REFLE X TO MICRO blood 3+ neg abnormal Not Available [facility] (Lab) [address], [place], [address], 12/24/2022 00:50:38 12/24/19 23 12/23/2022 UA REFLE X TO MICRO mucous RARE /lpf Not Available [facility] (Lab) [address], [place], [address], 12/24/2022 00:50:38 12/24/19 23 12/23/2022 UA REFLE X TO MICRO WBC >100 /hpf <6 high Not Available [facility] (Lab) [address], [place], [address], 12/24/2022 00:50:38 12/24/19 23 12/23/2022 UA REFLE X TO MICRO RBC >100 /hpf <6 high Not Available [facility] (Lab) [address], [place], [address], 12/24/2022 00:50:38 12/24/19 23 12/23/2022 UA REFLE X TO MICRO bacteria RARE /hpf none abnormal Not Available [facility] (Lab) [address], [place], [address], 12/24/2022 00:50:38 12/24/19 23 12/23/2022 UA REFLE X TO MICRO squamous epithelial RARE /hpf Not Available [facility] (Lab) [address], [place], [address], 12/24/2022 00:50:38 12/24/19 23 12/23/2022 URINE CULTU RE specimen description URINE CLEAN CATCH Not Available [facility] (Lab) [place], [address], 12/26/2022 09:26:26 12/24/19 23 12/23/2022 URINE CULTU RE special requests NO SPECIA L REQUES T Not Available [facility] (Lab) [address] [place], [address], 12/26/2022 09:26:26 12/24/19 23 12/26/2022 URINE CULTU RE culture 10,000 -49,00 0 COL/ML ESCHER ICHIA COLI Not Available [facility] (Lab) [address] [place], [address], 12/26/2022 09:26:26 12/24/19 23 12/26/2022 URINE CULTU RE report status FINAL 2022 Not Available [facility] (Lab) [address] [place], [address], 12/26/2022 09:26:26 12/24/19 23 12/26/2022 URINE CULTU RE susceptibili ty Not Available [facility] (Lab) [address] [place], [address], 12/26/2022 09:26:26 12/24/19 23 12/26/2022 URINE CULTU RE organism 10,000 -49,00 0 COL/ML ESCHER ICHIA COLI Not Available [facility] (Lab) [address] [place], [address], 12/26/2022 09:26:26 12/24/19 23 12/26/2022 URINE CULTU RE method CAT Not Available [facility] (Lab) [address], [place], [address], 12/26/2022 09:26:26 12/24/19 23 12/26/2022 URINE CULTU RE ampicillin <=2 SUSCEP TIBLE Not Available [facility] (Lab) [address], [place], [address], 12/26/2022 09:26:26 12/24/19 23 12/26/2022 URINE CULTU RE amp/sulbacta m <=2 SUSCEP TIBLE Not Available [facility] (Lab) [address], [place], [address], 12/26/2022 09:26:26 12/24/19 23 12/26/2022 URINE CULTU RE ceftriaxone <=1 SUSCEP TIBLE Not Available [facility] (Lab) [address], [place], [address], 12/26/2022 09:26:26 12/24/19 23 12/26/2022 URINE CULTU RE ceftazidime <=1 SUSCEP TIBLE Not Available [facility] (Lab) [address], [place], [address], 12/26/2022 09:26:26 12/24/19 23 12/26/2022 URINE CULTU RE cefazolin <=4 SUSCEP TIBLE Not Available [facility] (Lab) [address], [place], [address], 12/26/2022 09:26:26 12/24/19 23 12/26/2022 URINE CULTU RE esbl NEG Not Available [facility] (Lab) [address], [place], [address], 12/26/2022 09:26:26 12/24/19 23 12/26/2022 URINE CULTU RE nitrofuranto in <=16 SUSCEP TIBLE Not Available [facility] (Lab) [address] [facility], [place], [address], 12/26/2022 09:26:26 12/24/19 23 12/26/2022 URINE CULTU RE gentamicin <=1 SUSCEP TIBLE Not Available [facility] (Lab) [place], [address], 12/26/2022 09:26:26 12/24/19 23 12/26/2022 URINE CULTU RE levofloxacin <=0.12 SUSCEP TIBLE Not Available [facility] (Lab) [place], [address], 12/26/2022 09:26:26 12/24/19 23 12/26/2022 URINE CULTU RE pipracil/dora o <=4 SUSCEP TIBLE Not Available [facility] (Lab) [place], [address], 12/26/2022 09:26:26 12/24/19 23 12/26/2022 URINE CULTU RE trimeth-sulf amethoxazole <=20 SUSCEP TIBLE Not Available [facility] (Lab) [place], [address], 12/26/2022 09:26:26 02/05/20 23 02/04/2023 pregn edgar test, urine HCG negati ve Not Available [facility] [address] [place], [address], 02/04/2023 16:14:46 04/11/20 23 04/12/2023 VAGIN ITIS PANEL bacterial vaginosis BV neg negati ve normal Not Available [address], [address], 04/12/2023 14:00:25 04/11/20 23 04/12/2023 VAGIN ITIS PANEL aida species C. spp neg negati ve normal Not Available [address], [address], 04/12/2023 14:00:25 04/11/20 23 04/12/2023 VAGIN ITIS PANEL aida glabrata C. gla neg negati ve normal Not Available [address], [address], 04/12/2023 14:00:25 04/11/20 23 04/12/2023 VAGIN ITIS PANEL trichomonas vaginalis CV/TV TRICH neg negati ve normal Not Available [address], [address], 04/12/2023 14:00:25 04/11/20 23 04/12/2023 CULTU RE, URINE , ROUTI NE culture, urine, routine SEE NOTE CULTU RE, URINE , ROUTI NE Micro Numbe r: [id number] Test Statu s: Final Speci men Sourc e: Urine Speci men Quali ty: Adequ ate Resul t: No Growt h Not Available [address] [address] [place], [address], 04/12/2023 23:18:45 04/11/20 23 04/11/2023 urina lysis , dipst ick Leukocytes Negati ve Not Available [address], [address], 04/11/2023 14:09:25 04/11/20 23 04/11/2023 urina lysis , dipst ick Nitrite negati ve Not Available [address], [address], 04/11/2023 14:09:25 04/11/20 23 04/11/2023 urina lysis , dipst ick Urobilinogen .2 Not Available [facility] [address], [address], 04/11/2023 14:09:25 04/11/20 23 04/11/2023 urina lysis , dipst ick Protein 30 Not Available [address], [address], 04/11/2023 14:09:25 04/11/20 23 04/11/2023 urina lysis , dipst ick pH 5.0 Not Available [address], [address], 04/11/2023 14:09:25 04/11/20 23 04/11/2023 urina lysis , dipst ick Blood Modera te Not Available [address], [address], 04/11/2023 14:09:25 04/11/20 23 04/11/2023 urina lysis , dipst ick Specific Orient 1.015 Not Available [facility] [address], [address], 04/11/2023 14:09:25 04/11/20 23 04/11/2023 urina lysis , dipst ick Ketone Trace Not Available [address], [address], 04/11/2023 14:09:25 04/11/20 23 04/11/2023 urina lysis , dipst ick Bilirubin Negati ve Not Available [address], [address], 04/11/2023 14:09:25 04/11/20 23 04/11/2023 urina lysis , dipst ick Glucose Negati ve Not Available [address], [address], 04/11/2023 14:09:25 04/11/20 23 04/11/2023 urina lysis , dipst ick Appearance Clear Not Available [address], [address], 04/11/2023 14:09:25 04/11/20 23 04/11/2023 urina lysis , dipst ick Color Yellow Not Available [address], [address], 04/11/2023 14:09:25 05/13/20 24 05/14/2024 HPV HIGH [...] l cervi valeri cytol ogy. Not Available [address], [address], 05/15/2024 07:59:04 05/13/20 24 05/18/2024 THINP REP TIS PAP clinical information: normal None given Not Available [email or web address] [address] [address] [place], [address], 05/18/2024 13:02:42 05/13/20 24 05/18/2024 THINP REP TIS PAP LMP: normal NONE GIVEN Not Available [email or web address] [facility] [address] [place], [address], 05/18/2024 13:02:42 05/13/20 24 05/18/2024 THINP REP TIS PAP prev. Pap: normal NONE GIVEN Not Available [address] [address] [place], [address], 05/18/2024 13:02:42 05/13/20 24 05/18/2024 THINP REP TIS PAP prev. BX: normal NONE GIVEN Not Available [address] [address] [place], [address], 05/18/2024 13:02:42 05/13/20 24 05/18/2024 THINP REP TIS PAP source: normal Cervi x Not Available [address] [place], [address], 05/18/2024 13:02:42 05/13/20 24 05/18/2024 THINP REP TIS PAP statement of adequacy: normal Satis facto ry for evalu ation . Endoc ervic al/tr ansfo rmati on zone compo nent prese nt. Not Available [address] [place], [address], 05/18/2024 13:02:42 05/13/20 24 05/18/2024 THINP REP TIS PAP general categorizati on: abnormal Cytol ogy Resul ts: Epith elial Cell Abnor malit y Not Available [address] [place], [address], 05/18/2024 13:02:42 05/13/20 24 05/18/2024 THINP REP TIS PAP interpretati on/result: abnormal Atypi valeri Squam ous Cells of Undet ermin ed Signi fican ce (ASC- [place]) Not Available [address], [address], 05/18/2024 13:02:42 05/13/20 24 05/18/2024 THINP REP TIS PAP comment: normal This Pap test has been evalu ated with compu ter ayden prachi techn ology . Sugge st clini valeri corre latio n and follo w-up as clini melanie appro priat e Not Available [address] [address] [place], [address], 05/18/2024 13:02:42 05/13/20 24 05/18/2024 THINP REP TIS PAP cytotechnolo gist: normal LMT, CT( CP) CT scree paolo locat ion: [address] [place] [address] Not Available [address] [address] [place], [address], 05/18/2024 13:02:42 05/13/20 24 05/18/2024 THINP REP TIS PAP pathologist: normal Iqra cobian M.D., Board Certi fied in Anato cat Patho logy and Cytop athol ogy. Phone : [phone] (elec troni c signa ture) Not Available [address] [address] [place], [address], 05/18/2024 13:02:42 05/13/20 24 05/18/2024 THINP REP [...] clini valeri infor matio n. Not Available [address] [address] [place], [address], 05/18/2024 13:02:42 06/21/20 25 06/22/2025 HPV HIGH RISK HPV high risk Negati [...] l cervi valeri cytol ogy. Not Available [facility] [address] [place], [address], 06/23/2025 09:22:47 11/30/19 23 11/30/2022 US, obste tric, bioph ysica l profi le No observ ation record ed. [email or web address] [address], [place], [address], 12/22/2022 01:50:32 12/03/19 23 12/03/2022 US, obste tric No observ ation record ed. [facility] [address] [place] [address], [place], [address], 01/14/2023 10:47:40 12/07/19 23 12/07/2022 US, obste tric, bioph ysica l profi le + non-s tress test No observ ation record ed. [email or web address] [address], [place], [address], 12/08/2022 20:58:52 12/15/19 23 12/14/2022 US, obste tric, bioph ysica l profi le + non-s tress test No observ ation record ed. [email or web address] [address], [place], [address], 12/22/2022 01:53:01 12/20/19 23 12/18/2022 US, obste tric, bioph ysica l profi le + non-s tress test No observ ation record ed. [email or web address] [address], [place], [address], 01/14/2023 03:16:07 02/11/20 23 02/04/2023 US, trans vagin al No observ ation record ed. [address], [place], [address], 02/11/2023 10:06:36 07/19/20 25 07/19/2025 MAMMO , scree paolo, tomos ynthe sis, bilat eral This is a summar y report . The comple te report is availa ble in the patien t's medica l record . If you cannot access the medica l record , please contac t the sendin organi [facility] for a detail ed fax or copy. [address] [address] EXAMIN ATION: Digita l bilate ral screen ing mammog parag with 3-D tomosy nthesi s ACCESS ION: [id number] EXAM DATE/T RUFUS: 025 12:50 PM REASON FOR EXAM: Encoun ter for screen ing mammog parag for malign ant neopla sm of breast Breast carcin albin and patern al grandm other at age 67. COMPAR CJ: 019. 020 Techni que: Digita l screen ing mammog lorna of both breast s was perfor med in additi on to 3-D Tomosy nthesi s techni que. This study was read with the assist ance of a [employer] er-aid ed detect ion system . Tissue densit y: There are scatte red areas of fibrog landul ar densit y. Findin gs: There is no new focal asymme try, domina nt mass lesion , area of skin thicke paolo, or cluste r of suspic ious appear ing calcif icatio ns in either breast to sugges t malign edgar. ===== IMPRES FARHANA: ===== 1. Stable mammog raphic appear ance with no new findin gs to sugges t malign edgar in either breast . Assess ment: ACR BI-RAD S 1 - NEGATI VE Recomm endati on: 1:Rout ine Screen ing Bilate ral Commen ts: ====== ====== ====== ====== Ordere d By: PATY FRANCIS CK Electr onical ly Signed By: Edith Gao on 025 4:39 PM Interp reted By: Edith Gao , 025 4:36 PM [facility] [address] [facility], [place], [address], 07/22/2025 15:26:54 Result Notes Documentation Provider Name and Address Organization Details Recorded Time Mammo, Screening, Tomosynthesis, Bilateral : This is a summary report. The complete report is available in the patient's medical record. If you cannot access the medical record, please contact the sending organization for a detailed fax or copy. [facility] Imaging [facility] [address] [address] EXAMINATION: Digital bilateral screening mammogram with 3-D tomosynthesis EXAM DATE/TIME: 07/19/2025 12:50 PM REASON FOR EXAM: Encounter for screening mammogram for malignant neoplasm of breast Breast carcinoma and paternal grandmother at age 67. COMPARISON: 06/02/2019. 03/23/2020 Technique: Digital screening mammography of both breasts was performed in addition to 3-D Tomosynthesis technique. This study was read with the assistance of a computer-aided detection system. Tissue density: There are scattered areas of fibroglandular density. Findings: There is no new focal asymmetry, dominant mass lesion, area of skin thickening, or cluster of suspicious appearing calcifications in either breast to suggest malignancy. ===== IMPRESSION: ===== 1. Stable mammographic appearance with no new findings to suggest malignancy in either breast. Assessment: ACR BI-RADS 1 - NEGATIVE Recommendation: 1:Routine Screening Bilateral Comments: Ordered By: UYEN BASSETT Interpreted By: Edith Gao, 07/19/2025 4:36 PM UYEN BASSETT DO [address] [place] [address], [address], [facility] 07/22/2025 15:26:54 Problems Name Problem SNOMED Code Status Onset Date Resolution Date Notes Provider Name and Address Organization Details Recorded Time Advanced maternal age 875277830 Completed Qnatal drawn UYEN BASSETT, DO [address] [place] [address], [address], [place] [facility] 3 16:44:45 Hyperten sive disorder 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 Baseline labs wnl ASA 81 mg. 11/20 increased labetalol to 400 tid. UYEN BASSETT, DO [address] [place] [address], [address], [facility] 3 16:44:45 Anemia 246932813 Completed UYEN BASSETT, DO [address] [place] [address], [address], [place] [facility] 3 16:44:45 Genital herpes simplex 73526916 Completed Valtrex at 36 weeks UYEN BASSETT, DO [address] [place] [address], [address], [place] [facility] 3 16:44:45 Eczema 16876092 Completed triamcino lone UYEN BASSETT, DO [address] [place] [address], [address], [facility] 3 16:44:45 High risk pregnanc y 91557693 Completed UYEN BASSETT, DO [address] [place] [address], [address], [place] [facility] 3 16:44:45 Screenin g for disorder Completed antibody screen positive, Irma negative. 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 064751740 Completed 2021 UYEN BASSETT, DO [address] [place], [address], [facility] 3 16:44:45 Ulcerati ve colitis 52601065 Completed 2021 UYEN BASSETT DO [address] [place], [address], [facility] 3 16:44:45 Essentia l hyperten farhana 60177861 Active 2021 Elizabeth Jernigan MD [address] [place], [address], [facility] 2 06:39:59 Ulcerati ve colitis 03740975 [place] [address] [place] [address], [address], [facility] 3 16:44:45 growth restrict ion 68531961 Completed 2022 EFW: 5% AC: 1% UYEN BASSETT, DO [address] [place] [address], [address], [facility] 3 16:44:45 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 Procedures Surgical History Date Name Laterality Status Provider Name and Address Organization Details Recorded Time 5 Most Recent Mammogram completed UYEN BASSETT DO [address] [place] [address], [address], [facility] 07/22/2025 15:26:23 5 Date of Last Colonoscopy completed Nadiya Mon [facility] 06/21/2025 14:14:41 4 Date of Last Pap Smear completed UYEN BASSETT DO [address] [place] [address], [address], [place] [facility] 05/15/2024 09:11:47 3 Mirena IUD Insertion completed Anishabud Valiente [facility] 02/04/2023 16:46:09 3 NST completed NERISSA DRAPER MD [facility] [place], [address], [facility] 12/19/2022 22:07:32 3 NST completed NERISSA DRAPER MD [address] [place] [address], [address], [facility] 12/19/2022 22:18:04 3 NST completed Dorothy Mendoza [facility] 12/11/2022 10:25:34 3 NST completed Carin Malin [facility] 12/07/2022 10:30:39 3 NST completed Dorothy Mendoza [facility] 12/04/2022 10:12:15 3 NST completed NERISSA DRAPER MD [facility] [place], [address], [facility] 11/30/2022 10:48:31 3 NST completed UYEN BASSETT DO [address] [place] [address], [address], [facility] 11/23/2022 11:13:48 3 NST completed Nadia Ty CNM [address] [place] [address], [address], [facility] 11/20/2022 12:33:40 3 NST completed UYEN BASSETT DO [address] [place] [address], [address], [facility] 11/16/2022 11:24:59 3 NST completed Nadia Ty CNM [address] [place] [address], [address], [place] [facility] 11/13/2022 17:26:41 Colonoscopy completed Shanice Gallego [facility] [employer] [facility] IV 06/27/2022 13:02:50 Imaging Results None recorded. Procedure Notes None recorded. Medical Equipment None Reported. Allergies Allergen ID Allergen Name Allergen Category Reaction Reaction Severity Criticality Documentation Date Start Date Code Code System Note Provider Name and Address Organization Details Recorded Time 610347 neomycin medicatio n Not available Not available Not available 05/30/2022 7299 RxNorm Carol Mojica [facility], [facility] [employer] [facility] 2 14:08:47 165836 peanut allergeni c extract food,medi cation Not available Not available Not available 06/27/2022 24887 8 RxNorm Shanice Gallego [facility] [employer] [facility] 2 13:02:49 529864 tree nut food Not available Not available Not available 06/27/2022 Shanice Gallego [facility] [employer] [facility] IV 2 13:02:49 651856 peanut oil food,medi cation rash Not available [facility] 07/15/20252016 52634 RxNorm Not Available [employer]bil - External Data Service - prod 5 11:18:51 Medications Name Sig Start Date Stop Date [...] ne acetonide 0.1 % topical cream APPLY TO AFFECTED AREAS SCATTERED TO BODY TWICE DAILY NEEDED active Not Available Not Available No t Available amoxicillin 875 mg tablet TAKE 1 TABLET BY MOUTH EVERY 12 HOURS FOR 7 DAYS 05/13 completed Not Available Not Available Not Available sertraline 25 mg tablet Take 1 tablet by mouth once daily 2024 active Not Available Not Available Not Avai lable omeprazole 20 mg capsule,del ayed release TAKE 1 CAPSULE BY MOUTH ONCE DAILY active Not Available Not Available No t Available hydrochloro thiazide 25 mg tablet TAKE 1 TABLET BY MOUTH ONCE DAILY IN THE MORNING active Not Available Not Available No t Available mupirocin 2 % topical ointment APPLY OINTMENT EXTERNALL Y TO AFFECTED AREA THREE TIMES DAILY FOR 7 DAYS active Not Available Not Available No t Available budesonide DR - ER 3 mg capsule,del ayed,extend ed release TAKE 1 CAPSULE BY MOUTH ONCE DAILY 05/30 completed Not Available Not Available Not Available methylpredn isolone 4 mg tablets in a dose pack FOLLOW PACKAGE DIRECTION S active Not Available Not Available No t Available hydrocortis one 2.5 % topical ointment APPLY OINTMENT TOPICALLY TO FACE TWICE DAILY active Not Available Not Available No t Available nifedipine ER 60 mg tablet,exte nded release TAKE 1 TABLET BY MOUTH ONCE DAILY 04/11 completed Not Available Not Available Not Available fluticasone propionate 50 mcg/actuati on nasal spray,suspe nsion ADMINISTE R 1 SPRAY INTO EACH NOSTRIL EVERY DAY active Not Available Not Available No t Available sertraline 50 mg tablet TAKE 1 TABLET BY MOUTH ONCE DAILY 06/21 completed Not Available Not Available Not Available amoxicillin 875 mg-potassiu m clavulanate 125 [...] completed Not Available Not Available Not Available clindamycin 1 % lotion APPLY LOTION TOPICALLY ONCE DAILY NEEDED active Not Available Not Available No t Available Bactrim DS 800 mg-160 mg tablet Take 1 tablet every 12 hours by oral route for 5 days. 08/04 completed Not Available Not Available Not Available [...] Body mass index (BMI) Body weight Systolic And Diastolic Systolic And Diastolic Provider Name and Address Organization Details Last Updated DateTime 12/28/2022 149.86 cm 34.9 kg/m2 71986.04 3062 g 138/88 mm[Hg] 128/82 mm[Hg] Marla Chavez [employer] IV 12:29:05 Date Recorded Body height Provider Name an d Address Organization Details Last Updated DateTime 02/04/2023 149.86 cm Fabiana Sanders [facility] IV 02/04/2023 15:53:23 Date Recorded Body height Provider Name an d Address Organization Details Last Updated DateTime 04/11/2023 149.86 cm Natali Chavez Eletrog[employer]es [facility] IV 04/11/2023 14:01:59 Date Recorded Body height Body mass index (BMI) Body weight Body temperature Systolic And Diastolic Provider Name and Address Organization Details Last Updated DateTime 05/13/2024 149.86 cm 42.2 kg/m2 37267.0 9 g 97.5 [degF] 130/80 mm[Hg] Dorothy Mendoza [facility] [employer] IV 14:33:14 Date Recorded Body weight Body mass index (BMI) Body height Systolic And Diastolic Provider Name and Address Organization Details Last Updated DateTime 06/21/2025 96194.42 g 44 kg/m2 149.86 cm 120/70 mm[Hg] Nadiya Mon [facility] [employer] [facility] IV 06/21/2025 14:07:55 Social History Question Answer Notes LastModified by [employer] Details LastModified Time Tobacco Smoking Status Former Smoker Shanice Phillipsjignesh huitron, [facility] [employer] [facility] 06/27/2022 13:02:50 If You Are , What Was Your Level Of Alcohol Consumption Prior To ? None Information not available 11/30/2022 Are You Blind Or Do You Have Difficulty Seeing? No Information not available 06/27/2022 Are You Deaf Or Do You Have Serious Difficulty Hearing? No Information not available 06/27/2022 What Type Of Diet Are You Following? REGULAR Information not available 06/27/2022 When Did You Quit Smoking? 6-10yearssin celastcigare tte Information not available 05/13/2024 How Many Children Do You Have? 1 Information not available 05/13/2024 Are There Any Occupational Health Risks Where You Work? No Information not available 05/13/2024 What Is Your Relationship Status? Information not available 06/27/2022 Are You Sexually Active? Yes Information not available 06/27/2022 Sex: Female Functional Status Question Answer Note LastModified by [employer] Details LastModified Time Do you use any illicit or recreational drugs? No [email or web address] Information not available 11/27/2022 Do you or have you ever used any other forms of tobacco or nicotine? No Information not available 11/30/2022 What is your level of alcohol consumption? None Information not available 06/27/2022 Are you currently employed? Yes Information not available 05/13/2024 Do you or have you ever used e-cigarettes or vape? Never used electronic cigarettes Information not available 06/27/2022 What is your exercise level? Occasional Information [...] Not available 2021 13:02:49 Paternal Grandmother Malignant neoplasm of colon [email or web address] Not available 2021 13:02:49 Paternal Grandmother Myocardial infarction [email or web address] Not available 06/27 13:02:49 Sister Endometriosi s (clinical) kbritsch Not available 13:02:49 Medical History Condition Response Anemia Y Endometriosis Y High Blood Pressure Y Asthma Y Ulcerative Colitis Y Gynecological History Statement/Question Response Flow Light Date of last HPV 06/22/2025 Date of LMP 06/14/2025 HPV Vaccine N Duration of Flow (days) 2 Most Recent Mammogram 07/19/2025 Current Control Method IUD Age at Menarche 12 Date of Last Colonoscopy 10/14/2024 Frequency of Cycle (Q days) 26 to 28 Date of Last Pap Smear 05/13/2024 Obstetrics History GPAL:G 1 P 1 0 0 1 Type Value Full Term 1 Living 1 Total 1 Past Encounters Encounter ID Performer Location Encounter Start Date Encounter Closed Date Diagnosis/Indication Diagnosis SNOMED-CT Code Diagnosis ICD10 Code Diagnosis IMO Codes Diagnosis Note [id number] NERISSACARLO SIMMONS MD [facility] [address] [place] [address] 05/30/2022 13:45:57 05/31/2022 10:16:59 test positive 970272643 Z32.01 Infection screening 2437 54266 Z11.9 High risk 4720 0007 O09.91 Gestation period, 8 weeks 13631636 Z3A.08 History of ulcerative colitis 189020453 Z87.19 Benign ess ential hypertension complicating , childbirth and the puerperium - not delivered 594737774 O10.019 BP stable, on Labetalol Elderly primigravida 293 26539 O09.511 Desires aneuploidy screening. PA for Q ramya requested. [id number] DIAN Wallis [facility] [address] [place] [address] 06/27/2022 18:32:35 06/28/2022 09:14:04 Routine care 373076269 Z34.01 Z34.81 O09.511 O09.521 Oriented to [facility], providers, and pink braceletD iscussed diet, weight gain recommenda tions, exercise- [...] problems, questions, or concerns Depression screening 171 527139 Z13.31 EPDS: 2 Multigravi da of advanced maternal age 164541673 O09.529 Screening for malignant neoplasm of cervix 973676447 Z12.4 [id number] Nadia Ty [facility] [address] [place] [address] 07/25/2022 16:30:23 07/26/2022 09:18:25 Chromosome abnormality screening 103295426 Z13.79 [id number] Nadia Ty CNM [facility] [address] [place] [address] 08/22/2022 16:54:09 08/22/2022 17:33:35 Chronic hypertension complicating AND/OR reason for care during 39939385 O16.9 [id number] Elizabeth Jernigan MD [facility] [address] [place] [address] 09/20/2022 13:01:31 09/20/2022 14:24:35 High risk 39400702 O09.512 Gestation period, 24 weeks 633205311 Z3A.24 [id number] Elizabeth Jernigan MD [facility] [address] [place] [address] 10/18/2022 12:36:10 10/18/2022 13:42:35 High risk 98395070 O09.512 Gestation period, 28 weeks 99241825 Z3A.28 screening 2437 16537 Z36.9 Anxiety 62694554 F41.9 [id number] Nadia Ty CNM [facility] [address] [place] [address] 10/31/2022 16:53:39 10/31/2022 17:59:47 [id number] [facility] [address] [place] [address] 11/13/2022 09:58:17 11/13/2022 12:54:50 Hypertensive disorder 36610359 I10 - induced hypertension 90710841 O13.1 O13.2 O13.3 Low back p ain in 0838348040 106 O26.700 [id number] UYEN KNUTSONINICK, [facility] [address] [place] [address] 11/16/2022 09:55:06 11/19/2022 13:20:10 Gestation period, 32 weeks 9290518 Z3A.32 Benign ess ential hypertension complicating , childbirth and the puerperium - not delivered 013309223 O10.019 HELLP labs (11/13): WNLLabetal ol 200 mg TIDPt states her blood pressure has been between 140-150 at home. She is to log her blood pressures until her next visit to decide if we need to increase her labetalol grow th restriction 57672494 O36.5999 Diagnosed on 11/15/22EFW: 5% w/ AC: 1%Due to AC @ 1%ile and comorbidit ies of AMA and chronic HTN, plan for IOL at 37 weeks.Cont inue NSTs twice week with BPP and UA doppler once a weekReacti ve NST High risk 4720 0007 O09.93 Advanced m aternal age 569144862 O09.513 Screening for disorder 212138546 Z13.9 Severe anemia required blood transfusio n x2 in which caused her to have positive antibodies .Sees hematology which has ran Irma test (negative) , therefore she does not have hemolytic anemia. If patient were to require a blood transfusio n, will have a difficult time matching blood type due to the antibodies . Depression screening 171 804300 Z13.31 Genital he rpes simplex 52780224 A60.9 Start PPX now [id number] [facility] [address] [place] [address] 11/20/2022 09:55:58 11/20/2022 13:41:11 Gestation period, 32 weeks 4980459 Z3A.32 High risk 4720 0007 O09.93 Advanced m aternal age 496629120 O09.513 Hypertensive disorder 38 879008 I10 Herpes simplex 58739381 B00.9 Chronic hy pertension complicating AND/OR reason for care during 65452358 O16.9 [id number] UYEN BASSETT DO [facility] [address] [place] [address] 11/23/2022 09:52:49 11/23/2022 11:47:02 Gestation period, 32 weeks 5108652 Z3A.32 High risk 4720 0007 O09.93 Advanced m aternal age 185367471 O09.513 Benign ess ential hypertension complicating , childbirth and the puerperium - not delivered 605411769 O10.019 HELLP labs (11/20): WNLLabetal ol 400 mg TID grow th restriction 83305436 O36.5999 Diagnosed on 11/15/22EFW: 5% w/ AC: 1% Due to AC @ 1%ile and comorbidit ies of AMA and chronic HTN, plan for IOL at 37 weeks.Cont inue NSTs twice week with BPP and UA doppler once a weekReacti ve NSTBPP: 05/21UA: RI, PI, S/D increased but below 95% resistance Screening for disorder 220354744 Z13.9 Severe anemia required blood transfusio n x2 in which caused her to have positive antibodies .Sees hematology which has ran Irma test (negative) , therefore she does not have hemolytic anemia. If patient were to require a blood transfusio n, will have a difficult time matching blood type due to the antibodies . [id number] Mira walters CNM [facility] [address] [place] [address] 11/27/2022 09:50:48 11/27/2022 11:09:46 Chronic hypertension in obstetric context 1071120 O16.9 [id number] NERISSA SIMMONS MD [facility] [address] [place] [address] 11/30/2022 09:56:51 12/05/2022 12:15:15 Gestation period, 34 weeks 16779830 Z3A.34 Advanced m aternal age 699326967 O09.511 grow th restriction 18669744 O36.5999 High risk 4720 0007 O09.91 Pre-existi ng hypertension complicating , childbirth and puerperium O10.864 [id number] Nadia Ty, [facility] [address] [place] [address] 12/04/2022 09:55:54 12/04/2022 13:09:15 Gestation period, 34 weeks 38548568 Z3A.34 Routine an tenatal care 329638795 Z34.93 High risk 4720 0007 O09.93 [id number] [facility] [address] [place] [address] 12/07/2022 09:58:17 12/07/2022 15:27:45 Gestation period, 35 weeks 73646654 Z3A.35 grow th restriction 56711875 O36.5999 [id number] Nadia Ty, [facility] [address] [place] [address] 12/11/2022 09:56:19 12/11/2022 11:11:13 Gestation period, 35 weeks 99304008 Z3A.35 Routine an tenatal care 367012768 Z34.93 High risk 4720 0007 O09.93 [id number] NERISSA SIMMONS MD [facility] [address] [place] [address] 12/14/2022 10:01:20 12/18/2022 14:12:56 growth restriction 56283762 O36.5999 Gestation period, 36 weeks 45823391 Z3A.36 Routine an tenatal care 493613920 Z34.93 High risk 4720 0007 O09.93 Pre-existi ng hypertension complicating , childbirth and puerperium O10.530 [id number] NERISSA SIMMONS MD [facility] [address] [place] [address] 12/18/2022 10:29:45 12/19/2022 07:00:24 Gestation period, 36 weeks 83412012 Z3A.36 Routine an tenatal care 151226230 Z34.93 High risk 4720 0007 O09.93 grow th restriction 20423988 O36.5999 Pre-existi ng hypertension complicating , childbirth and puerperium 991135104 O10.131 [id number] Jules Waite MD [facility] [address] [place] [address] 12/28/2022 12:09:10 12/28/2022 12:58:58 state 61656602 Z39.2 we will slowly decrease as she was on labetolol and hctz grow th restriction 42282755 O36.5999 High risk 4720 0007 O09.93 Past pregn edgar history of pre-eclampsia 0970812126 34067 Z87.59 would like an IUD at 6 weeks and we will decrease to 30mg procardia for a week and then off and then to decrease labetolol as well [id number] UYEN BASSETT DO [address] [address] 02/04/2023 15:28:44 02/04/2023 17:23:38 Insertion of intrauterine contraceptive device 46439008 Z30.430 state 1859173 1 Z39.2 37 y.o. here for PP visit. - E ncouraged continuing breastfeed ing, counseled regarding benefits for [...] RTC for annual exam or as needed [id number] DIAN Horton [facility] [address] [place] [address] 04/11/2023 13:54:13 04/11/2023 14:16:43 Infection screening 809910731 Z11.9 Vaginal discharge 570045 006 N89.8 - Reviewed vulvar hygiene: avoid tight or moist clothing, soaps, Vagisil and other wipes, cotton underwear only and sleep without, unscented detergent - RTO for annual or as needed Surveillan ce of intrauterine device contraception done 9654634199 24758 Z30.431 IUD strings visible and appropriat e length Increased frequency of urination 230630158 R35.0 Discussed methods to avoid UTI's Dysuria 04234774 R30.0 [id number] UYEN BASSETT [address] [address] 05/13/2024 14:16:15 05/13/2024 16:22:29 Gynecologic examination 36548955 Z01.419 39 y.o. here for annual exam. [...] PRN Screening for malignant neoplasm of cervix 316658601 Z12.4 Surveillan ce of contraception 250104789 Z30.40 Depression screening 171 519218 Z13.31 See Intake Screening - PHQ Screening for malignant neoplasm of breast 842471306 Z12.31 Anxiety 33191038 F41.9 [id number] UYEN BASSETT DO [facility] [address] [place] [address] 06/21/2025 13:56:52 06/21/2025 15:22:13 Gynecologic examination 69465734 Z01.419 40 y.o. here for annual exam.- Pap w/ HPV today; h/o ASCUS -HPV- Contracept shakila counseling : happy Mirena IUD 2022- Routine labs done with PCP- Mammo RX- Depression screen POS-increa sing sertraline from 25 to 50 mg- BMI counseling , diet and exercise reviewed- RTO for annual or PRN Screening for malignant neoplasm of cervix 174165916 Z12.4 Screening for malignant neoplasm of breast 419706466 Z12.31 Depression screening 171 786719 Z13.31 refer to intake screening Hidradenit is suppurativa 38256795 L73.2 878 left groinabsce ss drained, no erythema or induration . no signs of infectionn o abx indicated at this time. if signs of infection will call in bactrim as pt has h/o MRSA Health Concerns Section Related Observation LastModified by Organization Detai ls LastModified Time None Recorded Concern Status LastModified by Organization Details LastModified Time None Recorded Advance Directives Directive None Recorded Payers Insurance Date Sequence Insurance Name Policy Number Policy Reyes Covered Member ID Reyes Member ID Guarantor Name 05/11/2024 1 [facility] (PPO) [id number] Kathryn Fetherling [id number] Kathryn Fetherling 05/11/2024 [facility] ON OR AFTER 04/13/21 (MEDICAID REPLACEMENT - HMO) Kathryn Fetherling [id number] Kathryn Fetherling 2024 1 [facility] ON OR AFTER 04/13/21 (MEDICAID REPLACEMENT - HMO) Kathryn Fetherling [id number] Kathryn Fetherling 06/18/2025 1 [facility] (MEDICAID HMO) [id number] Kathryn Fetherling [id number] Kathryn Fetherling 2024 1 [place] [facility] Kathryn Fetherling [id number] Kathryn Fetherling Notes Date Note Type Note Provider Name and Address Organization Details Recorded Time 3 text/html VisitReported by PatientHPIFor onset/timing, patient reportsdate of delivery: (12/20/2022)(@ [facility]). For quality, patient reportsnsvd(by dr. bassett , female weight 5#10oz (patient was 37 weeks when delivered)). For context, patient reportscomplications of : ghtn,complications of labor: pre-eclampsia,laceration: 2nd degree, complications: hypertension,feeding choice: breast,good support from partner/family, andresumed menstrual bleeding no. For associated symptoms, patient reportsno abnormal bleeding,no vaginal discharge,no pelvic pain,laceration well healed,no constipation,no fecal incontinence,no dysuria,no urinary incontinence,no fever,no problems,no mastitis, andnormal mood.ROS as noted in the HPI Kathryn 37 y/o here for 1 (8days) week f/u on post delivery hypertension , returned to hospital on 12/23/2022 due to hypertension , she is on Labetalol 400mg tab tID, HCTZ 25mg daily, Nifedipine ER 60mg daily , patient denies any headaches or vision issues. and Jules Waite MD [facility], [place], [address], [employer] 12/28/2022 13:08:04 3 text/html Here for IUD insertion UYEN BASSETT DO [facility], [place], [address], [employer] 02/04/2023 16:47:41 3 text/html Vaginal/Vulvar ProblemReported by Patient Lower Urinary Tract Symptoms (LUTS)Reported by PatientROS as noted in the HPI Kathryn is here for c/o dysuria/urinary frequency x 3 daysShe also c/o vaginal itching off and on since the of her daughter in LMP was 02/11/23Her last pap 06/27/22 Neg/HPV NegShchika has a Mirena IUD that was inserted 02/04/23 DIAN Horton [address] [facility], [place], [address], [employer] 04/11/2023 14:16:36 4 text/html Annual GYNReported by PatientHistoryFor history, patient reportsno gynecologic complaints.Genitourinary symptomsFor menstrual cycle, patient reportsnormal menses. For urinary symptoms, patient reportsno hematuriaandno incontinence. For vulva, patient reportsno genital lesion. For vagina, patient reportsnormal vaginal discharge.Breast symptomsFor breast, patient reportsno breast pain,no breast lump, andno nipple discharge.ContraceptionFo r current contraception, patient reportsintrauterine device (iud).Endocrine symptomsFor sexual complaints, patient reportsno sexual complaints,no pain during intercourse, andnormal libido. For menopausal symptoms, patient reportsno menopausal symptomsandnormal vaginal lubrication.Psychological symptomsFor psychological symptoms, patient reportsno depression,no anxiety, andno pmdd.Preventative measuresFor preventive measures, patient reportsencourage self breast examination,encourage regular exercise, andencourage regular mammograms starting age 40. UYEN BASSETT DO [address] [facility], [place], [address], [facility] [employer] 05/13/2024 15:30:47 5 text/html Annual GYNReported by PatientGenitourinary symptomsFor menstrual cycle, patient reportsnormal menses. For urinary symptoms, patient reportsno hematuriaandno incontinence. For vulva, patient reportsno genital lesion. For vagina, patient reportsnormal vaginal discharge.Breast symptomsFor breast, patient reportsno breast pain,no breast lump, andno nipple discharge.Endocrine symptomsFor sexual complaints, patient reportsno sexual complaints,no pain during intercourse, andnormal libido. For menopausal symptoms, patient reportsno menopausal symptomsandnormal vaginal lubrication.Psychological symptomsFor psychological symptoms, patient reportsno depression,no anxiety, andno pmdd. Kathryn is a 40 yo female. Pt has hx of MRSA Pt is here annual. Pt LMP was 06-14-25. Pt last pap was 05-13-24. Pt has Mirena IUD in. Pt wants to know if we could remove bumps in between her thigh area. Pt is UTD on colonoscopy. Pt is due for mammo. UYEN BASSETT, [address] [facility], [place], [address], [facility] [employer] IV 06/21/2025 14:38:41 OBGyn Episode Ob Episode Information Episode Created Date Number of Fetuses Patient Bloodtype Patient rh Status Prepregnancy Weight lbs Domestic Partner Domestic Partner Phone Father Name Taker Off Braker Machine Status 06/27/20 22 1 Negative CLOSED Fetus Data First Name Last Name Admitted to NICU Weight (g) Sex Living Outcome Pediatric Complications Fetus ID Race Codes Race Delivery Type false 2551.45 5 F Full Term [id number] 0414-3 White Assisted VD - forceps, vacuum Problems Problem Notes MFM referral and has first v isit 07/03/22 Problem Name Start Date End Date Resolution Snomed Code Not e Anemia 044917292 Genital herpes simplex 92735658 Valtrex at 36 w eeks Ulcerative colitis 09/20/2022 13150312 Advanced maternal age 603776012 Qnatal drawn Hypertensive disorder 27452463 Labetalol. Baseline labs wnlASA 81 mg. 11/20 increased labetalol to 400 tid. Eczema 30185020 triamcinol one Screening for disorder 197018290 antibody screen positive, Irma negative. Per Heme does not require further Ab screen growth restriction 11/15/2022 32932878 EFW: 5% AC: 1% High risk 12283143 Multigravida of advanced maternal age 0906/27/2022 386033607 Benji Calculation Initial Benji Date Initial Exam [...] Latest Days Gestation 0 01/10/20 23 0 Pre-ramya Flowsheet Flowsheet Date 06/27/2022 Bacon Score Blood Edema Fundus Height Fundus Units Glucose Ketones Leukocytes Nitrite Labor Signs Protein Cervic Dilation Cervic Effacement Cervic Station none Type Weight in lbs Pre/Post Dialysis Refused Weight 182.479862579691 BP Diastolic BP Location Tested BP Systolic [...] Weight in lbs Pre/Post Dialysis Refused Weight 186.657700677983 BP Diastolic BP Location Tested BP Systolic BP Type 82 136 Fetus Heart Rate Present A 168 Fetus Movement A Yes Comments AFP today. Plan anatomy with MFM. Precautions reviewed. Flowsheet Date 08/22/2022 Bacon Score Blood Edema Fundus Height Fundus Units Glucose Ketones Leukocytes Nitrite Labor Signs Protein Cervic Dilation Cervic Effacement Cervic Station Type Weight in lbs Pre/Post Dialysis Refused Weight 187.96878672793 BP Diastolic BP Location Tested BP Systolic BP Type Fetus Heart Rate Present A 162 Fetus Movement A Yes Comments UC flare- see's GI next week . Has MFM appt for anatomy. Discussed OTC allergy recommendations. Ordering EKG per MFM request. Flowsheet Date 09/20/2022 Bacon Score Blood Edema Fundus Height Fundus Units Glucose Ketones Leukocytes Nitrite Labor Signs Protein Cervic Dilation Cervic Effacement Cervic Station 24 none none neg Type Weight in lbs Pre/Post Dialysis Refused With clothes 185.456135850283 BP Diastolic BP Location Tested BP Systolic [...] in lbs Pre/Post Dialysis Refused With clothes 186.978846183493 BP Diastolic BP Location Tested BP Systolic BP Type 80 R arm 128 sitting Fetus Heart Rate Present A 145 Fetus Movement A Yes Comments Increasing depression. Denie s SI/HI. Restart zoloft. Flowsheet Date 10/31/2022 Bacon Score Blood Edema Fundus Height Fundus Units Glucose Ketones Leukocytes Nitrite Labor Signs Protein Cervic Dilation Cervic Effacement Cervic Station 30 cm none trace Type Weight in lbs Pre/Post Dialysis Refused Weight 186.311616947785 BP Diastolic BP Location Tested BP Systolic BP Type 90 152 Fetus Heart Rate Present A 146 Fetus Movement A Yes Comments BP elevated today. To L&D fo r evaluation. Flowsheet Date 11/13/2022 Bacon Score Blood Edema Fundus Height Fundus Units Glucose Ketones Leukocytes Nitrite Labor Signs Protein Cervic Dilation Cervic Effacement Cervic Station Type Weight in lbs Pre/Post Dialysis Refused Weight 189.535830298869 BP Diastolic BP Location Tested BP Systolic [...] in lbs Pre/Post Dialysis Refused With clothes 189.117059044156 BP Diastolic BP Location Tested BP Systolic [...] Weight in lbs Pre/Post Dialysis Refused Weight 189.349585242663 BP Diastolic BP Location Tested BP Systolic [...] Weight in lbs Pre/Post Dialysis Refused Weight 190.183088682482 BP Diastolic BP Location Tested BP Systolic [...] in lbs Pre/Post Dialysis Refused With clothes 188.272049930431 BP Diastolic BP Location Tested BP Systolic [...] in lbs Pre/Post Dialysis Refused With clothes 189.753492340398 BP Diastolic BP Location Tested BP Systolic BP Type 72 L arm 118 sitting Fetus Heart Rate Present A 135 Present Fetus Movement A Yes Comments NST categ 1Hold Humira till SaturdayOn Labetalol 400 TID, no s/s of PIH. Elevated umb dopplers > 95%ile but normal BPP and NST. Plan betamethasone x [address]Has an appt with [facility] on Saturday. Adequate precautions and DFKC reviewed. Flowsheet Date 12/04/2022 Bacon Score Blood Edema Fundus Height Fundus Units Glucose Ketones Leukocytes Nitrite Labor Signs Protein Cervic Dilation Cervic Effacement Cervic Station Type Weight in lbs Pre/Post Dialysis Refused Weight 189.87280108030 BP Diastolic BP Location Tested BP Systolic BP Type 84 128 Fetus Heart Rate Present A 135 Fetus Movement A Increased Comments s/p [facility] visit. Growth at 4% and dopplers WNL. Plan delivery at 37 weeks per [facility]. IOL scheduled for 12/19 at 0000 at [facility]. Strict precautions reviewed. Flowsheet Date 12/07/2022 Bacon Score Blood Edema Fundus Height Fundus Units Glucose Ketones Leukocytes Nitrite Labor Signs Protein Cervic Dilation Cervic Effacement Cervic Station Type Weight in lbs Pre/Post Dialysis Refused Stated 189.211818683143 BP Diastolic BP Location Tested BP Systolic BP Type 80 L arm 110 sitting Fetus Heart Rate Present A 145 Fetus Movement A Yes Comments NST reactive, discussed IOL Flowsheet Date 12/11/2022 Bacon Score Blood Edema Fundus Height Fundus Units Glucose Ketones Leukocytes Nitrite Labor Signs Protein Cervic Dilation Cervic Effacement Cervic Station none Type Weight in lbs Pre/Post Dialysis Refused Weight 192.328969650412 BP Diastolic BP Location Tested BP Systolic [...] in lbs Pre/Post Dialysis Refused With clothes 191.206199946751 BP Diastolic BP Location Tested BP Systolic BP Type 84 L arm 132 sitting Fetus Heart Rate Present A 130 Present Fetus Movement A Yes Comments reports slightly increased B P in the past few days- on Labetalol 400 TID. Occasional HERNANDEZ- resolved with rest, Denies visual disturbance or SOB.GBS done today.PIH labs ordered, adequate precautions given.Scheduled for IOL next Tuesday 12/19 at [facility] Flowsheet Date 12/18/2022 Bacon Score Blood Edema Fundus Height Fundus Units Glucose Ketones Leukocytes Nitrite Labor Signs Protein Cervic Dilation Cervic Effacement Cervic Station none neg Type Weight in lbs Pre/Post Dialysis Refused With clothes 193.469901185660 BP Diastolic BP Location Tested BP Systolic [...] in lbs Pre/Post Dialysis Refused With clothes 172.981977652978 Weight 0.0 BP Diastolic BP Location Tested [...] Disease false Other Infection History false Thalassemia (Portuguese, Tamazight, Mediterranean, Or Background): MCV < 80 false [...] false History of Hepatitis false Felipe-Sachs (eg, Restorationism, Cajun, Portuguese-[place]) f alse History Of STD, Gonorrhea, Chlamydia, HPV, Syphi lis false Prior GBS-infected child false History of HIV false Personal or Family History o f Neural Tube Defect (Meningomyelocele, Spina Bifida, Or Anencephaly) false Hemophilia Or Other Blood Disorders false Mental Retardation/Autism false Mccone's Chorea false If Yes, Was Person Tested [...] Comments 3 Induce d 37.1 false Uyen Bassett DO Hypertension false 12/21/2022 Discharge Information Feeding Method Contraceptive Method Maternal HG B and HCT Levels
--- OUTSIDE RECORDS SUMMARY | 2025-10-13 13:56 | XMS_ITS | Encounter Summary ---
Author Organization [facility] Address [address] [place] [address] Care Team Providers Care City Designer Name Role Phone Krystle Arvizu NP Primary Care Provider [phone] Encounter Details Date Type Department Care Team (Late st Contact Info) Description 12/26/2022 Hospital Follow-up Call [facility] [place] [address] Marla La, RN Social History Tobacco Use [...] often do you attend chur ch or worship services? Never 12/19/2022 Do you belong to any clubs o r organizations such as alevism groups, unions, fraternal or athletic groups, or [...] Recorded Patient Health Questionnaire-2 Score 3 10/10/2022 [facility] - Occupational [...] place to sleep or slept in a alf (including now)? No 12/19/2022 Depression Answer Date [...] Assessment Author Status No 12/19/2022 2:03 AM SIDING COREBOARD INSPECTOR Kelly Kuhn RN Active documented as of this encounter Mental Status * Because of a physical, mental, or emotional condition, do you have serious difficulty concentrating, remembering, or making decisions? Answer Entry Date Author Status No 12/19/2022 2:03 AM SIDING COREBOARD INSPECTOR Kelly Kuhn RN Active documented in this encounter Plan of Treatment Not on file documented as of this encounter Goals Goal Patient Goal Type Associated Problems Recent Progress Patient-Stated? Author Family - family caregiver with be involved in care transitions and discharge planning General No Amanda Gifford, CAUSTIC OPERATOR documented as of this encounter Visit Diagnoses Not on filedocumented in this encounter Additional Health Concerns Infection Onset Date Last Indicated Resolved Time MRSA Comment:04/18/21 +MRSA Right Groin 04/19/2021 04/19/2021 Assessment Noted Time PHQ-9 Depression Total Score: 4 10/10/20 22 1:36 PM SIDING COREBOARD INSPECTOR documented as of this encounter Care Teams City Designer Relationship Specialty Start Date End Date Krystle Ar[place] [address] PCP - General NURSE PRACTITIONER 05/11/19 documented as of this encounter
--- OUTSIDE RECORDS SUMMARY | 2025-10-13 13:56 | XMS_ITS | Encounter Summary ---
Author Organization [facility] Address [facility] [place] [address] Care Team Providers Care Lift Manager Name Role Phone Elmer Arvizua DOUGLAS Primary Care Provider Encounter Details Date Type Department Care Team (Late st Contact Info) Description 04/10/2023 [employer] Message Enc [facility] [address] [place], [place] [address] [employer] [place]unice, [facility] Provider Air Quality Message Social History [...] often do you attend chur ch or jainism services? Never 12/19/2022 Do you belong to [...] Recorded Patient Health Questionnaire-2 Score 3 10/10/2022 [facility] - [...] place to sleep or slept in a snf (including now)? No 12/19/2022 Depression Answer Date [...] Date Author Status No 12/19/2022 2:03 AM SERVICE ORDER EXPEDITER Kelly Kuhn RN Active documented in this encounter Plan of Treatment Not on file documented as of this encounter Goals Goal Patient Goal Type Associated Problems Recent Progress Patient-Stated? Author Family - family caregiver with be involved in care transitions and discharge planning General No Amanda Gifford, CONFERENCE COORDINATOR documented as of this encounter Visit Diagnoses Not on filedocumented in this encounter Additional Health Concerns Infection Onset Date Last Indicated Resolved Time MRSA Comment:04/18/21 +MRSA Right Groin 04/19/2021 04/19/2021 Assessment Noted Time PHQ-9 Depression Total Score: 4 10/10/20 22 1:36 PM SERVICE ORDER EXPEDITER documented as of this encounter Care Teams Lift Manager Relationship Specialty Start Date End Date Krystle Arvizu [place] [address] PCP - General NURSE PRACTITIONER 05/11/19 documented as of this encounter
--- OUTSIDE RECORDS SUMMARY | 2025-10-13 13:56 | XMS_ITS | Encounter Summary ---
Author Organization [facility] Address [facility] [place] [address] Care Team Providers Care Substance Abuse Specialist Name Role Phone Luh, Krystle DOUGLAS Primary Care Provider Encounter Details Date Type Department Care Team (Late st Contact Info) Description 05/28/2019 Hospital Follow-up Call [facility] Tele[facility] [address] [place] [address] Lily Mota Social History Tobacco Use Types [...] documented as of this encounter Care Teams Substance Abuse Specialist Relationship Specialty Start Date End Date Krystle [place] [address] PCP - General NURSE PRACTITIONER 05/11/19 documented as of this encounter
--- OUTSIDE RECORDS SUMMARY | 2025-10-13 13:56 | XMS_ITS | Encounter Summary ---
Author Organization [facility] Address [address] [place] [id number] Care Team Providers Care Diamond Selector Name Role Phone Luh, Krystle DOUGLAS Primary Care Provider Encounter Details Date Type Department Care Team (Latest Contact Info) Description 10/08/2025 Scan [facility] HEALTH INFO SRVCS Scanned, Doc Med Group Social History Tobacco Use Types Packs/Day Years Used Date Smoking Tobacco: Former Cigarettes 0.3 1 Passive Smoke Exposure: Past Smokeless Tobacco: Never Alcohol Use Standard Drinks/Week [...] often do you attend chur ch or baptist services? Never 12/19/2022 Do you belong to any clubs o r organizations such as voodoo groups, unions, fraternal or athletic groups, or [...] Date Recorded Patient Health Questionnaire-2 Score 0 10/08/2025 [facility] - Occupational Stress [...] place to sleep or slept in a nursing home (including now)? No 12/19/2022 Depression Answer Date [...] Date Author Status No 12/19/2022 2:03 AM MANAGER WOUND CARE Kelly Kuhn RN Active documented in this encounter Plan of Treatment Not on file documented as of this encounter Goals Goal Patient Goal Type Associated Problems Recent Progress Patient-Stated? Author Family - family caregiver with be involved in care transitions and discharge planning General No Amanda Gifford, INDUSTRIAL HEALTH ENGINEER documented as of this encounter Visit Diagnoses Not on filedocumented in this encounter Additional Health Concerns Infection Onset Date Last Indicated Resolved Time MRSA Comment:04/18/21 +MRSA Right Groin 04/19/2021 04/19/2021 Assessment Noted Time PHQ-9 Depression Total Score: 0 09/02/20 24 1:43 PM MANAGER WOUND CARE documented as of this encounter Care Teams Diamond Selector Relationship Specialty Start Date End Date Krystle [place] [address] PCP - General NURSE PRACTITIONER 05/11/19 documented as of this encounter
--- OUTSIDE RECORDS SUMMARY | 2025-10-13 13:56 | XMS_ITS | Clinical Summary ---
Author Organization [facility] Address [address] [place] [address] Care Team Providers Care Gang Head Saw Operator Name Role Phone LuhKrystle marin DOUGLAS Primary Care Provider [phone] Allergies Active Allergy Reactions Criticality Noted Date Comments Bacitracin Rash High 08/28/2023 Neomycin Rash High 01/05/2017 Nuts Rash Medium 04/08/2017 Peanut Oil Rash Medium 04/08/2017 Polymyxin B Rash High 08/28/2023 Medications triamcinolone 0.1 % cream APPLY TOPICALLY TO AFFECTED AREA PRN FOR RASH 1 019 Active omeprazole 20 MG capsuleIndicatio ns:GERD Take 1 capsule (20 mg total) by mouth daily. Indications: GERD 019 Active azaTHIOprine 50 MG tabletIndication s:Ulcerative Colitis Take 3 tablets (150 mg total) by mouth daily. Indications: Ulcerated Colon On hold until Saturday 04/28 019 Active acetaminophen (TYLENOL) 500 MG tabletIndication s:Pain Take 1 tablet (500 mg total) by mouth every 6 (six) hours as needed for Pain. Indications: Pain 021 Active cetirizine 10 MG tablet Take 1 tablet (10 mg total) by mouth daily. Active fluticasone propionate (FLONASE) 50 MCG/ACT nasal spray 1 spray by Each Nostril route daily as needed. 1 g 025 Active SIMLANDI, 1 PEN, 40 MG/0.4ML Auto-injector Kit 025 Active hydroCHLOROthiaz josiah (HYDRODIURIL) 25 MG tabletIndication s:Primary hypertension Take 1 tablet (25 mg total) by mouth every morning. 90 tablet 1 025 Active labetalol (NORMODYNE) 200 MG tabletIndication s:Palpitations,H ypertension, unspecified type Take 1 tablet by mouth twice daily 180 tablet 025 Active clindamycin (CLEOCIN T) 1 % lotion APPLY LOTION TOPICALLY ONCE DAILY NEEDED Active DULoxetine (CYMBALTA) 30 MG capsuleIndicatio ns:Anxiety Take 1 capsule (30 mg total) by mouth daily for 30 days, THEN 2 capsules (60 mg total) daily for 60 days. 150 capsule 2025 Active calcium carbonate 500 MG chewable tabletIndication s:Acid Regurgitation Chew 1 tablet (500 mg total) by mouth daily. Indications: Acid Regurgitation 2024 Discontinued Simethicone 125 MG CapIndications:G as Pain Take 1 capsule by mouth daily as needed (Gas). Indications: Gas Pain 2024 Discontinued(T herapy completed) Adalimumab (HUMIRA PEN SC)Indications:U lcerative Colitis Inject 40 mg into the skin weekly. Indications: Ulcerated Colon Every 2 weeks or as instructed by GI MD 2024 Discontinued sertraline (ZOLOFT) 100 MG tablet Take 25 mg by mouth daily. 2024 Discontinued sertraline (ZOLOFT) 25 MG tablet Take 1 tablet (25 mg total) by mouth daily. 025 2024 Discontinued Active Problems Problem Noted Date Diagnosed Date Preeclampsia in period 12/23/2022 Vacuum-assisted vaginal delivery 12/20/2022 12/19/2022 Cellulitis 04/17/2021 Ulcerative colitis, chronic 05/27/2019 Anemia 05/25/2019 Hyperlipidemia 07/16/2017 Vitamin D deficiency 06/30/2017 Asthma 05/28/2017 Colitis 05/28/2017 Hypertension 05/28/2017 Iron deficiency anemia 05/28/2017 Obesity 05/28/2017 Resolved Problems Problem Noted Date Diagnosed Date Resolved Date Health maintenance examination 05/28/2017 01/09/2021 Encounters Date Type Department Care Team Description 10/08/2025 12:20 PM HEELER MACHINE Office Visit [facility] [address] [place] [phone] Krystle Arvizu NP Hypertension Follow Up 10/08/2025 Scan HEALTH INFO SRVCS Scanned, Doc Med Group 10/08/2025 Travel 07/21/2025 Telephone [facility] [address] [place] [id number] Krystle Arvizu NP Appointment Request 07/19/2025 12:50 PM CDT - 07/19/2025 11:59 PM CDT Hospital Encounter [facility] Imaging Center Mammography [address] [place] [id number] hSay Johnston DO Discharge Disposition: Home or Self Care (Routine Discharge) 07/19/2025 Travel from Last 3 Months Immunizations Immunization Administration Dates Next Due Fluzone 6 Months+ Quad (0.5 mL Prefilled Syringe ) 10/08/2019 Influenza Adult (Generic) 10/08/2019 MMR (MMRII) 12/22/2022 Tdap (Boostrix) 12/22/2022 Tdap (Generic) 01/05/2017 Family History Medical History Relation Comments No Known Problems Brother COPD Father Diabetes Maternal Grandfather Heart Disease Maternal [...] Passive Smoke Exposure: Past Smokeless Tobacco: Never Tobacco Cessation:Counseling Given: No Alcohol Use Standard Drinks/Week Comments Not Currently [...] often do you attend chur ch or congregational services? Never 12/19/2022 Do you belong to any clubs o r organizations such as mormonism groups, unions, fraternal or athletic groups, or [...] Recorded Patient Health Questionnaire-2 Score 0 10/08/2025 [facility] - Occupational [...] place to sleep or slept in a custodial (including now)? No 12/19/2022 Depression Answer Date [...] Sign Reading Time Taken Comments Blood Pressure 119/79 10/08/2025 12:16 PM HEELER MACHINE Pulse 88 10/08/2025 12:16 PM HEELER MACHINE Temperature 36.7 C (98 F) 10/08/2025 12:16 PM HEELER MACHINE Respiratory Rate 18 05/28/2025 12:0 9 PM CDT Oxygen Saturation 97% 10/08/2025 12: 16 PM HEELER MACHINE Inhaled Oxygen Concentration - - Weight 100.1 kg (220 lb 9.6 oz) 025 12:16 PM HEELER MACHINE Height 149.9 cm (4' 11) 10/08/2025 12: 16 PM HEELER MACHINE Body Mass Index 44.56 10/08/2025 12:16 PM HEELER MACHINE Plan of Treatment Health Maintenance Due Date Last Done Comments Cervical Cancer Screening Pap Smear (Age 30 to 64) Every 3 Years 1984 COVID-19 Vaccine (#1) 1989 Hepatitis C 2002 Hepatitis B Vaccines (1 of 3 - 19+ 3-dose series) 2003 Pneumococcal Vaccine: Pediatrics (0 to 5 Years) and At-Risk Patients (6 to 49 Years) (1 of 2 - PCV) 2003 HPV Vaccines (1 - Risk 3-dose SCDM series) 2011 Cervical Cancer Screening Pap with HPV Testing (Age 30 to 64) Every 5 Years 2014 Cervical Cancer Screening with HPV 2014 Influenza Adult (#1) 2025 10/08/2019, 10/08/20 19 Annual Physical 09/02/2025 09/02/2024, 10/10/2022 Mammogram Screening 07/19/2027 07/19/2025, 03/23/2020, 03/23/2020, Additional history exists DTaP, Tdap and Td Vaccines (3 - Td or Tdap) 12/22/2032 12/22/2022, 01/05/2017 PHQ-2 (Physician [place]) Completed 10/08/2025 Hepatitis A Vaccines Aged Out No long er eligible based on patient's age to complete this topic Meningococcal B Vaccine Aged Out No l onger eligible based on patient's age to complete this topic Meningococcal Vaccine Aged Out No pauline oliver eligible based on patient's age to complete this topic RSV Immunizations Under 20 Months Aged Out No longer eligible based on patient's age to complete this topic Goals Goal Patient Goal Type Associated Problems Recent Progress Patient-Stated? Author Family - family caregiver with be involved in care transitions and discharge planning General No Amanda Gifford TARGET DEVELOPER Procedures Procedure Name Priority Date/Time Associated Diagnosis Comments MG SCREENING W TAWANNA SUN DIGI Routine 07/19/2025 1:05 PM CDT Encounter for screening mammogram for malignant neoplasm of breast from Last 3 Months Results * MG SCREENING W TAWANNA SUN DIGI (07/19/2025 1:05 PM CDT) Anatomical Region Laterality Modality Breast Bilateral Mammography 07/19/2025 4:36 PM CDT Impressions 07/19/2025 4:39 PM CDT ===== IMPRESSION: ===== 1. Stable mammographic appearance with no new findings to suggest malignancy in either breast. Assessment: ACR BI-RADS 1 - NEGATIVE Recommendation: 1:Routine Screening Bilateral Comments: Ordered By: SHAY JOHNSTON Interpreted By: Edith Gao, 07/19/2025 4:36 PM Narrative 07/19/2025 4:39 PM CDT [facility] [place] [place] [address] EXAMINATION: Digital bilateral screening mammogram with 3-D [...] calcifications in either breast to suggest malignancy. us Shay Johnston DO MAMMO Final Resu lt from Last 3 Months Additional Health Concerns Infection Onset Date Last Indicated MRSA Comment:04/18/21 +MRSA Right Groin 04/19/2021 04/19/2021 Insurance [place] Advance Directives * Full Code (Latest Code [...] 10:33 PM 04/20/2021 3:46 PM Care Teams Gang Head Saw Operator Relationship Specialty Start Date End Date Krystle [place] [address] PCP - General NURSE PRACTITIONER 05/11/19
--- OUTSIDE RECORDS SUMMARY | 2025-10-13 13:56 | XMS_ITS | Encounter Summary ---
Author Organization [facility] Address [facility] [place] [address] Care Team Providers Care Knurling Machine Operator Name Role Phone Elmer Arvizua DOUGLAS Primary Care Provider [phone] Encounter Details Date Type Department Care Team (Late st Contact Info) Description 01/05/2020 [facility] Patient Accounts [address] [place] [address] [facility] Provider account balance Social History [...] documented as of this encounter Care Teams Knurling Machine Operator Relationship Specialty Start Date End Date Krystle [place] [address] PCP - General NURSE PRACTITIONER 05/11/19 documented as of this encounter
--- OUTSIDE RECORDS SUMMARY | 2025-10-13 13:56 | XMS_ITS | Encounter Summary ---
Author Organization [facility] Address [address] [place] [address] Phone Care Team Providers Care Storage And Backup Administrator Name Role Phone Krystle Arvizu APRN Primary Care Provider [phone] Adonis Bowers DO Unavailable Encounter Details Date Type Department Care Team (Late st Contact Info) Description 05/15/2024 Telephone [facility] [address] [place] [address] Adonis Bowers, DO [address] [place] [address] Social History Tobacco Use Types [...] documented as of this encounter Care Teams Storage And Backup Administrator Relationship Specialty Start Date End Date Krystle Arvizu APRN [address] [place] [address] PCP - General Advanced Practice Nurse 05/26/19 Adonis Bowers DO [address] [place] [phone] Consulting Physician Hematology 09/30/20 documented as of this encounter
[2025-10-13 15:19] LABS: Hematocrit 42.2 % (37.0-47.0); Hemoglobin 14.3 g/dL (12.0-15.0); Mean Corpuscular HGB Conc 33.9 g/dl (32-36); Mean Corpuscular Hemoglobin 31.6 pg (26-34); Mean Corpuscular Volume 93.2 fl (80-100); Platelet Count Result 490 k/mm3 (150-375); Red Blood Count 4.53 M/mm3 (4.2-5.4); White Blood Count 7.8 K/mm3 (4.5-10.0)
[2025-10-13 16:47] LABS: Alanine Aminotransferase 23 U/L (6-35); Albumin Level 4.5 g/dL (3.5-5.1); Alkaline Phosphatase 68 U/L (38-126); Anion Gap 7 mmol/L (4-12); Aspartate Amino Transferase 34 U/L (14-36); Bilirubin,Total 1.4 mg/dL (0.2-1.3); Blood Urea Nitrogen 8 mg/dL (7-17); CRP < 0.5 mg/dL (<1.0); Calcium 9.7 mg/dL (8.4-10.2); Carbon Dioxide 27 mmol/L (22-30); Chloride 103 mmol/L (98-107); Estimated Glomerular Filt Rate > 60; Glucose 87 mg/dL (65-110); Potassium 3.4 mmol/L (3.4-5.0); Sodium 137 mmol/L (137-145); Total Protein 8.4 g/dL (6.3-8.2)
[2025-10-13 17:16] LABS: Hepatitis B Surface Antigen Negative (Negative)
[2025-10-13 17:35] LABS: Hepatitis B Surface Anti Res Positive
[2025-10-14 09:08] LABS: Hep B Core Ab, Total Negative (Negative)
== END 2025-10-13 13:53 | disposition home or self-care (01) ==
LOC: ANHLAB 13:54
PROVIDERS: PCP Nurse Practitioner; Visit Provider Nurse Practitioner Family
DX: K51.90 Ulcerative colitis, unspecified, without complications (principal); R19.7 Diarrhea, unspecified
CPT/HCPCS: 36415; 80053; 85027; 85652; 86140; 86480; 86704; 86706; 87340